=== PATIENT | female | born 1945 | race Caucasian/White ===

== ENCOUNTER 2024-07-04 00:50 | Emergency (ER) | payer MEDICARE, SELFPAY ==
--- NOTE | ~2024-07-04 | XR_ITS ---
XR hip LT 2V w AP pelvis DATE: 07/04/2024 01:41 INDICATION: Fall. Left hip pain, bruising, swelling. TECHNIQUE: AP pelvis. AP and lateral views of the left hip. COMPARISON: None FINDINGS: There is a linear lucency at the lateral aspect of the left femoral greater trochanter; an acute linear nondisplaced fracture of the left greater trochanter and possible occult intertrochanter ic fracture is not excluded. Consider CT left hip for further evaluation. An antegrade nail and compression screw screw extending into the femoral head are noted on the right for fixation of an old intertrochanteric hip fracture. Normal alignment at the pubic symphysis and sacroiliac joints. No pelvic fracture or bone destruction is evident. Degenerative disc disease is noted particularly at L5-S1. There is severe right and mild left hip osteoarthritis. Osteopenia. IMPRESSION: Cannot exclude linear nondisplaced left greater trochanteric (or possible associated occu lt intertrochanteric) fracture; CT left hip examination is recommended (Dr. Quinones telephoned this rec ommendation on 07/04/2024 at [address] ER physician Dr. Mitchell.) Status post ORIF right intertrochanteric hip fracture Bilateral hip osteoarthritis, particularly severe on the right Reviewed, dictated and finalized at location [facility] [employer] IMPRESSION: Cannot exclude linear nondisplaced left greater trochanteric (or po ssible associated occult intertrochanteric) fracture; CT left hip examination i s recommended (Dr. Quinones telephoned this recommendation on 07/04/2024 at 0726 h ours to ER physician Dr. Mitchell.) Status post ORIF right intertrochanteric hip fracture Bilateral hip osteoarthritis, particularly severe on the right
[2024-07-04 00:52] VITALS: BP 120/74; PULSE 92; RESP 15; TEMP 36.6; O2SAT 97
--- NOTE | 2024-07-04 01:21 | ED.FALL ---
HPI - Fall General Chief Complaint: Fall Stated Complaint: HIP PAIN & HEMATOMA S/P FALL Time Seen by Provider: 07/04/24 01:14 Source: patient Mode of arrival: EMS Limitations: no limitations History of Present Illness HPI Narrative: This is a 78-year-old female who presents to the ED via EMS for chief complaint of ground level fall that occurred around 6:00 p.m. tonmariely. Patient reports that she lost her footing/missteped and landed onto her left side. Reports pain to the left posterior hip/buttock. Reports an area of bruising that has grown and family was concerned because she is on a blood thinner. States that she was able to walk with her walker but with pain. Denies numbness, weakness, he further site of injury. Related Data Allergies Allergy/AdvReac Type Severity Reaction Status Date / Time No Known Allergies Allergy Mild Verified 07/04/24 00:57 Review of Systems Review of Systems: All systems as dictated in HPI Exam Narrative: GENERAL: Well-appearing, well-nourished, and in no acute distress. HEAD: Normocephalic, atraumatic. EYES: PERRLA and EOMI. ENT: Nares clear, no rhinorrhea or epistaxis. Mucous membranes moist. Oropharynx without tonsillar hypertrophy exudate or other lesions. NECK: Supple. No adenopathy or masses. CHEST: No respiratory distress. Clear to auscultation. No wheezes rales or rhonchi HEART: Regular rate and rhythm. No murmur heard. Normal peripheral pulses. ABDOMEN: Soft, nontender, nondistended, normal active bowel sounds. MSK: Left lateral hip tenderness. No pain in the hip with log roll of the leg. Normal range of motion. Mild ecchymosis to left lateral posterior hip/thigh SKIN: 4-5 cm soft tissue hematoma noted to the left lateral thigh proximal. NEURO: Alert and oriented x4. No focal deficits. PSYCH: Normal mood and affect. Course Vital Signs Vital signs: Vital Signs Temperature 97.8 F 07/04/24 00:52 Pulse Rate 92 07/04/24 00:52 Respiratory Rate 15 07/04/24 00:52 Blood Pressure 120/74 07/04/24 00:52 Pulse Oximetry 97 07/04/24 00:52 Oxygen Delivery Room Air 07/04/24 00:52 Temperature 97.8 F 07/04/24 00:52 Pulse Rate 92 07/04/24 00:52 Respiratory Rate 15 07/04/24 00:52 Blood Pressure 120/74 07/04/24 00:52 Pulse Oximetry 97 07/04/24 00:52 Oxygen Delivery Room Air 07/04/24 00:52 MDM - Fall MDM Narrative Medical decision making narrative: This is a 78-year-old female who presents to the ED for chief complaint of left hip pain and bruising after a fall 6 hours prior to arrival. Vitals are normal. Exam shows small soft tissue hematoma on the left posterolateral thigh. Left hip x-rays: No acute osseous abnormality seen. Low suspicion for a significant bleed based on physical exam today. Area of ecchymosis/hematoma is 4 - 5 cm and has not grown during time in the ED. She is ambulatory with walker. Patient will be discharged in stable condition. Supportive measures discussed and return precautions given. Patient is understanding and agreeable with plan for discharge with PCP follow-up. Discharge Plan Discharge Clinical Impression: Hematoma of left thigh Patient Disposition: Home, Self-Care Condition: Stable Instructions: Antibiotic Form, Hematoma (ED) Additional Instructions: Exam and imaging today are reassuring. No fractures. There is a soft tissue hematoma which will resorb over time. If you have any new or worsening symptoms please return to the ER for further evaluation. Follow-up/Referrals: Yefri,Rios Garsia MD [Primary Care Provider] - Time of Disposition: 02:27
[2024-07-04 03:41] VITALS: BP 128/74; PULSE 81; RESP 15; O2SAT 98
== END 2024-07-04 03:42 | disposition home or self-care (01) ==
PROVIDERS: Emergency Provider Physician Assistant; PCP Internal Medicine
DX: S70.12XA Contusion of left thigh, initial encounter (principal); W01.0XXA Fall on same level from slipping, tripping and stumbling without subsequent striking against object, initial encounter
CPT/HCPCS: 73502; 99283

== ENCOUNTER 2024-07-04 09:53 | Observation (INO) | payer MEDICARE, SELFPAY ==
--- NOTE | ~2024-07-04 | CT_ITS ---
EXAMINATION: CT pelvis wo con DATE: 07/04/2024 10:10 INDICATION: Left hip pain and hematoma post fall TECHNIQUE: High resolution computed tomography (CT) of the pelvis was performed without intravenous c ontrast. Additional sagittal and coronal reconstructions were performed. Automated exposure control a nd iterative reconstruction technique were employed. The dose-length product was 186.66 mGy-cm. COMPARISON: Radiographs dated 07/04/2024 FINDINGS: Nondisplaced mildly comminuted fracture extending across the greater trochanter of the proximal left femur with no evident extension across the weightbearing axis of the left femur. There is an overlyin g small contusion in the subcutaneous fat posterior lateral to the left greater trochanter. [place] intertrochanteric fracture the proximal right femur with partially visualized antegrade intramedull edmundo johanna and femoral neck dynamic compression screw fixation. There is mild osteoarthritis at the left hip and moderate to severe likely secondary osteoarthritis at the right hip. There is ankylosis acro ss the bilateral sacroiliac joints. Severe lower lumbar spondylosis. 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 The uterus is not identified and h as likely been surgically resected. Bladder and visualized portion of the bowels are unremarkable. No free fluid in the pelvis. No pathologically enlarged pelvic or inguinal lymphadenopathy. IMPRESSION: 1. Nondisplaced mildly comminuted fracture of the left greater trochanter which does not compromise t he weightbearing axis of the femur. 2. Moderate to severe likely secondary osteoarthritis at the right hip with internal fixation of an o ld healed right intertrochanteric fracture which is healed in near-anatomic alignment. Reviewed, dictated and finalized at location A. SHEET MAKER IMPRESSION: 1. Nondisplaced mildly comminuted fracture of the left greater trochanter which does not compromise the weightbearing axis of the femur. 2. Moderate to severe likely secondary osteoarthritis at the right hip with int ernal fixation of an old healed right intertrochanteric fracture which is heale d in near-anatomic alignment.
--- NOTE | ~2024-07-04 | CT_ITS ---
EXAMINATION: CT cervical spine wo con DATE: 07/04/2024 10:51 INDICATION: Fall. Head injury. TECHNIQUE: Computed tomography (CT) of the cervical spine was performed without intravenous contrast. Automated exposure control and iterative reconstruction technique were employed. Exam dose: 176.82 mGy-cm total exam DLP. COMPARISON: None FINDINGS: There is reversal of cervical curvature which may be due to muscle spasm. There is normal alignment at the atlantoaxial joints. There there is severe degenerative change at the articulation of the anterior arch of C1 and odontoid process of C2. C1 and C2 are normally aligned and the odontoid process is intact. There is mild anterolisthesis at C2-3 and C3-4. There is multilevel degenerative disc disease of the cervical spine, mild at C2-3 and C3-4, moderate at C4-5, severe at C5-6 with associated mild retrolisthesis, moderately severe at C6-7. There is severe degenerative change of the facet joints throughout the cervical spine. There is degenerative change at the uncovertebral joints, particularly prominent at C4-5 and C5-6. No fracture or dislocation or locked facet or prevertebral soft tissue swelling. Incidentally noted are prominent emphysematous changes of the lungs in addition to bilateral apical s carring. Approximately 11.8 x 13.5 mm nodule of the right lobe of the thyroid gland. Approximately 8 x 12 mm soft tissue density at the superolateral aspect of the left lobe of the thyro id gland. No cervical mass lesion or lymphadenopathy is noted otherwise.. IMPRESSION: Reversal of cervical curvature which may be due to muscle spasm Severe cervical spondylosis No fracture or dislocation or locked facet Emphysema Bilateral apical pulmonary scarring 8 x 12 mm soft tissue density at the superolateral aspect of the left thyroid lobe 11.8 x 13.5 mm right thyroid nodule Reviewed, dictated and finalized at [facility]. Reviewed, dictated and finalized at location A. CIATE STORE MANAGER IMPRESSION: Reversal of cervical curvature which may be due to muscle spasm Severe cervical spondylosis No fracture or dislocation or locked facet Emphysema Bilateral apical pulmonary scarring 8 x 12 mm soft tissue density at the superolateral aspect of the left thyroid l obe 11.8 x 13.5 mm right thyroid nodule
--- NOTE | ~2024-07-04 | CT_ITS ---
EXAMINATION: CT brain wo con DATE: 07/04/2024 10:51 INDICATION: Fall. Head injury. TECHNIQUE: Computed tomography (CT) of the head was performed without intravenous contrast. The mA wa s adjusted according to patient size. Iterative reconstruction technique was employed. Exam dose: 52 9.67 mGy-cm total exam DLP. COMPARISON: None FINDINGS: Dominant left vertebral artery with prominent arterial calcification. Prominent bilateral carotid siphon internal carotid artery calcification. There is patchy bilateral diminished attenuation of the cerebral white matter, likely due to chronic small vessel ischemic changes. There is moderately prominent central and cortical cerebral and cerebellar volume loss. No intracranial mass lesion or hemorrhage, midline shift or mass effect is detected. No subdural or epidural hematoma is detected. No orbital mass lesion. The included mastoid air cells and paranasal sinuses are normally developed and aerated. No fracture or bone destruction of the cranial vault. IMPRESSION: Cerebral atherosclerosis and chronic small vessel ischemic changes of the cerebral white matter Moderately prominent cerebral and cerebellar atrophy No skull fracture or acute intracranial finding Reviewed, dictated and finalized at [facility]. Reviewed, dictated and finalized at location A. CE MACHINERY OR EQUIPMENT INSTALLER
--- NOTE | 2024-07-04 10:38 | ED_ITS ---
HPI - Extremity Injury (Lower) General Chief Complaint: Extremity Injury, Lower Stated Complaint: was told to come to ED for more Xrays on L hip Time Seen by Provider: 07/04/24 10:18 Source: patient Mode of arrival: wheelchair Limitations: no limitations History of Present Illness HPI Narrative: This is an 78-year-old female that presents to the emergency department after a fall last night with left hip injury. She was seen in the ER. Had x-rays which were negative. Over-read by radiologist showing a possible fracture. She is back for further imaging of her hip. She does also report she hit her head when she fell. She did not lose consciousness. She takes clopidogrel. Denies focal numbness or weakness. Related Data Allergies Allergy/AdvReac Type Severity Reaction Status Date / Time No Known Allergies Allergy Mild Verified 07/04/24 09:54 Review of Systems Review of Systems: CONSTITUTIONAL: Denies fever EYES: Denies visual changes GASTROINTESTINAL: Denies vomiting MUSCULOSKELETAL: Reports joint pain and myalgias. Denies back pain NEUROLOGIC: Denies numbness, or weakness. All systems reviewed & are unremarkable except as noted in HPI and below PMFSH Past Medical History Medical History (Updated 07/04/24 @ 13:40 by Elham Gill PA-C) History of CAD (coronary artery disease) Social History Social History (Updated 07/04/24 @ 10:43 by Elham Gill PA-C) Smoking status: Never smoker Exam Narrative: GENERAL: Elderly, well-nourished, and in no acute distress. HEAD: Normocephalic, atraumatic. EYES: PERRLA and EOMI. ENT: Nares clear, no rhinorrhea or epistaxis. Mucous membranes moist. Oropharynx without tonsillar hypertrophy exudate or other lesions. Bilateral TMs pearly saucedo non-bulging NECK: Supple. No adenopathy or masses. CHEST: Clear to auscultation. No respiratory distress. No wheezes rales or rhonchi HEART: Regular rate and rhythm. No murmur heard. Normal peripheral pulses. EXTREMITIES: Normal range of motion. Hematoma to the left lateral thigh. Normal DP pulses SKIN: Warm, dry, no rash. NEURO: No focal deficits. Alert and oriented x3. PSYCH: Normal mood and affect Course Course Emergency Course: Patient and family were updated on her workup. She does live home alone, uncomfortable with her going home. Consultations Consultation #1: Spoke with care coordination. Due to patient's insurance we will not be able to place her from the ER. Will need to be admitted Date: 07/04/24 Consultation #2: Spoke with Orthopedics about patient and workup. She may be weight-bearing as tolerated. No acute surgical intervention needed at this time Date: 07/04/24 Consultation #3: spoke with hospitalist about patient and workup who accepts admission Date: 07/04/24 Vital Signs Vital signs: Vital Signs Temperature 97 F L 07/04/24 10:57 Pulse Rate 75 07/04/24 10:57 Respiratory Rate 16 07/04/24 10:57 Blood Pressure 146/70 H 07/04/24 10:57 Pulse Oximetry 97 07/04/24 10:57 Temperature 97 F L 07/04/24 10:57 Pulse Rate 78 07/04/24 12:21 Respiratory Rate 16 07/04/24 12:21 Blood Pressure 120/81 07/04/24 12:21 Pulse Oximetry 99 07/04/24 12:21 MDM - Extremity Injury (Lower) MDM Narrative Medical decision making narrative: Patient presents to the emergency department after a fall last night with left hip pain. Patient had an over-read by Radiology which showed a possible fracture. Presents for further evaluation. CT of the pelvis obtained today Which does show a nondisplaced mildly comminuted fracture of the left greater trochanter. This does not compromise the weight-bearing axis of the femur. Moderate to severe right hip osteoarthritis. Patient did endorse hitting her head last night. CT brain without acute findings. CT cervical spine without acute osseous abnormalities. Does show thyroid nodules. Spoke with Orthopedics about patient and workup. She may be weight-bearing as tolerated. No acute surgical intervention needed at this time. Patient and family were updated on her workup. She does live home alone, uncomfortable with her going home. Spoke with care coordination. Due to patient's insurance we will not be able to place her from the ER. Will need to be admitted. Spoke with hospitalist about patient and workup who accepts admission Differential Diagnosis Differential diagnosis: Likely other ( hip fracture, hip sprain, subdural hematoma, concussion) Lab Data Attestation: I reviewed the patient's lab results. 07/04/24 12:00 07/04/24 12:00 Labs: Lab Results 07/04/24 Range/Units 12:00 WBC 5.4 (4.5-10.0) K/mm3 RBC 4.41 (4.2-5.4) M/mm3 Hgb 11.8 L (12.0-15.0) g/dL Hct 36.1 L (37.0-47.0) % MCV 81.9 (80-100) fl MCH 26.8 (26-34) pg MCHC 32.7 (32-36) g/dl RDW 16.2 H (11.5-14.5) % Plt Count 137 L (150-375) k/mm3 MPV 9.7 (7.4-10.4) fl Immature Gran % (Auto) 0.4 (0-0.5) % Neut % (Auto) 74.6 H (45.5-73.1) % Lymph % (Auto) 13.6 L (18.3-44.2) % [place] % (Auto) 8.8 H (2.6-8.5) % Eos % (Auto) 2.2 (0-4.4) % Baso % (Auto) 0.4 (0.2-1.2) % Lymph # (Auto) 0.73 L (0.9-3.2) K/mm3 [place] # (Auto) 0.5 (0.1-0.6) K/mm3 Eos # (Auto) 0.1 (0-0.3) K/mm3 Baso # (Auto) 0.0 (0.0-0.1) K/mm3 Abs Immat Gran (auto) 0.02 (0.00-0.031) K/mm3 Absolute Neuts (auto) 4.0 (1.3-6.7) K/mm3 Absolute Nucleated RBC 0.000 (0.0-0.012) K/mm3 Nucleated RBC % 0.0 (0.0-0.2) % Sodium 133 L (137-145) mmol/L Potassium 3.8 (3.4-5.0) mmol/L Chloride 102 (98-107) mmol/L Carbon Dioxide 23 (22-30) mmol/L Anion Gap 8 (4-12) mmol/L BUN 24 H (7-17) mg/dL Creatinine 0.80 (0.7-1.0) mg/dL Estim Creat Clear Calc 47 ml/min Estimated GFR > 60 (59 - ) Glucose 97 (65-110) mg/dL Calcium 9.1 (8.4-10.2) mg/dL Imaging Data Radiologist's impression: ITS Impressions Pelvis CT 07/04/24 10:13 IMPRESSION: 1. Nondisplaced mildly comminuted fracture of the left greater trochanter which does not compromise the weightbearing axis of the femur. 2. Moderate to severe likely secondary osteoarthritis at the right hip with internal fixation of an old healed right intertrochanteric fracture which is healed in near-anatomic alignment. Head CT 07/04/24 10:52 IMPRESSION: Cerebral atherosclerosis and chronic small vessel ischemic changes of the cerebral white matter Moderately prominent cerebral and cerebellar atrophy No skull fracture or acute intracranial finding Cervical Spine CT 07/04/24 10:58 IMPRESSION: Reversal of cervical curvature which may be due to muscle spasm Severe cervical spondylosis No fracture or dislocation or locked facet Emphysema Bilateral apical pulmonary scarring 8 x 12 mm soft tissue density at the superolateral aspect of the left thyroid lobe 11.8 x 13.5 mm right thyroid nodule Critical Care Time Critical Care Time Critical Care Time: No Discharge Plan Discharge Clinical Impression: Closed fracture of greater trochanter of left femur, Thyroid nodule Patient Disposition: Still a Patient Condition: Stable
[2024-07-04 10:57] VITALS: BP 146/70; PULSE 75; RESP 16; TEMP 36.1; O2SAT 97
[2024-07-04 12:11] LABS: Basophils Percent Auto 0.4 % (0.2-1.2); Eosinophils Absolute Auto 0.1 K/mm3 (0-0.3); Eosinophils Percent Auto 2.2 % (0-4.4); Hematocrit 36.1 % (37.0-47.0); Hemoglobin 11.8 g/dL (12.0-15.0); Immature Granulocyte Absolute 0.02 K/mm3 (0.00-0.031); Immature Granulocyte Percent A 0.4 % (0-0.5); Lymphocytes Absolute Auto 0.73 K/mm3 (0.9-3.2); Lymphocytes Percent Auto 13.6 % (18.3-44.2); Mean Corpuscular HGB Conc 32.7 g/dl (32-36); Mean Corpuscular Hemoglobin 26.8 pg (26-34); Mean Corpuscular Volume 81.9 fl (80-100); Mean Platelet Volume 9.7 fl (7.4-10.4); Monocytes Absolute Auto 0.5 K/mm3 (0.1-0.6); Monocytes Percent Auto 8.8 % (2.6-8.5); Neutrophils Percent Auto 74.6 % (45.5-73.1); Platelet Count Result 137 k/mm3 (150-375); Red Blood Count 4.41 M/mm3 (4.2-5.4); Red Cell Distribution Width 16.2 % (11.5-14.5); White Blood Count 5.4 K/mm3 (4.5-10.0)
[2024-07-04 12:21] VITALS: BP 120/81; PULSE 78; RESP 16; O2SAT 99
[2024-07-04 12:21] LABS: Anion Gap 8 mmol/L (4-12); Blood Urea Nitrogen 24 mg/dL (7-17); Calcium 9.1 mg/dL (8.4-10.2); Carbon Dioxide 23 mmol/L (22-30); Chloride 102 mmol/L (98-107); Estimated CRCL calculation 47 ml/min; Estimated Glomerular Filt Rate > 60; Glucose 97 mg/dL (65-110); Potassium 3.8 mmol/L (3.4-5.0); Sodium 133 mmol/L (137-145)
--- NOTE | 2024-07-04 13:00 | PC.NURSE ---
Report called to FERNANDO Heard. All questions answered at this time.
--- NOTE | 2024-07-04 13:15 | P.HP_ITS ---
H&P: HPI History of Present Illness Date/Time: 07/04/24 13:15 Chief Complaint: Fall and left hip pain Narrative: This is an 78-year-old female that presents to the emergency department after a fall last night with left hip injury her she lost her footing and landed on her left side. She reported an area of bruising in the area. Family was concerned because she was on a blood thinner and hence was brought to the ED for evaluation. She had x-ray done which is reported to be negative. Over-read by radiologist showing a possible fracture. She was discharged however came back to the ED due to pain. CT of her hip/pelvis showed nondisplaced mildly comminuted fracture of left greater trochanteric which does not compromise the weight-bearing axis of the femur. Severe likely secondary osteoarthritis of the right hip with internal fixation of the old healed right into fracture which is healed in near anatomic alignment. She is admitted in this setting for further treatment. Review of Systems Review of Systems: - CONSTITUTIONAL: Denies weight loss, fe julius and chills. - HEENT: Denies changes in vision and he aring - RESPIRATORY: Denies SOB and cough. - CV: Denies palpitations and CP. - GI: Denies abdominal pain, nausea, vom iting and diarrhea. - : Denies dysuria and urinary frequen cy. - MSK: Denies myalgia and joint pain. R eports left hip pain - SKIN: Denies rash and pruritus. - NEUROLOGICAL: Denies headache and sync ope. - PSYCHIATRIC: Denies recent changes in mood. Denies anxiety and depression. COUNT INCLUDES THE [facility] Past Medical History Medical History (Updated 07/04/24 @ 13:40 by Elham Gill PA-C) History of CAD (coronary artery disease) Family History Family History Sibling Hypertension Bladder cancer Social History Social History (Updated 07/04/24 @ 10:43 by Elham Gill PA-C) Years smoked: 20 Smoking status: Former smoker Tobacco type: cigarettes Second hand tobacco smoke exposure: Yes Smoking end date: 07/04/24 Alcohol intake: former Substance use: former Substance use type: marijuana Last use: 2019 Do You Feel Safe in your Home?: Yes Lack of Transportation: No Lack of Food: Never True Current Housing: I Have Housing Concerned About Future Housing: No Difficulty Paying Gas/Electric Bills: No Difficulty Paying for Meds: No Currently Unemployed: No Education: Decline to Answer Difficulty w/ Childcare or Family Care: No Spiritual care concerns: No Meds Home Medications and Allergies Allergies Allergy/AdvReac Type Severity Reaction Status Date / Time No Known Allergies Allergy Mild Verified 07/04/24 09:54 Vital Signs Vital Signs - 24 hr 07/04/24 10:57 07/04/24 12:21 Temperature 97 F L Pulse Rate 75 78 Respiratory Rate 16 16 Blood Pressure 146/70 H 120/81 Pulse Oximetry 97 99 Exam Narrative: GENERAL: Elderly, well-nourished, and in no acute distress. HEAD: Normocephalic, atraumatic. EYES: PERRLA and EOMI. ENT: Nares clear, no rhinorrhea or epistaxis. Mucous membranes moist. NECK: Supple. No adenopathy or masses. CHEST: Clear to auscultation. No respiratory distress. No wheezes rales or rhonchi HEART: Regular rate and rhythm. No murmur heard. Normal peripheral pulses. EXTREMITIES: Normal range of motion. Hematoma to the left lateral hip. Normal DP pulses SKIN: Warm, dry, no rash. NEURO: No focal deficits. Alert and oriented x3. PSYCH: Normal mood and affect H&P: Results Labs Labs: Short CBC 07/04/24 Range/Units 12:00 WBC 5.4 (4.5-10.0) K/mm3 Hgb 11.8 L (12.0-15.0) g/dL Hct 36.1 L (37.0-47.0) % Plt Count 137 L (150-375) k/mm3 [facility] 07/04/24 12:00 Sodium 133 L Potassium 3.8 Chloride 102 Carbon Dioxide 23 BUN 24 H Creatinine 0.80 Glucose 97 Calcium 9.1 Assessment and Plan Assessment and plan (1) Hematoma of left thigh: Code(s): S70.12XA - Contusion of left thigh, initial encounter Status: Acute (2) Fracture of greater trochanter of femur: Code(s): S72.113A - Displaced fracture of greater trochanter of unspecified femur, initial encounter for closed fracture Status: Acute (3) Fall: Code(s): W19.XXXA - Unspecified fall, initial encounter Status: Acute Plan This is an 78-year-old female that presents to the emergency department after a fall last night with left hip injury her she lost her footing and landed on her left side. She reported an area of bruising in the area. Family was concerned because she was on a blood thinner and hence was brought to the ED for evaluation. She had x-ray done which is reported to be negative. Over-read by radiologist showing a possible fracture. She was discharged however came back to the ED due to pain. CT of her hip/pelvis showed nondisplaced mildly comminuted fracture of left greater trochanteric which does not compromise the weight-bearing axis of the femur. Severe likely secondary osteoarthritis of the right hip with internal fixation of the old healed right into fracture which is healed in near anatomic alignment. She is admitted in this setting for further treatment. Orthopedics has been consulted. Non operative management planned. PT OT evaluation and pain control. Weight-bearing as tolerated Coronary artery disease status post PCI last in June 06, 2024 status post CABG x2 2019 History of autoimmune hepatitis Diverticulosis Hypertension Peripheral arterial disease Status post mitral valve Sjogren syndrome COPD/emphysema Lung nodules Valvular heart disease Obstructive sleep apnea DVT prophylaxis Lovenox Code status full code Hospitalist [facility] [place] Advance Care Plan I have confirmed that the patient's Advanced Care Plan is present, code status is documented, or surrogate decision maker is listed in patient medical record.: Yes Medication Reconciliation I have utilized all available resources to obtain, update and review the patients current medications (includes all prescriptions, OTC, herbals, cannabis, and nutritional supplements).: Yes
[2024-07-04 13:25] VITALS: BMI 21.2
--- NOTE | 2024-07-04 13:25 | PC.NURSE ---
This patient, Zoraida Tobias, was admitted to 3 [facility] Surg Room 321-01. Patient/family oriented to hospital policies and general routines including ID bracelet, bed and alarms, visiting hours, pain management, procedures, bathroom and other care routines, personal items, smoking policy, room service/diet, and visiting hours. Information on how to activate the Rapid Response Team has been discussed. Patient/Family are encouraged to report perceived risks to care and to ask questions if they do not understand what they are told or what they should do.
[2024-07-04 14:00] VITALS: BP 131/77; PULSE 86; RESP 20; TEMP 37; O2SAT 101
[2024-07-04 16:11] LABS: Glucose Point of Care 73 mg/dl (65-105)
[2024-07-04 17:00] LABS: Glucose Point of Care 143 mg/dl (65-105)
[2024-07-04 20:30] VITALS: BP 140/77; PULSE 85; RESP 20; TEMP 36.9; O2SAT 95
[2024-07-04 20:39] LABS: Glucose Point of Care 117 mg/dl (65-105)
[2024-07-04 21:30] VITALS: PULSE 84; O2SAT 96
--- NOTE | 2024-07-04 21:35 | PC.NURSE ---
Per patient, she takes her lorazepam at night. Pharmacy notified. Administration time adjusted.
[2024-07-05] MEDS: LORazepam (*CRX) 0.5 MG TABLET PO ×2 (00:55→21:18)
[2024-07-05 05:28] VITALS: BP 137/71; PULSE 86; RESP 18; TEMP 36.9; O2SAT 96
[2024-07-05 07:38] LABS: Glucose Point of Care 106 mg/dl (65-105)
[2024-07-05] MEDS: CALCIUM/VITAMIN D 500 MG/5 MCG (200 I.U.) TABLET PO (09:12)
[2024-07-05] MEDS: ASPIRIN 81 MG CHEWABLE TABLET PO (09:12)
[2024-07-05] MEDS: PANTOPRAZOLE 40 MG TABLET PO (09:12)
[2024-07-05] MEDS: ROSUVASTATIN 20 MG TABLET PO (09:12)
[2024-07-05] MEDS: CLOPIDOGREL BISULFATE 75 MG TABLET PO (09:12)
--- NOTE | 2024-07-05 11:00 | P.PNIM_ITS ---
Progress Note: A&P Assessment and Plan (1) Hematoma of left thigh: Code(s): S70.12XA - Contusion of left thigh, initial encounter Status: Inactive (2) Fracture of greater trochanter of femur: Code(s): S72.113A - Displaced fracture of greater trochanter of unspecified femur, initial encounter for closed fracture Status: Acute (3) Fall: Code(s): W19.XXXA - Unspecified fall, initial encounter Status: Acute Plan This is an 78-year-old female that presents to the emergency department after a fall last night with left hip injury her she lost her footing and landed on her left side. She reported an area of bruising in the area. Family was concerned because she was on a blood thinner and hence was brought to the ED for evaluation. She had x-ray done which is reported to be negative. Over-read by radiologist showing a possible fracture. She was discharged however came back to the ED due to pain. CT of her hip/pelvis showed nondisplaced mildly comminuted fracture of left greater trochanteric which does not compromise the weight-bearing axis of the femur. Severe likely secondary osteoarthritis of the right hip with internal fixation of the old healed right into fracture which is healed in near anatomic alignment. She is admitted in this setting for further treatment. Orthopedics has been consulted. Non operative management planned. PT OT evaluation and pain control. Weight-bearing as tolerated Coronary artery disease status post PCI last in June 06, 2024 status post CABG x2 2019 History of autoimmune hepatitis Diverticulosis Hypertension Peripheral arterial disease Status post mitral valve Sjogren syndrome COPD/emphysema Lung nodules Valvular heart disease Obstructive sleep apnea DVT prophylaxis Lovenox Code status full code Subjective Date/time seen: 07/05/24 11:00 Interval history: No overnight events. No new complaints. Has not ambulated yet. Has not required any pain medication. Review of Systems Review of Systems: All systems reviewed & are unremarkable except as noted in HPI and below Exam Narrative: GENERAL: Elderly, well-nourished, and in no acute distress. HEAD: Normocephalic, atraumatic. EYES: PERRLA and EOMI. ENT: Nares clear, no rhinorrhea or epistaxis. Mucous membranes moist. NECK: Supple. No adenopathy or masses. CHEST: Clear to auscultation. No respiratory distress. No wheezes rales or rhonchi HEART: Regular rate and rhythm. No murmur heard. Normal peripheral pulses. EXTREMITIES: Normal range of motion. Hematoma to the left lateral hip. Normal DP pulses SKIN: Warm, dry, no rash. NEURO: No focal deficits. Alert and oriented x3. PSYCH: Normal mood and affect Objective Data Vital Signs Vital Signs: Vital Signs - 24 hr 07/04/24 12:21 07/04/24 14:00 07/04/24 14:00 Temperature 98.6 F Pulse Rate 78 86 Respiratory Rate 16 20 Blood Pressure 120/81 131/77 Pulse Oximetry 99 101 H Oxygen Delivery Room Air 07/04/24 20:00 07/04/24 20:30 07/04/24 21:30 Temperature 98.4 F Pulse Rate 85 84 Respiratory Rate 20 Blood Pressure 140/77 Pulse Oximetry 95 96 Oxygen Delivery Room Air Autopap 07/05/24 01:58 07/05/24 05:28 Temperature 98.4 F Pulse Rate 86 Respiratory Rate 18 Blood Pressure 137/71 Pulse Oximetry 96 Oxygen Delivery Autopap Intake/Output Intake/Output: Intake & Output 07/02/24 07/03/24 07/04/24 07/05/24 23:59 23:59 23:59 23:59 Intake Total 740 598 Output Total 1250 Balance -510 598 Meds/Results Medications: Active Medications Generic Name Dose Route Start Last Admin Trade Name Freq PRN Reason Stop Dose Admin Acetaminophen 650 mg 07/04/24 17:10 Acetaminophen 325 Mg Tablet PO Q8H PRN MILD PAIN/FEVER Hydrocodone Bitart/Acetaminophen 1 tab 07/04/24 12:06 Hydrocodone/Acetaminophen (*Crx) 5-325 Mg Tablet PO Q4H PRN Pain Rated 4-6 Albuterol 2 puff 07/04/24 17:06 Albuterol Sulfate (*Sp) Aerosol 1 Puff INHALATION Q6HRT PRN Shortness Of Breath Aspirin 81 mg 07/05/24 09:00 07/05/24 09:12 Aspirin 81 Mg Chewable Tablet PO 81 mg DAILY BRETT Administration Calcium Carbonate 500 mg 07/05/24 09:00 07/05/24 09:12 Calcium/Vitamin D 500 Mg/5 Mcg (200 I.U.) Tablet PO 500 mg DAILY BRETT Administration Clopidogrel Bisulfate 75 mg 07/05/24 09:00 07/05/24 09:12 Clopidogrel Bisulfate 75 Mg Tablet PO 75 mg QAM BRETT Administration Lorazepam 0.5 mg 07/04/24 22:00 07/05/24 00:55 Lorazepam (*Crx) 0.5 Mg Tablet PO 0.5 mg HS BRETT Administration Pantoprazole Sodium 40 mg 07/05/24 09:00 07/05/24 09:12 Pantoprazole 40 Mg Tablet PO 40 mg QAM BRETT Administration Rosuvastatin Calcium 20 mg 07/05/24 09:00 07/05/24 09:12 Rosuvastatin 20 Mg Tablet PO 20 mg QAM BRETT Administration Radiology Results: ITS Impressions Pelvis CT 07/04/24 10:13 IMPRESSION: 1. Nondisplaced mildly comminuted fracture of the left greater trochanter which does not compromise the weightbearing axis of the femur. 2. Moderate to severe likely secondary osteoarthritis at the right hip with internal fixation of an old healed right intertrochanteric fracture which is healed in near-anatomic alignment. Head CT 07/04/24 10:52 IMPRESSION: Cerebral atherosclerosis and chronic small vessel ischemic changes of the cerebral white matter Moderately prominent cerebral and cerebellar atrophy No skull fracture or acute intracranial finding Cervical Spine CT 07/04/24 10:58 IMPRESSION: Reversal of cervical curvature which may be due to muscle spasm Severe cervical spondylosis No fracture or dislocation or locked facet Emphysema Bilateral apical pulmonary scarring 8 x 12 mm soft tissue density at the superolateral aspect of the left thyroid lobe 11.8 x 13.5 mm right thyroid nodule Labs Labs: Laboratory Results - last 24 hr 07/04/24 07/04/24 07/04/24 12:00 16:05 16:57 WBC 5.4 RBC 4.41 Hgb 11.8 L Hct 36.1 L MCV 81.9 MCH 26.8 MCHC 32.7 RDW 16.2 H Plt Count 137 L MPV 9.7 Immature Gran % (Auto) 0.4 Neut % (Auto) 74.6 H Lymph % (Auto) 13.6 L Bartholomew % (Auto) 8.8 H Eos % (Auto) 2.2 Baso % (Auto) 0.4 Lymph # (Auto) 0.73 L Bartholomew # (Auto) 0.5 Eos # (Auto) 0.1 Baso # (Auto) 0.0 Abs Immat Gran (auto) 0.02 Absolute Neuts (auto) 4.0 Absolute Nucleated RBC 0.000 Nucleated RBC % 0.0 Sodium 133 L Potassium 3.8 Chloride 102 Carbon Dioxide 23 Anion Gap 8 BUN 24 H Creatinine 0.80 Estim Creat Clear Calc 47 Estimated GFR > 60 Glucose 97 POC Capillary Glucose 73 143 H Calcium 9.1 07/04/24 07/05/24 20:34 07:22 WBC RBC Hgb Hct MCV MCH MCHC RDW Plt Count MPV Immature Gran % (Auto) Neut % (Auto) Lymph % (Auto) Bartholomew % (Auto) Eos % (Auto) Baso % (Auto) Lymph # (Auto) Bartholomew # (Auto) Eos # (Auto) Baso # (Auto) Abs Immat Gran (auto) Absolute Neuts (auto) Absolute Nucleated RBC Nucleated RBC % Sodium Potassium Chloride Carbon Dioxide Anion Gap BUN Creatinine Estim Creat Clear Calc Estimated GFR Glucose POC Capillary Glucose 117 H 106 H Calcium
[2024-07-05 11:35] LABS: Glucose Point of Care 108 mg/dl (65-105)
[2024-07-05] MEDS: ACETAMINOPHEN 325 MG TABLET 650 MG PO ×2 (13:49→21:22)
[2024-07-05 14:00] VITALS: BP 121/70; PULSE 82; RESP 18; TEMP 36.4; O2SAT 95
[2024-07-05 16:44] LABS: Glucose Point of Care 80 mg/dl (65-105)
[2024-07-05 22:00] VITALS: BP 134/59; PULSE 75; RESP 16; TEMP 35.9; O2SAT 97
[2024-07-05 22:50] LABS: Glucose Point of Care 86 mg/dl (65-105)
[2024-07-05 23:18] VITALS: PULSE 80; O2SAT 97
[2024-07-06 06:00] VITALS: BP 124/52; PULSE 71; RESP 14; TEMP 36.3; O2SAT 98
[2024-07-06 08:12] LABS: Glucose Point of Care 81 mg/dl (65-105)
[2024-07-06 09:20] VITALS: PULSE 75; RESP 18
[2024-07-06] MEDS: ALBUTEROL SULFATE (*SP) AEROSOL 1 PUFF 2 PUFF INHALATION (09:20)
[2024-07-06] MEDS: CALCIUM/VITAMIN D 500 MG/5 MCG (200 I.U.) TABLET PO (09:21)
[2024-07-06] MEDS: ASPIRIN 81 MG CHEWABLE TABLET PO (09:21)
[2024-07-06] MEDS: ROSUVASTATIN 20 MG TABLET PO (09:22)
[2024-07-06] MEDS: PANTOPRAZOLE 40 MG TABLET PO ×2 (09:22→12:32)
[2024-07-06] MEDS: CLOPIDOGREL BISULFATE 75 MG TABLET PO (09:22)
[2024-07-06] MEDS: ACETAMINOPHEN 325 MG TABLET 650 MG PO (09:22)
[2024-07-06 11:40] LABS: Glucose Point of Care 96 mg/dl (65-105)
--- NOTE | 2024-07-06 12:08 | PM.IMPN ---
Progress Note: A&P Assessment and Plan (1) Hematoma of left thigh: Code(s): S70.12XA - Contusion of left thigh, initial encounter Status: Inactive (2) Fracture of greater trochanter of femur: Code(s): S72.113A - Displaced fracture of greater trochanter of unspecified femur, initial encounter for closed fracture Status: Acute (3) Fall: Code(s): W19.XXXA - Unspecified fall, initial encounter Status: Acute Plan This is an 78-year-old female that presents to the emergency department after a fall last night with left hip injury her she lost her footing and landed on her left side. She reported an area of bruising in the area. Family was concerned because she was on a blood thinner and hence was brought to the ED for evaluation. She had x-ray done which is reported to be negative. Over-read by radiologist showing a possible fracture. She was discharged however came back to the ED due to pain. CT of her hip/pelvis showed nondisplaced mildly comminuted fracture of left greater trochanteric which does not compromise the weight-bearing axis of the femur. Severe likely secondary osteoarthritis of the right hip with internal fixation of the old healed right into fracture which is healed in near anatomic alignment. She is admitted in this setting for further treatment. Orthopedics has been consulted. Non operative management planned. PT OT evaluation and pain control. Weight-bearing as tolerated plan for rehab placement Coronary artery disease status post PCI last in June 06, 2024 status post CABG x2 2020 History of autoimmune hepatitis Diverticulosis Hypertension Peripheral arterial disease Status post mitral valve Sjogren syndrome COPD/emphysema Lung nodules Valvular heart disease Obstructive sleep apnea DVT prophylaxis Lovenox Code status full code Subjective Date/time seen: 07/06/24 12:08 Interval history: No overnight events. Worked with therapy. Plan for rehabilitation. Review of Systems Review of Systems: All systems reviewed & are unremarkable except as noted in HPI and below Exam Narrative: GENERAL: Elderly, well-nourished, and in no acute distress. HEAD: Normocephalic, atraumatic. EYES: PERRLA and EOMI. ENT: Nares clear, no rhinorrhea or epistaxis. Mucous membranes moist. NECK: Supple. No adenopathy or masses. CHEST: Clear to auscultation. No respiratory distress. No wheezes rales or rhonchi HEART: Regular rate and rhythm. No murmur heard. Normal peripheral pulses. EXTREMITIES: Normal range of motion. Hematoma to the left lateral hip. Normal DP pulses SKIN: Warm, dry, no rash. NEURO: No focal deficits. Alert and oriented x3. PSYCH: Normal mood and affect Objective Data Vital Signs Vital Signs: Vital Signs - 24 hr 07/05/24 14:00 07/05/24 13:18 07/05/24 22:00 Temperature 97.5 F L 96.7 F L Pulse Rate 82 75 Respiratory Rate 18 16 Blood Pressure 121/70 134/59 L Pulse Oximetry 95 97 Oxygen Delivery Room Air 07/05/24 21:18 07/05/24 23:18 07/06/24 06:00 Temperature 97.4 F L Pulse Rate 80 71 Respiratory Rate 14 Blood Pressure 124/52 L Pulse Oximetry 97 98 Oxygen Delivery Room Air Autopap 07/06/24 08:23 07/06/24 09:20 Temperature Pulse Rate 75 Respiratory Rate 18 Blood Pressure Pulse Oximetry Oxygen Delivery Room Air Intake/Output Intake/Output: Intake & Output 07/03/24 07/04/24 07/05/24 07/06/24 23:59 23:59 23:59 23:59 Intake Total 740 2108 120 Output Total 1250 700 400 Balance -510 1408 -280 Meds/Results Medications: Active Medications Generic Name Dose Route Start Last Admin Trade Name Freq PRN Reason Stop Dose Admin Acetaminophen 650 mg 07/04/24 17:10 07/06/24 09:22 Acetaminophen 325 Mg Tablet PO 650 mg Q8H PRN Administration MILD PAIN/FEVER Hydrocodone Bitart/Acetaminophen 1 tab 07/04/24 12:06 Hydrocodone/Acetaminophen (*Crx) 5-325 Mg Tablet PO Q4H PRN Pain Rated 4-6 Albuterol 2 puff 07/04/24 17:06 07/06/24 09:20 Albuterol Sulfate (*Sp) Aerosol 1 Puff INHALATION 2 puff Q6HRT PRN Administration Shortness Of Breath Aspirin 81 mg 07/05/24 09:00 07/06/24 09:21 Aspirin 81 Mg Chewable Tablet PO 81 mg DAILY BRETT Administration Calcium Carbonate 500 mg 07/05/24 09:00 07/06/24 09:21 Calcium/Vitamin D 500 Mg/5 Mcg (200 I.U.) Tablet PO 500 mg DAILY BRETT Administration Clopidogrel Bisulfate 75 mg 07/05/24 09:00 07/06/24 09:22 Clopidogrel Bisulfate 75 Mg Tablet PO 75 mg QAM BRETT Administration Lorazepam 0.5 mg 07/04/24 22:00 07/05/24 21:18 Lorazepam (*Crx) 0.5 Mg Tablet PO 0.5 mg HS BRETT Administration Pantoprazole Sodium 40 mg 07/05/24 09:00 07/06/24 09:22 Pantoprazole 40 Mg Tablet PO 40 mg QAM BRETT Administration Rosuvastatin Calcium 20 mg 07/05/24 09:00 07/06/24 09:22 Rosuvastatin 20 Mg Tablet PO 20 mg QAM BRETT Administration Radiology Results: ITS Impressions Pelvis CT 07/04/24 10:13 IMPRESSION: 1. Nondisplaced mildly comminuted fracture of the left greater trochanter which does not compromise the weightbearing axis of the femur. 2. Moderate to severe likely secondary osteoarthritis at the right hip with internal fixation of an old healed right intertrochanteric fracture which is healed in near-anatomic alignment. Head CT 07/04/24 10:52 IMPRESSION: Cerebral atherosclerosis and chronic small vessel ischemic changes of the cerebral white matter Moderately prominent cerebral and cerebellar atrophy No skull fracture or acute intracranial finding Cervical Spine CT 07/04/24 10:58 IMPRESSION: Reversal of cervical curvature which may be due to muscle spasm Severe cervical spondylosis No fracture or dislocation or locked facet Emphysema Bilateral apical pulmonary scarring 8 x 12 mm soft tissue density at the superolateral aspect of the left thyroid lobe 11.8 x 13.5 mm right thyroid nodule Labs Labs: Laboratory Results - last 24 hr 07/05/24 07/05/24 07/06/24 16:28 21:29 08:06 POC Capillary Glucose 80 86 81 07/06/24 11:34 POC Capillary Glucose 96
[2024-07-06 14:00] VITALS: BP 109/68; PULSE 78; RESP 16; TEMP 36.6; O2SAT 99
[2024-07-06 16:05] LABS: Glucose Point of Care 103 mg/dl (65-105)
[2024-07-06 21:31] LABS: Glucose Point of Care 104 mg/dl (65-105)
[2024-07-06 21:45] VITALS: BP 120/60; PULSE 72; RESP 18; TEMP 36.7; O2SAT 100
[2024-07-06 21:54] VITALS: O2SAT 100
[2024-07-06] MEDS: LORazepam (*CRX) 0.5 MG TABLET PO (21:54)
[2024-07-06] MEDS: CITALOPRAM HYDROBROMIDE 20 MG TABLET PO (21:54)
[2024-07-06] MEDS: WATER FOR IRRIGATION, STERILE 1,000 ML BOTTLE 1000 ML (22:26)
[2024-07-07 05:54] VITALS: BP 129/66; PULSE 70; RESP 16; TEMP 36.4; O2SAT 96
[2024-07-07 07:57] LABS: Glucose Point of Care 85 mg/dl (65-105)
[2024-07-07 08:00] VITALS: O2SAT 96
[2024-07-07] MEDS: EMPAGLIFLOZIN 10 MG TABLET PO (08:32)
[2024-07-07] MEDS: ASPIRIN 81 MG CHEWABLE TABLET PO (08:32)
[2024-07-07] MEDS: CALCIUM/VITAMIN D 500 MG/5 MCG (200 I.U.) TABLET PO (08:32)
[2024-07-07] MEDS: PANTOPRAZOLE 40 MG TABLET PO (08:32)
[2024-07-07] MEDS: CLOPIDOGREL BISULFATE 75 MG TABLET PO (08:32)
[2024-07-07] MEDS: ROSUVASTATIN 20 MG TABLET PO (08:33)
[2024-07-07] MEDS: ACETAMINOPHEN 325 MG TABLET 650 MG PO (08:38)
--- NOTE | 2024-07-07 09:04 | PM.CNOR ---
Assessment and Plan Assessment and plan (1) Closed fracture of greater trochanter of left femur: Qualifiers: Encounter type: subsequent encounter Fracture alignment: nondisplaced Fracture healing: with routine healing Qualified Code(s): S72.115D - Nondisplaced fracture of greater trochanter of left femur, subsequent encounter for closed fracture with routine healing Code(s): S72.112A - Displaced fracture of greater trochanter of left femur, initial encounter for closed fracture Status: Acute Assessment and Plan: History, exam, radiographs and CT scan reviewed with the patient. CT scan of the left hip reveals a nondisplaced mildly comminuted fracture of the left greater trochanter. Patient also has moderate to severe arthritis of the right hip with previous internal fixation of a right IT fracture. On exam, patient has marked ecchymosis on the lateral aspect of the left hip. It is tender to palpation. She is ambulating very well with physical therapy. She is requiring use of a walker. She feels very concerned about the risk of weakness and recurrent falls. The fracture type and injury as well as radiographs discussed with the patient. Operative and nonoperative treatment options reviewed. Patient is indicated non operative treatment. Risk of nonunion, malunion or late displacement discussed. Stiffness, pain and possible dysfunction of the joint discussed. Fracture precautions and activity restrictions reviewed. The patient verbalizes understanding. Pain control. Weightbearing as tolerated. Walker for fall risk. Patient may follow-up in 6 weeks for repeat radiographs in the outpatient orthopedic clinic. Patient may require acute rehab versus retirement at discharge pending ability to mobilize. PT OT on board for evaluation and recommendations. Plan Reviewed history, exam, radiographs and current labs with attending MD and covering surgeon, Dr. Garcia, who agrees with current plan as indicated above. No further recommendations from Dr. Garcia at this time. History of Present Illness HPI Consult date: 07/07/24 Chief complaint: Left Greater Trochanter Fracture Narrative: 78-year-old female presented to the emergency room initially on July 04 with complaints of left lateral-sided hip pain and hematoma after a fall. She was initially discharged after radiographs revealed a possible fracture of the greater trochanter and then she returned to the emergency room with intractable pain. A CT scan of the left hip was obtained upon return which revealed a nondisplaced mildly comminuted fracture of the left greater trochanter which does not compromise the weight-bearing axis of the femur. Patient was admitted for further evaluation, orthopedic consult and possible placement. Review of Systems Review of Systems: All systems reviewed & are unremarkable except as noted in HPI and below PMFSH Past Medical History Medical History History of CAD (coronary artery disease) Family History Family History Sibling Hypertension Bladder cancer Social History Social History Years smoked: 20 Smoking status: Former smoker Tobacco type: cigarettes Second hand tobacco smoke exposure: Yes Smoking end date: 07/04/24 Alcohol intake: former Substance use: former Substance use type: marijuana Last use: 2020 Do You Feel Safe in your Home?: Yes Lack of Transportation: No Lack of Food: Never True Current Housing: I Have Housing Concerned About Future Housing: No Difficulty Paying Gas/Electric Bills: No Difficulty Paying for Meds: No Currently Unemployed: No Education: Decline to Answer Difficulty w/ Childcare or Family Care: No Spiritual care concerns: No Meds Home Medications and Allergies Home Medications Medication Instructions Recorded Confirmed Type Acetaminophen Extra Strength 650 mg PO PRN 07/04/24 07/04/24 History Calcium+D 600 mg PO DAILY 07/04/24 07/04/24 History albuterol 90 mcg/actuation aerosol 90 mcg inhalation PRN PRN Wheezing 07/04/24 07/05/24 History inhaler alendronate 70 mg tablet 70 mg PO WEEKLY 07/04/24 07/05/24 History aspirin 81 mg tablet 81 mg PO DAILY 07/04/24 07/04/24 History citalopram 20 mg tablet 20 mg PO HS 07/04/24 07/05/24 History clopidogrel 75 mg tablet 75 mg PO DAILY 07/04/24 07/05/24 History empagliflozin 10 mg tablet 10 mg PO DAILY 07/04/24 07/05/24 History (Jardiance) lorazepam 0.5 mg tablet 0.5 mg PO DAILY anxiety 07/04/24 07/05/24 History nitroglycerin 0.4 mg sublingual 0.4 mg sublingual Q5M PRN Chest 07/04/24 07/05/24 History tablet Pain omeprazole 20 mg capsule,delayed 20 mg PO DAILY 07/04/24 07/05/24 History release polyvinyl alcohol 1.4 % eye drops 1 drp EACH EYE DAILY PRN Dry Eyes 07/04/24 07/05/24 History rosuvastatin 20 mg tablet 20 mg PO DAILY 07/04/24 07/05/24 History umeclidinium 62.5 mcg-vilanterol 1 inh inhalation DAILY 07/04/24 07/05/24 History 25 mcg/actuation powdr for inhalation (Anoro Ellipta) Allergies Allergy/AdvReac Type Severity Reaction Status Date / Time No Known Allergies Allergy Mild Verified 07/04/24 09:54 Vital Signs Vital Signs - 24 hr 07/06/24 09:20 07/06/24 14:00 07/06/24 21:45 Temperature 36.6 C 36.7 C Pulse Rate 75 78 72 Respiratory Rate 18 16 18 Blood Pressure 109/68 120/60 Pulse Oximetry 99 100 Oxygen Delivery Oxygen Flow Rate 07/06/24 22:29 07/06/24 21:54 07/07/24 05:54 Temperature 36.4 C Pulse Rate 70 Respiratory Rate 16 Blood Pressure 129/66 Pulse Oximetry 100 96 Oxygen Delivery Autopap Autopap Oxygen Flow Rate 21 Exam Const: General: comfortable and no acute distress HENMT: Mouth: Yes moist mucous membranes Eyes: General: appearance normal, both eyes and all related structures Neck: Neck: supple and no JVD Resp: Effort & Inspection: normal respiratory effort Cardio: Rate: regular rate Rhythm: regular rhythm GI: Inspection: non-distended GI Palp: Yes Soft to palpation and No Tenderness to palpation present (GI) Neuro: General: gait normal Cognition (Neuro): normal cognition Speech: normal speech Extrem: Left lower extremity: hip/thigh Details: tenderness Location: of the hip Location: laterally, normal ROM and ecchymosis (lateral hip ); no deformity and no unusual warmth, knee Details: normal to inspection, lower leg Details: normal to inspection, ankle Details: normal to inspection and no edema; no tenderness and no swelling and foot Details: normal capillary refill, toes with normal ROM and vascular exam Details: dorsalis pedis pulse present Psych: Mental Status: mental status grossly normal Affect: normal affect Results Labs 07/04/24 12:00 07/04/24 12:00 Labs: H & H 07/04/24 Range/Units 12:00 Hgb 11.8 L (12.0-15.0) g/dL Hct 36.1 L (37.0-47.0) % All other labs normal. Fracture/Casting/Strapping Pre Procedure Consent was obtained, Procedures/risks were explained, Questions were answered, Correct patient identified and Correct side and site confirmed Episode of Care New episode Location: Left hip Fracture Care Pelvis/hip/femur Pelvis, Hip, Femur: CLOSED TX GREATER TROCHANTERIC W/O MANIPULATION Application Exam of Affected Area: Color: Abnormal (ecchymosis ), Temp: Normal, Pulse: Normal, Blanching: Normal, Capillary Refill: Normal and Sensory Exam: Normal Swelling: Yes and Tenderness: Yes Skin Apperance: Clean and Dry and Intact Post Procedure Patient tolerated the procedure well?: Tolerated procedure well
[2024-07-07] MEDS: UMECLIDINIUM/VILANTEROL 62.5-25 MCG ELLIPTA 1 PUFF INHALATION (09:44)
[2024-07-07 09:47] VITALS: PULSE 81; RESP 20
[2024-07-07 11:32] LABS: Glucose Point of Care 59 mg/dl (65-105)
[2024-07-07 12:24] LABS: Glucose Point of Care 64 mg/dl (65-105)
[2024-07-07 13:54] LABS: Glucose Point of Care 109 mg/dl (65-105)
--- NOTE | 2024-07-07 13:55 | P.PNIM_ITS ---
Progress Note: A&P Assessment and Plan (1) Hematoma of left thigh: Code(s): S70.12XA - Contusion of left thigh, initial encounter Status: Inactive (2) Fracture of greater trochanter of femur: Code(s): S72.113A - Displaced fracture of greater trochanter of unspecified femur, initial encounter for closed fracture Status: Acute (3) Fall: Code(s): W19.XXXA - Unspecified fall, initial encounter Status: Acute Plan This is an 78-year-old female that presents to the emergency department after a fall last night with left hip injury her she lost her footing and landed on her left side. She reported an area of bruising in the area. Family was concerned because she was on a blood thinner and hence was brought to the ED for evaluation. She had x-ray done which is reported to be negative. Over-read by radiologist showing a possible fracture. She was discharged however came back to the ED due to pain. CT of her hip/pelvis showed nondisplaced mildly comminuted fracture of left greater trochanteric which does not compromise the weight-bearing axis of the femur. Severe likely secondary osteoarthritis of the right hip with internal fixation of the old healed right into fracture which is healed in near anatomic alignment. She is admitted in this setting for further treatment. Orthopedics has been consulted. Non operative management planned. PT OT evaluation and pain control. Weight-bearing as tolerated plan for rehab placement Coronary artery disease status post PCI last in June 06, 2024 status post CABG x2 2020 History of autoimmune hepatitis Diverticulosis Hypertension Peripheral arterial disease Status post mitral valve Sjogren syndrome COPD/emphysema Lung nodules Valvular heart disease Obstructive sleep apnea DVT prophylaxis Lovenox Code status full code Subjective Date/time seen: 07/07/24 13:55 Interval history: No overnight events. Awaiting insurance authorization. No new complaints. Review of Systems Review of Systems: All systems reviewed & are unremarkable except as noted in HPI and below Exam Narrative: GENERAL: Elderly, well-nourished, and in no acute distress. HEAD: Normocephalic, atraumatic. EYES: PERRLA and EOMI. ENT: Nares clear, no rhinorrhea or epistaxis. Mucous membranes moist. NECK: Supple. No adenopathy or masses. CHEST: Clear to auscultation. No respiratory distress. No wheezes rales or rhonchi HEART: Regular rate and rhythm. No murmur heard. Normal peripheral pulses. EXTREMITIES: Normal range of motion. Hematoma to the left lateral hip. Normal DP pulses SKIN: Warm, dry, no rash. NEURO: No focal deficits. Alert and oriented x3. PSYCH: Normal mood and affect Objective Data Vital Signs Vital Signs: Vital Signs - 24 hr 07/06/24 14:00 07/06/24 21:45 07/06/24 22:29 Temperature 97.9 F 98.1 F Pulse Rate 78 72 Respiratory Rate 16 18 Blood Pressure 109/68 120/60 Pulse Oximetry 99 100 Oxygen Delivery Autopap Oxygen Flow Rate 07/06/24 21:54 07/07/24 05:54 07/07/24 08:00 Temperature 97.6 F Pulse Rate 70 Respiratory Rate 16 Blood Pressure 129/66 Pulse Oximetry 100 96 96 Oxygen Delivery Autopap Room Air Oxygen Flow Rate 21 07/07/24 09:47 Temperature Pulse Rate 81 Respiratory Rate 20 Blood Pressure Pulse Oximetry Oxygen Delivery Oxygen Flow Rate Intake/Output Intake/Output: Intake & Output 07/04/24 07/05/24 07/06/24 07/07/24 23:59 23:59 23:59 23:59 Intake Total 740 2108 360 730 Output Total 1250 700 400 Balance -510 1408 -40 730 Meds/Results Medications: Active Medications Generic Name Dose Route Start Last Admin Trade Name Freq PRN Reason Stop Dose Admin Acetaminophen 650 mg 07/04/24 17:10 07/07/24 08:38 Acetaminophen 325 Mg Tablet PO 650 mg Q8H PRN Administration MILD PAIN/FEVER Hydrocodone Bitart/Acetaminophen 1 tab 07/04/24 12:06 Hydrocodone/Acetaminophen (*Crx) 5-325 Mg Tablet PO Q4H PRN Pain Rated 4-6 Albuterol 2 puff 07/04/24 17:06 07/06/24 09:20 Albuterol Sulfate (*Sp) Aerosol 1 Puff INHALATION 2 puff Q6HRT PRN Administration Shortness Of Breath Albuterol 90 puff 07/06/24 12:18 Albuterol Sulfate (*Sp) Aerosol 1 Puff INHALATION Q6H PRN Wheezing Artificial Tears 1 drop 07/06/24 12:09 Artificial Tears Ophth Soln 15 Ml Bottle EACH EYE DAILY PRN Dry Eyes Aspirin 81 mg 07/05/24 09:00 07/07/24 08:32 Aspirin 81 Mg Chewable Tablet PO 81 mg DAILY BRETT Administration Calcium Carbonate 500 mg 07/05/24 09:00 07/07/24 08:32 Calcium/Vitamin D 500 Mg/5 Mcg (200 I.U.) Tablet PO 500 mg DAILY BRETT Administration Citalopram Hydrobromide 20 mg 07/06/24 21:00 07/06/24 21:54 Citalopram Hydrobromide 20 Mg Tablet PO 20 mg HS [facility] Administration Clopidogrel Bisulfate 75 mg 07/05/24 09:00 07/07/24 08:32 Clopidogrel Bisulfate 75 Mg Tablet PO 75 mg QAM [facility] Administration Empagliflozin 10 mg 07/07/24 09:00 07/07/24 08:32 Empagliflozin 10 Mg Tablet PO 10 mg DAILY BRETT Administration Lorazepam 0.5 mg 07/04/24 22:00 07/06/24 21:54 Lorazepam (*Crx) 0.5 Mg Tablet PO 0.5 mg HS [facility] Administration Nitroglycerin 0.4 mg 07/06/24 12:09 Nitroglycerin Sl 0.4 Mg Tablet SUBLINGUAL Q5M PRN Chest Pain Pantoprazole Sodium 40 mg 07/05/24 09:00 07/07/24 08:32 Pantoprazole 40 Mg Tablet PO 40 mg QAM [facility] Administration Pantoprazole Sodium 40 mg 07/06/24 13:00 07/07/24 08:32 Pantoprazole 40 Mg Tablet PO Not Given QAM [facility] Rosuvastatin Calcium 20 mg 07/05/24 09:00 07/07/24 08:33 Rosuvastatin 20 Mg Tablet PO 20 mg QAM [facility] Administration Umeclidinium/Vilanterol 1 puff 07/07/24 08:00 07/07/24 09:44 Umeclidinium/Vilanterol 62.5-25 Mcg Ellipta INHALATION 1 puff DAILYRT [facility] Administration Radiology Results: ITS Impressions Pelvis CT 07/04/24 10:13 IMPRESSION: 1. Nondisplaced mildly comminuted fracture of the left greater trochanter which does not compromise the weightbearing axis of the femur. 2. Moderate to severe likely secondary osteoarthritis at the right hip with internal fixation of an old healed right intertrochanteric fracture which is healed in near-anatomic alignment. Head CT 07/04/24 10:52 IMPRESSION: Cerebral atherosclerosis and chronic small vessel ischemic changes of the cerebral white matter Moderately prominent cerebral and cerebellar atrophy No skull fracture or acute intracranial finding Cervical Spine CT 07/04/24 10:58 IMPRESSION: Reversal of cervical curvature which may be due to muscle spasm Severe cervical spondylosis No fracture or dislocation or locked facet Emphysema Bilateral apical pulmonary scarring 8 x 12 mm soft tissue density at the superolateral aspect of the left thyroid lobe 11.8 x 13.5 mm right thyroid nodule Labs Labs: Laboratory Results - last 24 hr 07/06/24 07/06/24 07/07/24 16:02 21:16 07:30 POC Capillary Glucose 103 104 85 07/07/24 07/07/24 07/07/24 11:28 12:14 13:50 POC Capillary Glucose 59 L* 64 L 109 H
[2024-07-07 14:00] VITALS: BP 143/93; PULSE 69; RESP 17; TEMP 36.6; O2SAT 100
--- NOTE | 2024-07-07 14:55 | P.DS_ITS ---
DS: Admitting Diagnosis Discharge Date 07/07/2024 Admitting Diagnosis Fall DS: Discharge Diagnosis Discharge Diagnosis (1) Hematoma of left thigh: Code(s): S70.12XA - Contusion of left thigh, initial encounter Status: Inactive (2) Fracture of greater trochanter of femur: Code(s): S72.113A - Displaced fracture of greater trochanter of unspecified femur, initial encounter for closed fracture Status: Acute (3) Fall: Code(s): W19.XXXA - Unspecified fall, initial encounter Status: Acute DS: Summary Hospital Course Hospital Course: This is an 78-year-old female that presents to the emergency department after a fall last night with left hip injury her she lost her footing and landed on her left side. She reported an area of bruising in the area. Family was concerned because she was on a blood thinner and hence was brought to the ED for evaluation. She had x-ray done which is reported to be negative. Over-read by radiologist showing a possible fracture. She was discharged however came back to the ED due to pain. CT of her hip/pelvis showed nondisplaced mildly comminuted fracture of left greater trochanteric which does not compromise the weight-bearing axis of the femur. Severe likely secondary osteoarthritis of the right hip with internal fixation of the old healed right into fracture which is healed in near anatomic alignment. She is admitted in this setting for further treatment. Orthopedics has been consulted. Non operative management planned. PT OT eval uation and pain control. Weight-bearing as tolerated. Follow-up with Orthopedic as an outpatient basis. Plan for rehab placement and was arranged for transfer to [facility]. Coronary artery disease status post PCI last in June 06, 2024 status post CABG x2 2019 History of autoimmune hepatitis Diverticulosis Hypertension Peripheral arterial disease Status post mitral valve Sjogren syndrome COPD/emphysema Lung nodules Valvular heart disease Obstructive sleep apnea DVT prophylaxis Lovenox Code status full code Time Spent with Patient Time attestation: Total time spent providing and/or coordinating discharge services: 35 minutes Exam Narrative: GENERAL: Elderly, well-nourished, and in no acute distress. HEAD: Normocephalic, atraumatic. EYES: PERRLA and EOMI. ENT: Nares clear, no rhinorrhea or epistaxis. Mucous membranes moist. NECK: Supple. No adenopathy or masses. CHEST: Clear to auscultation. No respiratory distress. No wheezes rales or rhonchi HEART: Regular rate and rhythm. No murmur heard. Normal peripheral pulses. EXTREMITIES: Normal range of motion. Hematoma to the left lateral hip. Normal DP pulses SKIN: Warm, dry, no rash. NEURO: No focal deficits. Alert and oriented x3. PSYCH: Normal mood and affect DS: Data Data Completed and Pending Labs on day of discharge: Labs from last 24 hours 07/07/24 07/07/24 07/07/24 13:50 12:14 11:28 POC Capillary Glucose 109 H 64 L 59 L* 07/07/24 07/06/24 07/06/24 07:30 21:16 16:02 POC Capillary Glucose 85 104 103 Imaging Radiologist's impression: ITS Impressions Pelvis CT 07/04/24 10:13 IMPRESSION: 1. Nondisplaced mildly comminuted fracture of the left greater trochanter which does not compromise the weightbearing axis of the femur. 2. Moderate to severe likely secondary osteoarthritis at the right hip with internal fixation of an old healed right intertrochanteric fracture which is healed in near-anatomic alignment. Head CT 07/04/24 10:52 IMPRESSION: Cerebral atherosclerosis and chronic small vessel ischemic changes of the cerebral white matter Moderately prominent cerebral and cerebellar atrophy No skull fracture or acute intracranial finding Cervical Spine CT 07/04/24 10:58 IMPRESSION: Reversal of cervical curvature which may be due to muscle spasm Severe cervical spondylosis No fracture or dislocation or locked facet Emphysema Bilateral apical pulmonary scarring 8 x 12 mm soft tissue density at the superolateral aspect of the left thyroid lobe 11.8 x 13.5 mm right thyroid nodule Discharge Plan Discharge Attending physician on discharge: Jose Francisco Bhagat Consulting providers: Carlos Garcia Discharging Clinician: Jose Francisco Bhagat Anticipated Discharge Date/Time: 07/07/24 14:56 Patient Disposition: SNF Activity: may shower, no driving and follow weight bearing status Diet: as tolerated Wound Care Instructions: follow printed instructions Discharge Instructions: Orthopedic Recommendations Dr. Carlos Garcia [phone] * Weight bearing as tolerated. * Pain control. * Ice. * Follow up in 6 weels. Appt below. Patient Instructions: How to Stop Smoking (DC) Stand Alone Forms: General Discharge Information, Mcfp Discharge Follow-up/Referrals: Carlso Garcia MD [Physician] - 08/21/24 9:15 am Yefri,Rios Garsia MD [Primary Care Provider] - 1 Week Discharge Medications: Continued Acetaminophen Extra Strength 650 mg PO PRN Rx Instructions: prn every 8hrs as needed polyvinyl alcohol [Artificial Tears Plus] 1.4 % Drops 1 drp EACH EYE DAILY PRN (Reason: Dry Eyes) clopidogrel 75 mg tablet 75 mg PO DAILY citalopram 20 mg tablet 20 mg PO HS lorazepam 0.5 mg Tablet 0.5 mg PO DAILY nitroglycerin 0.4 mg tablet, sublingual 0.4 mg sublingual Q5M PRN (Reason: Chest Pain) omeprazole 20 mg capsule,delayed release(DR/EC) 20 mg PO DAILY Adult Low Dose Aspirin 81 mg Tablet 81 mg PO DAILY albuterol 90 mcg/actuation Aerosol 90 mcg INHALATION PRN PRN (Reason: Wheezing) rosuvastatin 20 mg tablet 20 mg PO DAILY Anoro Ellipta 62.5-25 mcg/actuation blister with device 1 inh INHALATION DAILY Jardiance 10 mg tablet 10 mg PO DAILY Calcium+D 600 mg PO DAILY Discontinued alendronate 70 mg tablet 70 mg PO WEEKLY Date of admission: 07/04/24 12:06 Primary Care Provider: Yefri,Rios Garsia Admitting Provider: Jose Francisco Bhagat Attending physician on admission: Jose Francisco Bhagat Condition: Stable
== END 2024-07-07 17:27 ==
LOC: ANHED 12:30 → ANH3MEDSUR 12:39
PROVIDERS: Admitting Provider Internal Medicine; Emergency Provider Physician Assistant; PCP Internal Medicine; Visit Provider Internal Medicine
DX: S72.112A Displaced fracture of greater trochanter of left femur, initial encounter for closed fracture (principal); S70.12XA Contusion of left thigh, initial encounter; I25.10 Atherosclerotic heart disease of native coronary artery without angina pectoris; E04.1 Nontoxic single thyroid nodule; W01.0XXA Fall on same level from slipping, tripping and stumbling without subsequent striking against object, initial encounter; I10 Essential (primary) hypertension; I73.9 Peripheral vascular disease, unspecified; M35.00 Sjogren syndrome, unspecified; J43.9 Emphysema, unspecified; G47.33 Obstructive sleep apnea (adult) (pediatric); Z95.1 Presence of aortocoronary bypass graft; Z79.82 Long term (current) use of aspirin; Z79.51 Long term (current) use of inhaled steroids
CPT/HCPCS: 36415; 70450; 72125; 72192; 80048; 82948; 85025; 94640; 97110; 97116; 97161; 97165; 97530; 97535; 99285; A9270; G0378

== ENCOUNTER 2024-12-15 23:56 | Inpatient (IN) | payer MEDICARE, MEDICAID, SELFPAY ==
--- NOTE | ~2024-12-15 | CT_ITS ---
Clinical Indication: Dyspnea CT Scan of the Chest with Contrast: Technique: Contiguous sections were acquired throughout the chest after intravenous administration of 100 cc of Omnipaque 350. Dose reduction technique was used on this scan by utilizing automated expos ure control and iterative reconstruction technique. The dose-length product (DLP) was 201.72 mGy-cm. Findings: There are multiple enlarged mediastinal lymph nodes, especially at the AP window region and anterior mediastinum, as well as in the right hilum, precarinal region, and subcarinal region. Subcarinal pritesh opathy measures up to approximately 3.0 x 2.0 cm in size. There is no filling defect in the pulmonary arterial tree to suggest pulmonary embolus. There is no evidence of aortic dissection or aneurysm. N o pericardial effusion. Minimal bilateral pleural effusions are present. There is advanced emphysema. Probable right apical scarring present associated with 10 mm nodule (axi al image 36).. Images through the upper abdomen reveal no abnormalities. Impression: Mediastinal and right hilar lymphadenopathy, nonspecific. Correlate for infectious/inflammatory nodes versus lymphoma or other metastatic disease. Advanced emphysema. Probable right apical scarring with 10 mm nodule present. Neoplastic nodule not completely excluded. Consider short-term follow-up CT in 3 months to reassess versus PET/CT. Tissue sampling could be cons idered, but may be difficult given the relatively small size of nodule as well as advanced emphysema present. Minimal bilateral pleural effusions. Reviewed, dictated and finalized at [facility]. Impression: Mediastinal and right hilar lymphadenopathy, nonspecific. Correlate for infecti ous/inflammatory nodes versus lymphoma or other metastatic disease. Advanced emphysema. Probable right apical scarring with 10 mm nodule present. Neoplastic nodule not completely excluded. Consider short-term follow-up CT in 3 months to reassess versus PET/CT. Tissue sampling could be considered, but may be difficult given the relatively small size of nodule as well as advanced emphysema present. Minimal bilateral pleural effusions.
--- NOTE | ~2024-12-15 | XR_ITS ---
Portable chest x-ray Comparison: None Clinical History: Shortness of breath Findings: There is interstitial disease and/or COPD change. No definite acute pulmonary abnormality. Cardiomediastinal silhouette is minimally prominent, status post valve replacement. Bones and soft tissues are unremarkable. Impression: No definite acute pulmonary abnormality. COPD and/or chronic interstitial disease. Reviewed, dictated and finalized at [facility]. Impression: No definite acute pulmonary abnormality. COPD and/or chronic interstitial disea se.
--- OUTSIDE RECORDS SUMMARY | 2024-12-15 23:59 | XMS_ITS | Clinical Summary ---
Author Organization [facility] Address [address] [place] [address] Care Team Providers Care [employer] Pin [employer] Operator Name Role Phone Rios Asif MD Primary Care Provider + [phone] Source Comments [facility],non-owned Affiliates and Associated Physician Practices is amultiple site organization consisting of ambulatory clinics and hospital sitesin [place], [place], [place]. This disclosure is being madepursuant to the Care Everywhere program and may not contain all information available regarding this patient. Last updated 18.[facility] Allergies No known active allergies Medications * Be aware that medications may not be up to date on this document. Alwaysverify current medications with the patient. omeprazole (PRILOSEC) 20 MG capsule Take 20 mg by mouth once daily 0 02/12/2018 Active Multiple Vitamins-Minera ls (OCUTABS-LUTEIN ) TABS Take 1 tablet by mouth once daily Active acetaminophen CR (TYLENOL ARTHRITIS PAIN) 650 MG tablet Take 650 mg by mouth every 8 hours as needed Active loperamide (IMODIUM) 2 MG capsule daily PRN Active simvastatin (ZOCOR) 20 MG tablet Take 20 mg by mouth once daily 2 03/16/2018 Active Calcium-Magnesi um-Vitamin D (CALCIUM 1200+D3) 600-40-500 MG-MG-UNIT TB24 Take 2 tablets by mouth once daily Active umeclidinium-vi lanterol (ANORO ELLIPTA) 62.5-25 MCG/INH inhaler Inhale 1 puff by mouth once daily Active albuterol HFA (PROVENTIL;VENT VILLA;PROAIR) 108 (90 Base) MCG/ACT inhaler Inhale 2 puffs by mouth every 6 hours as needed Active citalopram (CELEXA) 20 MG tablet Take 20 mg by mouth once daily Active mesalamine SR 24hr (APRISO) 0.375 GM capsule every 24 hours Active Active Problems Problem Noted Date Diagnosed Date CAD (coronary artery disease) 04/19/2020 Overview (06/09/2024): 04/07/20 cath: severe CAD 06/06/24 cath: DENISE placed Mitral regurgitation 04/19/2020 Overview (04/19/2020): 04/07/20 cath: Severe MR--> replacement planned Anxiety 03/17/2018 Arthritis 03/17/2018 Overview (03/17/2018): Overview: Hand pain improved with azathioprine for her autoimmune hepatitis. COPD (chronic obstructive pulmonary disease) 07/2018 GERD (gastroesophageal reflux disease) 8 Osteoarthritis 03/19/2017 Overview (11/05/2017): Hand pain improved with azathioprine for her autoimmune hepatitis. Autoimmune hepatitis 06/10/2015 Overview (03/22/2020): Overview: 11/18/13 liver biopsy: mild chronic hepatitis compatible with treated AIH, stage 2 fibrosis 12/16/13: ALT 27, AST 33 on prednisone 10/d. Plan: start azathioprine 100 mg/d, drop pred to 5 mg/d 01/15/14: ALT 34, AST 48 on azathioprine 100/d, she had stopped prednisone December 21 per phone call 01/28/14 04/20/14: ALT 19, AST 35, alk phos 101, WBC 3.3, Hgb 14.2, plts 220 on azathioprine 100 mg/d 05/19/14: ALT 26, AST 34 on azathioprine 100 mg/d 12/07/14: ALT 18, AST 37, AP 95, t bili 0.5, alb 4.4 on azathioprine 100 mg/d, dose dropped to 50 mg/d. 02/25/19: ALT 11, AST 18 03/10/19 Stopped azathioprine, LFTs monthly 04/02/19 ALT 18, AST 30 05/28/19 ALT 16, AST 25 08/08/19 ALT 13, AST 21 03/22/20 Fibroscan CAP 231, LSM 4.3 kPa Lesion of lung 11/18/2014 Overview (05/27/2018): Overview: Pt called 11/18/14 to tell us that she probably has lung cancer. Subsequent evaluation with LN bx negative and lesion too small to be biopsied. 05/07/18 PET-CT ([place]): 15 mm RUL nodule without increased activity, likely benign SAMIR (obstructive sleep apnea) 06/22/2014 Overview (03/17/2018): Overview: On CPAP since May 2014 Sjogren's syndrome 01/20/2014 Overview (03/17/2018): Overview: Possible dx. Decreased tears and saliva with rheumatological symptoms. Symptoms respond to prednisone. 12/16/13: Holding off on plaquenil to see how she does on azathioprine in terms of symptom control. Colitis 09/29/2013 Overview (03/17/2018): Overview: Microscopic colitis, followed by Dr. Duenas Family History Medical History Relation Name Comments CAD (Coronary Artery Disease) Brother 1 Status: Heart Disease Brother 2 None Known Brother 3 Status: Alive None Known Father Status: d Cancer Mother Status: d Heart Disease Sister 1 Status: Alive None Known Sister 2 Status: d None Known Sister 3 Status: Alive Relation Name Status Comments Brother 1 Brother 2 Brother 3 Father Mother Sister 1 Sister 2 Sister 3 Social History Tobacco Use Types Packs/Day Years Used Date Smoking Tobacco: Former Cigarettes Q uit: 09/29/1993 Smokeless Tobacco: Never Alcohol Use Standard Drinks/Week Comments Yes 2 (1 standard drink = 0.6 oz pur e alcohol) PER MONTH Comments Unknown Sex and Gender Information Value Date Recorded Sex Assigned at Not on file Legal Sex Female 5:31 PM [employer]ELTY [employer] Gender Identity Not on file Sexual Orientation Not on file Last Filed Vital Signs Vital Sign Reading Time Taken Comments Blood Pressure 134/81 03/22/2020 10:01 AM CDT Pulse 91 03/22/2020 10:01 AM CDT Temperature 36.5 C (97.7 F) 03/22/2020 10:01 AM CDT Respiratory Rate 18 03/22/2020 10:01 AM CDT Oxygen Saturation 99% 03/22/2020 10:01 AM CDT Inhaled Oxygen Concentration - - Weight 71.8 kg (158 lb 3.2 oz) 03/22/2020 10:01 AM CDT Height 170.2 cm (5' 7) 09/08/2019 11:05 AM NOVELTY MAKER Body Mass Index 24.78 09/08/2019 11:05 AM NOVELTY MAKER Plan of Treatment Health Maintenance Due Date Last Done Comments BONE DENSITY TESTING 1945 DTAP/TDAP/TD VACCINES (1 - Tdap) 12/01/1962 PNEUMOCOCCAL VACCINE 50+ (1 of 2 - PCV) 12/01/1962 ZOSTER VACCINE (1 of 2) 12/01/1993 Respiratory Syncytial Virus (RSV) Vaccine Pt: or over 60 yrs (1 - 1-dose 75+ series) 12/01/2018 COVID-19 VACCINE ( season) 2024 11/11/2021, 05/31/2021 DEPRESSION SCREENING 08/06/2024 MEDICARE AWV CALENDAR YEAR 2024 INFLUENZA VACCINE (Season Ended) 2025 04/21/2020, 05/22/2019, 05/09/2018, Additional history exists HEPATITIS B VACCINE Aged Out No longe r eligible based on patient's age to complete this topic HIB VACCINE Aged Out No longer eligi ble based on patient's age to complete this topic HPV VACCINE Aged Out No longer eligi ble based on patient's age to complete this topic MENINGOCOCCAL (Group B) VACCINE SHARED DECISION-MAKING Aged Out No longer eligible based on patient's age to complete this topic MENINGOCOCCAL GROUPS A/C/Y/W VACCINE Aged Out No longer eligible based on patient's age to complete this topic Goals Goal Patient Goal Type Associated Problems Recent Progress Patient-Stated? Author Medication Management General On track( 020 10:44 AM CDT) Braulio Villanueva, RN Note: Expected end date: Interventions: Take all medications as prescribed Let your doctor know right away about any changes in your medications Make sure to request a refill of your medication at least one week prior to your last dose Insurance Care Teams [employer] Operator Relationship Specialty Start Date End Date Rios Asif MD [address] [place] [address] [address] [place] [address] PCP - General 06/04/13
--- OUTSIDE RECORDS SUMMARY | 2024-12-15 23:59 | XMS_ITS | CONTINUITY OF CARE DOCUMENT ---
Author Name lisa gonzalez Address Unknown Organization [facility] Address [address] [place] [address] Phone [phone] Care Team Providers Care Pile Driving Technician Name Role Phone Pauline TURCIOS, Jack Gallagher Unavailable [phone] Rios Asif MD Unavailable Rios Asif MD Unavailable PROBLEMS Condition Status Date Provider Notes Hypercholesterolemia active Edwin Jones RN EMPHYSEMA active Armani Oden ANXIETY DISORDER active Jack Carpenter MD Chest pain completed - Armani Oden 01/16 NUC FIX DEF INF WALL EF 75 Family History of Hypertension: completed - Jack Carpenter MD Shortness of breath active Jack Carpenter MD Pulmonary nodules active Jack Carpenter MD Sleep apnea, obstructive - o n CPAP active Jack Carpenter MD Severe MR S/P repair 05/2020 active Tricia Oden Arm pain, left completed - Armani Oden Autoimmune hepatitis active Armani Hung erg HTN essential active Aarti Carlin Screening - negative COVID-1 9 swab 03/2020 active Armani Oden Leg pain - nml DEEPIKA's 04/2020 active Tricia Oden CAD S/P CABG x2 (CAMPUZANO-LAD, T-graft radial-PDA) 05/2020 active Armani Oden R subclavian artery stenosis - 80% angio 04/2020 active Armani Oden Carotid artery stenosis, <50 % ICA b/l active Armani Oden 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 Armani Oden Left renal artery stenosis - 50% angio 04/2020 active Armani Oden Tricuspid regurgitation, moderate active Jack Carpenter MD Elevated blood glucose active Jack Reyna Aortic stenosis, mild active Jack Carpenter MD Mitral stenosis, mild active Jack Carpenter MD CHF active Aarti Carlin ENCOUNTERS Date Type Provider Location Encounter Diag nosis - In-person encounter Office Visit Jack Carpenter MD [facility] - In-person encounter Office Visit Jack Carpenter MD [facility] - In-[facility] encounter Office Visit Jack Carpenter [facility] - In-person encounter Office Visit Jack [facility] - In-person encounter Office Visit Jack Carpenter [facility] - In-person encounter Office Visit Jack Carpenter MD [facility] - In-person encounter Office Visit Jack Carpenter MD [facility] - In-person encounter Office Visit Jack Carpenter MD [facility] - In-person encounter Office Visit Jack Carpenter MD [facility] HTN essentialTricuspid regurgitation, moderateAortic stenosis, mildMitral stenosis, mildCHF - In-person encounter Office Visit Jack Carpenter MD [facility] Shortness of breathElevated blood glucose - In-person encounter Office Visit Jack Carpenter MD [facility] - In-person encounter Office Visit Jack Carpenter MD [facility] Tricuspid regurgitation, moderate - In-person encounter Office Visit Jack Carpenter MD [facility] Shortness of breathArm pain, leftScreening - negative COVID-19 swab 03/2020 - In-person encounter Office Visit Jack Carpenter MD [facility] EMPHYSEMASevere MR S/P repair 05/2020Leg pain - nml DEEPIKA's 04/2020CAD S/P CABG x2 (CAMPUZANO-LAD, T-graft radial-PDA) 05/2020R subclavian artery stenosis - 80% angio 04/2020Carotid artery stenosis, <50% ICA b/lChronic venous HTN w/BLE inflammation and GSV insufficiencyLeft renal artery stenosis - 50% angio 04/2020 - In-person encounter Office Visit Jack Carpenter MD [facility] Autoimmune hepatitis HTN essential - In-person encounter Office Visit Jack Carpenter MD [facility] Chest pain - In-person encounter Office Visit Jack Carpenter MD [facility] - In-person encounter Office Visit Jack Carpenter MD [facility] - In-person encounter Office Visit Jack Carpenter MD [facility] Family History of Hypertension:Pulmonary nodulesSleep apnea, obstructive - on CPAPSevere MR S/P repair 05/2020 - In-person encounter Office Visit Jack Carpenter MD [facility] - In-person encounter Office Visit Jack Carpenter MD [facility] - In-person encounter Office Visit Jack Carpenter MD [facility] - In-person encounter Office Visit Jack Carpenter MD [facility] EMPHYSEMAANXIETY DISORDERChest pain VITAL SIGNS Date Observation Value Provider Body Mass Index (Ratio) 21.05 kg/m2 Chay Price blood pressure, diastolic 78 mm[Hg] Jostin huerta Singh blood pressure, systolic 105 mm[Hg] Katia freeman Singh blood pressure, cuff size regular oJstin deanna Singh oxygen saturation, oximetry 92 % [facility] Singh pulse rate 56 /min [facility] Singh weight E&M 136.4 [lb_av] [facility] height E&M 67.5 [in_i] [facility] Singh Body Mass Index (Ratio) 20.98 kg/m2 Brian Smyth blood pressure, diastolic 74 mm[Hg] Vy mason [facility] blood pressure, systolic 109 mm[Hg] [facility] in [facility] oxygen saturation, oximetry 94 % [facility] respiratory rate E&M 20 /min [facility] Elliott [facility] pulse rate 84 /min [facility] weight E&M 136 [lb_av] [facility] blood pressure, cuff size regular Vy mason [facility] height E&M 67.5 [in_i] [facility] Body Mass Index (Ratio) 21.91 kg/m2 Jack Carpenter MD blood pressure, diastolic 68 mm[Hg] Finesse rret blood pressure, systolic 99 mm[Hg] Jar ret pulse rate 80 /min Edgar y oxygen saturation, oximetry 96 % Edgar blood pressure, cuff size regular Finesse rret respiratory rate E&M 16 /min Edgar weight E&M 142 [lb_av] Edgar erda y height E&M 67.5 [in_i] Edgar er y Body Mass Index (Ratio) 21.91 kg/m2 Khalif vazquez Marcio blood pressure, diastolic 89 mm[Hg] Li nkLogic blood pressure, systolic 107 mm[Hg] Flower kLogic blood pressure, cuff size regular Fa william Hill blood pressure, diastolic 89 mm[Hg] Fa william Hill blood pressure, systolic 107 mm[Hg] Chirag [facility] respiratory rate E&M 14 /min Radha Gallagher iller pulse rate 70 /min Radha Lagrange weight E&M 142 [lb_av] Radha Lagrange height E&M 67.5 [in_i] [facility] Body Mass Index (Ratio) 22.68 kg/m2 Jack Carpenter MD blood pressure, cuff size regular Finesse rret blood pressure, diastolic 81 mm[Hg] Finesse rret blood pressure, systolic 127 mm[Hg] Vivek ret pulse rate 81 /min Edgar y respiratory rate E&M 12 /min Edgar weight E&M 147 [lb_av] Edgar y height E&M 67.5 [in_i] Edgar eric y Body Mass Index (Ratio) 22.53 kg/m2 Pepe Winter blood pressure, diastolic 67 mm[Hg] An amaris Tobias blood pressure, systolic 86 mm[Hg] Any a Jatinder pulse rate 98 /min Marcy Tobias weight E&M 146 [lb_av] Marcyray Tobias blood pressure, cuff size large An amaris Tobias height E&M 67.5 [in_i] Marcy Tobias Body Mass Index (Ratio) 23.45 kg/m2 Cesar Hutton blood pressure, diastolic -1 mm[Hg] Franchesca nkLogray blood pressure, systolic 100 mm[Hg] Flower Merrittogray pulse rate 74 /min Ml Mitchell blood pressure, diastolic 70 mm[Hg] Tremaine Mitchell blood pressure, systolic 100 mm[Hg] Tamra Mitchell blood pressure, cuff size regular Tremaine Mitchell respiratory rate E&M 18 /min Ml Mitchell weight E&M 152 [lb_av] Ml Mitchell height E&M 67.5 [in_i] Ml Mitchell Body Mass Index (Ratio) 23.30 kg/m2 Jack Carpenter MD blood pressure, diastolic 72 mm[Hg] St leo Murphy blood pressure, systolic 132 mm[Hg] Tom Murphy pulse rate 79 /min Ammy Murphy respiratory rate E&M 16 /min Ammy leonard weight E&M 151 [lb_av] Ammy Murphy height E&M 67.5 [in_i] Ammyjorge Murphy Body Mass Index (Ratio) 24.16 kg/m2 Le Carlin blood pressure, diastolic 96 mm[Hg] St leo Murphy blood pressure, systolic 161 mm[Hg] Sta jorge Murphy oxygen saturation, oximetry 97 % Ammy Jeffrey pulse rate 71 /min Ammy Jeffrey respiratory rate E&M 16 /min Ammy D aisha weight E&M 156.6 [lb_av] Ammy Jeffrey height E&M 67.5 [in_i] Ammy Jeffrey Body Mass Index (Ratio) 24.16 kg/m2 Le Carlin blood pressure, diastolic 79 mm[Hg] St acconnor Murphy blood pressure, systolic 146 mm[Hg] Sta cy Jeffrey oxygen saturation, oximetry 97 % Ammy Murphy pulse rate 87 /min Ammy Jeffrey weight E&M 156.6 [lb_av] Ammy Jeffrey respiratory rate E&M 16 /min Ammy Reyna aisha height E&M 67.5 [in_i] Ammy Jeffrey Body Mass Index (Ratio) 21.60 kg/m2 Le tian Tesfaye pulse rate 92 /min Maríamt reyna oxygen saturation, oximetry 98 % María Cazares respiratory rate E&M 16 /min Michelle lucretia Cazares blood pressure, cuff size large Ia kan [place] blood pressure, diastolic 80 mm[Hg] Isabella omer [place] blood pressure, systolic 132 mm[Hg] [facility] isaac Cazares weight E&M 140 [lb_av] María reyna height E&M 67.5 [in_i] María reyna Body Mass Index (Ratio) 21.29 kg/m2 Le tian Tesfaye blood pressure, diastolic 60 mm[Hg] Ma rsha O'Harris blood pressure, systolic 120 mm[Hg] Mar [facility] O'Harris oxygen saturation, oximetry 98 % Luly O'Harris respiratory rate E&M 16 /min Luly O'Harris pulse rate 72 /min Luly O'Harris blood pressure, resting Yes Stigler vanessa O'Harris weight E&M 138 [lb_av] Luly O'Harris height E&M 67.5 [in_i] Luly O'Harris Body Mass Index (Ratio) 21.91 kg/m2 Ezio Oden pulse rate 74 /min Kaylie pardo oxygen saturation, oximetry 99 % Kaylie Segura respiratory rate E&M 16 /min Kaylie Segura blood pressure, cuff size regular Jamar Limonberg blood pressure, diastolic 80 mm[Hg] Jorge Segura blood pressure, systolic 130 mm[Hg] Lena Segura weight E&M 142 [lb_av] Kaylie pardo height E&M 67.5 [in_i] Kaylie pardo Body Mass Index (Ratio) 23.14 kg/m2 Ezio [facility] blood pressure, diastolic 78 mm[Hg] Jorge galan Segura blood pressure, systolic 115 mm[Hg] Lena Segura pulse rate 82 /min Kaylie pardo oxygen saturation, oximetry 99 % Kaylie Segura blood pressure, cuff size regular Cy adama Segura respiratory rate E&M 16 /min Kaylie Segura weight E&M 150 [lb_av] Kaylie pardo height E&M 67.5 [in_i] Kaylie pardo Body Mass Index (Ratio) 27.46 kg/m2 Ezio [facility] pulse rate 71 /min Armani FrankfordClickable blood pressure, diastolic 88 mm[Hg] Jamar prak [facility] blood pressure, systolic 154 mm[Hg] [facility] weight E&M 178 [lb_av] Armani FrankfordClickable height E&M 67.5 [in_i] Armani FrankfordClickable Body Mass Index (Ratio) 25.30 kg/m2 Ezio [facility] pulse rate 72 /min [facility] respiratory rate E&M 16 /min [facility] Teague oxygen saturation, oximetry 96 % [facility] blood pressure, diastolic, left arm 84 mm [Hg] Tonsha Teague blood pressure, systolic, left arm 135 mm [Hg] [facility] blood pressure, diastolic, right arm 90 m m[Hg] [facility] blood pressure, systolic, right arm 120 m m[Hg] [facility] blood pressure, diastolic 84 mm[Hg] To [facility] blood pressure, systolic 135 mm[Hg] [facility] weight E&M 164 [lb_av] [facility] height E&M 67.5 [in_i] [facility] Body Mass Index (Ratio) 28.39 kg/m2 Ezio Oden blood pressure, diastolic 64 mm[Hg] Costa figueredo Lmeuel blood pressure, systolic 118 mm[Hg] Carmen hedrick Lemuel oxygen saturation, oximetry 98 % Alpa Lemuel pulse rate 83 /min Alpa Natalie Triplett weight E&M 184 [lb_av] Alpa Natalie Triplett height E&M 67.5 [in_i] Alpa Mendoza- Uziel Body Mass Index (Ratio) 27.46 kg/m2 Ezio Oden blood pressure, cuff size regular Ke rri Latasha blood pressure, diastolic 89 mm[Hg] Ke rri Latasha blood pressure, systolic 135 mm[Hg] Kareem ri Latasha oxygen saturation, oximetry 98 % Nancy Pagan respiratory rate E&M 20 /min Nancy G ester pulse rate 84 /min Nancy Kimberly [facility] weight E&M 178 [lb_av] Nancy Kimberly [facility] height E&M 67.5 [in_i] Nancy Harris [facility] Body Mass Index (Ratio) 28.48 kg/m2 Ezio Oden blood pressure, resting No Jack Carpenter MD blood pressure, diastolic 86 mm[Hg] Krishna Akhtar blood pressure, systolic 125 mm[Hg] Radha Akhtar oxygen saturation, oximetry 95 % Nicole Akhtar respiratory rate E&M 18 /min Shashi Akhtar pulse rate 105 /min Nicole le weight E&M 184.6 [lb_av] Nicole black height E&M 67.5 [in_i] Nicole le blood pressure, diastolic 74 mm[Hg] Krishna Akhtar blood pressure, systolic 129 mm[Hg] Radha Akhtar pulse rate 108 /min Nicole le oxygen saturation, oximetry 97 % Nicole Akhtar respiratory rate E&M 20 /min Shashi Akhtar Body Mass Index (Ratio) 27.28 kg/m2 Becca Akhtar weight E&M 176.8 [lb_av] Nicole black Body Mass Index (Ratio) 25.30 kg/m2 Anea oskar [facility] blood pressure, diastolic, left arm 74 mm [Hg] Aneatris [facility] blood pressure, systolic, left arm 106 mm [Hg] Aneatris [facility] blood pressure, diastolic, right arm 77 m m[Hg] Aneatris Brown blood pressure, systolic, right arm 121 m m[Hg] Aneatris Brown blood pressure, diastolic 77 mm[Hg] An eatris [facility] blood pressure, systolic 121 mm[Hg] Ane atris [facility] pulse rate 90 /min Aneatris Brown oxygen saturation, oximetry 98 % Aneatris Brown respiratory rate E&M 17 /min Karlieatri s [facility] weight E&M 164 [lb_av] Aneatris Brown blood pressure, diastolic, left arm 72 mm [Hg] Edwin Jones FERNANDO blood pressure, systolic, left arm 108 mm [Hg] Edwin Jones FERNANDO blood pressure, diastolic, right arm 65 m m[Hg] Edwin Jones RN blood pressure, systolic, right arm 101 m m[Hg] Edwin Jones FERNANDO blood pressure, diastolic 72 mm[Hg] Finesse donnie Jones FERNANDO blood pressure, systolic 108 mm[Hg] Edwin Jones pulse rate 72 /min Edwin Jones oxygen saturation, oximetry 94 % Edwin Jones respiratory rate E&M 16 /min Edwin mcguire FERNANDO Body Mass Index (Ratio) 24.47 kg/m2 Edwin Jones weight E&M 158 [lb_av] Edwin Jones blood pressure, diastolic, standing 60 mm [Hg] Edwin Jones blood pressure, systolic, standing 82 mm[ Hg] Edwin Jones blood pressure, diastolic, sitting 64 mm[ Hg] [facility], systolic, sitting 90 mm[H g] Edwin Jones blood pressure, dixon tolic, supine, left arm 74 mm[Hg] [facility] blood pressure, syst olic, supine, left arm 128 mm[Hg] Edwin Jones blood pressure, diastolic, left arm 70 mm [Hg] Shikha Stueber blood pressure, systolic, left arm 112 mm [Hg] Shikha Stueber blood pressure, diastolic, right arm 70 m m[Hg] Shikha Stueber blood pressure, systolic, right arm 110 m m[Hg] Shikha Stueber Body Mass Index (Ratio) 24.19 kg/m2 Milagros a Stueber blood pressure, diastolic 70 mm[Hg] Ta tammie Stueber blood pressure, systolic 110 mm[Hg] Bowles ya Stueber pulse rate 82 /min Shikha Salazar oxygen saturation, oximetry 98 % Shikha Salazar respiratory rate E&M 18 /min Shikha donato weight E&M 156.2 [lb_av] Shikha Salazar height E&M 67.5 [in_i] Shikha Salazar ALLERGIES No Known Drug Allergies RESULTS Date Observation Value Provider Reference Range Interpretation Location LDL cholesterol, serum 91 mg/dL Armani Limonberg prothrombin time (patient) 10.9 s [facility] 9.1-12.0 international normalized ratio (INR) 1.1 [facility] 0.8-1.2 lipoprotein, beta, serum, point, quantitative, calculated 91 mg/dL [facility] 0-99 very low density lipoproteins 15 mg/dL [facility] 5-40 HDL cholesterol, serum 60 mg/dL [facility] >39 triglyceride, serum, random 75 mg/dL [facility] 0-149 cholesterol, serum 166 mg/dL [facility] [phone]/08/ 29 calcium, serum 9.6 mg/dL [facility] 8.7-10.3 carbon dioxide, venous blood 22 mmol/L [facility] 20-29 chloride, serum 101 mmol/L [facility] 96-106 potassium, serum 4.2 mmol/L [facility] 3.5-5.2 sodium, serum 137 mmol/L [facility] [phone]/08/ 29 urea nitrogen/creatinine ratio, serum 17 [facility] 12-28 eGFR if 60 mL/min/{1 .73_m2} [facility] >59 eGFR if not 52 mL/min/{1 .73_m2} [facility] >59 Low creatinine, serum 1.05 mg/dL [facility] 0.57-1.00 High urea nitrogen, blood 18 mg/dL [facility] 8-27 blood glucose, random 93 mg/dL [facility] 65-99 basophil count, absolute 0.0 x10E3/uL [facility] 0.0-0.2 Eosinophil Absolute Count 0.1 X10E3/UL [facility] 0.0-0.4 monocyte count, blood, automated 0.4 X10E3/UL [facility] 0.1-0.9 lymphocyte count, blood, automated 1.2 X10E3/UL [facility] 0.7-3.1 Absolute Neutrophils 2.1 X10E3/UL [facility] 1.4-7.0 basophils as percent of blood leukocytes 1 % [facility] Not Estab. eosinophils as percent of blood leukocytes 2 % [facility] Not Estab. monocytes as percent of blood leukocytes 10 % [facility] Not Estab. lymphocytes as percent of blood leukocytes 32 % [facility] Not Estab. neutrophils as percent of blood leukocytes 55 % [facility] Not Estab. platelet count 160 X10E3/UL [facility] [phone]/08/ 29 red blood cell distribution width 14.4 % [facility] 11.7-15.4 mean corpuscular hemoglobin concentration, RBC 34.0 G/DL [facility] 31.5-35.7 mean corpuscular hemoglobin, RBC 28.6 pg [facility] 26.6-33.0 mean corpuscular volume, RBC 84 fL [facility] 79-97 hematocrit, blood 35.6 % [facility] 34.0-46.6 hemoglobin, blood 12.1 g/dL [facility] 11.1-15.9 erythrocyte (RBC) count 4.23 X10E6/UL [facility] 3.77-5.28 leukocyte count, blood 3.9 X10E3/UL [facility] 3.4-10.8 hemoglobin A1C, blood, as % of total hemoglobin 5.3 % OF TOTAL HGB [facility] <5.7 Normal cholesterol, non-HDL, total 103 MG/DL (CALC) [facility] <130 Normal cholesterol/HDL ratio, serum, percent 2.7 (calc) [facility] <5.0 Normal LDL cholesterol, serum 84 MG/DL (CALC) [facility] Normal triglyceride, serum, fasting 98 mg/dL [facility] <150 Normal HDL cholesterol, serum 62 mg/dL [facility] > OR = 50 Normal cholesterol, serum 165 mg/dL [facility] <200 Normal LDL cholesterol, serum 128 mg/dL Armani [facility] B-type natriuretic peptide 26.8 pg/mL [facility] alanine aminotransferase (SGPT), serum 47 1/L [facility] aspartate aminotransferase (SGOT), serum 79 1/L [facility] creatinine, serum 0.84 mg/dL [facility] potassium, serum 3.7 mmol/L [facility] sodium, serum 137 mmol/L [facility] platelet count 241 10*3/uL [facility] hematocrit, blood 39.6 % [facility] HISTORY OF MEDICATION USE Medication Status Instructions Dates Provider Indications Com ments clopidogrel 75 mg tablet active TAKE 1 TABLET BY MOUTH EVERY DAY Nancy Pagan furosemide 40 mg tablet active Take 1 tablet by mouth once a day dose increased per 05/14 blood work Nancy Pagan Nitrostat 0.4 mg tablet, sublingual active DISSOLVE 1 TABLET UNDER THE TOUNGUE NEEDED FOR CHEST PAIN; MAY REPEAT EVERY 5 MINUTES IF STILL HAVING CHEST PAIN; MAX 3 TABS PER EPISODE, Jack Carpenter MD clopidogrel 75 mg tablet completed - Nancy Pagan Jardiance 10 mg tablet active TAKE 1 TABLET BY MOUTH EVERY DAY Jack Carpenter MD furosemide 20 mg tablet completed TAKE 1 TABLET BY MOUTH EVERY DAY - Nancy Pagan carvedilol 6.25 mg tablet completed TAKE 1 TABLET BY MOUTH TWICE A DAY - Pinky Dowell [employer] carvedilol 6.25 mg tablet completed TAKE 1 TABLET BY MOUTH TWICE A DAY - Jack Carpenter MD Lasix 20 mg tablet completed Take 1 tablet by mouth once a day - Edgar Hayesjuarez Jardiance 10 mg tablet completed Take 1 tablet by mouth once a day - Rosemarie Rushi rosuvastatin 20 mg tablet active TAKE 1 TABLET BY MOUTH EVERY DAY Rosemarie [facility] alendronate 70 mg tablet active Take 1 tablet by mouth once a week Ammy Murphy IMODIUM A-D CAPSULE active Take 1 tablet once a day Kaylie Segura METOPROLOL TARTRATE 25 MG ORAL TABLET completed 1/4 tab daily twice a day - Armani Oden simvastatin 20 mg tablet completed Take 1 tablet by mouth once a day - Jack Carpenter MD furosemide 40 mg tablet completed Take 1 tablet by mouth once a day as needed - Luly Hassan CLOPIDOGREL BISULFATE 75 MG ORAL TABLET completed take 1 tab daily - Armani Oden aspirin 81 mg tablet,delayed release (DR/EC) active Take 1 tablet by mouth once a day Luly Hassan albuterol sulfate 90 mcg/actuation HFA aerosol inhaler active Inhale 2 puff as needed Kaylie Segura citalopram 20 mg tablet active Take 1 tablet by mouth every night Luly Hassan #90, 90 days supply, Prescribed by RIOS ASIF, Filled 08/08/2019 LIPITOR 20 MG ORAL TABLET completed take one daily - Armani Oden TYLENOL ARTHRITIS PAIN TABLET EXTENDED RELEASE active as needed Nancy Eriner CALCIUM 500/D TABLET active once a day Nancy Eriner Ocuvite Eye Plus Multi 200-15-150 mcg tablet active once a day Nancy Pagan AMBIEN 5 MG ORAL TABLET completed ONE TAB. AT BEDTIME - Nancy Pagan TRAMADOL HCL TABLET completed 50 mg 1 tab every 6 hours as needed for pain - Nicole Akhtar Delzicol 400 mg capsule (with del rel tablets) completed 2 capsule twice a day - Nicole Akhtar ZYRTEC ALLERGY 10 MG ORAL TABLET completed ONE TAB. DAILY - Nicole Akhtar IMURAN 50 MG ORAL TABLET completed 1 tab twice daily - Armani Oden Anoro Ellipta 62.5-25 mcg/actuation blister with device active as directed Jack Carpenter MD ASPIR-81 81 MG ORAL TABLET DELAYED RELEASE completed one tab daily - Nicole Akhtar CALCIUM-D TABLET completed 1200 mg plus Vitamin D3 1000 IU - Nicole Akhtar ICAPS LUTEIN & ZEAXANTHIN ORAL TABLET DELAYED RELEASE completed twice daily - Nicole Akhtar ASACOL 400 MG TBEC completed 3 tablets twice daily - Nicole Akhtar PRILOSEC 20 MG ORAL CAPSULE DELAYED RELEASE active Take 1 capsule by mouth once a day Luly Adamson'Harris VAGIFEM 10 MCG VAGINAL TABLET completed use 2 weekly as directed - Nancy Pagan ATIVAN 0.5 MG ORAL TABLET completed 1 tab every 12 hours as needed - Nicole Akhtar COMBIVENT 18-103 MCG/ACT INHALATION AEROSOL completed 2 puffs 4 times daily as needed - Nicole Akhtar SOCIAL HISTORY Date Observation Value Provider personal history of marijuana use no Jack Carpenter MD drug use no Jack Carpenter MD alcohol use no Jack Carpenter MD smoking, year quit 1998 Jack desai MD smoking, date started 1964 Jack Carpenter MD smoking history, tot al pack/year 34 Jack Carpenter MD smoking history, tot al pack/day 2-3 Jack Carpenter MD cigarette use yes Jack Carpenter MD smoking status Former smoker Jack Carpenter MD personal history of marijuana use no Anderson Smyth drug use no [facility] Anderson Liang smoking, year quit 1998 Anderson valadez smoking, date started 1965 Anderson Smyth smoking history, tot al pack/year 34 Anderson Smyth smoking history, tot al pack/day 2-3 Anderson Smyth cigarette use yes Anderson Domínguez smoking status Former smoker Anderson gonzales personal history of marijuana use no Pinky Ventimiglia [facility] drug use no Pinky Ventimig hayder [facility] alcohol use no Pinky Ventimig hayder [facility] smoking, year quit 1998 Pinky Ve ntimiglia [facility] smoking, date started 1965 Pinky Ventimiglia [facility] smoking history, tot al pack/year 34 Pinky Ventimiglia [facility] smoking history, tot al pack/day 2-3 Pinky Ventimiglia [facility] cigarette use yes Pinky Ventimi glia [facility] smoking status Former smoker Pinky Venti miglia [employer] alcohol use yes Radha Hill smoking, year quit 1998 Radha feliciano smoking, date started 1965 Radha Hill smoking history, tot al pack/year 34 Radha Hill smoking history, tot al pack/day 2-3 Radha Hill cigarette use yes Radha Hill smoking status Former smoker Radha Hill smoking, year quit 1998 Jack desai MD smoking, date started 1965 Jack Carpenter MD smoking history, tot al pack/year 34 Jack Carpenter MD smoking history, tot al pack/day 2-3 Jack Carpenter MD cigarette use yes Jack Carpenter MD smoking status Former smoker Jack Carpenter MD social history reviewed E&M revi ewed - no changes required Jack Carpenter MD social history E&M Marital Statu s: E thnicity: Smoking History: P atient is a former smoker. Jack Carpenter MD social history reviewed E&M revi ewed - no changes required Jack Carpenter MD smoking, year quit 1998 Marcy Eran ia smoking, date started 1964 Marcyray swainia smoking history, tot al pack/year 34 Marcy Tobias smoking history, tot al pack/day 2-3 Marcy Tobias cigarette use yes Marcyray Tobias smoking status Former smoker Marcy rodriguez social history E&M Marital Statu s: E thnicity: Smoking History: P atient is a former smoker. Cesar Hutton social history reviewed E&M revi ewed - no changes required Cesar Hutton cigarette use yes Ml Mitchell smoking status Former smoker Ml Jaquan burris social history E&M Marital Statu s: E thnicity: Smoking History: P atient is a former smoker. Jack Carpenter MD social history reviewed E&M revi ewed - no changes required Jack Carpenter MD smoking, year quit 1998 Ammy mancini smoking, date started 1965 Ammy Murphy smoking history, tot al pack/year 34 Ammy Murphy smoking history, tot al pack/day 2-3 Ammy Murphy cigarette use yes Ammy Jeffrey smoking status Former smoker Ammy Jeffrey social history E&M Marital Statu s: E thnicity: Smoking History: P atient is a former smoker. Aarti Carlin social history reviewed E&M revi ewed - no changes required Aarti Carlin smoking, year quit 1998 Ammyjorge Hein is smoking, date started 1967 Ammy Jeffery smoking history, tot al pack/year 34 Ammy Jeffrey smoking history, tot al pack/day 2-3 Ammy Jeffrey cigarette use yes Ammy Jeffrey smoking status Former smoker Ammy Jeffrey social history E&M Marital Statu s: E thnicity: Smoking History: P atlisette is a former smoker. Jack Carpenter MD social history reviewed E&M revi ewed - no changes required Jack Carpenter MD smoking, year quit 1998 Ammy Hein is smoking, date started 1967 Ammy Jeffrey smoking history, tot al pack/year 34 Ammy Jeffrey smoking history, tot al pack/day 2-3 Ammy Jeffrey cigarette use yes Ammy Jeffrey smoking status Former smoker Ammy Jeffrey smoking history, tot al pack/year 34 Kristopher Amaral RN social history E&M Marital Statu s: E thnicity: Smoking History: P cony is a former smoker. Jack Carpenter MD social history reviewed E&M revi ewed - no changes required Jack Carpenter MD smoking, year quit 1998 María Cazares smoking, date started 1967 Seb Benitez smoking history, tot al pack/year 34 María Cazares smoking history, tot al pack/day 2-3 María Cazares cigarette use yes María Walden nd smoking status Former smoker María bay social history E&M Marital Statu s: E thnicity: Smoking History: Henry donnelly is a former smoker. Jack Carpenter MD social history reviewed E&M revi ewed - no changes required Jack Carpenter MD smoking, year quit 1998 Luly O' Harris smoking, date started 1967 Luly O'Harris smoking history, tot al pack/year 34 Luly O'Harris smoking history, tot al pack/day 2-3 Luly O'Harris cigarette use yes Luly O'Harris smoking status Former smoker Luly O'Altagracia l smoking history, tot al pack/year 34 Luly O'Harris social history reviewed E&M revi ewed - no changes required Armani Oden smoking, year quit 1998 Kaylie monzon smoking, date started 1967 Sonam Segura smoking history, tot al pack/year 55 Kaylie Segura smoking history, tot al pack/day 2-3 Kaylie Segura cigarette use yes Kaylie larios smoking status Former smoker Kaylie mcelroy social history reviewed E&M revi ewed - no changes required Armani Oden smoking, year quit 1998 Kaylie monzon smoking, date started 1967 Sonam Segura smoking history, tot al pack/year 55 Kaylie Segura smoking history, tot al pack/day 2-3 Kaylie Segura cigarette use yes Kaylie Calzada ll smoking status Former smoker Kaylie mcelroy smoking history, tot al pack/year 55 Edwin Jones RN social history reviewed E&M revi ewed - no changes required Armani Oden smoking, year quit 1998 Armani [facility] smoking, date started 1967 Anuj celia [facility] smoking history, tot al pack/year 60+ Armani [facility] smoking history, tot al pack/day 2-3 Armani [facility] cigarette use yes Armani yi smoking status Former smoker Armani [facility] social history reviewed E&M revi ewed - no changes required Jack Carpenter MD smoking, year quit 1998 Tonsha Mo ss smoking, date started 1965 Tonsha Teague smoking history, tot al pack/year 60+ Tonsha Teague smoking history, tot al pack/day 2-3 Tonsha Teague cigarette use yes Tonsha Teague smoking status Former smoker Tonsha Teague alcohol use yes Alpa Mendoza- Uziel smoking, year quit 1998 Alpa cruzon-Uziel smoking, date started 1965 Alpa Mendoza-Uziel smoking history, tot al pack/year 60+ Armani [facility] smoking history, tot al pack/day 2-3 Alpa Mendoza-Uziel cigarette use yes Alpa Mendoza -Uziel smoking status Former smoker Alpa Mcmillanins on-Uziel social history reviewed E&M revi ewed - no changes required Alpa Mendoza-Uziel social history reviewed E&M revi ewed - no changes required Armani Akshat alcohol use yes Nancy gutierrez smoking, year quit 1998 Nancy dobbs smoking, date started 1966 Nancy Pagan smoking history, tot al pack/day 2-3 Nancy Pagan cigarette use yes Nancy calvert smoking status Former smoker Nacny moise social history reviewed E&M revi ewed - no changes required Jack Carpenter MD social history E&M Marital Statu s: E thnicity: Smoking History: Henry donnelly is a former smoker. Jack Carpenter MD alcohol use yes Nicole le smoking, year quit 1998 Nicole Akhtar smoking, date started 1967 Bharat Akhtar smoking history, tot al pack/year 2 Nicole Akhtar smoking history, tot al pack/day 2-3 Nicole Akhtar cigarette use yes Nicole black smoking status Former smoker Nicole Ramsay social history E&M Marital Statu s: E thnicity: Smoking History: Henry donnelly is a former smoker. Jack Carpenter MD social history reviewed E&M revi ewed - no changes required Jack Carpenter MD alcohol use yes Nicole le smoking, year quit 1998 Nicole Akhtar smoking, date started 1967 Bharat Akhtar smoking history, tot al pack/year 2 Nicole Akhtar smoking history, tot al pack/day 2-3 Nicole Akhtar cigarette use yes Nicole black smoking status Former smoker Nicole Ramsay social history reviewed E&M revi ewed - no changes required Jack Carpenter MD smoking, year quit 1998 Arnellive Sudeep smoking, date started 1967 Arnel mancini Sudeep smoking history, tot al pack/day 2-3 Jhony Sheets cigarette use yes Jhony Sheets smoking status Former smoker Karlieac Harshad lopez social history reviewed E&M reviewed Edwin Jones RN social history reviewed E&M reviewed Jack Carpenter MD smoking history, tot al pack/year 2 Shikha Salazar smoking, year quit 1987 Shikha genao smoking status former smoker Shikha Yang [place] social history E&M Marital Statu s: E thnicity: Shikha Salazar FUNCTIONAL STATUS Date Observation Value Provider HRA, CV Assess/Plan, Angina (inactive) Management Plan continue current therapy Jack Carpenter MD HRA, CV Assess/Plan, Angina (inactive) Management Plan continue current therapy Anderson Smyth HRA, CV Assess/Plan, Angina (inactive) Management Plan continue current therapy Pinky Magalys KNAPP HRA, CV Assess/Plan, Angina (inactive) Management Plan continue current therapy Abdifatah Buckley HRA, CV Assess/Plan, Angina (inactive) Management Plan continue current therapy Jack Carpenter MD HRA, CV Assess/Plan, Angina (inactive) Management Plan continue current therapy Jack Carpenter MD HRA, CV Assess/Plan, Angina (inactive) Management Plan continue current therapy Cesar Hutton HRA, CV Assess/Plan, Angina (inactive) Management Plan continue current therapy Jack Carpenter MD HRA, CV Assess/Plan, Angina (inactive) Management Plan continue current therapy Aarti Carlin HRA, CV Assess/Plan, Angina (inactive) Management Plan continue current therapy Jack Carpenter MD HRA, CV Assess/Plan, Angina (inactive) Management Plan continue current therapy Jack Carpenter MD HRA, CV Assess/Plan, Angina (inactive) Management Plan antianginal therapy Jack Carpenter MD HRA, CV Assess/Plan, Angina (inactive) Management Plan continue current therapy Armani Oden HRA, CV Assess/Plan, Angina (inactive) Management Plan continue current therapy Armani Oden MENTAL STATUS Date Observation Value Provider assessment of judgme nt and insight E&M Alert and oriented to time, place and person. Mood and affect are normal. Edwin Jones RN assessment of judgme nt and insight E&M Alert and oriented to time, place and person. Mood and affect are normal. Jack Carpenter MD FAMILY HISTORY Family Member Condition Father Family History of Hy pertension: INSURANCE PROVIDERS Payer name Policy type / Coverage type [place] red democrat ID [facility] Other [facility] Other [employer] MEDICARE ADVANTAGE WALKIEL (PPO) Medicare [id number] ADVANCE DIRECTIVES Name Date DISCUSSED - NO DECISION MADE TREATMENT PLAN Date Name Performer [id number],S,obtain f/u ec ho Jack Carpenter MD [id number],S, P er pulmonary. Jack Carpenter MD [id number],S,T he patient is using CPAP on a regular basis. The patient has been benefiting from therapy and should continue use. Jack Carpenter MD [id number],S, H er updated medication list for this problem includes: Rosuvastatin 20 Mg Tablet (Rosuvastatin) ..... Take 1 tablet by mouth every day Jack Carpenter MD [id number],S,n o angina. could not tolerate carvedilol due to low BP. T he following medications were removed from the medication list: Carvedilol 6.25 Mg Tablet (Carvedilol) ..... Take 1 tablet by mouth twice a day Her updated medication list for this problem includes: Aspirin 81 Mg Tablet,delayed Release (dr/ec) (Aspirin) ..... Take 1 tablet by mouth once a day Jack Carpenter MD [id number],S, Jack Carpenter MD [id number],S,c hf class II o btain f/u echo T he following medications were removed from the medication list: Carvedilol 6.25 Mg Tablet (Carvedilol) ..... Take 1 tablet by mouth twice a day Her updated medication list for this problem includes: Lasix 20 Mg Tablet (Furosemide) ..... Take 1 tablet by mouth once a day Aspirin 81 Mg Tablet,delayed Release (dr/ec) (Aspirin) ..... Take 1 tablet by mouth once a day Jack Carpenter MD [id number],S,S he has 80% stenosis of right subclavian artery but she does not want procedure at this time. Jack Carpenter MD [id number],S,P t has chronic dyspnea. CHF class II, will obtain f/u echo. Continue jardiance and Lasix, could not tolerate carvedilol due to low BP. T he following medications were removed from the medication list: Carvedilol 6.25 Mg Tablet (Carvedilol) ..... Take 1 tablet by mouth twice a day Her updated medication list for this problem includes: Lasix 20 Mg Tablet (Furosemide) ..... Take 1 tablet by mouth once a day Aspirin 81 Mg Tablet,delayed Release (dr/ec) (Aspirin) ..... Take 1 tablet by mouth once a day Jack Carpenter MD [id number],C,H er BP was retaken on right side and found to be in the 140s. She has a blockage on left side found on angiogram in 2021. Should only take BP on right side H er updated medication list for this problem includes: Carvedilol 6.25 Mg Tablet (Carvedilol) ..... Take 1 tablet by mouth twice a day Lasix 20 Mg Tablet (Furosemide) ..... Take 1 tablet by mouth once a day Aspirin 81 Mg Tablet,delayed Release (dr/ec) (Aspirin) ..... Take 1 tablet by mouth once a day BP today: 86/67 P rior BP: 100/-1 (11/20/2022) Labs Reviewed: C reat: 1.05 (04/03/2020) C hol: 166 (04/03/2020) HDL: 60 (04/03/2020) Jack Carpenter MD [id number],SCesar i [id number],S, Cesar Chew i [id number],S, Cesar Chew i [id number],S, Cesar Chew i [id number],Cesar Rodriguez i [id number],C, B P today: 132/72 P rior BP: 161/96 (06/12/2022) Labs Reviewed: C reat: 1.05 (04/03/2020) C hol: 166 (04/03/2020) HDL: 60 (04/03/2020) Her updated medication list for this problem includes: Carvedilol 6.25 Mg Tablet (Carvedilol) ..... Take 1 tablet by mouth twice a day Lasix 20 Mg Tablet (Furosemide) ..... Take 1 tablet by mouth once a day Aspirin 81 Mg Tablet,delayed Release (dr/ec) (Aspirin) ..... Take 1 tablet by mouth once a day Aarti Tesfaye [id number],C,P t reports improvement with Jardiance. However not complete resolution of SOB. Will screen her for [place] trial. H er updated medication list for this problem includes: Carvedilol 6.25 Mg Tablet (Carvedilol) ..... Take 1 tablet by mouth twice a day Lasix 20 Mg Tablet (Furosemide) ..... Take 1 tablet by mouth once a day Aspirin 81 Mg Tablet,delayed Release (dr/ec) (Aspirin) ..... Take 1 tablet by mouth once a day Aarti Carlin [id number],C,P t reports improvement with Jardiance. However not complete resolution of SOB. Will screen her for [place] trial. H er updated medication list for this problem includes: Carvedilol 6.25 Mg Tablet (Carvedilol) ..... Take 1 tablet by mouth twice a day Lasix 20 Mg Tablet (Furosemide) ..... Take 1 tablet by mouth once a day Aspirin 81 Mg Tablet,delayed Release (dr/ec) (Aspirin) ..... Take 1 tablet by mouth once a day Aarti Carlin [id number],C,P t reports improvement with Jardiance. However not complete resolution of SOB. Will screen her for [place] trial. Aarti Carlin [id number],C, T he following medications were removed from the medication list: Simvastatin 20 Mg Tablet (Simvastatin) ..... Take 1 tablet by mouth once a day Her updated medication list for this problem includes: Rosuvastatin 20 Mg Tablet (Rosuvastatin) ..... Take 1 tablet by mouth every day Aarti Carlin [id number],C, B P today: 161/96 P rior BP: 146/79 (05/17/2022) Labs Reviewed: C reat: 1.05 (04/03/2020) C hol: 166 (04/03/2020) HDL: 60 (04/03/2020) Her updated medication list for this problem includes: Carvedilol 6.25 Mg Tablet (Carvedilol) ..... Take 1 tablet by mouth twice a day Lasix 20 Mg Tablet (Furosemide) ..... Take 1 tablet by mouth once a day Aspirin 81 Mg Tablet,delayed Release (dr/ec) (Aspirin) ..... Take 1 tablet by mouth once a day [facility] [id number],C, H er updated medication list for this problem includes: Carvedilol 6.25 Mg Tablet (Carvedilol) ..... Take 1 tablet by mouth twice a day Aspirin 81 Mg Tablet,delayed Release (dr/ec) (Aspirin) ..... Take 1 tablet by mouth once a day Aarti Carlin [id number],C,C lincally she is CHF class III. ProBNP is 1000, LDL 79, Echo showed normal EF, diastolic dysfunction, mild aortic stenosis, mild mitral stenosis post repair, and moderate tricuspid regurgitation. Will start Jardiance 10 mg daily, Lasix 20 mg daily, Carvedilol 6.25 mg BID, and change from simvastatin to rosuvastatin 20 mg daily. Her updated medication list for this problem includes: Carvedilol 6.25 Mg Tablet (Carvedilol) ..... Take 1 tablet by mouth twice a day Lasix 20 Mg Tablet (Furosemide) ..... Take 1 tablet by mouth once a day Aspirin 81 Mg Tablet,delayed Release (dr/ec) (Aspirin) ..... Take 1 tablet by mouth once a day Aarti Carlin [id number],C, H er updated medication list for this problem includes: Simvastatin 20 Mg Tablet (Simvastatin) ..... Take 1 tablet by mouth once a day Aarti Carlin [id number],C,P t complains of SOB with minimal exertion, started about 2 months ago when she stopped exercising. She is s/p CABG and mitral valve repair. Will obtain echo to check the valve. Check proBNP and BMP. Based on the results, we will consider cardiac cath. Aarti Carlin [id number],C,P t complains of SOB with minimal exertion, started about 2 months ago when she stopped exercising. She is s/p CABG and mitral valve repair. Will obtain echo to check the valve. Check proBNP and BMP. Based on the results, we will consider cardiac cath. H er updated medication list for this problem includes: Aspirin 81 Mg Tablet,delayed Release (dr/ec) (Aspirin) ..... Take 1 tablet by mouth once a day Aarti Carlin [id number],C,P t complains of SOB with minimal exertion, started about 2 months ago when she stopped exercising. She is s/p CABG and mitral valve repair. Will obtain echo to check the valve. Check proBNP and BMP. Based on the results, we will consider cardiac cath. H er updated medication list for this problem includes: Aspirin 81 Mg Tablet,delayed Release (dr/ec) (Aspirin) ..... Take 1 tablet by mouth once a day Aarti Carlin [id number],C,E levated today, continues to be normal at home. Jack Carpenter MD [id number],SJack MD [id number],C, H er updated medication list for this problem includes: Simvastatin 20 Mg Tablet (Simvastatin) ..... Take 1 tablet by mouth once a day Jack Carpenter MD [id number],S,O verall feeling well. Pt denies SOB and chest pain. Continue current medications. Jack Carpenter MD [id number],C,O verall feeling well. Pt denies SOB and chest pain. Continue current medications. H er updated medication list for this problem includes: Aspirin 81 Mg Tablet,delayed Release (dr/ec) (Aspirin) ..... Take 1 tablet by mouth once a day Jack Carpenter MD [id number],C,N o complaints of leg pain at this time. Aarti Tomparis [id number],C, H er updated medication list for this problem includes: Simvastatin 20 Mg Tablet (Simvastatin) ..... Take 1 tablet by mouth once a day Aarti Tomparis [id number],C,P t fell and broke her left hip. She has recovered from her surgery. We reminded her to discontinue taking Metoprolol. She denies dizziness, chest pain, and SOB. Echo showed good repair of the mitral valve. Normal EF and severe tricuspid regurgitation. H er updated medication list for this problem includes: Aspirin 81 Mg Tablet,delayed Release (dr/ec) (Aspirin) ..... Take 1 tablet by mouth once a day Aarti Tomparis [id number],C,E cho showed good repair of the mitral valve. She denies dizziness, chest pain, and SOB. Aarti Carlin [id number],C,W e reminded her to discontinue taking Metoprolol. She denies dizziness, chest pain, and SOB. Echo showed good repair of the mitral valve. Normal EF and severe tricuspid regurgitation. Aarti Tesfaye Cardiology: H er updated medication list for this problem includes: Furosemide 40 Mg Tablet (Furosemide) ..... Take 1 tablet by mouth once a day dose increased per 05/14 blood work Aspirin 81 Mg Tablet,delayed Release (dr/ec) (Aspirin) ..... Take 1 tablet by mouth once a day Jack Carpenter MD Cardiology: H er updated medication list for this problem includes: Rosuvastatin 20 Mg Tablet (Rosuvastatin) ..... Take 1 tablet by mouth every day Jack Carpenter MD Cardiology: B P today: 105/78 P rior BP: 109/74 (05/14/2024) Labs Reviewed: C reat: 1.05 (04/03/2020) C hol: 166 (04/03/2020) HDL: 60 (04/03/2020) LDL: 91 (04/03/2020) T (04/03/2020) Her updated medication list for this problem includes: Furosemide 40 Mg Tablet (Furosemide) ..... Take 1 tablet by mouth once a day dose increased per 05/14 blood work Aspirin 81 Mg Tablet,delayed Release (dr/ec) (Aspirin) ..... Take 1 tablet by mouth once a day Jack Carpenter MD Cardiology:Will star t her on Jardiance 10mg for her HFpEF Her updated medication list for this problem includes: Furosemide 40 Mg Tablet (Furosemide) ..... Take 1 tablet by mouth once a day dose increased per 05/14 blood work Nitrostat 0.4 Mg Tablet, Sublingual (Nitroglycerin) ..... Dissolve 1 tablet under the toungue as needed for chest pain; may repeat every 5 minutes if still having chest pain; max 3 tabs per episode, Clopidogrel 75 Mg Tablet (Clopidogrel) Aspirin 81 Mg Tablet,delayed Release (dr/ec) (Aspirin) ..... Take 1 tablet by mouth once a day Jack Carpenter MD Cardiology:Recently underwent successful cardiac cath on June 06, LAD was stented N o CP Her updated medication list for this problem includes: Nitrostat 0.4 Mg Tablet, Sublingual (Nitroglycerin) ..... Dissolve 1 tablet under the toungue as needed for chest pain; may repeat every 5 minutes if still having chest pain; max 3 tabs per episode, Clopidogrel 75 Mg Tablet (Clopidogrel) Aspirin 81 Mg Tablet,delayed Release (dr/ec) (Aspirin) ..... Take 1 tablet by mouth once a day Jack Carpenter MD Cardiology: N o complaints of leg pain at this time. Anderson Smyth Cardiology: H er updated medication list for this problem includes: Rosuvastatin 20 Mg Tablet (Rosuvastatin) ..... Take 1 tablet by mouth every day This visit has been a part of the consistent, comprehensive, and ongoing management of the chronic medical condition(s) listed above for the patient. Anderson Stokesderekjanet Cardiology:Pt c/o si gnificant SOB for the past month with minimal exerttion. No CP. She believes SOB may be due to allergies, did improve significantly after stent in PD in January, concerned it may represent ischemia. Will try nitro as needed. Will schedule chest xray to rule and pulmonary connection and NTProBNP to rule out CHF. This visit has been a part of the consistent, comprehensive, and ongoing management of the chronic medical condition(s) listed above for the patient. Anderson Stokesderekjanet Cardiology:Pt c/o si gnificant SOB for the past month with minimal exerttion. No CP. She believes SOB may be due to allergies, did improve significantly after stent in PD in January, concerned it may represent ischemia. Will try nitro as needed. Will schedule chest xray to rule and pulmonary connection and NTProBNP to rule out CHF. This visit has been a part of the consistent, comprehensive, and ongoing management of the chronic medical condition(s) listed above for the patient. Anderson Stokesjosefa Cardiology:Pt has st opped taking carvedilol as BP ran too low. B P today: 109/74 P rior BP: 99/68 (02/13/2024) Her updated medication list for this problem includes: Furosemide 20 Mg Tablet (Furosemide) ..... Take 1 tablet by mouth every day Aspirin 81 Mg Tablet,delayed Release (dr/ec) (Aspirin) ..... Take 1 tablet by mouth once a day This visit has been a part of the consistent, comprehensive, and ongoing management of the chronic medical condition(s) listed above for the patient. Anderson Libra Cardiology: T he patient is using CPAP on a regular basis. The patient has been benefiting from therapy and should continue use. Anderson Smyth Cardiology:with cont inued edema and bilateral varicosities H ave encouraged compression Jack Carpenter MD Cardiology:The patie nt is using CPAP on a regular basis. The patient has been benefiting from therapy and should continue use. [facility] Cardiology:BP well c ontrolled home RPM average 113/63. S he is now off her BB T he following medications were removed from the medication list: Carvedilol 6.25 Mg Tablet (Carvedilol) ..... Take 1 tablet by mouth twice a day Her updated medication list for this problem includes: Furosemide 20 Mg Tablet (Furosemide) ..... Take 1 tablet by mouth every day Aspirin 81 Mg Tablet,delayed Release (dr/ec) (Aspirin) ..... Take 1 tablet by mouth once a day [facility] Cardiology:LDL 51 r emains on statin therapy H er updated medication list for this problem includes: Rosuvastatin 20 Mg Tablet (Rosuvastatin) ..... Take 1 tablet by mouth every day [facility] Cardiology:She had L 01/03/24 that showed 60-70% stenosis mLAD and 90% distal LAD present since 2019, 50% diagonal brach, 90% PDA and posterior lateral branch. CAMPUZANO to diagonal is patent and T graft to PDA occluded s tent to the posterior lateral branch r emains on asa, plavix an statin T he following medications were removed from the medication list: Carvedilol 6.25 Mg Tablet (Carvedilol) ..... Take 1 tablet by mouth twice a day Her updated medication list for this problem includes: Clopidogrel 75 Mg Tablet (Clopidogrel) Aspirin 81 Mg Tablet,delayed Release (dr/ec) (Aspirin) ..... Take 1 tablet by mouth once a day [facility] Cardiology:mild per recent LH C [facility] Cardiology: B P today: 107/89 P rior BP: 127/81 (05/21/2023) Labs Reviewed: C reat: 1.05 (04/03/2020) C hol: 166 (04/03/2020) HDL: 60 (04/03/2020) LDL: 91 (04/03/2020) T (04/03/2020) Her updated medication list for this problem includes: Furosemide 20 Mg Tablet (Furosemide) ..... Take 1 tablet by mouth every day Carvedilol 6.25 Mg Tablet (Carvedilol) ..... Take 1 tablet by mouth twice a day Aspirin 81 Mg Tablet,delayed Release (dr/ec) (Aspirin) ..... Take 1 tablet by mouth once a day Abdifatah Buckley Cardiology: H er updated medication list for this problem includes: Rosuvastatin 20 Mg Tablet (Rosuvastatin) ..... Take 1 tablet by mouth every day Abdifatah Buckley Cardiology: Her updated medication list for this problem includes: Carvedilol 6.25 Mg Tablet (Carvedilol) ..... Take 1 tablet by mouth twice a day Aspirin 81 Mg Tablet,delayed Release (dr/ec) (Aspirin) ..... Take 1 tablet by mouth once a day Abdifatah Buckley Cardiology: S he has 80% stenosis of right subclavian artery but she does not want procedure at this time. Abdifatah Marcio Cardiology:Pt compla ined of SOB with minimal exertion. Echo showed worsening of aortic stenosis with calculated valve area .93cm. The repaired mitral valve appears to funciton appropriately. EF 55%. will obtain right and left heart cath and to assess for CHF Abdifatah Vargasinari Cardiology:Pt compla ined of SOB with minimal exertion. Echo showed worsening of aortic stenosis with calculated valve area .93cm. The repaired mitral valve appears to funciton appropriately. EF 55%. will obtain right and left heart cath and to assess for CHF Abdifatah Buckley Cardiology:obtain f/u echo Jack Carpenter MD Cardiology: P er pulmonary. Jack Carpenter MD Cardiology:The patie nt is using CPAP on a regular basis. The patient has been benefiting from therapy and should continue use. Jack Carpenter MD Cardiology: H er updated medication list for this problem includes: Rosuvastatin 20 Mg Tablet (Rosuvastatin) ..... Take 1 tablet by mouth every day Jack Carpenter MD Cardiology:no angina . could not tolerate carvedilol due to low BP. T he following medications were removed from the medication list: Carvedilol 6.25 Mg Tablet (Carvedilol) ..... Take 1 tablet by mouth twice a day Her updated medication list for this problem includes: Aspirin 81 Mg Tablet,delayed Release (dr/ec) (Aspirin) ..... Take 1 tablet by mouth once a day Jack Carpenter MD Cardiology Jack Carpenter MD Cardiology:chf class II o btain f/u echo T he following medications were removed from the medication list: Carvedilol 6.25 Mg Tablet (Carvedilol) ..... Take 1 tablet by mouth twice a day H er updated medication list for this problem includes: Lasix 20 Mg Tablet (Furosemide) ..... Take 1 tablet by mouth once a day Aspirin 81 Mg Tablet,delayed Release (dr/ec) (Aspirin) ..... Take 1 tablet by mouth once a day Jack Carpenter MD Cardiology:She has 8 0% stenosis of right subclavian artery but she does not want procedure at this time. Jack Carpenter MD Cardiology:Pt has ch ronic dyspnea. CHF class II, will obtain f/u echo. Continue jardiance and Lasix, could not tolerate carvedilol due to low BP. T he following medications were removed from the medication list: Carvedilol 6.25 Mg Tablet (Carvedilol) ..... Take 1 tablet by mouth twice a day Her updated medication list for this problem includes: Lasix 20 Mg Tablet (Furosemide) ..... Take 1 tablet by mouth once a day Aspirin 81 Mg Tablet,delayed Release (dr/ec) (Aspirin) ..... Take 1 tablet by mouth once a day Jack Carpenter MD Cardiology:Her BP wa s retaken on right side and found to be in the 140s. She has a blockage on left side found on angiogram in 2021. Should only take BP on right side H er updated medication list for this problem includes: Carvedilol 6.25 Mg Tablet (Carvedilol) ..... Take 1 tablet by mouth twice a day Lasix 20 Mg Tablet (Furosemide) ..... Take 1 tablet by mouth once a day Aspirin 81 Mg Tablet,delayed Release (dr/ec) (Aspirin) ..... Take 1 tablet by mouth once a day BP today: 86/67 P rior BP: 100/-1 (11/20/2022) Labs Reviewed: C reat: 1.05 (04/03/2020) C hol: 166 (04/03/2020) HDL: 60 (04/03/2020) Jack Carpenter MD Cardiology Cesar Ahmedzai Cardiology Cesar Ahmedzai Cardiology Cesar Ahmedzai Cardiology Cesar Ahmedzai Cardiology Cesar medzai Cardiology: B P today: 132/72 P rior BP: 161/96 (06/12/2022) Labs Reviewed: C reat: 1.05 (04/03/2020) C hol: 166 (04/03/2020) HDL: 60 (04/03/2020) Her updated medication list for this problem includes: Carvedilol 6.25 Mg Tablet (Carvedilol) ..... Take 1 tablet by mouth twice a day Lasix 20 Mg Tablet (Furosemide) ..... Take 1 tablet by mouth once a day Aspirin 81 Mg Tablet,delayed Release (dr/ec) (Aspirin) ..... Take 1 tablet by mouth once a day Aarti Carlin Cardiology:Pt report s improvement with Jardiance. However not complete resolution of SOB. Will screen her for [place] trial. H er updated medication list for this problem includes: Carvedilol 6.25 Mg Tablet (Carvedilol) ..... Take 1 tablet by mouth twice a day Lasix 20 Mg Tablet (Furosemide) ..... Take 1 tablet by mouth once a day Aspirin 81 Mg Tablet,delayed Release (dr/ec) (Aspirin) ..... Take 1 tablet by mouth once a day Aarti Carlin Cardiology:Pt report s improvement with Jardiance. However not complete resolution of SOB. Will screen her for [place] trial. H er updated medication list for this problem includes: Carvedilol 6.25 Mg Tablet (Carvedilol) ..... Take 1 tablet by mouth twice a day Lasix 20 Mg Tablet (Furosemide) ..... Take 1 tablet by mouth once a day Aspirin 81 Mg Tablet,delayed Release (dr/ec) (Aspirin) ..... Take 1 tablet by mouth once a day Aarti Carlin Cardiology:Pt report s improvement with Jardiance. However not complete resolution of SOB. Will screen her for [place] trial. Aarti Carlin Cardiology: T he following medications were removed from the medication list: Simvastatin 20 Mg Tablet (Simvastatin) ..... Take 1 tablet by mouth once a day Her updated medication list for this problem includes: Rosuvastatin 20 Mg Tablet (Rosuvastatin) ..... Take 1 tablet by mouth every day Aarti Carlin Cardiology: B P today: 161/96 P rior BP: 146/79 (05/17/2022) Labs Reviewed: C reat: 1.05 (04/03/2020) C hol: 166 (04/03/2020) HDL: 60 (04/03/2020) Her updated medication list for this problem includes: Carvedilol 6.25 Mg Tablet (Carvedilol) ..... Take 1 tablet by mouth twice a day Lasix 20 Mg Tablet (Furosemide) ..... Take 1 tablet by mouth once a day Aspirin 81 Mg Tablet,delayed Release (dr/ec) (Aspirin) ..... Take 1 tablet by mouth once a day Aarti Carlin Cardiology: H er updated medication list for this problem includes: Carvedilol 6.25 Mg Tablet (Carvedilol) ..... Take 1 tablet by mouth twice a day Aspirin 81 Mg Tablet,delayed Release (dr/ec) (Aspirin) ..... Take 1 tablet by mouth once a day Aarti Carlin Cardiology:Clincally she is CHF class III. ProBNP is 1000, LDL 79, Echo showed normal EF, diastolic dysfunction, mild aortic stenosis, mild mitral stenosis post repair, and moderate tricuspid regurgitation. Will start Jardiance 10 mg daily, Lasix 20 mg daily, Carvedilol 6.25 mg BID, and change from simvastatin to rosuvastatin 20 mg daily. Her updated medication list for this problem includes: Carvedilol 6.25 Mg Tablet (Carvedilol) ..... Take 1 tablet by mouth twice a day Lasix 20 Mg Tablet (Furosemide) ..... Take 1 tablet by mouth once a day Aspirin 81 Mg Tablet,delayed Release (dr/ec) (Aspirin) ..... Take 1 tablet by mouth once a day Aartimilagros Tomparis Cardiology: H er updated medication list for this problem includes: Simvastatin 20 Mg Tablet (Simvastatin) ..... Take 1 tablet by mouth once a day Aarti Tesfaye Cardiology:Pt compla ins of SOB with minimal exertion, started about 2 months ago when she stopped exercising. She is s/p CABG and mitral valve repair. Will obtain echo to check the valve. Check proBNP and BMP. Based on the results, we will consider cardiac cath. Aarti Tesfaye Cardiology:Pt compla ins of SOB with minimal exertion, started about 2 months ago when she stopped exercising. She is s/p CABG and mitral valve repair. Will obtain echo to check the valve. Check proBNP and BMP. Based on the results, we will consider cardiac cath. H er updated medication list for this problem includes: Aspirin 81 Mg Tablet,delayed Release (dr/ec) (Aspirin) ..... Take 1 tablet by mouth once a day Aarti Carlin Cardiology:Pt compla ins of SOB with minimal exertion, started about 2 months ago when she stopped exercising. She is s/p CABG and mitral valve repair. Will obtain echo to check the valve. Check proBNP and BMP. Based on the results, we will consider cardiac cath. H er updated medication list for this problem includes: Aspirin 81 Mg Tablet,delayed Release (dr/ec) (Aspirin) ..... Take 1 tablet by mouth once a day Aarti Carlin Cardiology:Elevated today, continues to be normal at home. Jack Carpenter MD Cardiology Jack Carpenter MD Cardiology: H er updated medication list for this problem includes: Simvastatin 20 Mg Tablet (Simvastatin) ..... Take 1 tablet by mouth once a day Jack Carpenter MD Cardiology:Overall f eeling well. Pt denies SOB and chest pain. Continue current medications. Jack Carpenter MD Cardiology:Overall f eeling well. Pt denies SOB and chest pain. Continue current medications. H er updated medication list for this problem includes: Aspirin 81 Mg Tablet,delayed Release (dr/ec) (Aspirin) ..... Take 1 tablet by mouth once a day Jack Carpenter MD Cardiology:No complaints of leg pain at this time. Aarti Carlin Cardiology: H er updated medication list for this problem includes: Simvastatin 20 Mg Tablet (Simvastatin) ..... Take 1 tablet by mouth once a day Aarti Carlin Cardiology:Pt fell a nd broke her left hip. She has recovered from her surgery. We reminded her to discontinue taking Metoprolol. She denies dizziness, chest pain, and SOB. Echo showed good repair of the mitral valve. Normal EF and severe tricuspid regurgitation. H er updated medication list for this problem includes: Aspirin 81 Mg Tablet,delayed Release (dr/ec) (Aspirin) ..... Take 1 tablet by mouth once a day Aarti Carlin Cardiology:Echo show ed good repair of the mitral valve. She denies dizziness, chest pain, and SOB. Aarti Carlin Cardiology:We remind ed her to discontinue taking Metoprolol. She denies dizziness, chest pain, and SOB. Echo showed good repair of the mitral valve. Normal EF and severe tricuspid regurgitation. Aarti Carlin Cardiology follow up :Her updated medication list for this problem includes: Simvastatin 20 Mg Oral Tablet (Simvastatin) ..... Take 1 tab daily [facility]ani Oden Cardiology follow up :Orders: C omplete Echo (CPT-67937) [facility] O[facility] Cardiology follow up :Doing well in rehab. No chest pain or SOB. She will continue on ASA. Will obtain a f/u echo. The following medications were removed from the medication list: Metoprolol Tartrate 25 Mg Oral Tablet (Metoprolol tartrate) ..... 1/4 tab daily twice a day Clopidogrel Bisulfate 75 Mg Oral Tablet (Clopidogrel bisulfate) ..... Take 1 tab daily Her updated medication list for this problem includes: Aspirin 81 Mg Oral Tablet Delayed Release (Aspirin) ..... Take 1 tab daily [facility] Cardiology follow up :Leg swelling is stable and she is not interested in Venaseal. [facility] hospital follow up [facility] hospital follow up :Her updated medication list for this problem includes: Simvastatin 20 Mg Oral Tablet (Simvastatin) ..... Take 1 tab daily [facility] follow up :Angiography revealed stenosis of the R subclavian artery but the L subclavian artery was normal. [facility] follow up :She has significant leg swelling and venous duplex in April showed significant insufficiency of the GSV bilaterally. We will discuss Venaseal if she remains symptomatic with leg swelling in the spring. [facility] follow up :Angiography revealed 50% stenosis of the LRA. [facility] follow up :Angiography revealed 80% stenosis of the R subclavian artery. [facility] follow up :CT coronary calcium score was markedly elevated and cardiac cath showed severe MR and severe two-vessel CAD with significant stenosis of the LAD, first diagonal and PDA. She underwent CABG x2 (CAMPUZANO-diagonal, T-graft radial-PDA) and MV repair by Dr. Prajapati in May. She has recovered well. No chest pain and reports SOB only with excessive exertion. Her updated medication list for this problem includes: Metoprolol Tartrate 25 Mg Oral Tablet (Metoprolol tartrate) ..... 1/4 tab daily twice a day Clopidogrel Bisulfate 75 Mg Oral Tablet (Clopidogrel bisulfate) ..... Take 1 tab daily Aspirin 81 Mg Oral Tablet Delayed Release (Aspirin) ..... Take 1 tab daily [facility] follow up :Echo in February showed severe MR. Cardiac cath showed severe MR. REED confirmed severe MR with an eccentric jet with mild prolapse of the anterior leaflet. Agitated saline study was negative. She underwent CABG x2 (CAMPUZANO-diagonal, T-graft radial-PDA) and MV repair by Dr. Prajapati in May. She has recovered well. No chest pain and reports SOB only with excessive exertion. [facility]:Per pulmonary. [facility] TeleHealth:Today BP was elevated but usually it is normal. She will check again and call if it is elevated. [facility] TeleHealth:Myoview scan was norm al. [facility] TeleHealth:The patie nt denies CP or SOB. She is active. Myoview scan was normal. Echo showed severe MR with normal EF and normal LV and LA dimensions. Will repeat echo in March 2020. [facility] Card[facility]:Orders: C omplete Echo (CPT-[id number]) [facility] Cardiology:Pt compla ins of pain in the L upper arm. There is some tenderness. Pain is not exertional however she is concerned it may be cardiac pain. Will do stress myoview and echo. [facility] Cardiology:Per pulmonary. [facility] Cardiology:Orders: C omplete Echo (CPT-[id number]) [facility] Follow up:Denies ches t pain. [facility] Follow up :The patient is using CPAP on a regular basis. The patient has been benefiting from therapy and should continue use. [facility] Follow up:Per pulmona ry. [facility] Follow up:Per pulmona ry. [facility] Follow up :No change in symptoms. EKG is normal. She continues to follow with pulmonary. [facility] Cardiology:Orders: C omplete Echo (CPT-[id number]) Jack Carpenter MD Cardiology:On CPAP. Jack Carpenter MD Cardiology:No chest pain. Jack Carpenter MD Cardiology:Followed by Dr. Arndt . Jack Carpenter MD Cardiology:Unchanged. Followed josephine Arndt. Jack Carpenter MD Cardiology [facility]ani Dill [facility] Cardiology:She was s een in the hospital for chest pain. A cardiac workup including myoview scan and echo was normal Armani Oden Date Name PROTHROMBIN TIME WIT H INR LIPID PANEL CBC (INCLUDES DIFF/P LT) BASIC METABOLIC PANE L W/EGFR X-Ray, Chest 2 View PROBNP, N TERMINAL Microalb/Creatinine Urine, Random CRP, high sensitivit y PROBNP, N TERMINAL PROTHROMBIN TIME WIT H INR LIPID PANEL CBC (INCLUDES DIFF/P LT) BASIC METABOLIC PANE L W/EGFR HEMOGLOBIN A1c Complete Echo Complete Echo RPM (remote patient monitoring) CBC (INCLUDES DIFF/P LT) HEMOGLOBIN A1c LIPID PANEL BASIC METABOLIC PANE L W/EGFR PROBNP, N TERMINAL Complete Echo Complete Echo Arterial Duplex Bi-L ower EX Arterial Duplex Bi-L ower EX Venous Doppler Bilat eral LE Arterial Duplex LUE Carotid Duplex Bilat eral [facility] - [facility] COVID19 nasal swab ( LC) PROTHROMBIN TIME WIT H INR LIPID PANEL CBC (INCLUDES DIFF/P LT) BASIC METABOLIC PANE L W/EGFR COVID19 nasal swab ( LC) HEMOGLOBIN A1c LIPID PANEL CT, Coronary Calcium Score Complete Echo Complete Echo Stress Exercise Card iolite Complete Echo Complete Echo Complete Echo MAGNESIUM B TYPE NATRIURETIC P EPTIDE (BNP) Cardiopulmonary Stre ss Test STR - Nuclear Complete Echo HISTORY OF PROCEDURES Procedure Date Procedure Name Provider Procedure Notes S tatus Complex e/m visit add on Jack Carpenter MD completed Complex e/m visit add on Jack Carpenter MD completed EKG Jack Carpenter MD completed EKG Jack Carpenter MD completed CT- Coronary CA score Jack Carpenter MD completed Cardiolite, 2 units Jack Carpenter MD c ompleted SPECT Images Jack Carpenter MD complete d Stress EKG Jack Carpenter MD completed EKG Jack Carpenter MD completed EKG Jack Carpenter MD completed EKG Jack Carpenter MD completed SNOMED-CT: 284507321 [id number] Current Medications Documented Jack Carpenter MD completed EKG Jack Carpenter MD completed SNOMED-CT: 149906329 [id number] Current Medications Documented Jack Carpenter MD completed SNOMED-CT: [id number] Smoking Cessation Counseling Jcak Carpenter MD completed SNOMED-CT: 71015389 Physical Exam, Performed: Pulse Exam of Foot Jack Carpenter MD completed EKG Jack Carpenter MD completed SNOMED-CT: [id number] [id number] Current Medications Documented Jack Carpenter MD completed
--- OUTSIDE RECORDS SUMMARY | 2024-12-15 23:59 | XMS_ITS | Clinical Summary ---
Author Organization [facility] Physician Of [facility] [address] [place] [id number] Care Team Providers Care Pipe Fitter Gas Pipe Name Role Phone Rios Asif MD Primary Care Provider Jefry Prajapati MD Unavailable [phone] Jack Carpenter MD Unavailable Allergies No known active allergies Medications citalopram (CeleXA) 20 mg tablet Take 1 tablet (20 mg total) by mouth nightly Active umeclidinium-vi lanteroL (ANORO ELLIPTA) 62.5-25 mcg/actuation blister with device Inhale 1 puff daily Active omeprazole (PriLOSEC) 20 mg capsule Take 1 capsule (20 mg total) by mouth daily Active albuterol HFA (PROVENTIL HFA,VENTOLIN HFA,PROAIR HFA) 90 mcg/actuation inhaler Inhale 2 puffs every 4 (four) hours as needed for wheezing Active simvastatin (ZOCOR) 20 mg tablet Take 1 tablet (20 mg total) by mouth daily Active calcium carbonate/vitam in D3 (CALCIUM+D ORAL) Take 1 tablet by mouth daily Active acetaminophen ER (TYLENOL) 650 mg 8 hr tablet Take 1 tablet (650 mg total) by mouth every 8 (eight) hours as needed Active vit C/E/zinc ox/justice/lut/ki x (ICAPS AREDS2 ORAL) Take 1 tablet by mouth daily Active aspirin 81 mg enteric coated tablet Take 1 tablet (81 mg total) by mouth daily Active lanolin/mineral oil/petrolatum (ARTIFICIAL TEARS OPHT) Administer 1 drop into affected eye(s) as needed Active LORazepam (ATIVAN) 0.5 mg tabletIndicatio ns:anxiety Take 1 tablet (0.5 mg total) by mouth 2 (two) times a day as needed for anxiety rx# [id number] Active empagliflozin (JARDIANCE) 10 mg tablet Take 1 tablet (10 mg total) by mouth daily Active clopidogreL (PLAVIX) 75 mg tablet Take 1 tablet (75 mg total) by mouth daily 90 tablet 2 4 Active alendronate (FOSAMAX) 70 mg tablet Take 1 tablet (70 mg total) by mouth every 7 days Q Sat. Active nitroglycerin (NITROSTAT) 0.[address] 1 tablet (0.4 mg total) under the tongue every 5 (five) minutes as needed 4 Active Active Problems Problem Noted Date Diagnosed Date CAD S/P percutaneous coronary angioplasty 2023 SOB (shortness of breath) 05/20/2024 CAD (coronary artery disease) 01/10/2024 Coronary artery disease invo lving iroquois heart without angina pectoris 05/04/2020 Overview (05/04/2020): Added automatically from request for surgery [id number] Mitral valve insufficiency 05/04/2020 Overview (05/04/2020): Added automatically from request for surgery [id number] Surgical History Surgery Date Site/Laterality Comments CATARACT EXTRACTION, BILATERAL RETINA SURGERY Bilateral TUBAL LIGATION TONSILLECTOMY Medical History Medical History Date Comments Sleep apnea Coronary artery disease Mitral valve disorder Hyperlipidemia CHF (congestive heart failure) (HCC) 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 COPD (chronic obstructive pulmonary disease) (HC C) GERD (gastroesophageal reflux disease) Irritable bowel syndrome Cirrhosis of liver (HCC) Hepatitis, autoimmune (HCC) remigio román Depression Anxiety Arthritis Retinal tear of right eye Fracture, humerus closed Lung disease SOB (shortness of breath) Family History Medical History Relation Name Comments Heart disease Father Cancer Mother Relation Name Status Comments Father Mother Social History Tobacco Use Types Packs/Day Years Used Date Smoking Tobacco: Former Cigarettes Q uit: 05/19/2005 Smokeless Tobacco: Never Tobacco Cessation:Counseling Given: Not Answered AUDIT-C Answer Date Recorded Q1: How often do you have a drink containing alc ohol? Monthly or less 06/06/2024 Q2: How many drinks containi ng alcohol do you have on a typical day when you are drinking? 1 or 2 06/06/2024 Q3: How often do you have si x or more drinks on one occasion? Never 06/06/2024 Personal Safety Answer Date Recorded Have you ever been in or are you currently in a harmful physical or emotional relationship or is someone making you feel afraid or unsafe? 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 Gender Identity Not on file Sexual Orientation Not on file Obstetrics History Last Filed Vital Signs Vital Sign Reading Time Taken Comments Blood Pressure 110/72 06/07/2024 8:24 AM CDT Pulse 75 06/07/2024 8:00 AM CDT Temperature 36.4 C (97.6 F) 06/07/2024 8:24 AM CDT Respiratory Rate 18 06/07/2024 8:24 AM CDT Oxygen Saturation 93% 06/07/2024 8:24 AM CDT Inhaled Oxygen Concentration - - Weight 59.3 kg (130 lb 12.8 oz) 06/07/2024 6:55 AM CDT Height 170.2 cm (5' 7) 06/06/2024 1:27 PM CDT Body Mass Index 20.49 06/06/2024 1:27 PM CDT Plan of Treatment Health Maintenance Due Date Last Done Comments Depression Screening 1945 Zoster Vaccine (1 of 2) 12/01/1993 Well Visit 65+ 12/01/2008 Osteoporosis Screening-Bone Density Scan 04/11/2024 04/11/2022, 03/31/2022 Influenza Vaccine (Season Ended) 2025 04/21/2020, 05/22/2019, 05/09/2018, Additional history exists Fall Risk Assessment 06/07/2025 06/07/2024 DTaP/Tdap/Td Vaccine (3 - Tdap) 12/22/2027 8, 11/04/2008 Hepatitis B Screening Completed 07/20/2014 , 01/15/2014, 12/16/2013 Pneumococcal vaccine 65+ Completed 09/11/2017, 03/2009 Medical Devices Implanted Type Area Hardware Manager Device Identifier Shelf Expiration Date Model / Serial / Lot [employer] [id number] Iker s Physio Ii 28mm Wilson Sew Mitral Ring - [id number] - [id number] Implanted:Qty: 1 on 05/21/2020 by Jefry Prajapati MD at [facility] N/A: Heart [employer] 04/18/2025 [id number] / [id number] / Description:Mitral ring Medtronic Card Vas Surgery 2.00 X 15mm Ezequiel Rooks Rx Coronary Stent [id number] - [id number] Implanted:Qty: 1 on [facility]10/[facility] 09/21/2026 [id number] / / [id number] [employer] Angio-Seal Vip 6fr Closere Device [id number] - [id number] Implanted:Qty: 1 on 01/10/2024 by Jack Carpenter MD at [facility] [id number] / / Medtronic Card Vasc Surgery 3.0 X 15mm Trafford Rooks Rx Coronary Stent [id number] - [id number] Implanted:Qty: 1 on 06/06/2024 [facility] Vasc Surgery 03/28/2027 [id number] / / [id number] [employer] Angio-Seal Vip 6fr Closere Device [id number] - [id number] Implanted:Qty: 1 on 06/06/2024 by Jack Carpenter MD at [facility] Medical Trell [id number] / / Insurance [facility] MEDICARE ADVANTAGE [facility] DUAL COMPLETE OOS [id number] [place] [facility] DUAL COMPLETE OOS [id number] [place] [facility] MEDICARE ADVANTAGE Advance Directives For more information, please contact: [phone] * Full Code (Latest Code Status on File) Date Activated Date Inactivated Comments 06/06/2024 10:48 AM 06/07/2024 3:39 PM * Full Code Date Activated Date Inactivated Comments 01/10/2024 1:52 PM 01/11/2024 5:34 PM * Full Code Date Activated Date Inactivated Comments 05/21/2020 4:36 PM 06/07/2020 10:49 PM Care Teams Pipe Fitter Gas Pipe Relationship Specialty Start Date End Date Rios Asif MD PCP - General Internal Medicine 04/15/20 Jefry Prajapati MD Surgeon Cardiothoracic Surgery 06/07/20 Jack Carpenter MD Consulting Physician Cardiovascular Disease 06/07/20
--- OUTSIDE RECORDS SUMMARY | 2024-12-15 23:59 | XMS_ITS | Data Portability ---
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 Plan of Treatment Reminders Order Date Submit Date Provider Last Modified By Organization Details Last Modified Time Details Appointments Establish ed Patient 2024 01:30P M Yecenia Han MD Not available Not available Not available Any 15 2024 09:45A M Gabo Asif MD Not available Not available Not available Lab CMP, serum or plasma 2024 025 [facility], [address], [place], [address], 12/05/2024 13:53:07 CBC w/ auto diff 2023 024 [facility], [address], [place], [address], 09/10/2024 10:09:25 vitamin D, 25-hydrox y, total, serum 2023 024 [facility], [address], [place], [address], 09/10/2024 10:09:25 lipid panel, serum 2023 024 [facility], [address], [place], [address], 09/10/2024 10:09:25 CMP, serum or plasma 2023 024 [facility], [address], [place], [address], 09/10/2024 10:09:25 Referral None recorded. Procedures None recorded. Surgeries None recorded. Imaging bone density - Please call patient to schedule. [address] [facility], [address], [place], [address], 11/25/2024 12:21:50 MAMMO, screening , digital, bilateral [address] ([facility] [employer] [facility]), [address] [place], [address], 05/08/2024 17:20:18 Medication Orders clopidogr el 75 mg tablet 2024 025 [facility]/Pharmacy #[id number], [id number], [place], [address], 11/20/2024 10:38:55 tramadol 50 mg tablet 2023 024 [email or web address] [facility]/Pharmacy #[id number], [address], [place], [address], 11/20/2024 10:11:44 Patient TargetsNo targets recorded. Patient Instructions Encounter Date Encounter Id Patient Instructions Last Modified By Organization Details Last Modified Time 03/27/2024 [id number] [email or web address] Not available 03/27/2024 09:56:35 07/23/2024 [id number] dementia rating scale-2* [email or web address] Not available 07/23/2024 14:50:11 depression screening* Not available 07/23/2024 17:15:56 alcohol misuse* Not available 07/23/2024 17:15:56 Timed Up and Go test (TUG)* Not available 07/23/2024 17:15:56 multi-dimensiona l health assessment questionnaire* Not available 07/23/2024 17:15:56 Personalized Health Plan and Screening Recommendations Advance Directives - Do you have one? Yes Advance Directives - Do we have your advance directive on file in your health record? No, please bring in a copy at your earliest convenience Primary Prevention/Interven tion (prevents or decreases the chance of common diseases from occurring) Smoking Risk: Non Smoker Alcohol Misuse Screening: Negative Weight: Appropriate Physical activity: Need more exercise/physical activity decrease sitting time to no more than 5hr/day Nutrition: Good Average Fall Risk (screened today): Low Intermediate Refer to attached handout Preventing Falls: After your Visit Recommend regular use of cane or walker Vaccines Pneumococcal: Ordered Recommended today Recommended today, but you have declined No further needed Influenza: Chronic Disease Risks Stroke: Low Risk Intermediate Risk I have no recommendations Act niya diagnosis, Continue current treatment plan Heart Attack: Low risk Intermediate Risk I have no recommendations Act niya diagnosis, Continue current treatment plan Clogging of the Arteries: Low risk Intermediate Risk I have no recommendations Act niya diagnosis, Continue current treatment plan Diabetes: Low Risk I have no recommendations Secondary Prevention/Interven tion (detects treatable diseases before they may cause symptoms, disability, or ) Breast Cancer Screening with mammogram: No screening necessary Cervical/Uterine/Ov kimmie Cancer Screening: No screening necessary Osteoporosis Screening: Date Screening Last Performed: 04/2022 Colon Cancer Screening: No screening necessary Date Screening Last Performed: 04/2021 Eye Disease Screening: Ordered Recommended today Dementia Risk: Low I have no recommendations Depression Screening: Negative [email or web address] Not available 07/23/2024 12:58:36 11/20/2024 [id number] Not available 11/20/2024 10:37:47 12/04/2024 [id number] Increase fluids and electrolyte drinks. Continue on BRAT diet. Use otc Immodium as discussed if needed. Call office on Sunday to let us know update, will call with lab results. Not available 12/04/2024 11:34:32 Reason for Referral None Reported. Results Created Date Observation Date Name Description Value Unit Range Abnormal Flag Note LastModifiedBy Organization Detail LastModifiedTime 06/06/20 24 06/06/2024 cardi ac monit or No observ ation record ed. Not Available 2023 09:59:31 09/12/1909/12/2024 DEXA, axial skele ton [facility] [address], [place] [address] [phone] Ryan t Name: ZORAIDA LEAL MS Access ion #: [id number] Sex: F : 1945 1 Locati on: RAD Attend ing Physic ronan: DEVON ASIF ER Orderi ng Physic ronan: DEVON ASIF ER Exam Date: 09/12/19 10:41 AM Exam Name: XR DEXA-H IPS PELVIS SPINE Admitt ing Diagno sis(es ): RADIOL OGY REPORT - FINAL EXAM: XR DEXA-H IPS PELVIS SPINE HISTOR Y: asympt omatic menopa usal state 78-yea r-old female with osteop orosis screen ing. COMPAR DELFIN: DEXA scan dated 2021. TECHNI QUE: Dual energy x-ray of absorp tion examin ation of the left hip and lumbar spine was perfor med in AP projec tion. FINDIN GS: Lumbar Spine (L1-L4 ): The mean bone minera l densit y is 1.176 g/cm2 hydrox yapati te, correl ating with a T-scor e of -0.2. BMD of the lumbar spine is increa sed 11.7% since the prior study. Left hip: The total bone minera l densit y is 0.835 g/cm2 calciu m Page 1 of 2 [facility] Ryan t Name: ZORAIDA LEAL MS Access ion #: [id number] Sex: F : 1945 1 Exam Date: 09/12/19 10:41 AM Exam Name: XR DEXA-H IPS PELVIS SPINE Admitt ing Diagno sis(es ): hydrox yapati te, correl ating with a T-scor e of -1.4. BMD of the left hip is increa sed 20.3% since the prior study. Risk of major osteop orotic fractu re 22.9%; risk of hip fractu re 7.3%. IMPRES MCKINLEY: 1. The patien t's lumbar spine T-scor e is consis tent with normal bone minera l densit y overal l. It should be noted that the BMD at L4 is consis tent with osteop enia. 2. The patien t's bilate ral hip T-scor e is consis tent with osteop enia. Accord ing to the World Health Organi zation , T-scor e values greate r than -1.0 are normal , values betwee n -1.0 and -2.5 are catego rized as osteop enia, T-scor e of -2.5 or more are catego rized as osteop orosis . Create d and electr onical ly signed by: Anderson boykin MD Signed Date: 09/12/19 12:07 PM (CT) Dictat ed by: Anderson boykin MD (CT) (CT) Page 2 of 2 [email or web address] [facility] (Imaging) [address] [place], [address], 09/17/2024 14:51:49 Result Notes None recorded. Problems Name Problem SNOMED Code Status Onset Date Resolution Date Notes Provider Name and Address Organization Details Recorded Time Chronic obstructiv e pulmonary disease 76618884 Active 2017 Not Available [facility] 3 16:15:19 Herpes labialis 9026356 Active Not Available [facility] 3 16:15:19 Mammograph y abnormal 877801582 Active Not Available [facility] 3 16:15:19 Gastroesop hageal reflux disease 865562195 Active Not Available [facility] 3 16:15:19 Screening mammograph y Completed 202103/30/2022 Not Available [facility] 3 01:05:08 Gastroesop hageal reflux disease without esophagiti s 803507264 Active 2021 Not Available [facility] 3 16:15:19 Long-term drug therapy Completed 202103/30/2022 Not Available [facility] 3 01:05:09 Pain in right lower limb 045072757 Completed Not Available [facility] 3 01:05:09 Chest pain 60990019 Completed Not Available [facility] 3 01:05:09 Diverticul itis 325202737 Active 2017 Not Available [facility] 3 16:15:19 Osteopenia 986651365 Active 2017 Not Available [facility] 3 16:15:19 Vitamin D deficiency 51488679 Active 2022 Not Available [facility] 3 16:15:19 Osteoarthr itis 559096275 Active 2022 Not Available [facility] 3 16:15:19 Autoimmune hepatitis 474389419 Active 2017 Not Available [facility] 3 16:15:19 Solitary nodule of lung 748196148 Active 2021 Not Available [facility] 3 16:15:19 History of polyp of colon 626974923 Active Not Available [facility] 3 16:15:19 Acute urinary tract infection 648996816 Completed FERNANDA [place], [place] - [facility] Cátedras Libres [facility] 3 12:56:23 Multiple nodules of lung 994129958 Completed 201701/06/2021 Not Available [facility] 3 01:05:10 Herpes zoster 8262050 Active Not Available [facility] 3 16:15:19 Anxiety 61936167 Active Not Available [facility] 3 16:15:19 Mitral valve regurgitat ion 08494024 Completed Not Available [facility] 3 01:05:11 Coronary arterioscl erosis 63977250 Active 2019 Not Available [facility] 3 16:15:19 Upper respirator y infection 56657378 Completed Not Available [facility] 3 01:05:11 Hyperlipid emia 84979281 Active Not Available [facility] 3 16:15:19 Diarrhea 01985974 Completed Not Available [facility] 3 01:05:11 Osteoporos is 09980805 Active 2021 Not Available [facility] 3 16:15:19 Sleep apnea 52546452 Completed 201701/06/2021 Not Available [facility] 3 01:05:12 Stress 71922099 Active Not Available [facility] 3 16:15:19 Postmenopa usal state 88251576 Completed 202103/30/2022 Not Available [facility] 3 01:05:12 Obstructiv e sleep apnea syndrome 83434962 Active 2017 Not Available [facility] 3 16:15:20 Hyperglyce esequiel 79563874 Active 2022 Not Available [facility] 3 16:15:20 Sj gren's syndrome 76209171 Active 2017 Not Available [facility] 3 16:15:20 Pulmonary emphysema 33879505 Completed Not Available [facility] 3 01:05:13 Mild chronic obstructiv e pulmonary disease 520318041 Active 2022 Not Available [facility] 3 16:15:19 Acute urinary tract infection 702712832 Active 2022 Pascale Rollins LPN null, [employer] [facility] Contractually [facility] 3 12:56:23 Aortic valve stenosis 91613112 Active 2023 Gabo Asif MD [address], [address], [place], [address] , [employer] [facility] 4 10:09:19 Low blood pressure 33657050 Active 2023 Gabo Asif MD [address], [address], [place], [address] , [employer] [facility] 4 10:10:05 Wound of skin 102681001 Active 2023 Gabo Asif MD [address], [address], [place], [address] , [employer] [facility] [employer] 4 12:11:06 Carotid artery stenosis 53545740 Active 2024 Gabo Asif MD [address], [facility] [address], [place], [address] , [facility] [employer] [facility] [employer] [facility] 5 10:37:19 Acute diarrhea 638695731 Active 2024 RA Guerrero-C [address], [facility] [address], [place], [address] , [facility] [employer] [facility] [employer] 5 11:11:55 Hypokalemi a 05327043 Active 2024 RA Guerrero-C [address], [facility] [address], [place], [address] , [employer] [facility] 5 15:45:16 Notes:Medical History: Anxie ty/Depression Sjogren's syndrome Ige 2 IU/mL Eosinophils 120/uL Postnasal drip Herpes labialis Herpes zoster Moderate OSAHS, AHI = 29, 03/24/14, on autoCPAP c/o [employer] Hypertension Hyperlipidemia CAD EF 65% Elevated BNP Severe TR with PASP 41 mmHg Mild AR Alpha-1 antitrypsin PiMM 256 mg% Mild COPD RUL scar CRUZ Autoimmune hepatitis Diverticulosis/Diverticulitis Osteopenia Right hip osteoarthritis Procedure History: Colonoscopy with polypectomy 2018 MV repair for MR 2020 2 vessel CABG 2019 Coronary artery stent placement 2023 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 Procedures Surgical History Date Name Laterality Status Provider Name and Address Organization Details Recorded Time 11/21/19 25 Medicare Wellness CPT Code, subsequent completed JR Yuen ID [employer] [facility] 11/20/2024 10:06:39 07/23/20 24 Medicare Wellness CPT Code, subsequent completed Brit Gregg RN [facility] [employer] [facility] 07/23/2024 11:40:15 04/13/20 23 Medicare Wellness CPT Code, subsequent completed Maggi Molina RN [facility] [employer] [facility] 04/13/2023 11:21:23 03/23/20 23 Date of Last Mammogram completed Maggi Molina RN [facility] 04/13/2023 11:45:20 04/11/20 22 Most Recent Bone Density completed Maggi Molina RN [facility] [employer] [facility] 04/13/2023 11:45:37 04/25/20 21 Date of Last Colonoscopy completed Not Available [facility] 10/04/2022 00:52:45 08/06/19 21 Hip surgery completed Rosa Cardona MA [facility] 01/25/2023 15:14:42 05/21/20 20 open heart surgery completed Not Available [facility] 10/04/2022 00:52:48 colonoscopy completed Not Available [facility] 10/04/2022 00:52:48 Tonsillectomy completed Not Available [facility] 10/04/2022 00:52:48 Imaging Results Imaging Date Name Status LastModified by Organiz ation Details LastModified Time 06/06/2024 ekg monitor tech [facility] Information not available 06/09/2024 09:59:31 09/12/2024 DEXA, axial skeleton completed [email or web address] [facility] (Imaging) [address] [place], [address], 09/17/2024 14:51:49 Procedure Notes None recorded. Medical Equipment None Reported. Allergies No known drug allergies Medications Name Sig Start Date Stop Date Status Note LastModified by Organization Details LastModified Time furosemid e 40 mg tablet TAKE 1 TABLET BY MOUTH EVERY DAY 11/20 completed Not Available Not Available Not Available carvedilo l 6.25 mg tablet TAKE 1 TABLET BY MOUTH TWICE A DAY 07/23 completed Not Available Not Available Not Available prednison e 10 mg tablet active Not Available Not Available Not Available doxycycli ne hyclate 100 mg capsule Take 1 capsule twice a day by oral route for 7 days. active Not Available Not Available No t Available azithromy stephani 250 mg tablet TAKE 2 TABLETS (500 MG) BY ORAL ROUTE ONCE DAILY FOR 1 DAY THEN 1 TABLET (250 MG) BY ORAL ROUTE ONCE DAILY FOR 4 DAYS 03/23 completed Not Available Not Available Not Available amiodaron e 200 mg tablet 10/11 completed Not Available Not Available Not Available valacyclo vir 1 gram tablet Take 1 tablet every 8 hours by oral route for 7 days. active Not Available Not Available No t Available alendrona te 70 mg tablet TAKE 1 TABLET BY MOUTH ONE TIME PER WEEK active Not Available Not Available No t Available clonazepa m 0.5 mg tablet Take 1 tablet twice a day by oral route as needed. 09/11 completed Not Available Not Available Not Available prednison e 5 mg tablet active Not Available Not Available Not Available azathiopr ine 50 mg tablet TAKE 1 TABLET BY MOUTH EVERY DAY 05/26 completed Not Available Not Available Not Available acetamino phen 300 mg-codein e 30 mg tablet 12/05 completed Not Available Not Available Not Available clopidogr el 75 mg tablet TAKE 1 TABLET BY MOUTH EVERY DAY active Not Available Not Available No t Available acyclovir 400 mg tablet Take 1 tablet every 8 hours by oral route. active Not Available Not Available No t Available aspirin 81 mg tablet,de layed release Take 1 tablet every day by oral route. 2020 active Not Available Not Available Not Avai lable tramadol 50 mg tablet Take 1/2 to 1 TABLET EVERY 6 HOURS by oral route as needed for pain ok to take with tylenol 11/20 completed Not Available Not Available Not Available triamcino lone acetonide 0.1 % topical cream APPLY THIN COAT TO AFFECTED AREA TWICE A DAY active Not Available Not Available No t Available spironola ctone 25 mg tablet 10/11 completed Not Available Not Available Not Available citalopra m 20 mg tablet TAKE 1 TABLET BY MOUTH EVERYDAY AT BEDTIME active Not Available Not Available No t Available prednisol one acetate 1 % eye drops,sandee pension 12/05 completed Not Available Not Available Not Available lorazepam 0.5 mg tablet TAKE 1 TABLET BY MOUTH TWICE A DAY NEEDED ONLY active Not Available Not Available No t Available cephalexi n 500 mg capsule TAKE 1 CAPSULE BY MOUTH EVERY 6 HOURS 11/20 completed Not Available Not Available Not Available simvastat in 20 mg tablet TAKE 1 TABLET BY MOUTH EVERY DAY active Not Available Not Available No t Available nitroglyc saskia 0.4 mg sublingua l tablet DISSOLVE 1 TAB UNDER THE TONGUE NEEDED FOR CHEST PAIN-MAY REPEAT EVERY 5 MINS IF NEEDED-M AX 3TABS active Not Available Not Available No t Available balsalazi de 750 mg capsule 03/06 completed Not Available Not Available Not Available omeprazol e 20 mg capsule,d elayed release TAKE 1 CAPSULE BY MOUTH EVERY DAY active Not Available Not Available No t Available aspirin 81 mg chewable tablet Chew 1 tablet every day by oral route. 09/11 completed Not Available Not Available Not Available mupirocin 2 % topical ointment 12/05 completed Not Available Not Available Not Available zolpidem 5 mg tablet 2017 active as needed Not Available Not Available Not Available furosemid e 20 mg tablet TAKE 1 TABLET BY MOUTH EVERY DAY active Not Available Not Available No t Available methylpre dnisolone 4 mg tablets in a dose pack TAKE 1 TABLET BY MOUTH EVERY DAY DIRECTED 11/24 completed Not Available Not Available Not Available albuterol sulfate HFA 90 mcg/actua tion aerosol inhaler INHALE 1 PUFF BY MOUTH EVERY 4 HOURS NEEDED active Not Available Not Available No t Available Cipro 250 mg tablet Take 1 tablet twice a day by oral route for 5 days. active Not Available Not Available No t Available brimonidi ne 0.15 % eye drops 12/05 completed Not Available Not Available Not Available amoxicill in 875 mg-potass ium clavulana te 125 mg tablet TAKE 1 TABLET BY MOUTH TWICE A DAY X7 DAYS 04/13 completed Not Available Not Available Not Available tobramyci n 0.3 %-dexamet hasone 0.1 % eye drops,[facility] 12/05 completed Not Available Not Available Not Available Vigamox 0.5 % eye drops 03/06 completed Not Available Not Available Not Available rosuvasta tin 20 mg tablet TAKE 1 TABLET BY MOUTH EVERY DAY active Not Available Not Available No t Available metoprolo l tartrate 25 mg tablet TAKE 1/4 TABLET BY MOUTH IN THE MORNING 04/19 completed cardiolo gy d/c Not Available Not Available Not Available nitrofura ntoin monohydra te/macroc rystals 100 mg capsule TAKE 1 CAPSULE BY MOUTH EVERY 12 HOURS FOR 5 DAYS 11/21 completed Not Available Not Available Not Available calcium 12/30 completed Not Available Not Available Not Available Imodium A-D 12/10 completed Not Available Not Available Not Available Iron (ferrous sulfate) 04/19 completed Not Available Not Available Not Available peg 3350-elec trolytes 236 gram-22.7 4 gram-6.74 gram-5.86 gram solution 12/10 completed Not Available Not Available Not Available Durezol 0.05 % eye drops 09/11 completed Not Available Not Available Not Available Sharper Focus 12/30 completed Not Available Not Available Not Available mesalamin e ER 0.375 gram capsule,e xtended release 24 hr TAKE 1 CAPSULES BY MOUTH EVERY MORNING 04/05 completed Not Available Not Available Not Available Gavilyte- C 240 gram-22.7 2 gram-6.72 gram-5.84 gram oral solution 03/06 completed Not Available Not Available Not Available Vagifem 10 mcg vaginal tablet INSERT 1 TABLET IN THE VAGINA TWICE WEEKLY 03/06 completed Not Available Not Available Not Available Combivent Respimat 20 mcg-100 mcg/actua tion solution for inhalatio n Inhale 1 puff 4 times a day by inhalati on route. 10/13 completed Not Available Not Available Not Available Ilevro 0.3 % eye drops,sandee pension 09/11 completed Not Available Not Available Not Available Delzicol 400 mg capsule,d elayed release TK 2 CS PO BID active Not Available Not Available No t Available Breo Ellipta 100 mcg-25 mcg/dose powder for inhalatio n INHALE 1 PUFF ONCE A DAY. RINSE MOUTH AFTER EACH USE 01/23 completed Not Available Not Available Not Available Anoro Ellipta 62.5 mcg-25 mcg/actua tion powder for inhalatio n USE 1 INHALATI ON BY MOUTH ONCE DAILY DIRECTED active Not Available Not Available No t Available Jardiance 10 mg tablet TAKE 1 TABLET BY MOUTH EVERY DAY 07/23 completed Not Available Not Available Not Available Spiriva Respimat 2.5 mcg/actua tion solution for inhalatio n Inhale 2 puffs every day by inhalati on route as directed for 30 days. 05/26 completed Not Available Not Available Not Available Incruse Ellipta 62.5 mcg/actua tion powder for inhalatio n Inhale 1 puff every day by inhalati on route as directed for 30 days. 05/26 completed Not Available Not Available Not Available Delzicol 400 mg capsule (DR tablets inside) Take 2 capsules twice a day by oral route. 01/19 completed Not Available Not Available Not Available Fluzone High-Dose (PF) 180 mcg/0.5 mL intramusc ular syringe 10/11 completed Not Available Not Available Not Available Fluzone High-Dose Quad (PF) 240 mcg/0.7 mL IM syringe PHARMACY ADMINIST ERED active Not Available Not Available No t Available Sutab 1.479-0.1 88-0.225 gram tablet DIRECTED for bowel prep for colonosc opy 01/06 completed Not Available Not Available Not Available Vitals Date Recorded Body height Body temperature Heart rate Oxygen saturation Oxygen saturation in Arterial blood by Pulse oximetry Systolic blood pressure Diastolic blood pressure Provider Name and Address Organization Details Last Updated DateTime 4 170.18 cm 97.4 [degF] 70 /min 97 % 97 % 138 mm[Hg] 78 mm[Hg] Cori Willis [facility] [employer] 4 09:58:08 Date Recorded Body weight Body mass index (BMI) Body height Body temperature Heart rate Oxygen saturation Oxygen saturation in Arterial blood by Pulse oximetry Systolic blood pressure Diastolic blood pressure Provider Name and Address Organization Details Last Updated DateTime 4 94240.1 5 g 21.5 kg/m2 170.18 cm 98.1 [degF] 78 /min 95 % 95 % 119 mm[Hg] 78 mm[Hg] Lima burris [facility] [employer] [facility] 4 11:33:12 Date Recorded Pain severity - 0-10 verbal numeric rating [Score] - Reported Provider Name and Address Organization Details Last Updated DateTime 07/23/2024 0 Brit Gregg RN [facility] [employer] [facility] 07/23/2024 11:40:53 Date Recorded Body height Body temperature Body mass index (BMI) Body weight Provider Name and Address Organization Details Last Updated DateTime 08/05/2024 170.18 cm 97.2 [degF] 21.1 kg/m2 22379.97 g Lima Quezada [place] - [facility] 08/05/2024 11:59:43 Date Recorded Body height Body mass index (BMI) Body weight Body temperature Heart rate Oxygen saturation Oxygen saturation in Arterial blood by Pulse oximetry Systolic blood pressure Diastolic blood pressure Provider Name and Address Organization Details Last Updated DateTime 170.18 cm 21.6 kg/m2 28140.7 5 g 97.2 [degF] 82 /min 92 % 92 % 122 mm[Hg] 60 mm[Hg] Josefina guerrier Joseph [employer] [facility] [employer] [facility] 10:08:39 Date Recorded Body height Body mass index (BMI) Body weight Body temperature Oxygen saturation Oxygen saturation in Arterial blood by Pulse oximetry Heart rate Systolic blood pressure Diastolic blood pressure Provider Name and Address Organization Details Last Updated DateTime 170.18 cm 21.5 kg/m2 34825.1 5 g 97.7 [degF] 94 % 94 % 74 /min 100 mm[Hg] 62 mm[Hg] Lima burris [employer] [facility] [employer] [facility] 10:52:37 Social History Question Answer Notes LastModified by Organization Details LastModified Time Tobacco Smoking Status Former Smoker quit 1992 Not Available [facility] 10/04/2022 00:52:07 Do You Have An Advance Directive? Yes Asked To Bring Papers For Chart MIGRATION.030 [id number] Information not available 10/04/2022 Are You Blind Or Do You Have Difficulty Seeing? No MIGRATION.030 547914 Information not available 10/04/2022 What Is Your Level Of Caffeine Consumption? Moderate MIGRATION.[id number] Information not available 10/04/2022 How Much Tobacco Do You Chew? None MIGRATION.030 054864 Information not available 10/04/2022 In The 14 Days Before Symptom Onset, Have You Had Close Contact With A Laboratory-confi rmed COVID-19 While That Case Was Ill? No MIGRATION.030 [id number] Information not available 10/04/2022 In The 14 Days Before Symptom Onset, Have You Had Close Contact With A Person Who Is Under Investigation For COVID-19 While That Person Was Ill? No MIGRATION.030 737720 Information not available 10/04/2022 Are You Deaf Or Do You Have Serious Difficulty Hearing? No MIGRATION.0301 [id number] Information not available 10/04/2022 What Type Of Diet Are You Following? REGULAR MIGRATION.0301 143547 Information not available 10/04/2022 Which Illicit Or Recreational Drugs Have You Used? None MIGRATION.0301 566989 Information not available 10/04/2022 What Is The Fluoride Status Of Your Home? Fluoridated MIGRATION.0301 019325 Information not available 10/04/2022 When Did You Quit Smoking? 16+yearssincelastci garette MIGRATION.0301 976284 Information not available 10/04/2022 Are There Any Guns Present In Your Home? No MIGRATION.0301 955291 Information not available 10/04/2022 Where Do You Live? SingleLevelHouse MIGRATION.0301 878986 Information not available 10/04/2022 Presence Of Domestic Violence No [email or web address] Information not available 04/13/2023 Are You Able To Care For Yourself? Yes [email or web address] Information not available 04/13/2023 Are You Blind Or Do Yo Have Difficulty Seeing? No Information not available 04/13/2023 Are You Deaf Or Do You Have Serious Difficulty Hearing? No Information not available 04/13/2023 Live Alone Of With Others? Alone [email or web address] Information not available 04/13/2023 What Was The Date Of Your Most Recent Tobacco Screening? 07/23/2024 [email or web address] Information not available 07/23/2024 What Is Your Current Pack Years? 30ormorepackyears MIGRATION.0301 [id number] Information not available 10/04/2022 Do You Have Any Pets? Yes MIGRATION.0301 864203 Information not available 10/04/2022 What Is Your Relationship Status? MIGRATION.0301 [id number] Information not available 10/04/2022 Do You Use Your Seat Belt Or Car Seat Routinely? Yes MIGRATION.0301 535508 Information not available 10/04/2022 Do You Have Smoke And Carbon Monoxide Detectors In Your Home? Yes MIGRATION.0301 228627 Information not available 10/04/2022 At What Age Did You Start Smoking Tobacco? 18 MIGRATION.0301 760174 Information not available 10/04/2022 How Much Tobacco Do You Smoke? 3+ PPD MIGRATION.0301 479379 Information not available 10/04/2022 Do You Use Sunscreen Routinely? No MIGRATION.0301 030330 Information not available 10/04/2022 How Many Years Have You Smoked Tobacco? 29 MIGRATION.0301 134043 Information not available 10/04/2022 Sex: Female Functional Status Question Answer Note LastModified by [employer] Details LastModified Time What is your level of alcohol consumption? Occasional MIGRATION.758701 1270 Information not available 10/04/2022 Do you or have you ever used smokeless tobacco? Never used smokeless tobacco MIGRATION.006547 7648 Information not available 10/04/2022 Do you have difficulty walking or climbing stairs? No MIGRATION.405816 8226 Information not available 10/04/2022 Do you have transportation difficulties? No MIGRATION.736547 8784 Information not available 10/04/2022 Are you able to walk? YESWOREST MIGRATION.738031 0805 Information not available 10/04/2022 Do you have difficulty doing errands alone? No MIGRATION.243233 3067 Information not available 10/04/2022 Are you able to care for yourself? Yes MIGRATION.251842 5997 Information not available 10/04/2022 What is your occupation? retired MIGRATION.335319 0753 Information not available 10/04/2022 Do you have difficulty dressing or bathing? No MIGRATION.058199 1069 Information not available 10/04/2022 Do you or have you ever used e-cigarettes or vape? Never used electronic cigarettes MIGRATION.341423 3122 Information not available 10/04/2022 What is your exercise level? Occasional MIGRATION.610121 0810 Information not available 10/04/2022 Mental Status Question Answer Note LastModified by Organizat ion Details LastModified Time Do you feel stressed (tense, restless, nervous, or anxious, or unable to sleep at night)? [id number] Information not available 07/23/2024 Do you have difficulty concentrating, remembering or making decisions? No MIGRATION.77441646 26 Information not available 10/04/2022 Family History Relationship Description Onset Age of this Age Resolved Age Notes LastModified by Organization Details LastModified Time Mother Malignant neoplastic disease MIGRATION.514 [id number] Not available 10/04/2022 00:53:01 Mother Family history of malignant neoplasm MIGRATION.852 [id number] Not available 10/04/2022 00:53:01 Brother Heart disease MIGRATION.105 [id number] Not available 10/04/2022 00:53:01 Sister Heart disease MIGRATION.009 [id number] Not available 10/04/2022 00:53:01 Sister Hypertensive disorder MIGRATION.796 [id number] Not available 10/04/2022 00:53:01 Sister Diabetes mellitus MIGRATION.469 [id number] Not available 10/04/2022 00:53:01 Medical History Condition Response ARTHRITIS Y ANXIETY DISORDER Y VASCULAR DISEASE Y GERD/NAUSEA Y HEPATITIS / LIVER DISEASE Y OSTEOPOROSIS Y CORONARY ARTERY DISEASE (CAD) Y HERPES Y COPD Y HIGH CHOLESTEROL / HYPERLIPIDEMIA Y Gynecological History Statement/Question Response Date of Last Pap Date of Last Mammogram 07/02/2018 Date of Last Colonoscopy 04/25/2021 Date of Last Mammogram 03/23/2023 Most Recent Bone Density 04/11/2022 Obstetrics History GPAL:G 0 P 0 0 0 0 Immunizations Vaccine Type Date Status Note Provider Nam e and Address Organization Details Recorded Time Influenza, split virus, trivalent, PF 3 completed Not Available [facility] 02/12/2023 16:15:20 pneumococcal polysaccharide PPV23 9 completed Not Available [facility] 02/12/2023 16:15:20 DTaP 9 completed Not Available [facility] 02/12/2023 16:15:20 Influenza, split virus, trivalent, PF 1 completed Not Available [facility] 02/12/2023 16:15:20 COVID-19, mRNA, LNP-S, PF, 30 mcg/0.3 mL dose 2 completed Not Available [facility] 02/12/2023 16:15:20 COVID-19, mRNA, LNP-S, PF, 30 mcg/0.3 mL dose 1 completed Not Available [facility] 02/12/2023 16:15:20 SARS-COV-2 (COVID-19) vaccine, UNSPECIFIED 1 completed Not Available [facility] 02/12/2023 16:15:20 SARS-COV-2 (COVID-19) vaccine, UNSPECIFIED 1 completed Not Available [facility] 02/12/2023 16:15:20 Influenza, high-dose, trivalent, PF 0 completed Not Available [facility] 02/12/2023 16:15:20 Influenza, split virus, trivalent, PF 0 completed Not Available [facility] 02/12/2023 16:15:20 Influenza, split virus, quadrivalent, preservative 9 completed Not Available [facility] 02/12/2023 16:15:20 Td (adult), 5 Lf tetanus toxoid, preservative free, adsorbed 8 completed Not Available [facility] 02/12/2023 16:15:20 Influenza, high-dose, quadrivalent, PF 1 completed Not Available [facility] 02/12/2023 16:15:20 Influenza, high-dose, trivalent, PF 8 completed Not Available [facility] 02/12/2023 16:15:20 Td (adult), 2 Lf tetanus toxoid, preservative free, adsorbed 8 completed Not Available [facility] 02/12/2023 16:15:20 Pneumococcal conjugate PCV 13 8 completed Not Available [facility] 02/12/2023 16:15:20 Influenza, high-dose, trivalent, PF 7 completed Not Available [facility] 02/12/2023 16:15:20 Influenza, high-dose, trivalent, PF 5 completed Not Available [facility] 02/12/2023 16:15:20 Hep B, adult 4 completed Not Available [facility] 02/12/2023 16:15:20 Hep A, adult 4 completed Not Available [facility] 02/12/2023 16:15:20 Influenza, split virus, trivalent, PF 4 completed Not Available [facility] 02/12/2023 16:15:20 Hep B, adult 4 completed Not Available [facility] 02/12/2023 16:15:20 Hep A, adult 4 completed Not Available [facility] 02/12/2023 16:15:20 Hep B, adult 4 completed Not Available [facility] 02/12/2023 16:15:20 Past Encounters Encounter ID Performer Location Encounter Start Date Encounter Closed Date Diagnosis/Indication Diagnosis SNOMED-CT Code Diagnosis ICD10 Code Diagnosis Note [id number] ELISHA ElyP- [facility] [address] [address] 10/11/2020 00:00:00 10/11/2020 17:06:32 [id number] Gabo Asif MD [facility] Internal Med [address] [address] 12/14/2020 00:00:00 12/14/2020 14:13:31 [id number] _ATHN_MIGR ATION_1 _ATHENA_M IGRATION_ DEFAULT_1 _1 , 12/15/2020 00:00:00 12/15/2020 16:51:14 [id number] Yecenia Han MD [facility] [address] [place] [address] 01/11/2021 00:00:00 01/11/2021 11:31:25 [id number] Phillip So MD S_[facility] [address] [address] 01/12/2021 00:00:00 01/12/2021 15:27:41 [id number] Yecenia Han MD [facility] [address] [address] 01/19/2021 00:00:00 01/19/2021 16:41:35 [id number] Phillip So MD S_[facility] [address] [address] 02/16/2021 00:00:00 02/16/2021 17:28:54 [id number] Gabo Asif MD [facility] Internal Med [address] [address] 04/19/2021 00:00:00 04/19/2021 11:49:55 [id number] Phillip So MD S_[facility] [place] [address] [place] [address] 04/26/2021 00:00:00 04/26/2021 12:39:55 [id number] Phillip So MD [facility] [place] [address] [place] [address] 08/23/2021 00:00:00 08/23/2021 12:25:48 [id number] Gabo Asif MD [facility] [place] [address] [address] 09/16/2021 00:00:00 09/16/2021 11:59:37 [id number] Yecenia Han MD S_G Pulmonolo gy [address] [address] 01/25/2022 00:00:00 01/25/2022 12:32:14 [id number] Gabo Asif MD [facility] [place] [address] [address] 04/05/2022 00:00:00 04/05/2022 16:41:01 [id number] Gabo Asif MD [facility] [place] [address] [address] 08/15/2022 00:00:00 08/15/2022 13:32:43 [id number] Gabo Asif MD [facility] [place] [address] [address] 12/13/2022 10:39:49 12/13/2022 11:15:54 Coronary arteriosclerosis 35265876 I25.10 no symptoms Autoimmune hepatitis 408 656208 K75.4 s/p biopsy seeing hepatologi st, Hyperlipidemia 64605760 E78.5 stable Chronic ob structive pulmonary disease 06816905 J44.9 under control Gastroesop hageal reflux disease 553588749 K21.9 needs meds daily to control symptoms Anxiety 74069015 F41.9 under control with meds 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 Osteopenia 823625629 M85 .80 on calcium w/ vit D, Solitary n odule of lung 063988710 R91.1 CT scan is done periodical ly, s/p bronchosco py s/p biopsy, seeing pulmonolog ist, LDCT nl 09/27 Osteoarthritis 478365323 M19.90 otc Hyperglycemia 06576894 R 73.9 on jardiance, nl A1c Adult heal th examination 792003210 Z00.00 Colonoscop y- 04/2021- in chartMammo gram- 11/2021LDC T- 2DEX A- ne umovax- 01/11/2009 Prevnar 2017FLU- 2COV ID- 09/29/20, 10/27/20 Screening mammography 24 433198 Z12.31 [id number] Yecenia Han MD [facility] Pulmon[facility] [address] [place] [phone] 01/25/2023 14:54:22 01/26/2023 09:58:16 Mild chronic obstructive pulmonary disease 753473665 J44.9 Obstructiv e sleep apnea syndrome 40829120 G47.33 [id number] Gabo Asif MD [facility] Internal Med [address] [facility] 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 895181 K75.4 s/p biopsy seeing hepatologi st, Hyperlipidemia 33359165 E78.5 stable Chronic ob structive pulmonary disease 80646089 J44.9 under control Gastroesop hageal reflux disease 500044522 K21.9 needs meds daily to control symptoms Anxiety 62791224 F41.9 under control with meds Sj gren's syndrome 16371163 M35.00 no more sx Osteopenia 779089475 M85 .80 on calcium w/ vit D, Solitary n odule of lung 090290855 R91.1 CT scan is done periodical ly, s/p bronchosco py s/p biopsy, seeing pulmonolog ist, CT 01/26 Osteoarthritis 233598312 M19.90 ot Hyperglycemia 63102393 R 73.9 on jardiance, nl A1c Adult [facility] examination 416776110 Z00.00 Colonoscop y- 04/2021- in [facility]- 03/2023[facility] T- 09/2021 -CT 01/26DEXA- ne umovax- 01/11/2009 Prevnar OV ID- 09/29/20, 10/27/20 Screening for disorder 482484272 Z13.9 [id number] Gabo Asif MD [facility] [place] [address] [facility] [place] [address] 07/23/2023 09:42:32 07/23/2023 10:30:59 Coronary arteriosclerosis 97947531 I25.10 no symptoms Autoimmune hepatitis 408 169905 K75.4 s/p biopsy seeing hepatologi st, Hyperlipidemia 26627467 E78.5 stable Chronic ob structive pulmonary disease 00916442 J44.9 under control Gastroesop hageal reflux disease 397820051 K21.9 needs meds daily to control symptoms Anxiety 45846836 F41.9 under control with meds Sj gren's syndrome 86604952 M35.00 no more sx Osteopenia 141977646 M85 .80 on calcium w/ vit D, Solitary n odule of lung 094314957 R91.1 CT scan is done periodical ly, s/p bronchosco py s/p biopsy, seeing pulmonolog ist, CT 01/26 Osteoarthritis 462754372 M19.90 ot Adult heal th examination 233761505 Z00.00 Colonoscop y- 04/2021- in [facility]- 03/2023[facility] T- 09/2021 -CT 01/26DEXA- ne umovax- 01/11/2009 Prevnar 2017FLU05/2023- [facility] Long-[facility] therapy 566495636 Z79.001 [id number] Gabo Asif MD [facility] [place] [address] [facility] [place] [address] 11/22/2023 09:47:46 11/22/2023 10:16:49 Coronary arteriosclerosis 54966510 I25.10 no symptoms Autoimmune hepatitis 408 261561 K75.4 lft stable Hyperlipidemia 28124924 E78.5 stable Chronic ob structive pulmonary disease 77718595 J44.9 under control Gastroesop hageal reflux disease 952211802 K21.9 needs meds daily to control symptoms Anxiety 36164102 F41.9 under control with meds Sj gren's syndrome 81229239 M35.00 no more sx Osteopenia 362046107 M85 .80 on calcium w/ vit D, Solitary n odule of lung 622496434 R91.1 being watched Osteoarthritis 521069566 M19.90 [facility] Adult heal th examination 503852475 Z00.00 Colonoscop y- 04/2021- in chartMammo gram- 03/2023LDC T- 09/2021 -CT 01/26DEXA- ne umovax- 01/11/2009 Prevnar 2017FLU- 05/2023- [facility]20[facility] 10[facility] Aortic valve stenosis 60 472403 I35.0 getting card cath History of repair of mitral valve 399458053 Z98.890 no symptoms Low blood pressure 97180 003 I95.9 off carvedilol , no symptoms [id number] Yecenia Han MD S[facility] Pulmonolo gy [place] [address] [facility] [address] [place] [address] 02/06/2024 13:02:37 02/11/2024 08:59:21 Mild chronic obstructive pulmonary disease 241384099 J44.9 Obstructiv e sleep apnea syndrome 40615123 G47.33 [id number] Gabo Asif MD [facility] Internal Med [address] [facility] [place] [address] 03/06/2024 11:12:35 03/06/2024 12:13:16 Wound of skin 014306463 T14.8XXA local care, she is up to date on her tetanus hitesh t ( 2018 ) [id number] Gabo Asif MD [facility] [place] [address] [place] [address] 03/27/2024 09:50:24 03/27/2024 10:27:51 Coronary arteriosclerosis 22524981 I25.10 no symptoms Autoimmune hepatitis 408 641957 K75.4 LFT stable Hyperlipidemia 62056505 E78.5 stable Chronic ob structive pulmonary disease 58887503 J44.9 under control Gastroesop hageal reflux disease 158984534 K21.9 needs meds daily to control symptoms Anxiety 56217859 F41.9 under control with meds Sj gren's syndrome 30104421 M35.00 no more sx Osteopenia 938044470 M85 .80 on calcium w/ vit D, Solitary n odule of lung 591921251 R91.1 being watched Osteoarthritis 835466486 M19.90 otc helps Adult heal th examination 178703396 Z00.00 Colonoscop y- 04/2021- in chartMammo gram- 03/2023- - [facility]- 09/2021 -CT 01/26DEXA- ne umovax- 01/11/2009 Prevnar 2017FLU- 05/2023- [facility]20, 10/27/20[facility] Aortic valve stenosis 60 228096 I35.0 getting card cath History of repair of mitral valve 677734118 Z98.890 no symptoms Screening mammography 24 068638 Z12.31 [id number] Gabo Asif MD S[facility] [place] [address] [place] [address] 07/23/2024 11:10:12 07/23/2024 12:20:17 Coronary arteriosclerosis 00778358 I25.10 no symptoms Autoimmune hepatitis 408 563382 K75.4 LFT stable Hyperlipidemia 83466466 E78.5 stable Chronic ob structive pulmonary disease 88319097 J44.9 under control Gastroesop hageal reflux disease 210645079 K21.9 needs meds daily to control symptoms Anxiety 56121371 F41.9 under control with meds Sj gren's syndrome 88299362 M35.00 no more sx Osteopenia 679678883 M85 .80 on calcium w/ vit D, DEXA DUE Solitary n odule of lung 239889950 R91.1 being watched Osteoarthritis 720216987 M19.90 otc helps Aortic valve stenosis 60 367485 I35.0 seeing cardiology Adult [facility] th examination 789631610 Z00.00 Colonoscop y- 04/2021- in chartMammo gram- 03/2023- - no moreLDCT- 09/2021 -CT 01/26DEXA- 04/2022, orderedPne umovax- 01/11/2009 Prevnar - 2017FLU- 05/2023- [facility]20, 10[facility] History of repair of mitral valve 252469748 Z98.890 no symptoms Screening for disorder 859998509 Z13.9 Long-term drug therapy 761737275 Z79.899 Postmenopausal state 764 82596 Z78.0 [id number] Gabo Asif MD [facility] [place] [address] [facility] [place] [address] 08/05/2024 11:53:14 08/05/2024 12:27:14 Herpes zoster 5081915 B02.9 she is asking how long to wait for shingles shot now that she has an outbreakad vised 6 monthsshe was hesatent to try something more for pain but she was willing to try a few tramadol if it was not too expensives he will f/u as needed [id number] Gabo Asif MD S[facility] [place] [address] [facility] [place] [address] 11/20/2024 10:00:58 11/20/2024 11:51:01 Coronary arteriosclerosis 11472881 I25.10 no symptoms Autoimmune hepatitis 408 484347 K75.4 LFT stable Hyperlipidemia 07756063 E78.5 stable Chronic ob structive pulmonary disease 47190560 J44.9 under control Gastroesop hageal reflux disease 824365147 K21.9 needs meds daily to control symptoms Anxiety 84481252 F41.9 under control with meds Sj gren's syndrome 11977343 M35.00 no more sx Osteopenia 379672208 M85 .80 on calcium w/ vit D, Solitary n odule of lung 816185626 R91.1 being watched Osteoarthritis 139241951 M19.90 otc helps Aortic valve stenosis 60 980836 I35.0 seeing cardiology Adult [facility] th examination 648671494 Z00.00 Colonoscop y- 04/2021- in chartMammo gram- 03/2023- - no moreLDCT- 09/2021 -CT 01/26DEXA- 09/12/2024 Pneumovax- 01/11/2009 Prevnar 2017FLU- 05/2023- [facility]20[facility] 10[facility] History of repair of mitral valve 072700633 Z98.890 no symptoms Long-term drug therapy 087301974 Z79.899 Mild chron ic obstructive pulmonary disease 884685340 J44.9 Carotid ar jackie stenosis 53357741 I65.29 mild [id number] Gabo Asif MD [facility] [address] [place] [address] 12/04/2024 10:44:22 12/04/2024 12:23:38 Acute diarrhea 403196355 R19.7 Health Concerns Section Related Observation LastModified by Organization Detai ls LastModified Time None Recorded Concern Status LastModified by Organization Details LastModified Time None Recorded Advance Directives Directive Y: asked to bring papers for chart Payers Encounter Date Sequence Insurance Name Policy Number Policy Wilson Covered Member ID Wilson Member ID Guarantor Name 03/27/2024 1 [employer] (MEDICARE REPLACEMENT/A DVANTAGE - PPO) [id number] Zoraida Tobias [id number] Zoraida Tobias 07/23/[address] [facility] (MEDICARE REPLACEMENT/A DVANTAGE - PPO) [id number] Zoraida Tobias [id number] Zoraida Tobias 08/05/[address] [facility] (MEDICARE REPLACEMENT/A DVANTAGE - PPO) [id number] Zoraida Tobias [id number] Zoraida Tobias 11/20/[address] [facility] (MEDICARE REPLACEMENT/A DVANTAGE - PPO) [id number] Zoraida Tobias [id number] Zoraida Tobias 12/04/[address] [facility] (MEDICARE REPLACEMENT/A DVANTAGE - PPO) [id number] Zoraida Tobias [id number] Zoraida Tobias Notes Date Note Type Note Provider Name and Address Organization Details Recorded Time 03/27/2024 text/html Doing fine, compliant to medications, no side affects, Aortic stenosis- moderate, echo 11/27CAD- 2 vessel CABG w/MV repair 05/21/2020, s/p stent in 01/27, seeing cardiology dr Carpenter, no symptoms, On jardiance from cardiology, Echo done 11/07/23 COPD- on inhalers, no symptoms, PFT 01/26meds-on ANORO daily and proair prn-- Dr. Carballo/p right retinal detachment, had surgery. seeing ophthalmologyGERD- symptoms under control with meds,Meds- Omeprazole 20 mg qdAnxiety- anxiety symptoms under control with meds, no depression, sleeping fine, SOEM STRESSMeds- citalopram 20 mg @ hs ,Hyperlipidemia- watching diet, on meds,Meds- simvastatin 20 mg qdSleep apnea- on cpap, advised to use dailyRight upper lobe pulm nodule and being watched. s/p bronchoscopy. seeing pulmonary, PET benign ,she had neg breast biopsy 01/18., nl mammogram 03/28Autoimmune hepatitis--She had liver biopsy in the past, on meds, was seeing hepatology., not on Azathioprine, Right hip fx 12/24,Ch diarrhea- was on Mesalamine and imodium, IMPROVED, not on any medsOsteoarthritis - otc Osteoporosis- on Alendronate, dexa 04/27, on caltrate Gabo Asif MD [address] [facility], [facility] [address], [place], [address], [place] [facility] [employer] 03/27/2024 10:26:10 07/23/2024 text/html pt is here today for a 4 month f/u pepe rehab f/u from her fall on 07/03/24. pt fell on left hip wasnt broke, t a hematoma on left thigh. pt is fastng ([facility]) Aortic stenosis- moderate, echo 11/27CAD- 2 vessel CABG w/MV repair 05/21/2020, s/p stent in 01/27 and 06/29, seeing cardiology dr Carpenter, no symptoms, On jardiance from cardiology, Echo done 11/07/23 COPD- on inhalers, no symptoms, PFT 01/26meds-on ANORO daily and proair prn-- Dr. Carballo/p right retinal detachment, had surgery. seeing ophthalmologyGERD- symptoms under control with meds,Meds- Omeprazole 20 mg qdAnxiety- anxiety symptoms under control with meds, no depression, sleeping fine, some stressMeds- citalopram 20 mg @ hs ,Hyperlipidemia- watching diet, on meds, labs dueMeds- simvastatin 20 mg qdSleep apnea- on cpap, advised to use dailyRight upper lobe pulm nodule and being watched. s/p bronchoscopy. seeing pulmonary, PET benign ,she had neg breast biopsy 01/18., nl mammogram 03/28 , NO MOREAutoimmune hepatitis--She had liver biopsy in the past, on meds, was seeing hepatology., not on Azathioprine, Right hip fx 12/24,Ch diarrhea- was on Mesalamine and imodium, IMPROVED, not on any medsOsteoarthritis - otc Osteoporosis- on Alendronate, dexa 04/27, on caltrate, DEXA DUE Gabo Asif MD [address], [place], [address], [employer] 07/23/2024 17:16:12 08/05/2024 text/html pt is here for a rash on her left side of her ribs and back onset 07/31/24. pt thinks may be shingles..pt daughter has been putting calamine lotion on the rash for her. pt has been taking tylenol otc for hip pain she broke hip on thanksgi . (in chart) pt is not fasting ([facility]) Nieves Alcocer NP [address], [place], [address], [employer] 08/05/2024 12:29:28 11/20/2024 text/html Pt is here today for a 4 month follow up.PT IS FASTING ([facility]) Has a knot on her right lower leg, does not remember hitting it on any thing. Has been using a cream on it. It is a little dis colored. No pain unless you press on it. Aortic stenosis- moderate, echo 11/27CAD- 2 vessel CABG w/MV repair 05/21/2020, s/p stent in 01/27 and 06/29, seeing cardiology dr Carpenter, no symptoms, On jardiance from cardiology, COPD- on inhalers, no symptoms, PFT 01/26Meds-on ANORO daily and proair prn-- Dr. Carballo/p right retinal detachment, had surgery. seeing ophthalmologyGERD- symptoms under control with meds,Meds- Omeprazole 20 mg qdAnxiety- anxiety symptoms under control with meds, no depression, sleeping fine,Meds- Citalopram 20 mg @ hs ,Hyperlipidemia- watching diet, on meds, labs 09/30Meds- Rosuvastatin 20 mg qdSleep apnea- on cpap, advised to use dailyRight upper lobe pulm nodule and being watched. s/p bronchoscopy. seeing pulmonary, PET benign ,she had neg breast biopsy 01/18., nl mammogram 03/28 , NO MOREAutoimmune hepatitis--She had liver biopsy in the past, on meds, was seeing hepatology., not on Azathioprine, Right hip fx 12/24,Ch diarrhea- was on Mesalamine and imodium, IMPROVED, not on any medsOsteoarthritis - otc Osteoporosis- on Alendronate, dexa 09/30, on caltrate, Gabo Asif MD [address] [facility], [facility] [address], [place], [address], [place] [facility] [employer] 11/20/2024 10:38:58 12/04/2024 text/html Patient is 79y female who reports diarrhea that started on Sunday the . Patient reports she also received her shingles vaccine that Sunday prior. She reports having a 102 fever morning after vaccine. Patient reports that her diarrhea has improved but still having gas. She denies blood in stool, vomiting, or recent antibiotic use at this time. no longer having diarrhea, more gas than liquid stoolno belly pain no antibiotic's recently Esther Kovacs, RA-C [address] [facility], [facility] [address], [place], [address], [place] - [facility] 12/04/2024 11:35:45 OBGyn Episode No OBEpisode recorded.
--- OUTSIDE RECORDS SUMMARY | 2024-12-15 23:59 | XMS_ITS | Referral Summary ---
Author Organization [facility] [address] [place] [address] Care Team Providers Care Heavy Duty Truck Mechanic Name Role Phone Rios Asif MD Primary Care Provider [phone] Jefry Prajapati MD Unavailable [phone] Jack Carpenter MD Unavailable Allergies No known [...] a day as needed for anxiety rx# 290173 Active empagliflozin (JARDIANCE) 10 mg tablet Take [...] disease) 01/10/2024 Coronary artery disease invo lving [place] heart without angina pectoris 05/04/2020 Overview (05/04/2020): Added automatically from request for surgery [id number] Mitral valve insufficiency 05/04/2020 Overview (05/04/2020): Added automatically from request for surgery [id number] Social History Tobacco Use Types Packs/Day Years [...] on file 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 Gender Identity Not on file Sexual [...] 06/06/2024 1:27 PM CDT Plan of Treatment Not on file Medical Devices Implanted Type Area Certified Driver Examiner Device Identifier Shelf Expiration Date Model / Serial / Lot Jernigan Lifesciences [id number] [facility] Physio Ii 28mm Wilson Sew Mitral Ring - [id number] - [id number] Implanted:Qty: 1 on 05/21/2020 by Jefry Prajapati MD at [facility] N/A: Heart [employer]esciences 04/18/2025 [id number] / [id number] / Description:Mitral ring Medtronic Card Vasc Surgery 2.00 X 15mm [place] Rx Coronary Stent [id number] - [id number] Implanted:Qty: 1 on 01/10/2024 by Jack Carpenter MD at [facility] Medtronic Card Vasc Surgery 09/21/2026 [id number] / / [id number] TereBoox Angio-Seal Vip 6fr Closere Device [id number] - [id number] Implanted:Qty: 1 on 01/10/2024 by Jack Carpenter MD at [facility] [employer] Medical Trell [id number] / / Medtronic Card Vasc Surgery 3.0 X 15mm Ezequiel [place] Rx Coronary Stent [id number] - [id number] Implanted:Qty: 1 on 06/06/2024 by Jack Carpenter MD at [facility] Medtronic Card Vasc Surgery 03/28/2027 [id number] / / [id number] TereBoox Angio-Seal Vip 6fr Closere Device [id number] - [id number] Implanted:Qty: 1 on 06/06/2024 by Jack Carpenter MD at [facility] [employer] [facility] [id number] / / Insurance [place] [facility] MEDIC[facility] ADVANTAGE Advance Directives For more information, please contact: [phone] * Full Code (Latest Code Status on File) Date Activated Date Inactivated Comments 06/06/2024 10:48 AM 06/07/2024 3:39 PM * Full Code Date Activated Date Inactivated Comments 01/10/2024 1:52 PM 01/11/2024 5:34 PM * Full Code Date Activated Date Inactivated Comments 05/21/2020 4:36 PM 06/07/2020 10:49 PM Care Teams Heavy Duty Truck Mechanic Relationship Specialty Start Date End Date Rios Asif MD PCP - General Internal Medicine 04/15/20 Jefry Prajapati MD Surgeon Cardiothoracic Surgery 06/07/20 Jack Carpenter MD Consulting Physician Cardiovascular Disease 06/07/20
[2024-12-16] VITALS (13 sets, daily range): BP systolic 100–148; BP diastolic 53–84; PULSE 77–99; RESP 13–20; TEMP 36.1–36.6; O2SAT 92–99; BMI 21.9
--- NOTE | 2024-12-16 | ECHO_ITS ---
Patient Info Name: Zoraida Tobias Age: 79 years : 1945 Gender: Female Ht: 67 in Wt: 140 lbs BSA: 1.73 m2 HR: 80 bpm BP: 139 / 67 mmHg Heart Rhythm: Sinus Rhythm Technical Quality: Good Exam Date: 12/16/2024 3:07 PM Patient Status: I Admit Date: 12/16/2024 Exam Type: CA echo doppler color flow Study Info Indications R/O CHF - Complete two-dimensional, color flow and Doppler transthoracic echocardiogram is performed. Staff Referring Physician: Jeremy Mitchell Compress Engineer: Angelica Tobias Attending Provider: Isaiah Pappas Summary 1. Left ventricular chamber dimension is normal. 2. Left ventricular systolic function is normal, estimated at 60-65. 3. There is moderately increased left ventricular wall thickness. 4. Right ventricular chamber dimension is moderately enlarged. 5. Right ventricular systolic function is normal. 6. Left atrial chamber dimension is moderately enlarged. 7. Right atrial chamber dimension is moderately enlarged. 8. There is severe aortic valve calcification. 9. There is moderate to severe aortic valve stenosis with a peak velocity of 366 cm/s, mean gradient of 36 mmHg, and aortic valve area of 0.7 cm2. 10. Known history of mitral valve repair. 11. The mitral valve has thickened leaflets. 12. There is mild mitral valve regurgitation. 13. There is moderate tricuspid valve regurgitation. 14. Pulmonary hypertension, estimated pulmonary arterial systolic pressure is 58 mmHg. Left Ventricle Left ventricular chamber dimension is normal. Left ventricular systolic function is normal, estimated at 60-65. There is moderately increased left ventricular wall thickness. The left ventricular diastolic function is indeterminate. Right Ventricle Right ventricular chamber dimension is moderately enlarged. Right ventricular systolic function is normal. Left Atria Left atrial chamber dimension is moderately enlarged. Right Atria Right atrial chamber dimension is moderately enlarged. Atrial Septum Intact interatrial septum visualized by color flow imaging. Aortic Valve The aortic valve is trileaflet. There is moderate to severe aortic valve stenosis with a peak velocity of 366 cm/s, mean gradient of 36 mmHg, and aortic valve area of 0.7 cm2. There is no aortic valve regurgitation. There is severe aortic valve calcification. Pulmonic Valve The pulmonic valve is not well visualized. There is trace pulmonic regurgitation. Mitral Valve Known history of mitral valve repair. The mitral valve has thickened leaflets. There is mild mitral valve regurgitation. Tricuspid Valve There is moderate tricuspid valve regurgitation. Pulmonary hypertension, estimated pulmonary arterial systolic pressure is 58 mmHg. Pericardium/Pleural There is no pericardial effusion. Inferior Vena Cava Dilated inferior vena cava with <50% collapse upon inspiration consistent with elevated right atrial pressure, 15 mmHg. Aorta The aortic root size at the sinus of Valsalva is normal. Left Ventricular Outflow Tract Name Value Normal LVOT 2D LVOT Diameter 1.8 cm LVOT Doppler LVOT Peak Velocity 113 cm/s LVOT Peak Gradient 5 mmHg LVOT Mean Gradient 3 mmHg LVOT VTI 24 cm LVOT VTI/AV VTI Ratio 0.3 LVOT Stroke Volume 61 ml LVOT CO 12.8 l/min LVOT CI 7.4 l/min/m2 Pulmonic Valve Name Value Normal PV Doppler PV Peak Velocity 107 cm/s PV Peak Gradient 5 mmHg Mitral Valve Name Value Normal MV Doppler MV Peak Gradient 19 mmHg MV Mean Gradient 9 mmHg MV Area (Cont Eq VTI) 1.1 cm2 MV Diastolic Function MV E Peak Velocity 185 cm/s MV A Peak Velocity 137 cm/s MV E/A 1.4 MV Decel Time (PW) 203 ms MV Annular TDI MV E/e' (Septal) 37.5 MV E/e' (Lateral) 27.8 MV E/e' (Average) 32.7 Tricuspid Valve Name Value Normal TV Regurgitation Doppler TR Peak Velocity 329 cm/s TR Peak Gradient 43 mmHg Estimated PAP/RSVP RA Pressure 15 mmHg <=5 PA Systolic Pressure 58 mmHg <36 RV Systolic Pressure 58 mmHg <36 TV Annular TDI TV Lateral Cathryn s' Velocity 9.4 cm/s >=9.5 Aorta Name Value Normal Ascending Aorta Ao Root Diameter (MM) 2.7 cm Ao Root Diam Index (MM) 1.6 cm/m2 Aortic Valve Name Value Normal AV Doppler AV Peak Velocity 366 cm/s AV Peak Gradient 54 mmHg AV Mean Gradient 36 mmHg AV VTI 85 cm AV Area (Cont Eq VTI) 0.7 cm2 >=3.0 AV Area (Cont Eq Eric) 0.8 cm2 AV DI (Eric) 0.31 AV Regurgitation 2D LVOT Area 2.6 cm2 Ventricles Name Value Normal LV Dimensions 2D/MM IVS Diastolic Thickness (2D) 1.2 cm 0.6-1.0 LVID Diastole (2D) 3.6 cm 3.8-5.2 LVIW Diastolic Thickness (2D) 1.2 cm 0.6-0.9 LVID Systole (2D) 2.9 cm 2.2-3.5 LVOT Diameter 1.8 cm LV Mass (2D Cubed) 143.72 g 67.00-162.00 LV Mass Index (2D Cubed) 83 g/m2 43-95 Relative Wall Thickness (2D) 0.66 <=0.42 LV Fractional Shortening/Ejection Fraction 2D/MM LV Fractional Shortening (2D) 19 % 27-45 LV EF (2D Teichholz) 41 % LV Diastolic Volume (4C MOD) 77 ml LV EF (4C MOD) 61 % LV Diastolic Volume (2C MOD) 92 ml LV EF (2C MOD) 60 % LV Diastolic Volume (BP MOD) 85 ml 46-106 LV Diastolic Volume Index (BP MOD) 49 ml/m2 29-61 LV Systolic Volume (BP MOD) 33 ml 14-42 LV Systolic Volume Index (BP MOD) 19 ml/m2 8-24 LV EF (BP MOD) 61 % 54-74 LV Diastolic Length (4C) 7.5 cm LV Systolic Length (4C) 6.5 cm LV Stroke Volume (4C MOD) 47 ml Atria Name Value Normal LA Dimensions LA Dimension (MM) 3.8 cm 2.7-3.8 LA Volume (4C A-L) 68 ml LA Volume (BP A-L) 64 ml RA Dimensions RA Systolic Major [place] Length (4C) 5.0 cm 2.2-2.8 RA Area (4C) 19.1 cm2 <=18.0 Report Signatures
--- NOTE | 2024-12-16 00:09 | ECG_ITS ---
Test Date: 2024-12-16 00:18:33 Measurements Intervals [place] Rate: 78 P: 93 UT: 138 QRS: 58 QRSD: 95 T: 61 QT: 458 QTc: 524 Interpretive Statements SINUS RHYTHM WITH OCCASIONAL SUPRAVENTRICULAR PREMATURE COMPLEXES PROLONGED QT INTERVAL NONSPECIFIC T WAVE ABNORMALITY No previous ECG available for comparison Electronically Signed On 12-16-2024 14:57:30 CDT by Kayode Funes M.D.
[2024-12-16 00:35] LABS: Basophils Percent Auto 0.2 % (0.2-1.2); Eosinophils Percent Auto 0.7 % (0-4.4); Hematocrit 30.4 % (37.0-47.0); Hemoglobin 9.5 g/dL (12.0-15.0); Immature Granulocyte Absolute 0.05 K/mm3 (0.00-0.031); Immature Granulocyte Percent A 0.9 % (0-0.5); Lymphocytes Absolute Auto 0.78 K/mm3 (0.9-3.2); Lymphocytes Percent Auto 14.5 % (18.3-44.2); Mean Corpuscular HGB Conc 31.3 g/dl (32-36); Mean Corpuscular Hemoglobin 27.1 pg (26-34); Mean Corpuscular Volume 86.6 fl (80-100); Mean Platelet Volume 9.1 fl (7.4-10.4); Monocytes Absolute Auto 0.5 K/mm3 (0.1-0.6); Monocytes Percent Auto 9.1 % (2.6-8.5); Neutrophils Percent Auto 74.6 % (45.5-73.1); Platelet Count Result 159 k/mm3 (150-375); Red Blood Count 3.51 M/mm3 (4.2-5.4); Red Cell Distribution Width 15.5 % (11.5-14.5); White Blood Count 5.4 K/mm3 (4.5-10.0)
[2024-12-16 00:51] LABS: Alanine Aminotransferase 85 U/L (6-35); Albumin Level 3.3 g/dL (3.5-5.1); Alkaline Phosphatase 217 U/L (38-126); Anion Gap 9 mmol/L (4-12); Aspartate Amino Transferase 113 U/L (14-36); Bilirubin,Total 0.7 mg/dL (0.2-1.3); Blood Urea Nitrogen 16 mg/dL (7-17); Calcium 8.6 mg/dL (8.4-10.2); Carbon Dioxide 22 mmol/L (22-30); Chloride 96 mmol/L (98-107); Estimated CRCL calculation 65 ml/min; Estimated Glomerular Filt Rate > 60; Glucose 113 mg/dL (65-110); Potassium 3.3 mmol/L (3.4-5.0); Sodium 127 mmol/L (137-145)
--- OUTSIDE RECORDS SUMMARY | 2024-12-16 01:20 | XMS_ITS | Referral Summary ---
Author Organization [facility] Phys[facility] [address] [place] [address] Care Team Providers Care Help Desk Manager Name Role Phone Rios Asif MD Primary Care Provider Jefry Prajapati MD Unavailable [phone] Jack Carpenter MD Unavailable Allergies No known [...] a day as needed for anxiety rx# [id number] Active empagliflozin (JARDIANCE) 10 mg tablet Take [...] disease) 01/10/2024 Coronary artery disease invo lving [place] heart without angina pectoris 05/04/2020 Overview (05/04/2020): Added automatically from request for surgery [id number] Mitral valve insufficiency 05/04/2020 Overview (05/04/2020): Added automatically from request for surgery [id number] Social History Tobacco Use Types Packs/Day Years [...] on file 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 Gender Identity Not on file Sexual Orientation [...] on file Medical Devices Implanted Type Area Quality Nurse Device Identifier Shelf Expiration Date Model / Serial / Lot [employer] Lif[employer]iences [id number] [facility] HospitalChucksearcy s Physio Ii 28mm Wilson Sew Mitral Ring - [id number] - [id number] Implanted:Qty: 1 on 05/21/2020 by Jefry Prajapati MD at [facility] N/A: Heart [employer] 04/18/2025 [id number] / [id number] / Description:Mitral ring Medtronic Card Vasc Surgery 2.00 X 15mm [place] Rx Coronary Stent [id number] - [id number] Implanted:Qty: 1 on 01/10/2024 by Jack Carpenter MD at [facility] Medtronic Card Vasc Surgery 09/21/2026 [id number] / / [id number] Ter[employer]ub[employer] Angio-Seal Vip 6fr Closere Device [id number] - [id number] Implanted:Qty: 1 on 01/10/2024 by Jack Carpenter MD at [facility] [employer] Medical Trell [id number] / / Medtronic Card Vasc Surgery 3.0 X 15mm Ezequiel [place] Rx Coronary Stent [id number] - [id number] Implanted:Qty: 1 on 06/06/2024 by Jack Carpenter MD at [facility] Medtronic Card Vasc Surgery 03/28/2027 [id number] / / [id number] TerGrubster Angio-Seal Vip 6fr Closere Device [id number] - [id number] Implanted:Qty: 1 on 06/06/2024 by Jack Carpenter MD at [facility] [employer] [facility] [id number] / / Insurance [facility] MEDIC[facility] Address: [id number] [place] [address] [place] [facility] MEDICARE ADVANTAGE [facility] MEDIC[facility] Address: [facility] [address] [place] [address] Advance Directives For more information, please contact: [phone] * Full Code (Latest Code Status on File) Date Activated Date Inactivated Comments 06/06/2024 10:48 AM 06/07/2024 3:39 PM * Full Code Date Activated Date Inactivated Comments 01/10/2024 1:52 PM 01/11/2024 5:34 PM * Full Code Date Activated Date Inactivated Comments 05/21/2020 4:36 PM 06/07/2020 10:49 PM Care Teams Help Desk Manager Relationship Specialty Start Date End Date Rios Asif MD PCP - General Internal Medicine 04/15/20 Jefry Prajapati MD Surgeon Cardiothoracic Surgery 06/07/20 Jack Carpenter MD Consulting Physician Cardiovascular Disease 06/07/20
--- OUTSIDE RECORDS SUMMARY | 2024-12-16 01:20 | XMS_ITS | Clinical Summary ---
Author Organization [facility] Address [address] [place] [address] Care Team Providers Care Bead Builder Name Role Phone Rios Asif MD Primary Care Provider [phone] Source Comments [facility],non-owned Affiliates and Associated Physician Practices is amultiple site organization consisting of ambulatory clinics and hospital sitesin [place], [place] and [place]. This disclosure is being madepursuant to the Care Everywhere program and may not contain all information available regarding this patient. Last updated 18.[facility] Allergies No known active allergies Medications * [...] too small to be biopsied. 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
--- OUTSIDE RECORDS SUMMARY | 2024-12-16 01:20 | XMS_ITS | Clinical Summary ---
Author Organization [facility] Physician Of [facility] [address] [place] [address] Care Team Providers Care Harvest Contractor Name Role Phone Rios Asif MD Primary Care Provider Jefry Prajapati MD Unavailable [phone] Jack Carpenter MD Unavailable Allergies No known [...] a day as needed for anxiety rx# [id number] Active empagliflozin (JARDIANCE) 10 mg tablet Take [...] disease) 01/10/2024 Coronary artery disease invo lving [place] heart without angina pectoris 05/04/2020 Overview (05/04/2020): Added automatically from request for surgery [id number] Mitral valve insufficiency 05/04/2020 Overview (05/04/2020): Added automatically from request for surgery [id number] Surgical History Surgery Date Site/Laterality Comments CATARACT [...] file 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 Gender Identity Not on file Sexual Orientation [...] 09/11/2017, 03/2009 Medical Devices Implanted Type Area Director Drug Safety Device Identifier Shelf Expiration Date Model / Serial / Lot [employer] [id number] [place] s Physio Ii 28mm Wilson Sew Mitral Ring - [id number] - [id number] Implanted:Qty: 1 on 05/21/2020 by Jefry Prajapati MD at [facility] N/A: Heart [employer] 04/18/2025 [id number] / [id number] / Description:Mitral ring Medtronic Card Vas Surgery 2.00 X 15mm Ezequiel [place] Rx Coronary Stent [id number] - [id number] Implanted:Qty: 1 on 01/10/2024 by [facility] 09/21/2026 [id number] / / [id number] Ter[employer] Medical Trell Angio-Seal Vip 6fr Closere Device [id number] - [id number] Implanted:Qty: 1 on 01/10/2024 by Jack Carpenter MD at [facility] Medical Trell [id number] / / Medtronic Card Vasc Surgery 3.0 X 15mm [place] Rx Coronary Stent [id number] - [id number] Implanted:Qty: 1 on 06/06/2024 by [facility] 03/28/2027 [id number] / / [id number] [employer]umo Medical Trell Angio-Seal Vip 6fr Closere Device [id number] - [id number] Implanted:Qty: 1 on 06/06/2024 by Jack Carpenter MD at [facility] Medical Trell [id number] / / Insurance [facility] MEDICARE ADVANTAGE [facility] DUAL COMPLETE O[place] [id number] [place] [facility] DUAL COMPLETE OOS [id number] [place] [facility] MEDICARE ADVANTAGE Advance Directives For more information, please contact: [phone] * Full Code (Latest Code Status on File) Date Activated Date Inactivated Comments 06/06/2024 10:48 AM 06/07/2024 3:39 PM * Full Code Date Activated Date Inactivated Comments 01/10/2024 1:52 PM 01/11/2024 5:34 PM * Full Code Date Activated Date Inactivated Comments 05/21/2020 4:36 PM 06/07/2020 10:49 PM Care Teams Harvest Contractor Relationship Specialty Start Date End Date Rios Asif MD PCP - General Internal Medicine 04/15/20 Jefry Prajapati MD Surgeon Cardiothoracic Surgery 06/07/20 Jack Carpenter MD Consulting Physician Cardiovascular Disease 06/07/20
--- OUTSIDE RECORDS SUMMARY | 2024-12-16 01:20 | XMS_ITS | CONTINUITY OF CARE DOCUMENT ---
Author Name lisa gonzalez Address Unknown Organization [facility] Address [address] [place] [address] Phone [phone] Care Team Providers Care Silk Spooler Name Role Phone Pauline TURCIOS, Jack Gallagher Unavailable [phone] Rios Asif MD Unavailable Rios Asif MD [...] In-person encounter Office Visit Jack Carpenter MD [facility] - In-person encounter Office Visit Jack Carpenter MD [facility] - In-person encounter Office Visit Jack Carpenter MD [facility] - In-person encounter Office Visit Jack Carpenter MD [facility] - In-person encounter Office Visit Jack Carpenter MD [facility] - In-person encounter Office Visit Jack Carpenter MD [facility] - In-person encounter Office Visit Jack Carpenter MD [facility] - In-person encounter Office Visit Jack Carpenter MD [facility] - In-person encounter Office Visit Jack Carpenter MD [facility] HTN essentialTricuspid regurgitation, moderateAortic stenosis, mildMitral stenosis, mildCHF - In-person encounter Office Visit Jack Carpenter MD [facility] Shortness of breathElevated blood glucose - In-person encounter Office Visit Jack Carpenter MD [facility] - In-person encounter Office Visit Jack Carpenter MD [facility] Tricuspid regurgitation, moderate - In-person encounter Office Visit Jack Carpenter MD [facility] Shortness of breathArm pain, leftScreening - negative COVID-19 swab 03/2020 - In-person encounter Office Visit Jack Carpenter MD [facility] EMPHYSEMASevere MR S/P repair 05/2020Leg pain [...] In-person encounter Office Visit Jack Carpenter MD [facility] Chest pain - In-person encounter Office Visit Jack Carpenter MD [facility] - In-person encounter Office Visit Jack Carpenter MD [facility] - In-person encounter Office Visit Jack Carpenter MD [facility] Family History of Hypertension:Pulmonary nodulesSleep apnea, obstructive - on CPAPSevere MR S/P repair 05/2020 - In-person encounter Office Visit Jack Carpenter MD [facility] - In-person encounter Office Visit Jack Carpenter MD [facility] - In-person encounter Office Visit Jack Carpenter MD [facility] - In-person encounter Office Visit Jack Carpenter MD [facility] EMPHYSEMAANXIETY DISORDERChest pain VITAL SIGNS Date Observation Value Provider Body Mass Index (Ratio) 21.05 kg/m2 Chay Price blood pressure, diastolic 78 mm[Hg] Jostin huerta Singh blood pressure, systolic 105 mm[Hg] Katia freeman Singh blood pressure, cuff size regular Jostin deanna Singh oxygen saturation, oximetry 92 % [facility] pulse rate 56 /min [facility] weight E&M 136.4 [lb_av] [facility] height E&M 67.5 [in_i] [facility] Singh Body Mass Index (Ratio) 20.98 kg/m2 Brian Smyth blood pressure, diastolic 74 mm[Hg] Vy mason [facility] blood pressure, systolic 109 mm[Hg] [facility] oxygen saturation, oximetry 94 % [facility] respiratory rate E&M 20 /min [facility] pulse rate 84 /min [facility] weight E&M 136 [lb_av] [facility] blood pressure, cuff size regular Vy mason [facility] height E&M 67.5 [in_i] [facility] Body Mass Index (Ratio) 21.91 kg/m2 Jack [...] Hill blood pressure, systolic 107 mm[Hg] Chirag [facility] respiratory rate E&M 14 /min Radha Gallagher iller pulse rate 70 /min Radha Smoaks weight E&M 142 [lb_av] Radha Smoaks height E&M 67.5 [in_i] [facility] Body Mass Index (Ratio) 22.68 kg/m2 [...] lucretia Cazares blood pressure, cuff size large Ks kan Nucl[facility] blood pressure, diastolic 80 mm[Hg] Isabella omer [facility] blood pressure, systolic 132 mm[Hg] [facility] isaac Cazares weight E&M 140 [lb_av] María reyna height E&M 67.5 [in_i] María reyna Body Mass Index (Ratio) 21.29 kg/m2 Le tian Tesfaye blood pressure, diastolic 60 mm[Hg] Ma rsha O'Harris blood pressure, systolic 120 mm[Hg] Mar [facility] O'Harris oxygen saturation, oximetry 98 % Luly O'Harris respiratory rate E&M 16 /min Luly O'Harris pulse rate 72 /min Luly O'Harris blood pressure, resting Yes [place] vanessa O'Harris weight E&M 138 [lb_av] Luly [...] Body Mass Index (Ratio) 23.14 kg/m2 [facility] blood pressure, diastolic 78 mm[Hg] Jorge galan Segura blood pressure, systolic 115 mm[Hg] Lena Segura pulse rate 82 /min Kaylie pardo oxygen saturation, oximetry 99 % Kaylie Segura blood pressure, cuff size regular Cy adama Segura respiratory rate E&M 16 /min Kaylie Segura weight E&M 150 [lb_av] Kaylie pardo height E&M 67.5 [in_i] Kaylie pardo Body Mass Index (Ratio) 27.46 kg/m2 [facility] pulse rate 71 /min Armani [facility] blood pressure, diastolic 88 mm[Hg] Jamar park [facility] blood pressure, systolic 154 mm[Hg] [facility] weight E&M 178 [lb_av] Armani [facility] height E&M 67.5 [in_i] Armani [facility] Body Mass Index (Ratio) 25.30 kg/m2 [facility] pulse rate 72 /min [facility] respiratory rate E&M 16 /min [facility] [place] oxygen saturation, oximetry 96 % [facility] blood pressure, diastolic, left arm 84 mm [Hg] Tonsha Teague blood pressure, systolic, left arm 135 mm [Hg] [facility] blood pressure, diastolic, right arm 90 m m[Hg] [facility] blood pressure, systolic, right arm 120 m m[Hg] [facility] blood pressure, diastolic 84 mm[Hg] To [facility] blood pressure, systolic 135 mm[Hg] [facility] weight E&M 164 [lb_av] [facility] height E&M 67.5 [in_i] [facility] Body Mass Index (Ratio) 28.39 kg/m2 Ezio Oden blood pressure, diastolic 64 mm[Hg] Costa figueredo Lemuel blood pressure, systolic 118 mm[Hg] Carmen hedrick [...] ester pulse rate 84 /min Nancy Kimberly [facility] weight E&M 178 [lb_av] Nancy Kimberly [facility] height E&M 67.5 [in_i] Nancy Harris [facility] Body Mass Index (Ratio) 28.48 kg/m2 Ezio [...] Mass Index (Ratio) 25.30 kg/m2 Anea oskar [facility] blood pressure, diastolic, left arm 74 mm [Hg] Aneatris [facility] blood pressure, systolic, left arm 106 mm [Hg] Aneatris [facility] blood pressure, diastolic, right arm 77 m m[Hg] Aneatris Brown blood pressure, systolic, right arm 121 m m[Hg] Aneatris Brown blood pressure, diastolic 77 mm[Hg] An eatris [facility] blood pressure, systolic 121 mm[Hg] Ane atris [facility] pulse rate 90 /min Aneatris Brown oxygen saturation, oximetry 98 % Aneatris Brown respiratory rate E&M 17 /min Karlieatri s [facility] weight E&M 164 [lb_av] Aneatris Brown blood [...] pressure, diastolic, sitting 64 mm[ Hg] [facility], systolic, sitting 90 mm[H g] Edwin Jones blood pressure, dixon tolic, supine, left arm 74 mm[Hg] [facility] blood pressure, syst olic, supine, left arm [...] LinkLogic 0-149 cholesterol, serum 166 mg/dL [employer] 266-221 7077/08/ 29 calcium, serum 9.6 mg/dL [employer] 8.7-10.3 carbon dioxide, venous blood 22 mmol/L [employer] 20-29 chloride, serum 101 mmol/L [employer] 96-106 potassium, serum 4.2 mmol/L [employer] 3.5-5.2 sodium, serum 137 mmol/L [employer] 712-593 9845/08/ 29 urea nitrogen/creatinine ratio, serum 17 [employer]Logic [...] Not Estab. platelet count 160 X10E3/UL [employer] [phone]/08/ 29 red blood cell distribution width 14.4 [...] Normal LDL cholesterol, serum 128 mg/dL Armani [facility] B-type natriuretic peptide 26.8 pg/mL [facility] alanine aminotransferase (SGPT), serum 47 1/L [facility] aspartate aminotransferase (SGOT), serum 79 1/L [facility] creatinine, serum 0.84 mg/dL [facility] potassium, serum 3.7 mmol/L [facility] sodium, serum 137 mmol/L [facility] platelet count 241 10*3/uL [facility] hematocrit, blood 39.6 % [facility] HISTORY OF MEDICATION USE Medication Status Instructions [...] MOUTH TWICE A DAY - Pinky Dowell [employer]IDENTIAL LIFE DIRECTOR carvedilol 6.25 mg tablet completed TAKE 1 TABLET BY MOUTH TWICE A DAY - Jack Carpentre MD Lasix 20 mg tablet completed Take 1 tablet by mouth once a day - Edgar Hayesjuarez Jardiance 10 mg tablet completed Take 1 tablet by mouth once a day - Rosemarie Rushi rosuvastatin 20 mg tablet active TAKE 1 TABLET BY MOUTH EVERY DAY Rosemarie [facility] alendronate 70 mg tablet active Take 1 [...] PAIN TABLET EXTENDED RELEASE active as needed Anncy Eriner CALCIUM 500/D TABLET active once a day Nacny Eriner Ocuvite Eye Plus Multi 200-15-150 mcg [...] Jack Carpenter MD smoking status Former smoker Jakc Carpenter MD personal history of marijuana use no Anderson Smyth drug use no [facility] alcohol use no Anderson Liang smoking, year quit 1998 Anderson valadez smoking, date started 1965 Anderson Smyth smoking history, tot al pack/year 34 Anderson Smyth smoking history, tot al pack/day 2-3 Anderson Smyth cigarette use yes Anderson Domínguez smoking status Former smoker Anderson gonzales personal history of marijuana use no Pinky Ventimiglia [facility] drug use no Pinky Ventimig hayder [facility] alcohol use no Ipnky Ventimig hayder [facility] smoking, year quit 1998 Pinky Ve ntimiglia [facility] smoking, date started 1965 Pinky Ventimiglia [facility] smoking history, tot al pack/year 34 Pinky Ventimiglia [facility] smoking history, tot al pack/day 2-3 Pinky Ventimiglia [facility] cigarette use yes Pinky Ventimi glia [facility] smoking status Former smoker Pinky Venti miglia [employer] DIRECT[employer] alcohol use yes Radha Hill smoking, year quit 1998 Radha feliciano smoking, date started 1965 Rdaha Hill smoking history, tot al pack/year 34 [...] yes Luly O'Harris smoking status Former smoker Luyl O'Altagracia l smoking history, tot al pack/year [...] Armani Oden smoking, year quit 1998 Armani [facility] smoking, date started 1965 Anuj celia [facility] smoking history, tot al pack/year 60+ Armani [facility] smoking history, tot al pack/day 2-3 Armani [facility] cigarette use yes Armani yi smoking status Former smoker Armani Boykin [facility] social history reviewed E&M revi ewed - [...] 1998 Alpa cruzon-Uziel smoking, date started 1965 Alap Mendoza-Uziel smoking history, tot al pack/year 60+ Armani [facility] smoking history, tot al pack/day 2-3 Alpa [...] yes Nancy calvert smoking status Former smoker Nancy moise social history reviewed E&M revi ewed [...] (inactive) Management Plan continue current therapy Aarti Carlni HRA, CV Assess/Plan, Angina (inactive) Management Plan continue current therapy Jack Carpenter MD HRA, CV Assess/Plan, Angina (inactive) Management Plan continue current therapy Jack Carpenter MD HRA, CV Assess/Plan, Angina (inactive) Management Plan antianginal therapy Jack Carepnter MD HRA, CV Assess/Plan, Angina (inactive) Management [...] Payer name Policy type / Coverage type [place] [employer] party ID [facility] Other [facility] Other [employer] MEDICARE ADVANTAGE WALKIEL (PPO) Medicare [id number] ADVANCE DIRECTIVES Name Date DISCUSSED - NO DECISION MADE TREATMENT PLAN Date Name Performer [id number],S,obtain f/u ec ho Jack Carpenter MD [id number],S, P er pulmonary. Jack Carpenter MD [id number],S,T he patient is using CPAP on a regular basis. The patient has been benefiting from therapy and should continue use. Jack Carpenter MD [id number],S, H er updated medication list for this problem includes: Rosuvastatin 20 Mg Tablet (Rosuvastatin) ..... Take 1 tablet by mouth every day Jack Carpenter MD [id number],S,n o angina. could not tolerate carvedilol due to low BP. T he following medications were removed from the medication list: Carvedilol 6.25 Mg Tablet (Carvedilol) ..... Take 1 tablet by mouth twice a day Her updated medication list for this problem includes: Aspirin 81 Mg Tablet,delayed Release (dr/ec) (Aspirin) ..... Take 1 tablet by mouth once a day Jack Carpenter MD [id number],S, Jack Carpenter MD [id number],S,c hf class II o btain f/u echo [...] mouth once a day Jack Carpenter MD [id number],S,S he has 80% stenosis of right subclavian artery but she does not want procedure at this time. Jack Carpenter MD [id number],S,P t has chronic dyspnea. CHF class II, [...] mouth once a day Jack Carpenter MD [id number],C,H er BP was retaken on right side [...] (04/03/2020) HDL: 60 (04/03/2020) Jack Carpenter MD [id number],SCesar i [id number],S, Cesar Chew i [id number],S, Cesar Chew i [id number],S, Cesar Chew i [id number],Cesar Rodriguez i [id number],C, B P today: 132/72 P rior BP: [...] by mouth once a day Aarti Tesfaye [id number],C,P t reports improvement with Jardiance. However not complete resolution of SOB. Will screen her for [place] trial. H er updated medication list for this problem includes: Carvedilol 6.25 Mg Tablet (Carvedilol) ..... Take 1 tablet by mouth twice a day Lasix 20 Mg Tablet (Furosemide) ..... Take 1 tablet by mouth once a day Aspirin 81 Mg Tablet,delayed Release (dr/ec) (Aspirin) ..... Take 1 tablet by mouth once a day Aarti Carlin [id number],C,P t reports improvement with Jardiance. However not complete resolution of SOB. Will screen her for [place] trial. H er updated medication list for this problem includes: Carvedilol 6.25 Mg Tablet (Carvedilol) ..... Take 1 tablet by mouth twice a day Lasix 20 Mg Tablet (Furosemide) ..... Take 1 tablet by mouth once a day Aspirin 81 Mg Tablet,delayed Release (dr/ec) (Aspirin) ..... Take 1 tablet by mouth once a day Aarit Carlin [id number],C,P t reports improvement with Jardiance. However not complete resolution of SOB. Will screen her for [place] trial. Aarti Carlin [id number],C, T he following medications were removed from the medication list: Simvastatin 20 Mg Tablet (Simvastatin) ..... Take 1 tablet by mouth once a day Her updated medication list for this problem includes: Rosuvastatin 20 Mg Tablet (Rosuvastatin) ..... Take 1 tablet by mouth every day Aarti Carlin [id number],C, B P today: 161/96 P rior BP: [...] tablet by mouth once a day [facility] [id number],C, H er updated medication list for this problem includes: Carvedilol 6.25 Mg Tablet (Carvedilol) ..... Take 1 tablet by mouth twice a day Aspirin 81 Mg Tablet,delayed Release (dr/ec) (Aspirin) ..... Take 1 tablet by mouth once a day Aarti Carlin [id number],C,C lincally she is CHF class III. ProBNP [...] by mouth once a day Aarti Carlin [id number],C, H er updated medication list for this problem includes: Simvastatin 20 Mg Tablet (Simvastatin) ..... Take 1 tablet by mouth once a day Aarti Carlin [id number],C,P t complains of SOB with minimal exertion, started about 2 months ago when she stopped exercising. She is s/p CABG and mitral valve repair. Will obtain echo to check the valve. Check proBNP and BMP. Based on the results, we will consider cardiac cath. Aarti Carlin [id number],C,P t complains of SOB with minimal exertion, [...] by mouth once a day Aarti Carlin [id number],C,P t complains of SOB with minimal exertion, [...] by mouth once a day Aarti Carlin [id number],C,E levated today, continues to be normal at home. Jack Carpenter MD [id number],SJack MD [id number],C, H er updated medication list for this problem includes: Simvastatin 20 Mg Tablet (Simvastatin) ..... Take 1 tablet by mouth once a day Jack Carpenter MD [id number],S,O verall feeling well. Pt denies SOB and chest pain. Continue current medications. Jack Carpenter MD [id number],C,O verall feeling well. Pt denies SOB and chest pain. Continue current medications. H er updated medication list for this problem includes: Aspirin 81 Mg Tablet,delayed Release (dr/ec) (Aspirin) ..... Take 1 tablet by mouth once a day Jack Carpenter MD [id number],C,N o complaints of leg pain at this time. Aarti Tomparis [id number],C, H er updated medication list for this problem includes: Simvastatin 20 Mg Tablet (Simvastatin) ..... Take 1 tablet by mouth once a day Aarti Tomparis [id number],C,P t fell and broke her left hip. [...] by mouth once a day Aarti Tomparis [id number],C,E cho showed good repair of the mitral valve. She denies dizziness, chest pain, and SOB. Aarti Carlin [id number],C,W e reminded her to discontinue taking Metoprolol. [...] benefiting from therapy and should continue use. [facility] Cardiology:BP well c ontrolled home [...] 1 tablet by mouth once a day [facility] Cardiology:LDL 51 r emains on statin therapy H er updated medication list for this problem includes: Rosuvastatin 20 Mg Tablet (Rosuvastatin) ..... Take 1 tablet by mouth every day [facility] Cardiology:She had L 01/03/24 that [...] 1 tablet by mouth once a day [facility] Cardiology:mild per recent LH C [facility] Cardiology: B P today: 107/89 [...] resolution of SOB. Will screen her for [place] trial. H er updated medication list for [...] resolution of SOB. Will screen her for [place] trial. H er updated medication list for [...] resolution of SOB. Will screen her for [place] trial. Aarti Carlin Cardiology: T he following [...] Cardiology follow up :Orders: C omplete Echo (CPT-[id number]) Armani Oden Cardiology follow up :Doing well [...] Release (Aspirin) ..... Take 1 tab daily [facility] Cardiology follow up :Leg swelling is stable and she is not interested in Venaseal. [facility] hospital follow up [place] [facility] hospital follow up :Her updated medication list for this problem includes: Simvastatin 20 Mg Oral Tablet (Simvastatin) ..... Take 1 tab daily [facility] follow up :Angiography revealed stenosis of the R subclavian artery but the L subclavian artery was normal. [facility] follow up :She has significant leg swelling and venous duplex in April showed significant insufficiency of the GSV bilaterally. We will discuss Venaseal if she remains symptomatic with leg swelling in the spring. [facility] follow up :Angiography revealed 50% stenosis of the LRA. [facility] follow up :Angiography revealed 80% stenosis of the R subclavian artery. [facility] follow up :CT coronary calcium score was [...] Release (Aspirin) ..... Take 1 tab daily [facility] follow up :Echo in February showed severe MR. Cardiac cath showed severe MR. REED confirmed severe MR with an eccentric jet with mild prolapse of the anterior leaflet. Agitated saline study was negative. She underwent CABG x2 (CAMPUZANO-diagonal, T-graft radial-PDA) and MV repair by Dr. Prajapati in May. She has recovered well. No chest pain and reports SOB only with excessive exertion. [facility]Health:[facility] pulmonary. [facility]:Today BP was elevated but usually it is normal. She will check again and call if it is elevated. [facility] TeleHealth:Myoview scan was norm al. [facility] TeleHealth:The patie nt denies CP or SOB. She is active. Myoview scan was normal. Echo showed severe MR with normal EF and normal LV and LA dimensions. Will repeat echo in March 2020. [facility] Cardiology [facility] Cardiology:Orders: C omplete Echo ([id number]) [facility] Cardiology:Pt compla ins of pain in the L upper arm. There is some tenderness. Pain is not exertional however she is concerned it may be cardiac pain. Will do stress myoview and echo. [facility] Cardiology:Per pulmonary. [facility] Cardiology:Orders: C omplete Echo (CPT-[id number]) [facility] Cardiology [facility] Cardiology Follow up:Denies ches t pain. [facility] Cardiology Follow up :The patient is using CPAP on a regular basis. The patient has been benefiting from therapy and should continue use. [facility] Cardiology Follow up:Per pulmona ry. [facility] Cardiology Follow up:Per pulmona ry. [facility] Cardiology Follow up :No change in symptoms. EKG is normal. She continues to follow with pulmonary. [facility] Cardiology:Orders: C omplete Echo ([id number]) Jack Carpenter MD Cardiology:On CPAP. Jack Carpenter [...] completed EKG Jack Carpenter MD completed SNOMED-CT: 103704685 [id number] Current Medications Documented Jack Carpenter MD completed EKG Jack Carpenter MD completed SNOMED-CT: 786580566 423980 Current Medications Documented Jack Carpenter MD completed SNOMED-CT: [id number] Smoking Cessation Counseling Jack Carpenter MD completed SNOMED-CT: 19476704 Physical Exam, Performed: Pulse Exam of Foot Jack Carpenter MD completed EKG Jack Carpenter MD completed SNOMED-CT: 121098806 739666 Current Medications Documented Jack Carpenter MD completed
[2024-12-16 01:57] LABS: Add Urine Microscopic? YES; Appearance Urine Clear (Clear); Bacteria Urine None Seen /hpf; Bilirubin Urine Negative (Negative); Blood Urine Negative (Negative); Color Urine Yellow (Yellow); Glucose Urine UA Negative (Negative); Ketones Urine Negative (Negative); Leukocyte Esterase Ur 2+ LEU/UL (Negative); Nitrate Urine Negative (Negative); Non Pathogenic Casts 0-2; Protein Urine Negative (Negative); RBC Urine 0-2 /hpf (0-2); Specific Grav Ur 1.005 (1.001-1.035); Squamous Epithelial Cell Urine None Seen /hpf (Few)
[2024-12-16 01:57] LABS: NT Pro B Type Natriuretic Pept 7200 pg/mL (19.9-100)
[2024-12-16 02:01] LABS: Troponin I < 0.012 ng/mL (0.000-0.034)
[2024-12-16] MEDS: FUROSEMIDE INJ 40 MG/4 ML VIAL IV PUSH ×3 (02:17→16:44)
[2024-12-16] MEDS: IPRATROPIUM 0.5 MG/ALBUTEROL SULFATE 2.5 MG AMPUL.NEB 3 ML 6 ML INHALATION (02:18)
[2024-12-16 02:27] LABS: Influenza A QL RT-PCR Negative (Negative); Influenza B QL RT-PCR Negative (Negative); RSV RNA, RT-PCR Negative (Negative); SARS-CoV-2 RNA PCR Negative (Negative)
--- NOTE | 2024-12-16 02:28 | ED.GENADULT ---
HPI - General Adult General Chief complaint: Shortness of Breath/Dyspnea Stated complaint: sob with exertion, diarrhea x 1.5 wks-resolved Time Seen by Provider: 12/16/24 00:17 History of Present Illness HPI narrative: This is an 78 old female history of CHF COPD liver cirrhosis presenting for shortness of breath. She says she had diarrhea over last 2 weeks. The diarrhea has resolved but she has not become dyspneic on exertion shared. She is unable to walk more than 10 steps without becoming severely winded. Patient denies fevers, chills, productive cough, nausea vomiting. She has had some mild intermittent chest pain over the last couple weeks. Chest pain-free at the moment. She denies lower extremity edema. She has been taking her medications as directed. Related Data Home Medications ?Medication ?Instructions ?Recorded ?Confirmed ?Last Taken ?Type Acetaminophen Extra Strength 650 mg PO PRN 07/04/24 08/21/24 07/03/24 History Calcium+D 600 mg PO DAILY 07/04/24 08/21/24 07/03/24 History albuterol 90 mcg/actuation aerosol 90 mcg inhalation PRN PRN Wheezing 07/04/24 08/21/24 Unknown History inhaler aspirin 81 mg tablet 81 mg PO DAILY 07/04/24 08/21/24 07/03/24 History citalopram 20 mg tablet 20 mg PO HS 07/04/24 08/21/24 07/04/24 History clopidogrel 75 mg tablet 75 mg PO DAILY 07/04/24 08/21/24 Unknown History empagliflozin 10 mg tablet 10 mg PO DAILY 07/04/24 08/21/24 Unknown History (Jardiance) nitroglycerin 0.4 mg sublingual 0.4 mg sublingual Q5M PRN Chest 07/04/24 08/21/24 Unknown History tablet Pain omeprazole 20 mg capsule,delayed 20 mg PO DAILY 07/04/24 08/21/24 Unknown History release polyvinyl alcohol 1.4 % eye drops 1 drp EACH EYE DAILY PRN Dry Eyes 07/04/24 08/21/24 Unknown History rosuvastatin 20 mg tablet 20 mg PO DAILY 07/04/24 08/21/24 Unknown History umeclidinium 62.5 mcg-vilanterol 1 inh inhalation DAILY 07/04/24 08/21/24 07/03/24 History 25 mcg/actuation powdr for inhalation (Anoro Ellipta) Allergies Allergy/AdvReac Type Severity Reaction Status Date / Time shingles shot Allergy Unknown Unknown Uncoded 12/15/24 23:58 [facility] Past Medical History Medical History History of CAD (coronary artery disease) Family History Family History Sibling Hypertension Bladder cancer Social History Social History Years smoked: 20 Smoking status: Former smoker Tobacco type: cigarettes Second hand tobacco smoke exposure: Yes Smoking end date: 07/04/24 Alcohol intake: former Substance use: former Substance use type: marijuana Last use: 2019 Do You Feel Safe in your Home?: Yes Lack of Transportation: No Lack of Food: Never True Current Housing: I Have Housing Concerned About Future Housing: No Difficulty Paying Gas/Electric Bills: No Difficulty Paying for Meds: No Currently Unemployed: No Education: Decline to Answer Difficulty w/ Childcare or Family Care: No Spiritual care concerns: No Exam Narrative: APPEARANCE: No apparent distress. Head: atraumatic. EYES: EOMI, NOSE: Atraumatic NECK: Trachea midline RESPIRATORY: No increased rate of breathing, bibasilar crackles CARDIOVASCULAR: RRR, no peripheral edema ABDOMINAL: Non-distended soft nontender MUSCULOSKELETAl: No obvious deformities NEURO: Alert. Moving 4/4 extremities SKIN:: Warm, dry. Normal color PSYCHIATRIC: Normal affect Point of care cardiothoracic echo: showed a plethoric IVC with minimal respiratory variation. Ejection fraction appeared normal. Right side of the heart is dilated. Course Vital Signs Vital signs: Vital Signs Temperature 97.7 F 12/16/24 00:18 Pulse Rate 79 12/16/24 00:18 Respiratory Rate 13 12/16/24 00:18 Blood Pressure 140/84 12/16/24 00:18 Pulse Oximetry 94 12/16/24 00:18 Temperature 97.7 F 12/16/24 00:18 Pulse Rate 86 12/16/24 04:50 Respiratory Rate 20 12/16/24 04:50 Blood Pressure 127/53 L 12/16/24 04:50 Pulse Oximetry 96 12/16/24 04:50 Oxygen Delivery Room Air 05/13/25 02:44 Medical Decision Making [facility] Narrative Medical decision making narrative: -Course: This 79-year-old female multiple medical comorbidities presenting with dyspnea on exertion. Patient desaturates into the mid 80s on ambulation. Point of care cardiothoracic ultrasound showed a with plethoric IVC with minimal respiratory variation and right-sided heart dilation. BNP elevated at 7200. CTA ordered to evaluate for PE. Viral swabs negative. Troponins negative with no ischemic changes on EKG. Stat rad interpretation of CTA: Negative for PE, Right upper lobe pulmonary nodules and prominent subcarinal/medial sentinel lymph nodes which may be neoplastic or inflammatory in nature. Small bilateral pleural effusions, cardiomegaly with asymmetric right heart enlargement. Over-read will occur in the a.m.. Patient given 40 mg of Lasix. She was given a DuoNeb treatment. Potassium was repleted. To be admitted hospital for further management for hypoxic respiratory failure Records have been requested from [facility]. -DDX includes but is not limited to: Congestive heart failure, pulmonary hypertension, PE, COPD exacerbation, pneumonia, viral syndrome Vital Signs Vital Signs: Vital Signs Temperature 97.7 F 12/16/24 00:18 Pulse Rate 79 12/16/24 00:18 Respiratory Rate 13 12/16/24 00:18 Blood Pressure 140/84 12/16/24 00:18 Pulse Oximetry 94 12/16/24 00:18 Temperature 97.7 F 12/16/24 00:18 Pulse Rate 86 12/16/24 04:50 Respiratory Rate 20 12/16/24 04:50 Blood Pressure 127/53 L 12/16/24 04:50 Pulse Oximetry 96 12/16/24 04:50 Oxygen Delivery Room Air 12/16/24 02:44 Lab Data 12/16/24 00:27 12/16/24 00:27 Labs: Lab Results 12/16/24 12/16/24 12/16/24 Range/Units 00:26 00:27 01:13 WBC 5.4 (4.5-10.0) K/mm3 RBC 3.51 L (4.2-5.4) M/mm3 Hgb 9.5 L (12.0-15.0) g/dL Hct 30.4 L (37.0-47.0) % MCV 86.6 (80-100) fl MCH 27.1 (26-34) pg MCHC 31.3 L (32-36) g/dl RDW 15.5 H (11.5-14.5) % Plt Count 159 (150-375) k/mm3 MPV 9.1 (7.4-10.4) fl Immature Gran % (Auto) 0.9 H (0-0.5) % Neut % (Auto) 74.6 H (45.5-73.1) % Lymph % (Auto) 14.5 L (18.3-44.2) % [place] % (Auto) 9.1 H (2.6-8.5) % Eos % (Auto) 0.7 (0-4.4) % Baso % (Auto) 0.2 (0.2-1.2) % Lymph # (Auto) 0.78 L (0.9-3.2) K/mm3 [place] # (Auto) 0.5 (0.1-0.6) K/mm3 Eos # (Auto) 0.0 (0-0.3) K/mm3 Baso # (Auto) 0.0 (0.0-0.1) K/mm3 Abs Immat Gran (auto) 0.05 H (0.00-0.031) K/mm3 Absolute Neuts (auto) 4.0 (1.3-6.7) K/mm3 Absolute Nucleated RBC 0.000 (0.0-0.012) K/mm3 Nucleated RBC % 0.0 (0.0-0.2) % Sodium 127 L (137-145) mmol/L Potassium 3.3 L (3.4-5.0) mmol/L Chloride 96 L (98-107) mmol/L Carbon Dioxide 22 (22-30) mmol/L Anion Gap 9 (4-12) mmol/L BUN 16 (7-17) mg/dL Creatinine 0.56 L (0.7-1.0) mg/dL Estim Creat Clear Calc 65 ml/min Estimated GFR > 60 (59 - ) Glucose 113 H (65-110) mg/dL Calcium 8.6 (8.4-10.2) mg/dL Total Bilirubin 0.7 (0.2-1.3) mg/dL AST 113 H (14-36) U/L ALT 85 H (6-35) U/L Alkaline Phosphatase 217 H (38-126) U/L Troponin I < 0.012 (0.000-0.034) ng/mL NT-Pro-B Natriuret Pep 7200 H (19.9-100) pg/mL Total Protein 6.0 L (6.3-8.2) g/dL Albumin 3.3 L (3.5-5.1) g/dL Urine Color Yellow (Yellow) Urine Appearance Clear (Clear) Urine pH 7.0 (5.0-9.0) Ur Specific [place] 1.005 (1.001-1.035) Urine Protein Negative (Negative) mg/dL Urine Glucose (UA) Negative (Negative) mg/dL Urine Ketones Negative (Negative) mg/dL Ur Blood (Man) Negative (Negative) Urine Nitrate Negative (Negative) Urine Bilirubin Negative (Negative) Urine Urobilinogen 1.0 (<2.0) mg/dL Leukocyte Esterase Rfl 2+ H (Negative) YOUSUF/UL Urine RBC 0-2 (0-2) /hpf Urine WBC 11-20 H (0-3) /hpf Ur Squamous Epith Cells None seen (Few) /hpf Urine Bacteria None seen /hpf Urine Casts 0-2 Influenza A (RT-PCR) (Negative) Influenza B (RT-PCR) (Negative) RSV (RT-PCR) (Negative) SARS-CoV-2 RNA (RT-PCR) (Negative) 12/16/24 12/16/24 Range/Units 01:42 04:20 WBC (4.5-10.0) K/mm3 RBC (4.2-5.4) M/mm3 Hgb (12.0-15.0) g/dL Hct (37.0-47.0) % MCV (80-100) fl MCH (26-34) pg MCHC (32-36) g/dl RDW (11.5-14.5) % Plt Count (150-375) k/mm3 MPV (7.4-10.4) fl Immature Gran % (Auto) (0-0.5) % Neut % (Auto) (45.5-73.1) % Lymph % (Auto) (18.3-44.2) % [place] % (Auto) (2.6-8.5) % Eos % (Auto) (0-4.4) % Baso % (Auto) (0.2-1.2) % Lymph # (Auto) (0.9-3.2) K/mm3 [place] # (Auto) (0.1-0.6) K/mm3 Eos # (Auto) (0-0.3) K/mm3 Baso # (Auto) (0.0-0.1) K/mm3 Abs Immat Gran (auto) (0.00-0.031) K/mm3 Absolute Neuts (auto) (1.3-6.7) K/mm3 Absolute Nucleated RBC (0.0-0.012) K/mm3 Nucleated RBC % (0.0-0.2) % Sodium (137-145) mmol/L Potassium (3.4-5.0) mmol/L Chloride (98-107) mmol/L Carbon Dioxide (22-30) mmol/L Anion Gap (4-12) mmol/L BUN (7-17) mg/dL Creatinine (0.7-1.0) mg/dL Estim Creat Clear Calc ml/min Estimated GFR (59 - ) Glucose (65-110) mg/dL Calcium (8.4-10.2) mg/dL Total Bilirubin (0.2-1.3) mg/dL AST (14-36) U/L ALT (6-35) U/L Alkaline Phosphatase (38-126) U/L Troponin I < 0.012 (0.000-0.034) ng/mL NT-Pro-B Natriuret Pep (19.9-100) pg/mL Total Protein (6.3-8.2) g/dL Albumin (3.5-5.1) g/dL Urine Color (Yellow) Urine Appearance (Clear) Urine pH (5.0-9.0) Ur Specific [place] (1.001-1.035) Urine Protein (Negative) mg/dL Urine Glucose (UA) (Negative) mg/dL Urine Ketones (Negative) mg/dL Ur Blood (Man) (Negative) Urine Nitrate (Negative) Urine Bilirubin (Negative) Urine Urobilinogen (<2.0) mg/dL Leukocyte Esterase Rfl (Negative) YOUSUF/UL Urine RBC (0-2) /hpf Urine WBC (0-3) /hpf Ur Squamous Epith Cells (Few) /hpf Urine Bacteria /hpf Urine Casts Influenza A (RT-PCR) Negative (Negative) Influenza B (RT-PCR) Negative (Negative) RSV (RT-PCR) Negative (Negative) SARS-CoV-2 RNA (RT-PCR) Negative (Negative) Discharge Plan Discharge Clinical Impression: Hypoxic respiratory failure, Thyroid nodule, Cardiomegaly, Elevated brain natriuretic peptide (BNP) level, Pulmonary nodule Patient Disposition: Still a Patient Condition: Stable Patient Language: Spanish Prescriptions: No Action Acetaminophen Extra Strength 650 mg PO PRN Rx Instructions: prn every 8hrs as needed polyvinyl alcohol 1.4 % Drops 1 drp EACH EYE DAILY PRN (Reason: Dry Eyes) clopidogrel 75 mg tablet 75 mg PO DAILY citalopram 20 mg tablet 20 mg PO HS nitroglycerin 0.4 mg tablet, sublingual 0.4 mg sublingual Q5M PRN (Reason: Chest Pain) omeprazole 20 mg capsule,delayed release(DR/EC) 20 mg PO DAILY aspirin 81 mg Tablet 81 mg PO DAILY albuterol 90 mcg/actuation Aerosol 90 mcg INHALATION PRN PRN (Reason: Wheezing) rosuvastatin 20 mg tablet 20 mg PO DAILY Anoro Ellipta 62.5-25 mcg/actuation blister with device 1 inh INHALATION DAILY Jardiance 10 mg tablet 10 mg PO DAILY Calcium+D 600 mg PO DAILY lorazepam 0.5 mg Tablet 0.5 mg PO DAILY Qty: 10 0RF Follow-up/Referrals: Yefri,Rios Garsia MD [Primary Care Provider] -
--- NOTE | 2024-12-16 03:32 | PM.IMHP ---
H&P: HPI History of Present Illness Date/Time: 12/16/24 03:32 Chief Complaint: Shortness of breath Narrative: Patient is an 79-year-old female with a past medical history of CABG 2019, status post stent (unable to remember the year), both performed at [facility], visited ED due to a one-week history of diarrhea, which was resolved, but continues to have shortness of breath. The patient lives by herself and has no oxygen at baseline. The patient is a former smoker who quit 30 years ago and a heavy alcohol drinker. 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 Prolonged QT CTA Chest:Impression: Mediastinal and right hilar lymphadenopathy, nonspecific. Correlate for infectious/inflammatory nodes versus lymphoma or other metastatic disease. Advanced emphysema. Probable right apical scarring with a 10 mm nodule present. Neoplastic nodule not completely excluded. Consider short-term follow-up CT in 3 months to reassess versus PET/CT. Tissue sampling could be considered, but may be difficult given the relatively small size of nodule as well as advanced emphysema present. Minimal bilateral pleural effusions. Patient is admitted in the setting of possible CHF exacerbation/COPD. As mentioned above, the patient has an extensive cardiac history. Will order echocardiogram in the a.m.. Patient reports that lately she has had mild chest pressure, but it was relieved due to nitroglycerin. Troponin and EKG were negative. Patient will be judiciously diuretic and will monitor strict I's and O's?patient's sodium level 127, possibly due to dehydration versus CHF exacerbation. Replenish potassium. Review of Systems Review of Systems: All systems reviewed & are unremarkable except as noted in HPI and below PMFSH Past Medical History Medical History History of CAD (coronary artery disease) Family History Family History Sibling Hypertension Bladder cancer Social History Social History Years smoked: 20 Smoking status: Former smoker Tobacco type: cigarettes Second hand tobacco smoke exposure: Yes Smoking end date: 07/04/24 Alcohol intake: former Substance use: former Substance use type: marijuana Last use: 2020 Do You Feel Safe in your Home?: Yes Lack of Transportation: No Lack of Food: Never True Current Housing: I Have Housing Concerned About Future Housing: No Difficulty Paying Gas/Electric Bills: No Difficulty Paying for Meds: No Currently Unemployed: No Education: Decline to Answer Difficulty w/ Childcare or Family Care: No Spiritual care concerns: No Meds Home Medications and Allergies Home Medications ?Medication ?Instructions ?Recorded ?Confirmed ?Type Acetaminophen Extra Strength 650 mg PO PRN 07/04/24 08/21/24 History Calcium+D 600 mg PO DAILY 07/04/24 08/21/24 History albuterol 90 mcg/actuation aerosol 90 mcg inhalation PRN PRN Wheezing 07/04/24 08/21/24 History inhaler aspirin 81 mg tablet 81 mg PO DAILY 07/04/24 08/21/24 History citalopram 20 mg tablet 20 mg PO HS 07/04/24 08/21/24 History clopidogrel 75 mg tablet 75 mg PO DAILY 07/04/24 08/21/24 History empagliflozin 10 mg tablet 10 mg PO DAILY 07/04/24 08/21/24 History (Jardiance) nitroglycerin 0.4 mg sublingual 0.4 mg sublingual Q5M PRN Chest 07/04/24 08/21/24 History tablet Pain omeprazole 20 mg capsule,delayed 20 mg PO DAILY 07/04/24 08/21/24 History release polyvinyl alcohol 1.4 % eye drops 1 drp EACH EYE DAILY PRN Dry Eyes 07/04/24 08/21/24 History rosuvastatin 20 mg tablet 20 mg PO DAILY 07/04/24 08/21/24 History umeclidinium 62.5 mcg-vilanterol 1 inh inhalation DAILY 07/04/24 08/21/24 History 25 mcg/actuation powdr for inhalation (Anoro Ellipta) lorazepam 0.5 mg tablet 0.5 mg PO DAILY anxiety #10 tabs 07/07/24 08/21/24 Rx Allergies Allergy/AdvReac Type Severity Reaction Status Date / Time shingles shot Allergy Unknown Unknown Uncoded 12/15/24 23:58 Vital Signs Vital Signs - 24 hr 12/16/24 00:18 12/16/24 02:19 12/16/24 02:38 Temperature 97.7 F Pulse Rate 79 85 86 Respiratory Rate 13 20 20 Blood Pressure 140/84 Pulse Oximetry 94 Oxygen Delivery 12/16/24 02:43 12/16/24 02:44 Temperature Pulse Rate 90 Respiratory Rate 16 Blood Pressure 140/78 Pulse Oximetry 99 92 Oxygen Delivery Room Air Exam Narrative: APPEARANCE: No apparent distress. Head: atraumatic. EYES: EOMI, NOSE: Atraumatic NECK: Trachea midline RESPIRATORY: No increased rate of breathing, bibasilar crackles CARDIOVASCULAR: RRR, no peripheral edema ABDOMINAL: Non-distended soft nontender MUSCULOSKELETAl: No obvious deformities NEURO: Alert. Moving 4/4 extremities SKIN:: Warm, dry. Normal color PSYCHIATRIC: Normal affect Point of care cardiothoracic echo: showed a plethoric IVC with minimal respiratory variation. Ejection fraction appeared normal. Right side of the heart is dilated. H&P: Results Labs Labs: Short CBC 12/16/24 Range/Units 00:27 WBC 5.4 (4.5-10.0) K/mm3 Hgb 9.5 L (12.0-15.0) g/dL Hct 30.4 L (37.0-47.0) % Plt Count 159 (150-375) k/mm3 BMP 12/16/24 00:27 Sodium 127 L Potassium 3.3 L Chloride 96 L Carbon Dioxide 22 BUN 16 Creatinine 0.56 L Glucose 113 H Calcium 8.6 Cardiac Enzymes 12/16/24 Range/Units 00:26 Troponin I < 0.012 (0.000-0.034) ng/mL Liver Function 12/16/24 Range/Units 00:27 Total Bilirubin 0.7 (0.2-1.3) mg/dL AST 113 H (14-36) U/L ALT 85 H (6-35) U/L Alkaline Phosphatase 217 H (38-126) U/L Albumin 3.3 L (3.5-5.1) g/dL Urine 12/16/24 Range/Units 01:13 Urine Color Yellow (Yellow) Urine Appearance Clear (Clear) Urine pH 7.0 (5.0-9.0) Ur Specific [place] 1.005 (1.001-1.035) Urine Protein Negative (Negative) mg/dL Urine Glucose (UA) Negative (Negative) mg/dL Assessment and Plan Assessment and plan (1) Anxiety: Code(s): F41.9 - Anxiety disorder, unspecified Status: Acute (2) Cardiomegaly: Code(s): I51.7 - Cardiomegaly Status: Acute (3) Elevated brain natriuretic peptide (BNP) level: Code(s): R79.89 - Other specified abnormal findings of blood chemistry Status: Acute (4) COPD (chronic obstructive pulmonary disease): Code(s): J44.9 - Chronic obstructive pulmonary disease, unspecified Status: Acute (5) Diarrhea: Code(s): R19.7 - Diarrhea, unspecified Status: Acute Plan CHF exacerbation -BNP 7200 -cardiology consulted -IV Lasix 40 mg q.d. -monitor renal function during diuresis -echocardiogram pending -reviewed EKG -reviewed chest CTA; no PE, minimal pleural effusion -Lipid panel, TSH, HbA1c -Optimize Logan inhibitors, beta-blockers, ARNI -Daily weights. -fluid restriction -Strict I&O's -Antiplatelet therapy, statin therapy, loop diuretics as indicated,. -Optimize blood pressure less than 130/80. -Fall risk assessment. Diarrhea No recent antibiotic exposure Currently resolved If necessary test C diff HypoNa Asymptomatic HypoNa TSH pending If necessary Cortisol will be measured Possible due to CHF exacerbation Goal 6-8 meq/l in 24 hr period Pending urine sodium and osmolarity DVT prophylaxis: Lovenox 40 mg subQ GI prophylaxis: Protonix 40 mg IV q.d. Medical reconciliation pending Hospitalist [facility] Advance Care Plan I have confirmed that the patient's Advanced Care Plan is present, code status is documented, or surrogate decision maker is listed in patient medical record.: Yes Medication Reconciliation I have utilized all available resources to obtain, update and review the patients current medications (includes all prescriptions, OTC, herbals, cannabis, and nutritional supplements).: Yes
[2024-12-16 04:50] LABS: Troponin I < 0.012 ng/mL (0.000-0.034)
[2024-12-16] MEDS: POTASSIUM CHLORIDE 20 MEQ ER TABLET 40 MEQ PO (05:27)
[2024-12-16 06:40] LABS: Hemoglobin A1C 5.2 % (<5.7)
[2024-12-16 06:46] LABS: Cholesterol 86 mg/dL (0-200); HDL Direct 41 mg/dL; Triglycerides 67 mg/dL (<150)
[2024-12-16 06:57] LABS: LDL Cholesterol Direct 30 mg/dL
[2024-12-16 07:30] LABS: Sodium Urine Random 90 meq/L
--- NOTE | 2024-12-16 07:58 | ADMGEN ---
This patient, Zoraida Tobias, was admitted to 3 [facility] Surg Room 322-01. Patient/family oriented to hospital policies and general routines including ID bracelet, bed and alarms, visiting hours, pain management, procedures, bathroom and other care routines, personal items, smoking policy, room service/diet, and visiting hours. Information on how to activate the Rapid Response Team has been discussed. Patient/Family are encouraged to report perceived risks to care and to ask questions if they do not understand what they are told or what they should do.
[2024-12-16] MEDS: ENOXAPARIN 40 MG/0.4 ML SYRINGE SUB-Q (09:07)
[2024-12-16] MEDS: PANTOPRAZOLE SODIUM IV 40 MG VIAL IV PUSH (09:07)
--- NOTE | 2024-12-16 09:54 | PM.CNCAR ---
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 Check daily ins and outs, weights Check renal function, electrolytes daily and replace as needed keeping potassium greater than 4 and magnesium greater than 2 Continue aspirin, Plavix, statin History of Present Illness History of Present Illness Consult date/time: 12/16/24 09:54 Reason For Visit: Hypoxic Respiratory Failure Narrative: 79-year-old female with history of CAD with PMH of CABG x2 in 2019, status post stent (unable to remember the year), both performed at [facility], cirrhosis due to chronic alcoholism for which she follows with a emergency operator, presents to the ER with worsening shortness of breath and leg swelling. Patient states that her shortness of breath has been worsening over the past few months. She thinks it is particularly worse after a shingles vaccination she received about 2 months ago. She reports lower extremity swelling which is worsening slowly. She has occasional fevers and had a fever of 102.7? at home 1 time. She has chills. The patient is a former smoker who quit 30 years ago and a heavy alcohol drinker. No chest pain, dizziness, palpitations, lightheadedness, presyncope, syncope. Troponin x3 negative, BNP is elevated to 7200. Cardiology is consulted for further recommendations for acute on chronic heart failure. Workup: Potassium 3.3 Creatinine: 0.5 Hemoglobin: 9.5 Troponin: Negative x3 BNP: 7200 EKG: Sinus rhythm with PACs Chest x-ray: No definite acute pulmonary abnormality. COPD and/or chronic interstitial disease CT chest: Mediastinal and right hilar lymphadenopathy, advanced emphysema, probable right apical scarring with 10 mm nodule present- neoplastic nodule not completely excluded, minimal bilateral pleural effusions Review of Systems Review of Systems: A complete review of systems was performed and pertinent positives are noted in the [facility] Past Medical History Medical History History of CAD (coronary artery disease) Family History Family History Sibling Hypertension Bladder cancer Social History Social History Years smoked: 20 Smoking status: Former smoker Second hand tobacco smoke exposure: Yes Alcohol intake: former Substance use: former Substance use type: marijuana Last use: 2020 Do You Feel Safe in your Home?: Yes Lack of Transportation: No Lack of Food: Never True Current Housing: I Have Housing Concerned About Future Housing: No Difficulty Paying Gas/Electric Bills: No Difficulty Paying for Meds: No Currently Unemployed: No Education: Decline to Answer Difficulty w/ Childcare or Family Care: No Spiritual care concerns: No Meds Home Medications and Allergies Home Medications ?Medication ?Instructions ?Recorded ?Confirmed ?Type Acetaminophen Extra Strength 650 mg PO PRN 07/04/24 12/16/24 History Calcium+D 600 mg PO DAILY 07/04/24 12/16/24 History albuterol 90 mcg/actuation aerosol 90 mcg inhalation PRN PRN Wheezing 07/04/24 12/16/24 History inhaler aspirin 81 mg tablet 81 mg PO DAILY 07/04/24 12/16/24 History citalopram 20 mg tablet 20 mg PO HS 07/04/24 12/16/24 History clopidogrel 75 mg tablet 75 mg PO DAILY 07/04/24 12/16/24 History nitroglycerin 0.4 mg sublingual 0.4 mg sublingual Q5M PRN Chest 07/04/24 12/16/24 History tablet Pain omeprazole 20 mg capsule,delayed 20 mg PO DAILY 07/04/24 12/16/24 History release polyvinyl alcohol 1.4 % eye drops 1 drp EACH EYE DAILY PRN Dry Eyes 07/04/24 12/16/24 History rosuvastatin 20 mg tablet 20 mg PO DAILY 07/04/24 12/16/24 History umeclidinium 62.5 mcg-vilanterol 1 inh inhalation DAILY 07/04/24 12/16/24 History 25 mcg/actuation powdr for inhalation (Anoro Ellipta) lorazepam 0.5 mg tablet 0.5 mg PO DAILY anxiety #10 tabs 12/02/24 05/13/25 Rx alendronate 70 mg tablet 70 mg PO WEEKLY 12/16/24 12/16/24 History furosemide 20 mg tablet 20 mg PO DAILY 12/16/24 12/16/24 History Allergies Allergy/AdvReac Type Severity Reaction Status Date / Time shingles shot Allergy Unknown Unknown Uncoded 12/15/24 23:58 Vital Signs Vital Signs - 24 hr 12/16/24 00:18 12/16/24 02:19 12/16/24 02:38 Temperature 36.5 C Pulse Rate 79 85 86 Respiratory Rate 13 20 20 Blood Pressure 140/84 Pulse Oximetry 94 Oxygen Delivery Oxygen Flow Rate 12/16/24 02:43 12/16/24 02:44 12/16/24 04:50 Temperature Pulse Rate 90 86 Respiratory Rate 16 20 Blood Pressure 140/78 127/53 L Pulse Oximetry 99 92 96 Oxygen Delivery Room Air Oxygen Flow Rate 12/16/24 06:05 12/16/24 07:39 12/16/24 08:00 Temperature 36.1 C L Pulse Rate 77 86 Respiratory Rate 16 18 Blood Pressure 139/67 148/71 H Pulse Oximetry 95 97 94 Oxygen Delivery Nasal Cannula Oxygen Flow Rate 1 Exam Narrative: General: Alert oriented x3, no acute distress Neck: Supple, JVD + Chest: Bilaterally clear to auscultation, no rales or rhonchi Cardiac: S1, S2 +, regular rate, regular rhythm, no murmurs or rubs Extremities: Bilateral lower extremity edema 1+, no skin rash Neurologic: Alert and oriented x3, no focal neurological deficits Results Labs and Meds 12/16/24 00:27 12/16/24 00:27 Lab results: Cardiac Enzymes 12/16/24 12/16/24 12/16/24 Range/Units 00:26 00:27 04:20 AST 113 H (14-36) U/L Troponin I < 0.012 < 0.012 (0.000-0.034) ng/mL Lipids 12/16/24 Range/Units 00:27 Triglycerides 67 (<150) mg/dL Cholesterol 86 (0-200) mg/dL CBC 12/16/24 Range/Units 00:27 WBC 5.4 (4.5-10.0) K/mm3 RBC 3.51 L (4.2-5.4) M/mm3 Hgb 9.5 L (12.0-15.0) g/dL Hct 30.4 L (37.0-47.0) % Plt Count 159 (150-375) k/mm3 Lymph # (Auto) 0.78 L (0.9-3.2) K/mm3 [place] # (Auto) 0.5 (0.1-0.6) K/mm3 Eos # (Auto) 0.0 (0-0.3) K/mm3 Baso # (Auto) 0.0 (0.0-0.1) K/mm3 Comprehensive Metabolic Panel 12/16/24 Range/Units 00:27 Sodium 127 L (137-145) mmol/L Potassium 3.3 L (3.4-5.0) mmol/L Chloride 96 L (98-107) mmol/L Carbon Dioxide 22 (22-30) mmol/L BUN 16 (7-17) mg/dL Creatinine 0.56 L (0.7-1.0) mg/dL Glucose 113 H (65-110) mg/dL Calcium 8.6 (8.4-10.2) mg/dL AST 113 H (14-36) U/L ALT 85 H (6-35) U/L Alkaline Phosphatase 217 H (38-126) U/L Total Protein 6.0 L (6.3-8.2) g/dL Albumin 3.3 L (3.5-5.1) g/dL Intake and Output 12/15/24 12/16/24 12/16/24 23:59 07:59 15:59 Intake Total 240 Balance 240 Intake: Oral 240 Patient Weight 12/16/24 23:59 Weight 63.63 kg
--- NOTE | 2024-12-16 13:13 | PM.IMPN ---
Progress Note: A&P Assessment and Plan (1) Anxiety: Code(s): F41.9 - Anxiety disorder, unspecified Status: Acute (2) Cardiomegaly: Code(s): I51.7 - Cardiomegaly Status: Acute (3) Elevated brain natriuretic peptide (BNP) level: Code(s): R79.89 - Other specified abnormal findings of blood chemistry Status: Acute (4) COPD (chronic obstructive pulmonary disease): Code(s): J44.9 - Chronic obstructive pulmonary disease, unspecified Status: Acute (5) Diarrhea: Code(s): R19.7 - Diarrhea, unspecified Status: Acute Plan CHF exacerbation -BNP 7200, -reviewed chest CTA; no PE, minimal pleural effusion ECHO pending -IV Lasix 40 mg q.d. cardiology following Diarrhea No recent antibiotic exposure resolved HypoNa Na 127 from liver cirrhosis vs CHF TSH 4.2, T4 2.2 continue diuresis and monitor Liver cirrhosis continue above care likely from alcohol use Elevated liver enzymes likely from Liver cirrhosis monitor COPD on room air, not in excerbaiton CAD s/p CABG and stents Continue home meds DVT prophylaxis: Lovenox 40 mg subQ Subjective Date/time seen: 12/16/24 13:13 Interval history: Comfortable at bedside Noted much improvement from admission Review of Systems Review of Systems: All systems reviewed & are unremarkable except as noted in HPI and below Exam Narrative: APPEARANCE: No apparent distress. Head: atraumatic. EYES: EOMI, NOSE: Atraumatic NECK: Trachea midline RESPIRATORY: No increased rate of breathing, bibasilar crackles CARDIOVASCULAR: RRR, no peripheral edema ABDOMINAL: Non-distended soft nontender MUSCULOSKELETAl: No obvious deformities NEURO: Alert. Moving 4/4 extremities SKIN:: Warm, dry. Normal color PSYCHIATRIC: Normal affect Point of care cardiothoracic echo: showed a plethoric IVC with minimal respiratory variation. Ejection fraction appeared normal. Right side of the heart is dilated. Objective Data Vital Signs Vital Signs: Vital Signs - 24 hr 12/16/24 00:18 12/16/24 02:19 12/16/24 02:38 Temperature 97.7 F Pulse Rate 79 85 86 Respiratory Rate 13 20 20 Blood Pressure 140/84 Pulse Oximetry 94 Oxygen Delivery Oxygen Flow Rate 12/16/24 02:43 12/16/24 02:44 12/16/24 04:50 Temperature Pulse Rate 90 86 Respiratory Rate 16 20 Blood Pressure 140/78 127/53 L Pulse Oximetry 99 92 96 Oxygen Delivery Room Air Oxygen Flow Rate 12/16/24 06:05 12/16/24 07:39 12/16/24 08:00 Temperature 96.9 F L Pulse Rate 77 86 Respiratory Rate 16 18 Blood Pressure 139/67 148/71 H Pulse Oximetry 95 97 94 Oxygen Delivery Nasal Cannula Oxygen Flow Rate 1 12/16/24 08:00 Temperature Pulse Rate Respiratory Rate 18 Blood Pressure Pulse Oximetry 94 Oxygen Delivery Nasal Cannula Oxygen Flow Rate 2 Intake/Output Intake/Output: Intake & Output 12/13/24 12/14/24 12/15/24 12/16/24 23:59 23:59 23:59 23:59 Intake Total 240 Output Total 500 Balance -260 Meds/Results Medications: Active Medications Generic Name Dose Route Start Last Admin Trade Name Freq PRN Reason Stop Dose Admin Enoxaparin Sodium 40 mg 12/16/24 09:00 12/16/24 09:07 Enoxaparin 40 Mg/0.4 Ml Syringe SUB-Q 40 mg DAILY BRETT Administration Pantoprazole Sodium 40 mg 12/16/24 09:00 12/16/24 09:07 Pantoprazole Sodium Iv 40 Mg Vial IV PUSH 40 mg DAILY BRETT Administration Perflutren Lipid Microsphere 0 ml 12/16/24 06:04 Perflutren Lipid Microspheres 1.5 Ml Vial Diluted To 10 Ml Total Volume IV PUSH 12/19/24 06:04 ONCE PRN adequate visualization Protocol Radiology Results: ITS Impressions Chest CTA 12/16/24 05:29 Impression: Mediastinal and right hilar lymphadenopathy, nonspecific. Correlate for infectious/inflammatory nodes versus lymphoma or other metastatic disease. Advanced emphysema. Probable right apical scarring with 10 mm nodule present. Neoplastic nodule not completely excluded. Consider short-term follow-up CT in 3 months to reassess versus PET/CT. Tissue sampling could be considered, but may be difficult given the relatively small size of nodule as well as advanced emphysema present. Minimal bilateral pleural effusions. Chest X-Ray 12/16/24 05:39 Impression: No definite acute pulmonary abnormality. COPD and/or chronic interstitial disease. Labs Labs: Laboratory Results - last 24 hr 12/16/24 12/16/24 12/16/24 00:26 00:27 01:13 WBC 5.4 RBC 3.51 L Hgb 9.5 L Hct 30.4 L MCV 86.6 MCH 27.1 MCHC 31.3 L RDW 15.5 H Plt Count 159 MPV 9.1 Immature Gran % (Auto) 0.9 H Neut % (Auto) 74.6 H Lymph % (Auto) 14.5 L [place] % (Auto) 9.1 H Eos % (Auto) 0.7 Baso % (Auto) 0.2 Lymph # (Auto) 0.78 L [place] # (Auto) 0.5 Eos # (Auto) 0.0 Baso # (Auto) 0.0 Abs Immat Gran (auto) 0.05 H Absolute Neuts (auto) 4.0 Absolute Nucleated RBC 0.000 Nucleated RBC % 0.0 Sodium 127 L Potassium 3.3 L Chloride 96 L Carbon Dioxide 22 Anion Gap 9 BUN 16 Creatinine 0.56 L Estim Creat Clear Calc 65 Estimated GFR > 60 Glucose 113 H Hemoglobin A1c 5.2 Calcium 8.6 Total Bilirubin 0.7 AST 113 H ALT 85 H Alkaline Phosphatase 217 H Troponin I < 0.012 NT-Pro-B Natriuret Pep 7200 H Total Protein 6.0 L Albumin 3.3 L Triglycerides 67 Cholesterol 86 LDL Cholesterol Direct 30 HDL Direct 41 TSH (Reflex) 4.250 Free T4 2.20 H Urine Color Yellow Urine Appearance Clear Urine pH 7.0 Ur Specific [place] 1.005 Urine Protein Negative Urine Glucose (UA) Negative Urine Ketones Negative Ur Blood (Man) Negative Urine Nitrate Negative Urine Bilirubin Negative Urine Urobilinogen 1.0 Leukocyte Esterase Rfl 2+ H Urine RBC 0-2 Urine WBC 11-20 H Ur Squamous Epith Cells None seen Urine Bacteria None seen Urine Casts 0-2 Ur Random Sodium Influenza A (RT-PCR) Influenza B (RT-PCR) RSV (RT-PCR) SARS-CoV-2 RNA (RT-PCR) 12/16/24 12/16/24 12/16/24 01:42 04:20 06:59 WBC RBC Hgb Hct MCV MCH MCHC RDW Plt Count MPV Immature Gran % (Auto) Neut % (Auto) Lymph % (Auto) [place] % (Auto) Eos % (Auto) Baso % (Auto) Lymph # (Auto) [place] # (Auto) Eos # (Auto) Baso # (Auto) Abs Immat Gran (auto) Absolute Neuts (auto) Absolute Nucleated RBC Nucleated RBC % Sodium Potassium Chloride Carbon Dioxide Anion Gap BUN Creatinine Estim Creat Clear Calc Estimated GFR Glucose Hemoglobin A1c Calcium Total Bilirubin AST ALT Alkaline Phosphatase Troponin I < 0.012 NT-Pro-B Natriuret Pep Total Protein Albumin Triglycerides Cholesterol LDL Cholesterol Direct HDL Direct TSH (Reflex) Free T4 Urine Color Urine Appearance Urine pH Ur Specific [place] Urine Protein Urine Glucose (UA) Urine Ketones Ur Blood (Man) Urine Nitrate Urine Bilirubin Urine Urobilinogen Leukocyte Esterase Rfl Urine RBC Urine WBC Ur Squamous Epith Cells Urine Bacteria Urine Casts Ur Random Sodium 90 Influenza A (RT-PCR) Negative Influenza B (RT-PCR) Negative RSV (RT-PCR) Negative SARS-CoV-2 RNA (RT-PCR) Negative
--- NOTE | 2024-12-16 14:28 | P.CONPL_ITS ---
Assessment and Plan Assessment and plan (1) Pulmonary nodule: Code(s): R91.1 - Solitary pulmonary nodule Status: Acute Assessment and Plan: Regarding her right upper lobe nodule: PET-CT on 10/28/2014 with 1.5 cm right upper lobe mass with FDG G uptake maximum value 2.8. CT report on 03/20/2016 states there are new spiculated nodules in the apical and posterior segments of the right upper lobe with the largest measuring 2.7 x 2.3 cm. 11 mm spiculated part solid nodule right upper lobe with interval improvement. Severe emphysema. CT report 01/08/2017 there is a 4 mm nodule right upper lobe with interval improvement. There are mild patchy airspace and ground-glass opacities in the right upper lobe with interval improvement. 5/Patient admitted with shortness of breath and his CT angiogram of the chest on 12/16/2024 which demonstrated severe apical predominant panlobular emphysema, scarring versus nodule 10 mm right upper lobe, right hilar, right mediastinal and subcarinal lymphadenopathy. Patient tells me she follows with her local regulatory technician, Dr. Han at [facility]. She tells me they are aware of a nodule in her right lung but does not know more specifics. Plan: Recommend patient be discharged with the x-ray report and the images of her CT scan of the chest and follow up with her regulatory technician, Dr. Han, at [facility] as they may have more recent CT scan for comparison. If no comparison is are available, recommend repeat CT scan of the chest in 3 months. I explained this to the patient. Discussed with Dr. Kilgore, will sign off, call with questions. History of Present Illness History of Present Illness Consult date: 12/16/24 Chief complaint: Hypoxic Respiratory Failure Narrative: 12/16/2024: This is a new pulmonary consult for mediastinal lymphadenopathy. 79-year-old with a history of COPD, coronary artery disease status post CABG and stents, right upper lobe nodule. Patient tells me she was diagnosed with COPD approximately 20 years ago. She currently follows with pulmonology at [facility] with Dr. Han. She wears no home oxygen. On a good day she can walk a quarter of a block. She uses Anoro Ellipta. The patient tells me she thinks they have done scans before and that they have told her she has a right upper nodule. Regarding her right upper lobe nodule: PET-CT on 10/28/2014 with 1.5 cm right upper lobe mass with FDG G uptake maximum value 2.8. CT report on 03/20/2016 states there are new spiculated nodules in the apical and posterior segments of the right upper lobe with the largest measuring 2.7 x 2.3 cm. 11 mm spiculated part solid nodule right upper lobe with interval improvement. Severe emphysema. CT report 01/08/2017 there is a 4 mm nodule right upper lobe with interval improvement. There are mild patchy airspace and ground-glass opacities in the right upper lobe with interval improvement. Patient admitted with shortness of breath and his CT angiogram of the chest on 12/16/2024 which demonstrated severe apical predominant panlobular emphysema, scarring versus nodule 10 mm right upper lobe, right hilar, right mediastinal and subcarinal lymphadenopathy. Patient smoked tobacco from age 18 to 55 at 1 pack per day. Patient denies any weight change. Patient denies any chronic cough, phlegm production or hemoptysis. DATA 12/16/2024: Clinical Indication: Dyspnea CT Scan of the Chest with Contrast: Technique: Contiguous sections were acquired throughout the chest after intravenous administration of 100 cc of Omnipaque 350. Dose reduction technique was used on this scan by utilizing automated exposure control and iterative reconstruction technique. The dose-length product (DLP) was 201.72 mGy-cm. Findings: There are multiple enlarged mediastinal lymph nodes, especially at the AP window region and anterior mediastinum, as well as in the right hilum, precarinal region, and subcarinal region. Subcarinal adenopathy measures up to approximately 3.0 x 2.0 cm in size. There is no filling defect in the pulmonary arterial tree to suggest pulmonary embolus. There is no evidence of aortic dissection or aneurysm. No pericardial effusion. Minimal bilateral pleural effusions are present. There is advanced emphysema. Probable right apical scarring present associated with 10 mm nodule (axial image 36).. Images through the upper abdomen reveal no abnormalities. Impression: Mediastinal and right hilar lymphadenopathy, nonspecific. Correlate for infectious/inflammatory nodes versus lymphoma or other metastatic disease. Advanced emphysema. Probable right apical scarring with 10 mm nodule present. Neoplastic nodule not completely excluded. Consider short-term follow-up CT in 3 months to reassess versus PET/CT. Tissue sampling could be considered, but may be difficult given the relatively small size of nodule as well as advanced emphysema present. Minimal bilateral pleural effusions. Review of Systems 2 Constitutional: Constitutional: Reports no additional constitutional complaints Eyes: Eyes: Reports no additional eye complaints ENT: Reports system reviewed and no additional complaints, except as documented Cardiovascular: Cardiovascular: Reports no additional cardiovascular complaints Respiratory: Respiratory: Reports no additional respiratory complaints Gastrointestinal: Gastrointestinal: Reports no additional gastrointestinal complaints Musculoskeletal: Musculoskeletal: Reports no additional musculoskeletal complaints Neurologic: Reports system reviewed and no additional complaints, except as documented Psychiatric: Psychiatric: Reports no additional psychiatric complaints Endocrine: Endocrine: Reports no additional endocrine complaints Hematologic/Lymphatic: Hematologic/Lymphatic: Reports no additional hematologic/lymphatic complaints Allergic/Immunologic: Allergic/Immunologic: Reports no additional allergic/immunologic complaints [facility] Past Medical History Medical History History of CAD (coronary artery disease) Family History Family History Sibling Hypertension Bladder cancer Social History Social History Years smoked: 20 Smoking status: Former smoker Second hand tobacco smoke exposure: Yes Alcohol intake: former Substance use: former Substance use type: marijuana Last use: 2020 Do You Feel Safe in your Home?: Yes Lack of Transportation: No Lack of Food: Never True Current Housing: I Have Housing Concerned About Future Housing: No Difficulty Paying Gas/Electric Bills: No Difficulty Paying for Meds: No Currently Unemployed: No Education: Decline to Answer Difficulty w/ Childcare or Family Care: No Spiritual care concerns: No Meds Home Medications and Allergies Home Medications ?Medication ?Instructions ?Recorded ?Confirmed ?Type Acetaminophen Extra Strength 650 mg PO PRN 07/04/24 12/16/24 History Calcium+D 600 mg PO DAILY 07/04/24 12/16/24 History albuterol 90 mcg/actuation aerosol 90 mcg inhalation PRN PRN Wheezing 07/04/24 12/16/24 History inhaler aspirin 81 mg tablet 81 mg PO DAILY 07/04/24 12/16/24 History citalopram 20 mg tablet 20 mg PO HS 07/04/24 12/16/24 History clopidogrel 75 mg tablet 75 mg PO DAILY 07/04/24 12/16/24 History nitroglycerin 0.4 mg sublingual 0.4 mg sublingual Q5M PRN Chest 07/04/24 12/16/24 History tablet Pain omeprazole 20 mg capsule,delayed 20 mg PO DAILY 07/04/24 12/16/24 History release polyvinyl alcohol 1.4 % eye drops 1 drp EACH EYE DAILY PRN Dry Eyes 07/04/24 12/16/24 History rosuvastatin 20 mg tablet 20 mg PO DAILY 07/04/24 12/16/24 History umeclidinium 62.5 mcg-vilanterol 1 inh inhalation DAILY 07/04/24 12/16/24 History 25 mcg/actuation powdr for inhalation (Anoro Ellipta) lorazepam 0.5 mg tablet 0.5 mg PO DAILY anxiety #10 tabs 07/07/24 12/16/24 Rx alendronate 70 mg tablet 70 mg PO WEEKLY 12/16/24 12/16/24 History furosemide 20 mg tablet 20 mg PO DAILY 12/16/24 12/16/24 History Allergies Allergy/AdvReac Type Severity Reaction Status Date / Time shingles shot Allergy Unknown Unknown Uncoded 12/15/24 23:58 Vital Signs Vital Signs - 24 hr 12/16/24 00:18 12/16/24 02:19 12/16/24 02:38 Temperature 36.5 C Pulse Rate 79 85 86 Respiratory Rate 13 20 20 Blood Pressure 140/84 Pulse Oximetry 94 Oxygen Delivery Oxygen Flow Rate 12/16/24 02:43 12/16/24 02:44 12/16/24 04:50 Temperature Pulse Rate 90 86 Respiratory Rate 16 20 Blood Pressure 140/78 127/53 L Pulse Oximetry 99 92 96 Oxygen Delivery Room Air Oxygen Flow Rate 12/16/24 06:05 12/16/24 07:39 12/16/24 08:00 Temperature 36.1 C L Pulse Rate 77 86 Respiratory Rate 16 18 Blood Pressure 139/67 148/71 H Pulse Oximetry 95 97 94 Oxygen Delivery Nasal Cannula Oxygen Flow Rate 1 12/16/24 08:00 Temperature Pulse Rate Respiratory Rate 18 Blood Pressure Pulse Oximetry 94 Oxygen Delivery Nasal Cannula Oxygen Flow Rate 2 Exam 2 Const: General: cooperative, healthy appearing and comfortable O rientation/consciousness: oriented to person, oriented to place and oriented to time HENMT: Head: normal to inspection Ears: hearing grossly normal bilaterally Eyes: General: appearance normal, both eyes and all related structures Neck: Neck: normal visual inspection Chest: Chest palpation & inspection: normal inspection of the chest Resp: Effort & Inspection: normal respiratory effort and able to speak in complete sentences Auscultation: crackles, no rales, no rhonchi, no wheezes and diminished lung sounds Other: bases Cardio: Jugular venous distension: no JVD GI: Inspection: normal to inspection GI Palp: No abdominal tenderness Skin: General skin exam: normal color Neuro: General: oriented to person, oriented to place and oriented to time Extrem: General: normal to inspection and edema Psych: Appearance: grossly normal Results Laboratory Findings 12/16/24 00:27 12/16/24 00:27 Abnormal lab findings: Abnormal Labs 12/16/24 12/16/24 12/16/24 00:26 00:27 01:13 RBC 3.51 L Hgb 9.5 L Hct 30.4 L MCHC 31.3 L RDW 15.5 H Immature Gran % (Auto) 0.9 H Neut % (Auto) 74.6 H Lymph % (Auto) 14.5 L [place] % (Auto) 9.1 H Lymph # (Auto) 0.78 L Abs Immat Gran (auto) 0.05 H Sodium 127 L Potassium 3.3 L Chloride 96 L Creatinine 0.56 L Glucose 113 H AST 113 H ALT 85 H Alkaline Phosphatase 217 H NT-Pro-B Natriuret Pep 7200 H Total Protein 6.0 L Albumin 3.3 L Free T4 2.20 H Leukocyte Esterase Rfl 2+ H Urine WBC 11-20 H Diagnostic Findings Additional studies: ITS Impressions Chest CTA 12/16/24 05:29 Impression: Mediastinal and right hilar lymphadenopathy, nonspecific. Correlate for infectious/inflammatory nodes versus lymphoma or other metastatic disease. Advanced emphysema. Probable right apical scarring with 10 mm nodule present. Neoplastic nodule not completely excluded. Consider short-term follow-up CT in 3 months to reassess versus PET/CT. Tissue sampling could be considered, but may be difficult given the relatively small size of nodule as well as advanced emphysema present. Minimal bilateral pleural effusions. Chest X-Ray 12/16/24 05:39 Impression: No definite acute pulmonary abnormality. COPD and/or chronic interstitial disease.
[2024-12-16 15:46] LABS: Iron 51 ug/dL (37-170)
[2024-12-16 15:55] LABS: Percent Iron Saturation 19 % (20-50)
[2024-12-16] MEDS: SPIRONOLACTONE 50 MG TABLET PO (16:44)
[2024-12-16] MEDS: BENZONATATE 100 MG CAPSULE PO (20:30)
[2024-12-17 02:20] VITALS: O2SAT 92
[2024-12-17 05:39] VITALS: BP 125/76; PULSE 68; RESP 18; TEMP 36.3; O2SAT 97
[2024-12-17 08:20] VITALS: PULSE 86; RESP 20; O2SAT 95
[2024-12-17] MEDS: UMECLIDINIUM/VILANTEROL 62.5-25 MCG ELLIPTA 1 PUFF INHALATION (08:20)
[2024-12-17 09:07] LABS: Basophils Percent Auto 0.5 % (0.2-1.2); Eosinophils Absolute Auto 0.2 K/mm3 (0-0.3); Eosinophils Percent Auto 2.4 % (0-4.4); Hematocrit 32.4 % (37.0-47.0); Hemoglobin 10.1 g/dL (12.0-15.0); Immature Granulocyte Absolute 0.06 K/mm3 (0.00-0.031); Immature Granulocyte Percent A 0.9 % (0-0.5); Lymphocytes Absolute Auto 0.97 K/mm3 (0.9-3.2); Lymphocytes Percent Auto 14.7 % (18.3-44.2); Mean Corpuscular HGB Conc 31.2 g/dl (32-36); Mean Corpuscular Hemoglobin 27.2 pg (26-34); Mean Corpuscular Volume 87.3 fl (80-100); Mean Platelet Volume 8.9 fl (7.4-10.4); Monocytes Absolute Auto 0.6 K/mm3 (0.1-0.6); Monocytes Percent Auto 8.8 % (2.6-8.5); Neutrophils Absolute Auto 4.8 K/mm3 (1.3-6.7); Neutrophils Percent Auto 72.7 % (45.5-73.1); Platelet Count Result 168 k/mm3 (150-375); Red Blood Count 3.71 M/mm3 (4.2-5.4); Red Cell Distribution Width 15.9 % (11.5-14.5); White Blood Count 6.6 K/mm3 (4.5-10.0)
[2024-12-17 09:21] LABS: Alanine Aminotransferase 62 U/L (6-35); Albumin Level 3.2 g/dL (3.5-5.1); Alkaline Phosphatase 151 U/L (38-126); Anion Gap 6 mmol/L (4-12); Aspartate Amino Transferase 58 U/L (14-36); Bilirubin,Total 0.8 mg/dL (0.2-1.3); Blood Urea Nitrogen 17 mg/dL (7-17); Calcium 8.1 mg/dL (8.4-10.2); Carbon Dioxide 30 mmol/L (22-30); Chloride 93 mmol/L (98-107); Estimated CRCL calculation 47 ml/min; Estimated Glomerular Filt Rate > 60; Glucose 96 mg/dL (65-110); Magnesium 1.8 mg/dL (1.6-2.3); Potassium 3.5 mmol/L (3.4-5.0); Sodium 129 mmol/L (137-145)
[2024-12-17] MEDS: ENOXAPARIN 40 MG/0.4 ML SYRINGE SUB-Q (09:21)
[2024-12-17] MEDS: ROSUVASTATIN 20 MG TABLET PO (09:22)
[2024-12-17] MEDS: CLOPIDOGREL BISULFATE 75 MG TABLET PO (09:22)
[2024-12-17] MEDS: FUROSEMIDE INJ 40 MG/4 ML VIAL IV PUSH ×2 (09:22→16:23)
[2024-12-17] MEDS: PANTOPRAZOLE SODIUM IV 40 MG VIAL IV PUSH (09:22)
[2024-12-17] MEDS: LORazepam (*CRX) 0.5 MG TABLET PO (09:22)
[2024-12-17] MEDS: ASPIRIN 81 MG CHEWABLE TABLET PO (09:22)
[2024-12-17] MEDS: SPIRONOLACTONE 50 MG TABLET PO (09:22)
--- NOTE | 2024-12-17 09:25 | PM.PNCARD ---
Progress Note: A&P Assessment and Plan (1) Acute on chronic heart failure: Code(s): I50.9 - Heart failure, unspecified Status: Acute (2) CAD (coronary artery disease): Code(s): I25.10 - Atherosclerotic heart disease of [place] coronary artery without angina pectoris Status: Acute (3) History of coronary artery bypass graft x 2: Code(s): Z95.1 - Presence of aortocoronary bypass graft Status: Acute (4) Severe aortic stenosis: Code(s): I35.0 - Nonrheumatic aortic (valve) stenosis Status: Acute (5) Moderate tricuspid regurgitation: Code(s): I07.1 - Rheumatic tricuspid insufficiency Status: Acute (6) Pulmonary hypertension: Code(s): I27.20 - Pulmonary hypertension, unspecified Status: Acute Plan Problem list: -Acute on chronic diastolic heart failure-elevated BNP 7200; TTE shows normal LVEF 70% -CAD status post CABG x2 in 2019-last catheterization 06/2024 with PCI to mid LAD; no chest pain; troponin negative ----Cath in 06/2024 showed severe CAD with 90% stenosis of mid LAD 90% stenosis of distal LAD 80% stenosis of the LCX 70% stenosis of RCA 90% stenosis of PDA Patent stent to the posterolateral branch Patent CAMPUZANO to diagonal branch Graft to PDA occluded Status post IVUS guided PCI to mid LAD with a 3.0 mm x 15 mm stent LVEF of 70% -Severe aortic stenosis with aortic valve area of 0.7 cm2, peak velocity of 3.6 m/sec, mean gradient 36 mm Hg -Moderate tricuspid regurgitation -Pulmonary hypertension -Chronic alcoholism -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 today. She can be switched to Lasix 40 mg p.o. b.i.d. tomorrow Check daily ins and outs, weights. Check renal function, electrolytes daily and replace as needed keeping K> 4 and Mg>2 Continue aspirin, Plavix, statin Add SGLT2 inhibitor She is a patient of [facility]. 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 Troponin x3 negative, BNP is elevated to 7200. Last catheterization from 06/2024 showed 90% mid LAD, 90% distal LAD, 80% LCX, 70% RCA, 90% PDA stenosis, patent stent to KATIE, patent CAMPUZANO to diagonal, occluded graft to PDA, PCI to mid LAD with 3.0 mm X 15 mm stent. TTE done yesterday showed severe aortic stenosis with aortic valve area of 0.7 and mean gradient of 36 mm Hg,, normal LVEF, history of mitral valve repair, mild MR, moderate TR, pulmonary hypertension with PASP of 58 mm Hg. Interval history: Patient states her breathing is much improved. No chest pain, dizziness, lightheadedness, palpitations. Review of Systems Cardiovascular: Comments: As reported in the HPI Respiratory: Comments: As reported in the HPI Exam Narrative: General: Alert oriented x3, no acute distress Neck: Supple, JVD + Chest: Bibasilar rales decreased compared to yesterday, no rhonchi Cardiac: S1, S2 +, regular rate, regular rhythm, systolic murmur grade 3 x 6 best heard at right upper sternal border Extremities: No pedal edema, no skin rash Neurologic: Alert and oriented x3, no focal neurological deficits Objective Data Vital Signs Vital Signs: Vital Signs - 24 hr 12/16/24 14:30 12/16/24 15:07 12/16/24 20:30 Temperature 36.2 C L Pulse Rate 79 99 Respiratory Rate 16 18 Blood Pressure 100/53 L Pulse Oximetry 95 93 93 Oxygen Delivery Nasal Cannula Nasal Cannula Oxygen Flow Rate 2 3 12/16/24 20:47 12/17/24 02:20 12/17/24 05:39 Temperature 36.6 C 36.3 C L Pulse Rate 99 68 Respiratory Rate 18 18 Blood Pressure 147/77 H 125/76 Pulse Oximetry 93 92 97 Oxygen Delivery Nasal Cannula Oxygen Flow Rate 3 12/17/24 08:20 12/17/24 08:20 Temperature Pulse Rate 86 Respiratory Rate 20 Blood Pressure Pulse Oximetry 95 Oxygen Delivery Nasal Cannula Oxygen Flow Rate 3 Intake/Output Intake/Output: Intake & Output 12/14/24 12/15/24 12/16/24 12/17/24 23:59 23:59 23:59 23:59 Intake Total 960 Output Total 650 500 Balance 310 -500 Meds/Results Medications: Active Medications Generic Name Dose Route Start Last Admin Trade Name Freq PRN Reason Stop Dose Admin Albuterol 1 puff 12/16/24 13:33 Albuterol Sulfate (*Sp) Aerosol 1 Puff INHALATION PRN PRN Wheezing Aspirin 81 mg 12/17/24 08:00 12/17/24 09:22 Aspirin 81 Mg Chewable Tablet PO 81 mg DAILY@0800 BRETT Administration Benzonatate 100 mg 12/16/24 20:18 12/16/24 20:30 Benzonatate 100 Mg Capsule PO 100 mg TID PRN Administration coughing Clopidogrel Bisulfate 75 mg 12/17/24 09:00 12/17/24 09:22 Clopidogrel Bisulfate 75 Mg Tablet PO 75 mg DAILY BRETT Administration Enoxaparin Sodium 40 mg 12/16/24 09:00 12/17/24 09:21 Enoxaparin 40 Mg/0.4 Ml Syringe SUB-Q 40 mg DAILY BRETT Administration Furosemide 40 mg 12/16/24 17:00 12/17/24 09:22 Furosemide Inj 40 Mg/4 Ml Vial IV PUSH 40 mg BID BRETT Administration Lorazepam 0.5 mg 12/17/24 09:00 12/17/24 09:22 Lorazepam (*Crx) 0.5 Mg Tablet PO 0.5 mg DAILY BRETT Administration Pantoprazole Sodium 40 mg 12/16/24 09:00 12/17/24 09:22 Pantoprazole Sodium Iv 40 Mg Vial IV PUSH 40 mg DAILY BRETT Administration Perflutren Lipid Microsphere 0 ml 12/16/24 06:04 Perflutren Lipid Microspheres 1.5 Ml Vial Diluted To 10 Ml Total Volume IV PUSH 12/19/24 06:04 ONCE PRN adequate visualization Protocol Rosuvastatin Calcium 20 mg 12/17/24 09:00 12/17/24 09:22 Rosuvastatin 20 Mg Tablet PO 20 mg DAILY BRETT Administration Spironolactone 50 mg 12/16/24 17:00 12/17/24 09:22 Spironolactone 50 Mg Tablet PO 50 mg BID BRETT Administration Umeclidinium/Vilanterol 1 puff 12/17/24 08:00 12/17/24 08:20 Umeclidinium/Vilanterol 62.5-25 Mcg Ellipta INHALATION 1 puff DAILYRT BRETT Administration Radiology Results: ITS Impressions Chest CTA 12/16/24 05:29 Impression: Mediastinal and right hilar lymphadenopathy, nonspecific. Correlate for infectious/inflammatory nodes versus lymphoma or other metastatic disease. Advanced emphysema. Probable right apical scarring with 10 mm nodule present. Neoplastic nodule not completely excluded. Consider short-term follow-up CT in 3 months to reassess versus PET/CT. Tissue sampling could be considered, but may be difficult given the relatively small size of nodule as well as advanced emphysema present. Minimal bilateral pleural effusions. Chest X-Ray 12/16/24 05:39 Impression: No definite acute pulmonary abnormality. COPD and/or chronic interstitial disease. Labs Labs: Laboratory Results - last 24 hr 12/16/24 12/17/24 00:27 08:59 WBC 6.6 RBC 3.71 L Hgb 10.1 L Hct 32.4 L MCV 87.3 MCH 27.2 MCHC 31.2 L RDW 15.9 H Plt Count 168 MPV 8.9 Immature Gran % (Auto) 0.9 H Neut % (Auto) 72.7 Lymph % (Auto) 14.7 L [place] % (Auto) 8.8 H Eos % (Auto) 2.4 Baso % (Auto) 0.5 Lymph # (Auto) 0.97 [place] # (Auto) 0.6 Eos # (Auto) 0.2 Baso # (Auto) 0.0 Abs Immat Gran (auto) 0.06 H Absolute Neuts (auto) 4.8 Absolute Nucleated RBC 0.000 Nucleated RBC % 0.0 Sodium 129 L Potassium 3.5 Chloride 93 L Carbon Dioxide 30 Anion Gap 6 BUN 17 Creatinine 0.80 Estim Creat Clear Calc 47 Estimated GFR > 60 Glucose 96 Calcium 8.1 L Magnesium 1.8 Iron 51 TIBC 262 % Saturation 19 L Ferritin 90.50 Total Bilirubin 0.8 AST 58 H ALT 62 H Alkaline Phosphatase 151 H Total Protein 6.0 L Albumin 3.2 L
[2024-12-17 12:10] LABS: Glucose Point of Care 141 mg/dl (65-105)
--- NOTE | 2024-12-17 12:13 | P.PNIM_ITS ---
Progress Note: A&P Assessment and Plan (1) Anxiety: Code(s): F41.9 - Anxiety disorder, unspecified Status: Acute (2) Cardiomegaly: Code(s): I51.7 - Cardiomegaly Status: Acute (3) Elevated brain natriuretic peptide (BNP) level: Code(s): R79.89 - Other specified abnormal findings of blood chemistry Status: Acute (4) COPD (chronic obstructive pulmonary disease): Code(s): J44.9 - Chronic obstructive pulmonary disease, unspecified Status: Acute (5) Diarrhea: Code(s): R19.7 - Diarrhea, unspecified Status: Acute Plan CHF exacerbation -BNP 7200, -reviewed chest CTA; no PE, minimal pleural effusion ECHO pending -IV Lasix 40 mg q.d. cardiology following Diarrhea No recent antibiotic exposure resolved HypoNa Na 129 from liver cirrhosis vs CHF TSH 4.2, T4 2.2 continue diuresis and monitor Liver cirrhosis continue above care likely from alcohol use Elevated liver enzymes likely from Liver cirrhosis Improving AST 58, ALT 62 monitor COPD on room air, not in exacerbation CAD s/p CABG and stents Continue home meds DVT prophylaxis Lovenox 40 mg subQ Possible discharge tomorrow Subjective Date/time seen: 12/17/24 12:13 Interval history: Comfortable at bedside Diurese one more day Review of Systems Review of Systems: All systems reviewed & are unremarkable except as noted in HPI and below Exam Narrative: APPEARANCE: No apparent distress. Head: atraumatic. EYES: EOMI, NOSE: Atraumatic NECK: Trachea midline RESPIRATORY: No increased rate of breathing, bibasilar crackles CARDIOVASCULAR: RRR, no peripheral edema ABDOMINAL: Non-distended soft nontender MUSCULOSKELETAl: No obvious deformities NEURO: Alert. Moving 4/4 extremities SKIN:: Warm, dry. Normal color PSYCHIATRIC: Normal affect Objective Data Vital Signs Vital Signs: Vital Signs - 24 hr 12/16/24 14:30 12/16/24 15:07 12/16/24 20:30 Temperature 97.1 F L Pulse Rate 79 99 Respiratory Rate 16 18 Blood Pressure 100/53 L Pulse Oximetry 95 93 93 Oxygen Delivery Nasal Cannula Nasal Cannula Oxygen Flow Rate 2 3 12/16/24 20:47 12/17/24 02:20 12/17/24 05:39 Temperature 97.9 F 97.3 F L Pulse Rate 99 68 Respiratory Rate 18 18 Blood Pressure 147/77 H 125/76 Pulse Oximetry 93 92 97 Oxygen Delivery Nasal Cannula Oxygen Flow Rate 3 12/17/24 08:20 12/17/24 08:20 Temperature Pulse Rate 86 Respiratory Rate 20 Blood Pressure Pulse Oximetry 95 Oxygen Delivery Nasal Cannula Oxygen Flow Rate 3 Intake/Output Intake/Output: Intake & Output 12/14/24 12/15/24 12/16/24 12/17/24 23:59 23:59 23:59 23:59 Intake Total 960 240 Output Total 650 500 Balance 310 -260 Meds/Results Medications: Active Medications Generic Name Dose Route Start Last Admin Trade Name Freq PRN Reason Stop Dose Admin Albuterol 1 puff 12/16/24 13:33 Albuterol Sulfate (*Sp) Aerosol 1 Puff INHALATION PRN PRN Wheezing Aspirin 81 mg 12/17/24 08:00 12/17/24 09:22 Aspirin 81 Mg Chewable Tablet PO 81 mg DAILY@0800 BRETT Administration Benzonatate 100 mg 12/16/24 20:18 12/16/24 20:30 Benzonatate 100 Mg Capsule PO 100 mg TID PRN Administration coughing Clopidogrel Bisulfate 75 mg 12/17/24 09:00 12/17/24 09:22 Clopidogrel Bisulfate 75 Mg Tablet PO 75 mg DAILY BRETT Administration Enoxaparin Sodium 40 mg 12/16/24 09:00 12/17/24 09:21 Enoxaparin 40 Mg/0.4 Ml Syringe SUB-Q 40 mg DAILY BRETT Administration Furosemide 40 mg 12/16/24 17:00 12/17/24 09:22 Furosemide Inj 40 Mg/4 Ml Vial IV PUSH 40 mg BID BRETT Administration Lorazepam 0.5 mg 12/17/24 09:00 12/17/24 09:22 Lorazepam (*Crx) 0.5 Mg Tablet PO 0.5 mg DAILY BRETT Administration Pantoprazole Sodium 40 mg 12/16/24 09:00 12/17/24 09:22 Pantoprazole Sodium Iv 40 Mg Vial IV PUSH 40 mg DAILY BRETT Administration Perflutren Lipid Microsphere 0 ml 12/16/24 06:04 Perflutren Lipid Microspheres 1.5 Ml Vial Diluted To 10 Ml Total Volume IV PUSH 12/19/24 06:04 ONCE PRN adequate visualization Protocol Rosuvastatin Calcium 20 mg 12/17/24 09:00 12/17/24 09:22 Rosuvastatin 20 Mg Tablet PO 20 mg DAILY BRETT Administration Spironolactone 50 mg 12/16/24 17:00 12/17/24 09:22 Spironolactone 50 Mg Tablet PO 50 mg BID BRETT Administration Umeclidinium/Vilanterol 1 puff 12/17/24 08:00 12/17/24 08:20 Umeclidinium/Vilanterol 62.5-25 Mcg Ellipta INHALATION 1 puff DAILYRT BRETT Administration Radiology Results: ITS Impressions Chest CTA 12/16/24 05:29 Impression: Mediastinal and right hilar lymphadenopathy, nonspecific. Correlate for infectious/inflammatory nodes versus lymphoma or other metastatic disease. Advanced emphysema. Probable right apical scarring with 10 mm nodule present. Neoplastic nodule not completely excluded. Consider short-term follow-up CT in 3 months to reassess versus PET/CT. Tissue sampling could be considered, but may be difficult given the relatively small size of nodule as well as advanced emphysema present. Minimal bilateral pleural effusions. Chest X-Ray 12/16/24 05:39 Impression: No definite acute pulmonary abnormality. COPD and/or chronic interstitial disease. Labs Labs: Laboratory Results - last 24 hr 12/16/24 12/17/24 12/17/24 00:27 08:59 12:06 WBC 6.6 RBC 3.71 L Hgb 10.1 L Hct 32.4 L MCV 87.3 MCH 27.2 MCHC 31.2 L RDW 15.9 H Plt Count 168 MPV 8.9 Immature Gran % (Auto) 0.9 H Neut % (Auto) 72.7 Lymph % (Auto) 14.7 L [place] % (Auto) 8.8 H Eos % (Auto) 2.4 Baso % (Auto) 0.5 Lymph # (Auto) 0.97 [place] # (Auto) 0.6 Eos # (Auto) 0.2 Baso # (Auto) 0.0 Abs Immat Gran (auto) 0.06 H Absolute Neuts (auto) 4.8 Absolute Nucleated RBC 0.000 Nucleated RBC % 0.0 Sodium 129 L Potassium 3.5 Chloride 93 L Carbon Dioxide 30 Anion Gap 6 BUN 17 Creatinine 0.80 Estim Creat Clear Calc 47 Estimated GFR > 60 Glucose 96 POC Capillary Glucose 141 H Calcium 8.1 L Magnesium 1.8 Iron 51 TIBC 262 % Saturation 19 L Ferritin 90.50 Total Bilirubin 0.8 AST 58 H ALT 62 H Alkaline Phosphatase 151 H Total Protein 6.0 L Albumin 3.2 L
[2024-12-17] MEDS: SODIUM CHLORIDE 1 GM TABLET PO ×2 (12:44→16:23)
[2024-12-17 13:00] VITALS: BP 112/78; PULSE 69; RESP 18; O2SAT 100
[2024-12-17 13:54] LABS: Osmolality, Urine. 247 mOsm/kg (50-1200)
[2024-12-17] MEDS: SPIRONOLACTONE 25 MG TABLET PO (16:23)
[2024-12-17 21:12] VITALS: O2SAT 94
[2024-12-17] MEDS: CITALOPRAM HYDROBROMIDE 20 MG TABLET PO (21:15)
[2024-12-17 22:00] VITALS: BP 93/65; PULSE 72; RESP 18; TEMP 36.3; O2SAT 94
[2024-12-18] VITALS (12 sets, daily range): BP systolic 101–140; BP diastolic 55–75; PULSE 76–95; RESP 14–18; TEMP 36.3–37.1; O2SAT 86–97
[2024-12-18 06:15] LABS: Basophils Percent Auto 0.3 % (0.2-1.2); Eosinophils Absolute Auto 0.3 K/mm3 (0-0.3); Eosinophils Percent Auto 4.4 % (0-4.4); Hematocrit 32.2 % (37.0-47.0); Hemoglobin 10.2 g/dL (12.0-15.0); Immature Granulocyte Absolute 0.06 K/mm3 (0.00-0.031); Lymphocytes Absolute Auto 0.85 K/mm3 (0.9-3.2); Lymphocytes Percent Auto 14.8 % (18.3-44.2); Mean Corpuscular HGB Conc 31.7 g/dl (32-36); Mean Corpuscular Hemoglobin 27.3 pg (26-34); Mean Corpuscular Volume 86.3 fl (80-100); Mean Platelet Volume 9.2 fl (7.4-10.4); Monocytes Absolute Auto 0.6 K/mm3 (0.1-0.6); Monocytes Percent Auto 10.6 % (2.6-8.5); Neutrophils Percent Auto 68.9 % (45.5-73.1); Platelet Count Result 184 k/mm3 (150-375); Red Blood Count 3.73 M/mm3 (4.2-5.4); Red Cell Distribution Width 15.7 % (11.5-14.5); White Blood Count 5.7 K/mm3 (4.5-10.0)
[2024-12-18 06:23] LABS: Alanine Aminotransferase 52 U/L (6-35); Albumin Level 3.3 g/dL (3.5-5.1); Alkaline Phosphatase 152 U/L (38-126); Anion Gap 6 mmol/L (4-12); Aspartate Amino Transferase 53 U/L (14-36); Blood Urea Nitrogen 17 mg/dL (7-17); Calcium 8.1 mg/dL (8.4-10.2); Carbon Dioxide 29 mmol/L (22-30); Chloride 94 mmol/L (98-107); Estimated CRCL calculation 50 ml/min; Estimated Glomerular Filt Rate > 60; Glucose 86 mg/dL (65-110); Potassium 3.6 mmol/L (3.4-5.0); Sodium 129 mmol/L (137-145)
[2024-12-18] MEDS: FUROSEMIDE INJ 40 MG/4 ML VIAL IV PUSH ×2 (09:12→17:45)
[2024-12-18] MEDS: CLOPIDOGREL BISULFATE 75 MG TABLET PO (09:13)
[2024-12-18] MEDS: ASPIRIN 81 MG CHEWABLE TABLET PO (09:13)
[2024-12-18] MEDS: SODIUM CHLORIDE 1 GM TABLET PO ×3 (09:13→17:45)
[2024-12-18] MEDS: ROSUVASTATIN 20 MG TABLET PO (09:13)
[2024-12-18] MEDS: LORazepam (*CRX) 0.5 MG TABLET PO (09:13)
[2024-12-18] MEDS: PANTOPRAZOLE SODIUM IV 40 MG VIAL IV PUSH (09:14)
[2024-12-18] MEDS: ENOXAPARIN 40 MG/0.4 ML SYRINGE SUB-Q (09:14)
[2024-12-18] MEDS: SPIRONOLACTONE 25 MG TABLET PO ×2 (09:14→17:46)
[2024-12-18] MEDS: UMECLIDINIUM/VILANTEROL 62.5-25 MCG ELLIPTA 1 PUFF INHALATION (09:20)
--- NOTE | 2024-12-18 15:27 | HOMEO2EVAL ---
Evaluation was performed at [facility] Home Oxygen Evaluation RC: Home Oxygen (O2) Evaluation Start: 12/18/24 13:26 Freq: ONCE Status: Active Protocol: RPE Activity Type Activity Date Activity User E-sign Co-sign Detail Recorded Client Recorded Date Recorded By Document 12/18/24 14:45 [email or web address] 12/18/24 15:27 DJO Document 12/18/24 14:50 [email or web address] 12/18/24 15:27 DJO Document 12/18/24 14:55 [email or web address] [email or web address] 12/18/24 15:27 DJO Document 12/18/24 15:00 [email or web address] [email or web address] 12/18/24 15:27 DJO Document 12/18/24 15:05 [email or web address] [email or web address] 12/18/24 15:27 DJO Document 12/18/24 15:20 [email or web address] [email or web address] 12/18/24 15:27 DJO 12/18/24 12/18/24 12/18/24 14:45 14:50 14:55 Home O2 Evaluation [Oxygen] -Test Phase Resting Resting Resting -Oxygen Delivery Room Air Nasal Cannula Nasal Cannula -Oxygen Flow Rate (L/min) 1 2 [Pulse Oximetry] -Pulse Oximetry (90-100 %) 86 L 87 L 88 L [Pulse Rate] -Pulse Rate (60-100 beats/min) 79 77 78 [Evaluation] -Activity Tolerance [Charges] -Evaluation Charges O2 Evaluation by Pulmonary 12/18/24 12/18/24 12/18/24 15:00 15:05 15:20 Home O2 Evaluation [Oxygen] -Test Phase Resting Exercise Resting -Oxygen Delivery Nasal Cannula Nasal Cannula Nasal Cannula -Oxygen Flow Rate (L/min) 3 3 3 [Pulse Oximetry] -Pulse Oximetry (90-100 %) 92 91 91 [Pulse Rate] -Pulse Rate (60-100 beats/min) 79 95 80 [Evaluation] -Activity Tolerance Fair [Charges] -Evaluation Charges
--- NOTE | 2024-12-18 15:27 | PCRTNOTE ---
HOME O2 EVAL COMPLETE, 3L REST AND ACTIVITY. SET UP WITH IV&RESP PHONE NUMBER . TANK IN ROOM FOR DISCHARGE
[2024-12-18] MEDS: CITALOPRAM HYDROBROMIDE 20 MG TABLET PO (21:12)
[2024-12-19 06:18] VITALS: BP 111/69; PULSE 78; RESP 14; TEMP 36.7; O2SAT 91
[2024-12-19 08:35] VITALS: O2SAT 93
[2024-12-19] MEDS: UMECLIDINIUM/VILANTEROL 62.5-25 MCG ELLIPTA 1 PUFF INHALATION (08:35)
[2024-12-19] MEDS: ROSUVASTATIN 20 MG TABLET PO (10:00)
[2024-12-19] MEDS: LORazepam (*CRX) 0.5 MG TABLET PO (10:00)
[2024-12-19] MEDS: ASPIRIN 81 MG CHEWABLE TABLET PO (10:00)
[2024-12-19] MEDS: FUROSEMIDE INJ 40 MG/4 ML VIAL IV PUSH (10:00)
[2024-12-19] MEDS: CLOPIDOGREL BISULFATE 75 MG TABLET PO (10:00)
[2024-12-19] MEDS: SPIRONOLACTONE 25 MG TABLET PO (10:01)
--- NOTE | 2024-12-19 10:01 | P.DS_ITS ---
DS: Admitting Diagnosis Discharge Date 12/19/24 Admitting Diagnosis Shortness of breath DS: Discharge Diagnosis Discharge Diagnosis (1) Pulmonary hypertension: Code(s): I27.20 - Pulmonary hypertension, unspecified Status: Acute (2) Hypoxic respiratory failure: Code(s): J96.91 - Respiratory failure, unspecified with hypoxia Status: Acute (3) Pulmonary nodule: Code(s): R91.1 - Solitary pulmonary nodule Status: Acute (4) COPD (chronic obstructive pulmonary disease): Code(s): J44.9 - Chronic obstructive pulmonary disease, unspecified Status: Acute Plan CT chest Mediastinal and right hilar lymphadenopathy, nonspecific. Correlate for infectious/inflammatory nodes versus lymphoma or other metastatic disease. Advanced emphysema. Probable right apical scarring with 10 mm nodule present. Neoplastic nodule not completely excluded. Consider short-term follow-up CT in 3 months to reassess versus PET/CT. Tissue sampling could be considered, but may be difficult given the relatively small size of nodule as well as advanced emphysema present. DS: Summary Hospital Course Hospital Course: Patient is an 79-year-old female with a past medical history of CABG 2020, status post stent (unable to remember the year), both performed at [facility], [place], visited ED due to a one-week history of diarrhea, which was resolved, but continues to have shortness of breath. The patient lives by herself and has no oxygen at baseline. The patient is a former smoker who quit 30 years ago and a heavy alcohol drinker. 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 Prolonged QT CTA Chest:Impression: Mediastinal and right hilar lymphadenopathy, nonspecific. Correlate for infectious/inflammatory nodes versus lymphoma or other metastatic disease. Advanced emphysema. Probable right apical scarring with a 10 mm nodule present. Neoplastic nodule not completely excluded. Consider short-term follow-up CT in 3 months to reassess versus PET/CT. Tissue sampling could be considered, but may be difficult given the relatively small size of nodule as well as advanced emphysema present. Minimal bilateral pleural effusions. She was placed on bronchodilators, started on Lasix which markedly improved her symptoms. however she still requiring 3 liters oxygen by NH. Pulmonology was consulted for mediastinal and right hilar lymphadenopathy and pulmonary nodule and he evaluted and recommended patient continue following with her primary general medical practitioner. ECHO was ordered whcih showed noraml LV function but showed Pulmonary hypertension. However it appears her symptoms must have been driven by a combination of Liver cirrhosis fluid overload, COPD and pulm hypertension . Cardiology was consulted and participated in care of patient Patient was discharged on Lasix 40mg daily, Spironolactone 100mg daily, and 3 liters oxygen per home oxygen eval. SHe will continue other home meds and continue follow up with PCP in 3-5 days F/u with her primary agency director, pulmomologist and animal services officer. Time Spent with Patient Time attestation: Total time spent providing and/or coordinating discharge services: Discharge Plan Discharge Attending physician on discharge: Duyen Kilgore Consulting providers: Jesús Stanford; Ciara Goel Discharging Clinician: Duyen Kilgore Anticipated Discharge Date/Time: 12/19/24 09:14 Patient Disposition: Home with Home Health Service Activity: as tolerated Diet: as tolerated and heart healthy Discharge Instructions: Per Care Coordination: [facility] ([phone]) will call to set up initial visit for PT/OT and skilled RN services. Patient Instructions: Antibiotic Form Patient Language: Lithuanian Stand Alone Forms: General Discharge Information Follow-up/Referrals: Yefri,Rios Garsia MD [Primary Care Provider] - (F/u with PCP in 3-5 days ) Ciara Goel MD [Physician] - (F/u with cardiology as instructed ) Jesús Stanford MD [Physician] - (F/u with Pulmonology as instructed ) Discharge Medications: New spironolactone 100 mg tablet 100 mg PO DAILY 30 Days Qty: 30 1RF Continued Acetaminophen Extra Strength 650 mg PO PRN Rx Instructions: prn every 8hrs as needed polyvinyl alcohol 1.4 % Drops 1 drp EACH EYE DAILY PRN (Reason: Dry Eyes) clopidogrel 75 mg tablet 75 mg PO DAILY citalopram 20 mg tablet 20 mg PO HS nitroglycerin 0.4 mg tablet, sublingual 0.4 mg sublingual Q5M PRN (Reason: Chest Pain) omeprazole 20 mg capsule,delayed release(DR/EC) 20 mg PO DAILY aspirin 81 mg Tablet 81 mg PO DAILY albuterol 90 mcg/actuation Aerosol 90 mcg INHALATION PRN PRN (Reason: Wheezing) rosuvastatin 20 mg tablet 20 mg PO DAILY umeclidinium-vilanterol [Anoro Ellipta] 62.5-25 mcg/actuation blister with device 1 inh INHALATION DAILY Calcium+D 600 mg PO DAILY lorazepam 0.5 mg Tablet 0.5 mg PO DAILY Qty: 10 0RF alendronate 70 mg tablet 70 mg PO WEEKLY Patient Comments: TAKES ON SUNDAY Changed furosemide 20 mg tablet 40 mg PO DAILY 30 Days Qty: 0 1RF Date of admission: 12/16/24 05:30 Primary Care Provider: Yefri,Rios Garsia Admitting Provider: Isaiah Pappas Attending physician on admission: Isaiah Pappas Condition: Stable
--- NOTE | 2024-12-22 08:22 | WPDCDIQUERY2 ---
CDI Query Clarification Request Hypoxia has been documented Please review the clinical information below and clarify the respiratory diagnosis the patient is being treated for: Hypoxia or hypoxemia without respiratory failure Respiratory distress without respiratory failure Acute respiratory failure with hypoxia Acute respiratory failure with hypercapnia Acute respiratory failure with hypoxia and hypercapnia Acute on chronic respiratory failure with hypoxia Acute on chronic respiratory failure with hypercapnia Acute on chronic respiratory failure with hypoxia and hypercapnia Acute respiratory distress syndrome (ARDS) Chronic respiratory failure with hypoxia Chronic respiratory failure with hypercapnia Chronic respiratory failure with hypoxia and hypercapnia Other explanation clinical findings, please specify Unable to determine The medical chart reflects the following: (2) Hypoxic respiratory failure: Code(s): <Pinky Garcia RN - Last Filed: 12/22/24 08:24> Clarified Diagnosis Clarified Diagnosis: Acute respiratory failure with hypoxia <Duyen Kilgore MD - Last Filed: 12/22/24 10:09>
== END 2024-12-19 12:36 | disposition home health service (06) | DRG 292 ==
LOC: ANHED 12-16 05:29 → ANH3MEDSUR 12-17 11:07
PROVIDERS: Admitting Provider General Practice; Emergency Provider Emergency Medicine; PCP Internal Medicine; Visit Provider Internal Medicine
DX: I50.33 Acute on chronic diastolic (congestive) heart failure (principal); E87.1 Hypo-osmolality and hyponatremia; I27.20 Pulmonary hypertension, unspecified; I25.10 Atherosclerotic heart disease of native coronary artery without angina pectoris; I35.0 Nonrheumatic aortic (valve) stenosis; J44.9 Chronic obstructive pulmonary disease, unspecified; E04.1 Nontoxic single thyroid nodule; K70.30 Alcoholic cirrhosis of liver without ascites; R91.1 Solitary pulmonary nodule; F10.20 Alcohol dependence, uncomplicated; F41.9 Anxiety disorder, unspecified; Z20.822 Contact with and (suspected) exposure to COVID-19; Z79.82 Long term (current) use of aspirin; Z79.02 Long term (current) use of antithrombotics/antiplatelets; Z87.891 Personal history of nicotine dependence; Z95.1 Presence of aortocoronary bypass graft; Z95.5 Presence of coronary angioplasty implant and graft
CPT/HCPCS: 36415; 71045; 71275; 80053; 80061; 81001; 82728; 82948; 83036; 83540; 83550; 83735; 83880; 83935; 84300; 84439; 84443; 84484; 85025; 87086; 87637; 93005; 93306; 94618; 94640; 96374; 97161; 99285; A9270; J1650; J1938; J2470; Q9967

== ENCOUNTER 2025-01-02 03:03 | Emergency (ER) | payer MEDICARE, MEDICAID, SELFPAY ==
--- NOTE | ~2025-01-02 | CT_ITS ---
CT Facial Bones and Cervical Spine Clinical Indication: Status post fall Technique: Contiguous axial scans were obtained through the facial bones and cervical spine followed by coronal and sagittal reconstructions. Dose reduction technique was used on this scan by utilizing automated exposure control and iterative reconstruction technique. The dose-length product (DLP) was 195.04 mGy-cm. Findings: CT facial bones: Bilateral nasal bone fracture deformities are present. Suspected focal angulated fra cture of the vomer anteriorly.. The visualized paranasal sinuses are clear. Intraorbital soft tissues appear normal. CT cervical spine: No fracture. There is minimal grade 1 anterolisthesis of C3 over C4. There is chaparro re degenerative disc narrowing at C5-C6. There is moderate degenerative disc narrowing at C4-C5 and C 6-C7. There is multilevel facet arthropathy throughout the cervical spine. There is left neural viki inal narrowing at C3-C4: Left facet arthropathy. There is bilateral neural foraminal narrowing at C4- C5, severe in the left side. There is advanced bilateral neural foraminal narrowing at C5-C6 with mil d central canal stenosis. There is left neural foraminal narrowing at C6-C7. No prevertebral soft tis yared swelling. Moderate emphysema noted at the lung apices. Impression: Bilateral nasal bone fractures and probable angulated, nondisplaced fracture of the anterior vomer. No fracture of the cervical spine. Degenerative change of the cervical spine, as detailed above. Reviewed, dictated and finalized at [facility]. Impression: Bilateral nasal bone fractures and probable angulated, nondisplaced fracture of the anterior vomer. No fracture of the cervical spine. Degenerative change of the cervical spine, as detailed above.
--- NOTE | ~2025-01-02 | CT_ITS ---
CT head without contrast Indication: Status post fall Comparison 07/04/2024 Technique: Serial scans were obtained through the brain without the administration of contrast. Dose reduction technique was used on this scan by utilizing automated exposure control and iterative recon struction technique. The dose-length product (DLP) was 681.00 mGy-cm. Findings: There is no evidence of intracranial hemorrhage, mass lesion, or acute infarct. The ventri cles and subarachnoid spaces are dilated, consistent with mild atrophy. Low attenuation regions are seen within the periventricular white matter bilaterally, likely representing changes from chronic mi crovascular ischemic disease. There is no evidence of edema, mass effect or midline shift. The visu alized paranasal sinuses and mastoid air cells are clear. Soft tissue swelling/hematoma present in th e scalp at the left forehead. Bilateral nasal bone fractures are present, as well as suspected angula román volar fracture, age-indeterminate. Impression: No intracranial hemorrhage, mass, or acute infarct. Atrophy and chronic white matter changes, as above. Soft tissue swelling/hematoma in the scalp at the left forehead. Bilateral nasal bone fractures and possible angulated volar fracture, age-indeterminate. Reviewed, dictated and finalized at location . Impression: No intracranial hemorrhage, mass, or acute infarct. Atrophy and chronic white matter changes, as above. Soft tissue swelling/hematoma in the scalp at the left forehead. Bilateral nasal bone fractures and possible angulated volar fracture, age-indet erminate.
[2025-01-02 03:03] VITALS: BP 113/59; PULSE 73; RESP 26
--- NOTE | 2025-01-02 03:40 | ED.FALL ---
HPI - Fall General Chief Complaint: Fall Stated Complaint: Fall/Head injury Time Seen by Provider: 01/02/25 03:17 History of Present Illness HPI Narrative: 79-year-old female with history of CHF, COPD,, coronary disease status post CABG, pulmonary hypertension, liver cirrhosis presenting to the emergency department after mechanical fall at home. Patient states that she tripped and fell into the door frame and hit her face 1st. She is having bruising around her forehead and nose. Denies any vision changes nausea, vomiting, loss of consciousness. She is on aspirin Plavix but no other anticoagulation. She is awake and answering questions appropriately. Not in any acute distress. Related Data Home Medications ?Medication ?Instructions ?Recorded ?Confirmed ?Last Taken ?Type Acetaminophen Extra Strength 650 mg PO PRN 07/04/24 12/16/24 12/15/24 20:16 History Calcium+D 600 mg PO DAILY 07/04/24 12/16/24 12/15/24 History albuterol 90 mcg/actuation aerosol 90 mcg inhalation PRN PRN Wheezing 07/04/24 12/16/24 12/15/24 20:17 History inhaler aspirin 81 mg tablet 81 mg PO DAILY 07/04/24 12/16/24 12/15/24 History citalopram 20 mg tablet 20 mg PO HS 07/04/24 12/16/24 12/15/24 History clopidogrel 75 mg tablet 75 mg PO DAILY 07/04/24 12/16/24 12/15/24 History nitroglycerin 0.4 mg sublingual 0.4 mg sublingual Q5M PRN Chest 07/04/24 12/16/24 Unknown History tablet Pain omeprazole 20 mg capsule,delayed 20 mg PO DAILY 07/04/24 12/16/24 12/15/24 History release polyvinyl alcohol 1.4 % eye drops 1 drp EACH EYE DAILY PRN Dry Eyes 07/04/24 12/16/24 Unknown History rosuvastatin 20 mg tablet 20 mg PO DAILY 07/04/24 12/16/24 12/15/24 History umeclidinium 62.5 mcg-vilanterol 1 inh inhalation DAILY 07/04/24 12/16/24 12/16/24 History 25 mcg/actuation powdr for inhalation (Anoro Ellipta) alendronate 70 mg tablet 70 mg PO WEEKLY 12/16/24 12/16/2425 History Allergies Allergy/AdvReac Type Severity Reaction Status Date / Time shingles shot Allergy Unknown Unknown Uncoded 12/15/24 23:58 Review of Systems Review of Systems: As reviewed above in [facility] Past Medical History Medical History History of CAD (coronary artery disease) Family History Family History Sibling Hypertension Bladder cancer Social History Social History Years smoked: 20 Smoking status: Former smoker Second hand tobacco smoke exposure: Yes Alcohol intake: former Substance use: former Substance use type: marijuana Last use: 2020 Do You Feel Safe in your Home?: Yes Lack of Transportation: No Lack of Food: Never True Current Housing: I Have Housing Concerned About Future Housing: No Difficulty Paying Gas/Electric Bills: No Difficulty Paying for Meds: No Currently Unemployed: No Education: Decline to Answer Difficulty w/ Childcare or Family Care: No Spiritual care concerns: No Exam Narrative: GENERAL: Elderly thin and frail HEAD: Normocephalic, frontal scalp hematoma, periorbital bruising, nasal bruising EYES: [PERRLA and EOMI.] ENT: Nasal bruising, no active epistaxis, moist mucous membranes. Periorbital hematomas NECK: Supple. No midline tenderness CHEST: [Clear to auscultation. No respiratory distress.] HEART: [Regular rate and rhythm]. No murmur heard. [Normal peripheral pulses.] ABDOMEN: [Soft, nondistended], [nontender], [No rigidity or guarding] EXTREMITIES: Normal range of motion. [No edema.] Anterior right knee bruising without any restricted range of motion or tenderness/deformity with palpation. SKIN: Warm, dry, no rash. NEURO: [No focal deficits]. Alert and oriented [x3.] PSYCH: [Normal mood and affect.] Course Vital Signs Vital signs: Vital Signs Pulse Rate 73 01/02/25 03:03 Respiratory Rate 26 H 01/02/25 03:03 Blood Pressure 113/59 L 01/02/25 03:03 Pulse Rate 73 01/02/25 03:03 Respiratory Rate 26 H 01/02/25 03:03 Blood Pressure 113/59 L 01/02/25 03:03 Pulse Oximetry 98 01/02/25 04:20 MDM - Fall MDM Narrative Medical decision making narrative: 79-year-old female with history of COPD, CHF, CABG history, liver cirrhosis. She was just discharged from the hospital several weeks ago. Patient presents after mechanical slip and fall where she tripped and fell face 1st into a door strip. She had her head and has an obvious hematoma on the right side of her scalp and around her nose. Denies any vision changes, nausea, vomiting, headache or any significant blood thinner use aside from aspirin Plavix. She is acting appropriately answering questions appropriately. Her vital signs are reassuring aside from some minor tachypnea which likely is pain driven. She has clear breath sounds and no signs of other trauma besides her face and nose. Suspicion presently is for nasal fracture, zygomatic fracture, frontal scalp hematoma versus occult skull fracture versus less likely intra parenchymal bleed or brain bleed otherwise. CT of the head facial bones and cervical spine were ordered given her injury pattern and risk factors including elderly age and visible signs of trauma. She was given Tylenol for analgesia. Patient had significant improvement after the Tylenol no longer having any pain she feels comfortable. Her CT scans are also reassuring. There is a mildly displaced nasal bone fracture as well as nasal septal fractures consistent with her exam findings. C-spine without any fractures or malalignment and no intracranial pathology skull fracture or head bleed. Patient was reassured based on these results and can be safely discharged back to her home at this time which patient and family were comfortable with. Encouraged to take Tylenol as needed for pain and follow-up with gear tooth grinding machine operator for care for nasal bone fractures. Medical Records Attestation: I reviewed the patient's medical records. Imaging Data Attestation: I personally reviewed and interpreted this imaging study as follows: My impression: Mildly displaced bilateral nasal bone fractures, no fracture or malalignment the cervical spine no intracranial pathology. Discharge Plan Discharge Clinical Impression: Closed fracture nasal bone, Closed head injury Patient Disposition: Home Condition: Stable Instructions: Antibiotic Form, Nasal Fracture (ED), Head Injury (ED), Contusion in Adults (ED) Additional Instructions: Your CT scans are showing a mildly displaced nasal bone fracture but no acute fractures in the neck or other facial bones/head. No brain injury or brain bleeding. You can take Tylenol for pain control at home and follow-up will be needed with an gear tooth grinding machine operator for definitive care once the swelling has improved. Follow-up with your regular doctors as well and return with any emergent or worsening concerns at any time. Patient Language: Namibian Prescriptions: No Action Acetaminophen Extra Strength 650 mg PO PRN Rx Instructions: prn every 8hrs as needed polyvinyl alcohol 1.4 % Drops 1 drp EACH EYE DAILY PRN (Reason: Dry Eyes) clopidogrel 75 mg tablet 75 mg PO DAILY citalopram 20 mg tablet 20 mg PO HS nitroglycerin 0.4 mg tablet, sublingual 0.4 mg sublingual Q5M PRN (Reason: Chest Pain) omeprazole 20 mg capsule,delayed release(DR/EC) 20 mg PO DAILY aspirin 81 mg Tablet 81 mg PO DAILY albuterol 90 mcg/actuation Aerosol 90 mcg INHALATION PRN PRN (Reason: Wheezing) rosuvastatin 20 mg tablet 20 mg PO DAILY umeclidinium-vilanterol [Anoro Ellipta] 62.5-25 mcg/actuation blister with device 1 inh INHALATION DAILY Calcium+D 600 mg PO DAILY lorazepam 0.5 mg Tablet 0.5 mg PO DAILY Qty: 10 0RF alendronate 70 mg tablet 70 mg PO WEEKLY Patient Comments: TAKES ON SUNDAY spironolactone 100 mg tablet 100 mg PO DAILY 30 Days Qty: 30 1RF furosemide 20 mg tablet 40 mg PO DAILY 30 Days Qty: 0 1RF Follow-up/Referrals: Kurtis Dueñas MD [Physician] - 1 Week (Mildly displaced nasal bone fracture) Yefri,Rios Garsia MD [Primary Care Provider] - Time of Disposition: 04:24
--- OUTSIDE RECORDS SUMMARY | 2025-01-02 03:41 | XMS_ITS | Referral Summary ---
Author Organization [facility] Physician Of [facility] [address] [place] [id number] Care Team Providers Care X Ray Consultant Name Role Phone Rios Asif MD Primary Care Provider [phone] Jefry Prajapati MD Unavailable [phone] Jack Carpenter MD Unavailable Encounters Date Type Department Care Team Description 12/23/2024 Orders Only [facility] Medical [facility] Cardiology [address] [place] [address] Ciara Goel MD from Last 3 Months Allergies No known active allergies Medications citalopram [...] a day as needed for anxiety rx# 709797 Active empagliflozin (JARDIANCE) 10 mg tablet Take [...] disease) 01/10/2024 Coronary artery disease invo lving [place] heart without angina pectoris 05/04/2020 Overview (05/04/2020): Added automatically from request for surgery [id number] Mitral valve insufficiency 05/04/2020 Overview (05/04/2020): Added automatically from request for surgery [id number] Social History Tobacco Use Types Packs/Day Years [...] on file 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 Gender Identity Not on file Sexual Orientation [...] on file Medical Devices Implanted Type 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 Shelf Expiration Date Model / Serial / Lot [employer] [id number] AveryBinta s Physio Ii 28mm Wilson Sew Mitral Ring - [id number] - [id number] Implanted:Qty: 1 on 05/21/2020 by Jefry Prajapati MD at [facility] N/A: Heart [employer] 04/18/2025 [id number] / [id number] / Description:Mitral ring Medtronic Card Vasc Surgery 2.00 X 15mm Ezequiel [place] Rx Coronary Stent [id number] - [id number] Implanted:Qty: 1 on 01/10/2024 by Jack Carpenter MD at [facility] Medtronic Card Vasc Surgery 09/21/2026 [id number] / / [id number] [employer] Trell Angio-Seal Vip 6fr Closere Device [id number] - [id number] Implanted:Qty: 1 on 01/10/2024 by Jack Carpenter MD at [facility] Re[employer]card [id number] / / Medtronic Card Vasc Surgery 3.0 X 15mm Ezequiel [place] Rx Coronary Stent [id number] - [id number] Implanted:Qty: 1 on 06/06/2024 by Jack Carpenter MD at [facility] Medtronic Card Vasc Surgery 03/28/2027 [id number] / / [id number] 2000 [facility] [employer] [facility] Angio-Seal Vip 6fr Closere Device [id number] - [id number] Implanted:Qty: 1 on 06/06/2024 by Jack Carpenter MD at [facility] [id number] / / Procedures Procedure Name Priority Date/Time Associated Diagnosis Comments CARDIOLOGY DOCUMENT SCAN Routine 12/17/2024 5:26 PM CDT CARDIOLOGY DOCUMENT SCAN Routine 12/16/2024 5:24 PM CDT from Last 3 Months Results * Cardiology Document Scan (12/17/2024 5:26 PM CDT) Anatomical Region Laterality Modality Other Ciara Goel MD CV CARDIAC SERVICES PROCEDU RES Final Result * Cardiology Document Scan (12/16/2024 5:24 PM CDT) Anatomical Region Laterality Modality Other Ciara Goel MD CV CARDIAC SERVICES PROCEDU RES Final Result from Last [address] [facility] MEDICARE ADVANTAGE [place] [id number] [place] [id number] [place] [id number] MEDICARE ADVANTAGE Advance Directives For more information, please contact: [phone] * Full Code (Latest Code Status on File) Date Activated Date Inactivated Comments 06/06/2024 10:48 AM 06/07/2024 3:39 PM * Full Code Date Activated Date Inactivated Comments 01/10/2024 1:52 PM 01/11/2024 5:34 PM * Full Code Date Activated Date Inactivated Comments 05/21/2020 4:36 PM 06/07/2020 10:49 PM Care Teams X Ray Consultant Relationship Specialty Start Date End Date Rios Asif MD PCP - General Internal Medicine 04/15/20 Jefry Prajapati MD Surgeon Cardiothoracic Surgery 06/07/20 Jack Carpenter MD Consulting Physician Cardiovascular Disease 06/07/20
--- OUTSIDE RECORDS SUMMARY | 2025-01-02 03:41 | XMS_ITS | Clinical Summary ---
Author Organization [facility] Physician Of [facility] [address] [place] [address] Care Team Providers Care Lab Engineer Name Role Phone Rios Asif MD Primary Care Provider Jefry Prajapati MD Unavailable [phone] Jack Carpenter MD Unavailable Allergies No known [...] a day as needed for anxiety rx# [id number] Active empagliflozin (JARDIANCE) 10 mg tablet Take [...] disease) 01/10/2024 Coronary artery disease invo [place] heart without angina pectoris 05/04/2020 Overview (05/04/2020): Added automatically from request for surgery [id number] Mitral valve insufficiency 05/04/2020 Overview (05/04/2020): Added automatically from request for surgery [id number] Encounters Date Type Department Care Team Description 12/23/2024 Orders Only [facility] Medical Group Cardiology [address] [place] [address] Ciara Goel MD from Last 3 Months Surgical History Surgery Date Site/Laterality Comments CATARACT [...] on file 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 Gender Identity Not on file Sexual Orientation [...] Vaccine (3 - Tdap) 12/22/2027 8, 11/04/2008 Pneumococcal vaccine 65+ Completed 09/11/2017, 03/2009 Medical Devices Implanted Type 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 Manager General Device Identifier Shelf Expiration Date Model / Serial / Lot [employer] [id number] AveryJonas s Physio Ii 28mm Wilson Sew Mitral Ring - [id number] - [id number] Implanted:Qty: 1 on 05/21/2020 by Jefry Prajapati MD at [facility] N/A: Heart [employer] 04/18/2025 [id number] / [id number] / Description:Mitral ring Medtronic Card Vas Surgery 2.00 X 15mm [place] Rx Coronary Stent [id number] - [id number] Implanted:Qty: 1 on [facility]10/[facility] 09/21/2026 [id number] / / [id number] [employer] Trell Angio-Seal Vip 6fr Closere Device [id number] - [id number] Implanted:Qty: 1 on 01/10/2024 by Jcak Carpenter MD at [facility] [id number] / / Medtronic [facility] Surgery 3.0 X 15mm Ezequiel [place] Rx Coronary Stent [id number] - [id number] Implanted:Qty: 1 on 06/06/2024 [facility] Vasc Surgery 03/28/2027 [id number] / / [id number] [employer] Angio-Seal Vip 6fr Closere Device [id number] - [id number] Implanted:Qty: 1 on 06/06/2024 by Jack Carpenter MD at [facility] [id number] / / Procedures Procedure Name Priority Date/Time Associated Diagnosis Comments CARDIOLOGY DOCUMENT SCAN Routine 12/17/2024 5:26 PM CDT CARDIOLOGY DOCUMENT SCAN Routine 12/16/2024 5:24 PM CDT from Last 3 Months Results * Cardiology Document Scan (12/17/2024 5:26 PM CDT) Anatomical Region Laterality Modality Other us Ciara Goel MD CV CARDIAC SERVICES PROCEDU RES Final Result * Cardiology Document Scan (12/16/2024 5:24 PM CDT) Anatomical Region Laterality Modality Other us Ciara Goel MD CV CARDIAC SERVICES PROCEDU RES Final Result from Last 3 Months Insurance [place] Directives For more information, please contact: [phone] * Full Code (Latest Code Status on File) Date Activated Date Inactivated Comments 06/06/2024 10:48 AM 06/07/2024 3:39 PM * Full Code Date Activated Date Inactivated Comments 01/10/2024 1:52 PM 01/11/2024 5:34 PM * Full Code Date Activated Date Inactivated Comments 05/21/2020 4:36 PM 06/07/2020 10:49 PM Care Teams Lab Engineer Relationship Specialty Start Date End Date Rios Asif MD PCP - General Internal Medicine 04/15/20 Jefry Prajapati MD Surgeon Cardiothoracic Surgery 06/07/20 Jack Carpenter MD Consulting Physician Cardiovascular Disease 06/07/20
--- OUTSIDE RECORDS SUMMARY | 2025-01-02 03:42 | XMS_ITS | Data Portability ---
Author Organization [facility] So Protect Me, Main Office Address [address] [place] [address] Care Team Providers Care [employer] Senior Officer Name Role Phone GABO TALAMANTES Primary Care Provider [phone] GABO TALAMANTES Referring Provider YECENIA HAN Wide Piece Goods Inspector Assessment Encounter Date Assessment Date Assessment LastModified by Organization Details LastModified Time 12/25/2024 12/25/2024 I have reconciled the patient's medications post their discharge from inpatient facility. [email or web address] Not available 12/25/2024 14:18:01 Plan of Treatment Reminders Order Date Submit Date Provider Last Modified By Organization Details Last Modified Time Details Appointments Establish ed Patient 30 2024 01:30P M Yecenia Han MD Not available Not available Not available Any 15 2024 09:45A M Gabo Talamantes MD Not available Not available Not available Lab CMP, serum or plasma 2024 025 [facility], [address], [place], [address], 12/05/2024 13:53:07 CBC w/ auto diff 2023 024 [email or web address], [address], [place], [address], 09/10/2024 10:09:25 vitamin D, 25-hydrox y, total, serum 2023 024 [employer], [address], [place], [address], 09/10/2024 10:09:25 lipid panel, serum 2023 024 [employer], [address], [place], [address], 09/10/2024 10:09:25 CMP, serum or plasma 2023 024 [employer], [address], [place], [address], 09/10/2024 10:09:25 Referral None recorded. Procedures None recorded. Surgeries None recorded. Imaging bone density - Please call patient to schedule. 2023 024 [email or web address] [facility], [address], [place], [address], 11/25/2024 12:21:50 Medication Orders clopidogr el 75 mg tablet 2024 025 [facility]/Pharmacy #[id number], [address] , [place], [address], 11/20/2024 10:38:55 tramadol 50 mg tablet 2023 024 [email or web address] [facility]/Pharmacy #[id number], [address], [place], [address], 11/20/2024 10:11:44 Patient TargetsNo targets recorded. Patient Instructions Encounter Date Encounter Id Patient Instructions Last Modified By Organization Details Last Modified Time 07/23/2024 [id number] dementia rating scale-2* [email or web address] Not available 07/23/2024 14:50:11 depression screening* Not [...] time to no more than 5hr/day Nutrition: Average Fall Risk (screened today): Intermediate Recommend regular use of cane or walker Vaccines Pneumococcal: No further needed Influenza: Ordered Recommended today Recommended today, but you have declined Your next one in the fall of this year Your next one in the fall 2024 Chronic Disease Risks Stroke: Intermediate Risk Active diagnosis, Continue current treatment plan Heart Attack: Intermediate Risk Active diagnosis, Continue current treatment plan Clogging of the Arteries: Intermediate Risk Active diagnosis, Continue current treatment plan Diabetes: Low Risk I have no recommendations Secondary Prevention/Interven tion (detects treatable diseases before they may cause symptoms, disability, or ) Breast Cancer Screening with mammogram: No screening necessary Cervical/Uterine/Ov kimmie Cancer Screening: No screening necessary Osteoporosis Screening: Your next DEXA in: Ordered Recomme nded today Recommended today, but you have declined No screening necessary Your next DEXA ordered Date Screening Last Performed: 04/2022 Colon Cancer Screening: No screening necessary Date Screening Last Performed: 04/2021 Eye Disease Screening: Recommended today Dementia Risk: Low I have no recommendations Depression Screening: Negative Recommend additional evaluation and/or treatment as noted above Recommend follow appointment to further evaluate Recommend Behavioral Health referral Active diagnosis, Continue current treatment plan I have no recommendations [email or web address] Not available 07/23/2024 12:58:36 11/20/2024 [id number] Not available 11/20/2024 10:37:47 12/04/2024 [id number] Increase fluids and electrolyte drinks. Continue on BRAT diet. Use otc Immodium as discussed if needed. Call office on Sunday to let us know update, will call with lab results. [email or web address] Not available 12/04/2024 11:34:32 12/25/2024 [id number] Thank you for yo ur visit to our office today. We would like to request that you reach out to your referring or previous provider and request that they send us a Summary of Care in electronic form, so that we may have it on file in your medical record. At your visit, we had the medical records we needed to provide you with the best possible care; however, for insurance purposes, an electronic Summary of Care is beneficial. Thank you for your assistance in obtaining this information and we look forward to providing continued care to you. Please review your medication list from the Summary of Care for this visit. If there are any differences from what you are currently taking at home, please call us to discuss. Follow medicaton regiment as discussed. Education provided on importance of medication compliance and health concerns. Keep appointments with pulmonology and Dr. Talamantes for wellness. [email or web address] Not available 12/25/2024 14:25:23 Homebound Status : no Required Home Health Services: none group home, physical therapy, occupational therapy group home, physical therapy group home home health, physical therapy, occupational therapy Durable Medical Equipment needed: [id number] at all times Billing Guidelines CPT code 68868- Transitional Care Management services with moderate medical decision complexity (xhfn-jb-ejrk visit within 14 days of discharge). CPT code 45606- Transitional Care Management services with high medical decision complexity (lcpt-wd-tmxm visit within 7 days of discharge). [email or web address] Not available 12/25/2024 14:23:14 Reason for Referral None Reported. Results Created Date Observation Date Name Description Value Unit Range Abnormal Flag Note LastModifiedBy Organization Detail LastModifiedTime 09/12/1909/12/2024 DEXA, axial skele ton [facility] [address] [address] Patien t Name: ZORAIDA LEAL MS Access ion #: [id number] Sex: F : 1945 1 Locati on: RAD Attend ing Physic ronan: DEVON TALAMANTES ER Orderi ng Physic ronan: DEVON TALAMANTES ER Exam Date: 09/12/19 10:41 AM Exam [...] g/cm2 calciu m Page 1 of 2 [facility] Name: ZORAIDA LEAL MS Access ion #: [id number] Sex: F : 1945 1 Exam [...] (CT) (CT) Page 2 of 2 [email or web address] [facility] (Imaging) [address] [place], [address], 09/17/2024 14:51:49 Result Notes None recorded. Problems Name Problem SNOMED Code Status Onset Date Resolution Date Notes Provider Name and Address Organization Details Recorded Time Chronic obstructiv e pulmonary disease 07760280 Active 2017 Not Available [facility] 3 16:15:19 Herpes labialis 3069159 Active Not Available [facility] 3 16:15:19 Mammograph y abnormal 248215729 Active Not Available [facility] 3 16:15:19 Gastroesop hageal reflux disease 345068980 Active Not Available [facility] 3 16:15:19 Screening mammograph y Completed 202103/30/2022 Not Available [facility] 3 01:05:08 Gastroesop hageal reflux disease without esophagiti s 277283403 Active 2021 Not Available [facility] 3 16:15:19 Long-term drug therapy Completed 202103/30/2022 Not Available [facility] 3 01:05:09 Pain in right lower limb 439596378 Completed Not Available [facility] 3 01:05:09 Chest pain 49480069 Completed Not Available [facility] 3 01:05:09 Diverticul itis 622347429 Active 2017 Not Available [facility] 3 16:15:19 Osteopenia 667238939 Active 2017 Not Available [facility] 3 16:15:19 Vitamin D deficiency 08048493 Active 2022 Not Available [facility] 3 16:15:19 Osteoarthr itis 260055385 Active 2022 Not Available [facility] 3 16:15:19 Autoimmune hepatitis 313061388 Active 2017 Not Available [facility] 3 16:15:19 Solitary nodule of lung 586624716 Active 2021 Not Available [facility] 3 16:15:19 History of polyp of colon 214941645 Active Not Available [facility] 3 16:15:19 Acute urinary tract infection 343353770 Completed Pascale Rollins LPN null, [place] - [facility] 3 12:56:23 Multiple nodules of lung 925663103 Completed 201701/06/2021 Not Available [facility] 3 01:05:10 Herpes zoster 0400841 Active Not Available [facility] 3 16:15:19 Anxiety 09135033 Active Not Available [facility] 3 16:15:19 Mitral valve regurgitat ion 14831687 Completed Not Available [facility] 3 01:05:11 Coronary arterioscl erosis 80439060 Active 2019 Not Available [facility] 3 16:15:19 Upper respirator y infection 35447358 Completed Not Available [facility] 3 01:05:11 Hyperlipid emia 05417010 Active Not Available [facility] 3 16:15:19 Diarrhea 29964935 Completed Not Available [facility] 3 01:05:11 Osteoporos is 63041884 Active 2021 Not Available [facility] 3 16:15:19 Sleep apnea 24701221 Completed 201701/06/2021 Not Available [facility] 3 01:05:12 Stress 75181542 Active Not Available [facility] 3 16:15:19 Postmenopa usal state 52070860 Completed 202103/30/2022 Not Available [facility] 3 01:05:12 Obstructiv e sleep apnea syndrome 23037211 Active 2017 Not Available [facility] 3 16:15:20 Hyperglyce esequiel 85857602 Active 2022 Not Available [facility] 3 16:15:20 Sj gren's syndrome 79742065 Active 2017 Not Available [facility] 3 16:15:20 Pulmonary emphysema 18822291 Completed Not Available [facility] 3 01:05:13 Mild chronic obstructiv e pulmonary disease 312215195 Active 2022 Not Available [facility] 3 16:15:19 Acute urinary tract infection 009792619 Active 2022 Pascale Rollins LPN null, [place] - [facility] 3 12:56:23 Aortic valve stenosis 69584544 Active 2023 Gabo Talamantes MD [address], [address], [place], [address] , [facility] 4 10:09:19 Low blood pressure 68257443 Active 2023 Gabo Talamantes MD [address], [address], [place], [address] , [facility] 4 10:10:05 Wound of skin 131986368 Active 2023 Gabo Talamantes MD [address], [address], [place], [address] , [facility] 4 12:11:06 Carotid artery stenosis 69463650 Active 2024 Gabo Talamantes MD [address], [address], [place], [address] , [facility] - [facility] 5 10:37:19 Acute diarrhea 655502738 Active 2024 ELIZABETH Guerrero [address], [address], [place], [address] , [facility] - [facility] 5 11:11:55 Hypokalemi a 00425179 Active 2024 ELIZABETH Guerrero [address], [address], [place], [address] , [facility] 5 15:45:16 History of heart failure 862908796 Active 2024 ELIZABETH Guerrero [address], [address], [place], [address] , [facility] 10:50:32 Notes:Medical History: Anxie ty/Depression Sjogren's syndrome Ige [...] with polypectomy 2018 MV repair for MR 2019 2 vessel CABG 2019 Coronary artery stent placement 2023 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 Procedures Surgical History Date Name Laterality Status Provider Name and Address Organization Details Recorded Time 12/26/19 25 Transitional_Care _Management completed ELIZABETH Guerrero [address], [address], [place], [address], [facility] 12/25/2024 09:49:24 11/21/19 25 Medicare Wellness CPT Code, subsequent completed JR Yuen [facility] 11/20/2024 10:06:39 07/23/20 24 Medicare Wellness CPT Code, subsequent completed Brit Gregg RN [facility] 07/23/2024 11:40:15 04/13/20 23 Medicare Wellness CPT Code, subsequent completed Maggi Molina RN [facility] 04/13/2023 11:21:23 03/23/20 23 Date of Last Mammogram completed Maggi Molina RN [facility] 04/13/2023 11:45:20 04/11/20 22 Most Recent Bone Density completed Maggi Molina RN [facility] 04/13/2023 11:45:37 04/25/20 21 Date of Last Colonoscopy completed Not Available [facility] 10/04/2022 00:52:45 08/06/19 21 Hip surgery completed Rosa Cardona MA [facility] 01/25/2023 15:14:42 05/21/20 20 open heart surgery completed Not Available [facility] 10/04/2022 00:52:48 colonoscopy completed Not Available [facility] 10/04/2022 00:52:48 Tonsillectomy completed Not Available [facility] 10/04/2022 00:52:48 Imaging Results None recorded. Procedure Notes None recorded. Medical Equipment None Reported. Allergies No known drug allergies Medications Name Sig Start Date Stop Date Status Note LastModified by Organization Details LastModified Time furosemid e 40 mg tablet Take 1 tablet every day by oral route. active Not Available Not Available No t Available carvedilo l 6.25 mg tablet TAKE [...] TABLET BY MOUTH ONE TIME PER WEEK 2024 active TERRELL 12/04/24 NOV 12/25/24 ok to rf Not Available Not Available Not Available clonazepa m 0.5 mg tablet Take 1 tablet twice a day by oral route as needed. 09/11 completed Not Available Not Available Not Available spironola ctone 100 mg tablet TAKE 1 TABLET BY MOUTH EVERY DAY 12/25 completed Not sure why its restarte d- no longer taking per patient Not Available Not Available Not Available prednison [...] TAKE 1 CAPSULE BY MOUTH EVERY DAY 2024 active Not Available Not Available Not Avai lable aspirin 81 mg chewable tablet Chew 1 tablet every day by oral route. 09/11 completed Not Available Not Available Not Available mupirocin 2 % topical ointment 12/05 completed Not Available Not Available Not Available zolpidem 5 mg tablet 2017 active as needed Not Available Not Available Not Available furosemid e 20 mg tablet TAKE 1 TABLET BY MOUTH EVERY DAY 12/25 completed Not Available Not Available Not Available methylpre dnisolone 4 mg tablets in [...] 0.3 %-dexamet hasone 0.1 % eye drops,sandee pension 12/05 completed Not [...] mcg-25 mcg/actua tion powder for inhalatio n INHALE 1 PUFF BY MOUTH ONCE EVERY DAY DIRECTED active Not Available Not Available No [...] Available Vitals Date Recorded Body height Body mass index (BMI) Body weight Body temperature Heart rate Oxygen saturation Oxygen saturation in Arterial blood by Pulse oximetry Systolic blood pressure Diastolic blood pressure Provider Name and Address Organization Details Last Updated DateTime 5 170.18 cm 21.6 kg/m2 97811.7 5 g 97.2 [degF] 82 /min 92 % 92 % 122 mm[Hg] 60 mm[Hg] JR Casillas [facility] 5 10:08:39 Date Recorded Body height Body mass index (BMI) Body weight Body temperature Oxygen saturation Oxygen saturation in Arterial blood by Pulse oximetry Heart rate Systolic blood pressure Diastolic blood pressure Provider Name and Address Organization Details Last Updated DateTime 5 170.18 cm 21.5 kg/m2 48861.1 5 g 97.7 [degF] 94 % 94 % 74 /min 100 mm[Hg] 62 mm[Hg] Lima burris [facility] 5 10:52:37 Date Recorded Body height Body mass index (BMI) Body weight Body temperature Oxygen saturation Oxygen saturation in Arterial blood by Pulse oximetry Inhaled oxygen flow rate Heart rate Systolic blood pressure Diastolic blood pressure Provider Name and Address Organization Details Last Updated DateTime 5 170.18 cm 20.4 kg/m2 44961.0 1 g 97.8 [degF] 96 % 96 % 3 L/min 89 /min 120 mm[Hg] 78 mm[Hg] Lima burris [facility] 5 12:06:16 Date Recorded Body weight Body mass index (BMI) Body height Body temperature Heart rate Oxygen saturation Oxygen saturation in Arterial blood by Pulse oximetry Systolic blood pressure Diastolic blood pressure Provider Name and Address Organization Details Last Updated DateTime 4 71381.1 5 g 21.5 kg/m2 170.18 cm 98.1 [degF] 78 /min 95 % 95 % 119 mm[Hg] 78 mm[Hg] Lima Urrutia dayton [place] - [facility] [employer] [facility] 11:33:12 Date Recorded Body height Body temperature Body mass index (BMI) Body weight Provider Name and Address Organization Details Last Updated DateTime 08/05/2024 170.18 cm 97.2 [degF] 21.1 kg/m2 82162.97 g Lima Teejodie [place] - [facility] 08/05/2024 11:59:43 Social History Question Answer Notes LastModified by Organization Details LastModified Time Tobacco Smoking Status Former Smoker quit 1992 Not Available [facility] 10/04/2022 00:52:07 Do You Have An Advance Directive? Yes Asked To Bring Papers For Chart MIGRATION.0301 [id number] Information not available 10/04/2022 Are You Blind Or Do You Have Difficulty Seeing? No MIGRATION.0301 029962 Information not available 10/04/2022 What Is Your Level Of Caffeine Consumption? Moderate MIGRATION.0301 658077 Information not available 10/04/2022 How Much Tobacco Do You Chew? None MIGRATION.0301 928494 Information not available 10/04/2022 In The 14 Days Before Symptom Onset, Have You Had Close Contact With A Laboratory-confi rmed COVID-19 While That Case Was Ill? No MIGRATION.0301 999648 Information not available 10/04/2022 In The 14 Days Before Symptom Onset, Have You Had Close Contact With A Person Who Is Under Investigation For COVID-19 While That Person Was Ill? No MIGRATION.0301 951357 Information not available 10/04/2022 Are You Deaf Or Do You Have Serious Difficulty Hearing? No MIGRATION.0301 733816 Information not available 10/04/2022 What Type Of Diet Are You Following? REGULAR MIGRATION.0301 505383 Information not available 10/04/2022 Which Illicit Or Recreational Drugs Have You Used? None MIGRATION.0301 134519 Information not available 10/04/2022 What Is The Fluoride Status Of Your Home? Fluoridated MIGRATION.0301 952052 Information not available 10/04/2022 When Did You Quit Smoking? 14+yearssinceleliseo gomez MIGRATION.0301 418242 Information not available 10/04/2022 Are There Any Guns Present In Your Home? No MIGRATION.0301 734398 Information not available 10/04/2022 Where Do You Live? SingleLevelHouse MIGRATION.0301 883119 Information not available 10/04/2022 Presence Of Domestic Violence No [email or web address] Information not available 04/13/2023 Are You Able To Care For Yourself? Yes Information not available 04/13/2023 Are You Blind Or Do Yo Have Difficulty Seeing? No Information not available 04/13/2023 Are You Deaf Or Do You Have Serious Difficulty Hearing? No [email or web address] Information not available 04/13/2023 Live Alone Of With Others? Alone Information not available 04/13/2023 What Was The Date Of Your Most Recent Tobacco Screening? 07/23/2024 [email or web address] Information not available 07/23/2024 What Is Your Current Pack Years? 30ormorepackyears MIGRATION.0301 174842 Information not available 10/04/2022 Do You Have Any Pets? Yes MIGRATION.0301 072506 Information not available 10/04/2022 What Is Your Relationship Status? MIGRATION.0301 291475 Information not available 10/04/2022 Do You Use Your Seat Belt Or Car Seat Routinely? Yes MIGRATION.0301 871187 Information not available 10/04/2022 Do You Have Smoke And Carbon Monoxide Detectors In Your Home? Yes MIGRATION.0301 450065 Information not available 10/04/2022 At What Age Did You Start Smoking Tobacco? 18 MIGRATION.0301 576792 Information not available 10/04/2022 How Much Tobacco Do You Smoke? 3+ PPD MIGRATION.0301 759460 Information not available 10/04/2022 Do You Use Sunscreen Routinely? No MIGRATION.0301 412709 Information not available 10/04/2022 How Many Years Have You Smoked Tobacco? 29 MIGRATION.0301 866861 Information not available 10/04/2022 Do You Have Difficulty Walking Or Climbing Stairs? No MIGRATION.0301 732072 Information not available 10/04/2022 Sex: Female Functional Status Question Answer Note LastModified by Organizat ion Details LastModified Time What is your level of alcohol consumption? Occasional MIGRATION.313421 0641 Information not available 10/04/2022 Do you or have you ever used smokeless tobacco? Never used smokeless tobacco MIGRATION.670880 8141 Information not available 10/04/2022 Do you have transportation difficulties? No MIGRATION.961069 2635 Information not available 10/04/2022 Are you able to walk? YESWOREST MIGRATION.245758 8208 Information not available 10/04/2022 Do you have difficulty doing errands alone? No MIGRATION.040162 3825 Information not available 10/04/2022 Are you able to care for yourself? Yes MIGRATION.150721 4146 Information not available 10/04/2022 What is your occupation? retired MIGRATION.597946 6259 Information not available 10/04/2022 Do you have difficulty dressing or bathing? No MIGRATION.013112 9974 Information not available 10/04/2022 Do you or have you ever used e-cigarettes or vape? Never used electronic cigarettes MIGRATION.010589 2157 Information not available 10/04/2022 What is your exercise level? Occasional MIGRATION.455637 6751 Information not available 10/04/2022 Mental Status Question Answer Note LastModified by Organizat ion Details LastModified Time Do you feel stressed (tense, restless, nervous, or anxious, or unable to sleep at night)? [id number] [email or web address] Information not available 07/23/2024 Do you have difficulty concentrating, remembering or making decisions? No MIGRATION.99250519 26 Information not available 10/04/2022 Family History Relationship Description Onset Age of this Age Resolved Age Notes LastModified by Organization Details LastModified Time Mother Malignant neoplastic disease MIGRATION.556 [id number] Not available 10/04/2022 00:53:01 Mother Family history of malignant neoplasm MIGRATION.390 0156318 Not available 10/04/2022 00:53:01 Brother Heart disease MIGRATION.898 [id number] Not available 10/04/2022 00:53:01 Sister Heart disease MIGRATION.615 [id number] Not available 10/04/2022 00:53:01 Sister Hypertensive disorder MIGRATION.897 0700523 Not available 10/04/2022 00:53:01 Sister Diabetes mellitus MIGRATION.198 [id number] Not available 10/04/2022 00:53:01 Medical History Condition Response ARTHRITIS Y COPD Y HIGH CHOLESTEROL / HYPERLIPIDEMIA Y HEPATITIS / LIVER DISEASE Y HERPES Y VASCULAR DISEASE Y ANXIETY DISORDER Y GERD/NAUSEA Y OSTEOPOROSIS Y CORONARY ARTERY DISEASE (CAD) Y Gynecological History Statement/Question Response Date of Last Pap Date of Last Mammogram 07/02/2018 Date of Last Colonoscopy 04/25/2021 Date of Last Mammogram 03/23/2023 Most Recent Bone Density 04/11/2022 Obstetrics History GPAL:G 0 P 0 0 0 0 Immunizations Vaccine Type Date Status Note Provider Nam e and Address Organization Details Recorded Time Influenza, split virus, trivalent, PF 3 completed Not Available [facility] 02/12/2023 16:15:20 pneumococcal polysaccharide PPV23 9 completed Not Available [facility] 02/12/2023 16:15:20 DTaP 9 completed Not Available [facility] 02/12/2023 16:15:20 Influenza, split virus, trivalent, PF 1 completed Not Available [facility] 02/12/2023 16:15:20 COVID-19, mRNA, LNP-S, PF, 30 mcg/0.3 mL dose 2 completed Not Available [facility] 02/12/2023 16:15:20 COVID-19, mRNA, LNP-S, PF, 30 mcg/0.3 mL dose 1 completed Not Available [facility] 02/12/2023 16:15:20 SARS-COV-2 (COVID-19) vaccine, UNSPECIFIED 1 completed Not Available [facility] 02/12/2023 16:15:20 SARS-COV-2 (COVID-19) vaccine, UNSPECIFIED 1 completed Not Available [facility] 02/12/2023 16:15:20 Influenza, high-dose, trivalent, PF 0 completed Not Available [facility] 02/12/2023 16:15:20 Influenza, split virus, trivalent, PF 0 completed Not Available [facility] 02/12/2023 16:15:20 Influenza, split virus, quadrivalent, preservative 9 completed Not Available [facility] 02/12/2023 16:15:20 Td (adult), 5 Lf tetanus toxoid, preservative free, adsorbed 8 completed Not Available [facility] 02/12/2023 16:15:20 Influenza, high-dose, quadrivalent, PF 1 completed Not Available [facility] 02/12/2023 16:15:20 Influenza, high-dose, trivalent, PF 8 completed Not Available [facility] 02/12/2023 16:15:20 Td (adult), 2 Lf tetanus toxoid, preservative free, adsorbed 8 completed Not Available [facility] 02/12/2023 16:15:20 Pneumococcal conjugate PCV 13 8 completed Not Available [facility] 02/12/2023 16:15:20 Influenza, high-dose, trivalent, PF 7 completed Not Available [facility] 02/12/2023 16:15:20 Influenza, high-dose, trivalent, PF 5 completed Not Available [facility] 02/12/2023 16:15:20 Hep B, adult 4 completed Not Available [facility] 02/12/2023 16:15:20 Hep A, adult 4 completed Not Available [facility] 02/12/2023 16:15:20 Influenza, split virus, trivalent, PF 4 completed Not Available [facility] 02/12/2023 16:15:20 Hep B, adult 4 completed Not Available [facility] 02/12/2023 16:15:20 Hep A, adult 4 completed Not Available [facility] 02/12/2023 16:15:20 Hep B, adult 4 completed Not Available [facility] 02/12/2023 16:15:20 Past Encounters Encounter ID Performer Location Encounter Start Date Encounter Closed Date Diagnosis/Indication Diagnosis SNOMED-CT Code Diagnosis ICD10 Code Diagnosis Note [id number] RA Ely-[facility] Pulmonolo gy [address] [place] [address] 10/11/2020 00:00:00 10/11/2020 17:06:32 [id number] Gabo Talamantes MD S_[facility] Internal Med [address] [facility] [place] [address] 12/14/2020 00:00:00 12/14/2020 14:13:31 [id number] _ATHN_MIGR ATION_1 _ATHENA_M IGRATION_ DEFAULT_1 _1 , 12/15/2020 00:00:00 12/15/2020 16:51:14 [id number] Yecenia Han MD [facility] [address] [address] 01/11/2021 00:00:00 01/11/2021 11:31:25 [id number] Phillip So MD [facility] [address] [address] 01/12/2021 00:00:00 01/12/2021 15:27:41 [id number] MD TOR Garcia_GMKristian [address] [address] 01/19/2021 00:00:00 01/19/2021 16:41:35 [id number] Phillip So MD S_GM[address] [address] 02/16/2021 00:00:00 02/16/2021 17:28:54 [id number] MD LIDIA CarlinS_GMG Internal [address] [address] 04/19/2021 00:00:00 04/19/2021 11:49:55 [id number] MD TOR Underwood_[facility] [place] [address] [facility] [address] [place] [address] 04/26/2021 00:00:00 04/26/2021 12:39:55 [id number] MD ZURI Underwood [facility] [place] [address] [place] [address] 08/23/2021 00:00:00 08/23/2021 12:25:48 [id number] MD TOR Carlin_[facility] Internal Med [address] [address] 09/16/2021 00:00:00 09/16/2021 11:59:37 [id number] Yecenia Han MD [facility] Pulmonolo [place] [address] [place] [address] 15 [place] [address] 01/25/2022 00:00:00 01/25/2022 12:32:14 [id number] Gabo Talamantes MD [facility] Internal [facility] [address] [place] [address] 04/05/2022 00:00:00 04/05/2022 16:41:01 [id number] Gabo Talamantes MD S_[facility] Internal Med [address] [place] [address] 08/15/2022 00:00:00 08/15/2022 13:32:43 [id number] Gabo Talamantes MD S_[facility] Internal Med [address] 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 Osteopenia 114742834 M85 .80 on calcium w/ vit D, Solitary n odule of lung 883141921 R91.1 CT scan is done periodical ly, s/p bronchosco py s/p biopsy, seeing pulmonolog ist, LDCT nl 09/27 Osteoarthritis 759771013 M19.90 otc Hyperglycemia 51249110 R 73.9 on jardiance, nl A1c Adult heal th examination 038243538 Z00.00 Colonoscop y- 04/2021- in chartMammo gram- 11/2021LDC T- 2DEX A- 09/2022Pne umovax- 01/11/2009 Prevnar 2017FLU2COV ID- 09/29/20, 10/27/20 Screening mammography 24 922180 Z12.31 [id number] Yecenia Han MD S_G Pulmonolo gy [place] [address] [facility], [facility] 15 [place] [address] 01/25/2023 14:54:22 01/26/2023 09:58:16 Mild chronic obstructive pulmonary disease 863038815 J44.9 Obstructiv e sleep apnea syndrome 44754949 G47.33 [id number] Gabo Talamantes MD [facility] Internal [address] [place] [address] 04/13/2023 10:53:59 04/13/2023 11:36:43 Coronary arteriosclerosis 09320581 I25.10 no symptoms Autoimmune hepatitis 408 937832 K75.4 s/p biopsy seeing hepatologi st, Hyperlipidemia 28393654 E78.5 stable Chronic ob structive pulmonary disease 28348144 J44.9 under control Gastroesop hageal reflux disease 918476212 K21.9 needs meds daily to control symptoms Anxiety 68029844 F41.9 under control with meds Sj gren's syndrome 87850818 M35.00 no more sx Osteopenia 193236800 M85 .80 on calcium w/ vit D, Solitary n odule of lung 498495525 R91.1 CT scan is done periodical ly, s/p bronchosco py s/p biopsy, seeing pulmonolog ist, CT 01/26 Osteoarthritis 815339072 M19.90 otc Hyperglycemia 34897474 R 73.9 on jardiance, nl A1c Adult heal th examination 398977581 Z00.00 Colonoscop y- 04/2021- in chartMammo gram- 03/2023LDC T- 09/2021 -CT 01/26DEXA- ne umovax- 01/11/2009 Prevnar 2017FLU- 2COV ID- 09/29/20, 10/27/20 Screening for disorder 001572202 Z13.9 [id number] Gabo Talamantes MD S_[facility] Internal Med [address] [place] [address] 07/23/2023 09:42:32 07/23/2023 10:30:59 Coronary arteriosclerosis 26543227 I25.10 no symptoms Autoimmune hepatitis 408 534990 K75.4 s/p biopsy seeing hepatologi st, Hyperlipidemia 35326384 E78.5 stable Chronic ob structive pulmonary disease 65656520 J44.9 under control Gastroesop hageal reflux disease 739700209 K21.9 needs meds daily to control symptoms Anxiety 28647321 F41.9 under control with meds Sj gren's syndrome 53994106 M35.00 no more sx Osteopenia 485349899 M85 .80 on calcium w/ vit D, Solitary n odule of lung 418476445 R91.1 CT scan is done periodical ly, s/p bronchosco py s/p biopsy, seeing pulmonolog ist, CT 01/26 Osteoarthritis 859311659 M19.90 [facility] Adult heal th examination 631789809 Z00.00 Colonoscop y- 04/2021- in chartMammo gram- 03/2023LDC T- 09/2021 -CT 01/26DEXA- ne umovax- 01/11/2009 Prevnar 2017FLU- 05/2023- [facility]20[facility] Long-term drug therapy 769551596 Z79.234 [id number] Gabo Talamantes MD [facility] Internal Med [address] [facility] [place] [address] 11/22/2023 09:47:46 11/22/2023 10:16:49 Coronary arteriosclerosis 40873882 I25.10 no symptoms Autoimmune hepatitis 408 844389 K75.4 lft stable Hyperlipidemia 53608565 E78.5 stable Chronic ob structive pulmonary disease 87086692 J44.9 under control Gastroesop hageal reflux disease 375471696 K21.9 needs meds daily to control symptoms Anxiety 23543323 F41.9 under control with meds Sj gren's syndrome 27420774 M35.00 no more sx Osteopenia 986022659 M85 .80 on calcium w/ vit D, Solitary n odule of lung 254762733 R91.1 being watched Osteoarthritis 762471742 M19.90 [facility] Adult heal th examination 444237067 Z00.00 Colonoscop y- 04/2021- in chartMammo gram- 03/2023LDC T- 09/2021 -CT 01/26DEXA- ne umovax- 01/11/2009 Prevnar - 2017FLU- 05/2023- [facility] 09/29/20, 10/27/20, [facility] Aortic valve stenosis 60 747817 I35.0 getting card cath History of repair of mitral valve 601567070 Z98.890 no symptoms Low blood pressure 95314 003 I95.9 off carvedilol , no symptoms [id number] Yecenia Han MD [facility] Pulmonolo gy [address] [place] [address] 02/06/2024 13:02:37 02/11/2024 08:59:21 Mild chronic obstructive pulmonary disease 254846420 J44.9 Obstructiv e sleep apnea syndrome 94635774 G47.33 [id number] Gabo Talamantes MD S[facility] Internal Med [address] [place] [address] 03/06/2024 11:12:35 03/06/2024 12:13:16 Wound of skin 393528296 T14.8XXA local care, she is up to date on her tetanus htiesh t ( 2018 ) [id number] Gabo Talamantes MD [facility] Internal Med [address] [facility] [place] [address] 03/27/2024 09:50:24 03/27/2024 10:27:51 Coronary arteriosclerosis 23174595 I25.10 no symptoms Autoimmune hepatitis 408 940126 K75.4 LFT stable Hyperlipidemia 78443267 E78.5 stable Chronic ob structive pulmonary disease 10132765 J44.9 under control Gastroesop hageal reflux disease 917558717 K21.9 needs meds daily to control symptoms Anxiety 61918286 F41.9 under control with meds Sj gren's syndrome 05216399 M35.00 no more sx Osteopenia 675846547 M85 .80 on calcium w/ vit D, Solitary n odule of lung 324149607 R91.1 being watched Osteoarthritis 487315458 M19.90 otc helps Adult heal th examination 216659456 Z00.00 [facility]- - DU[facility]- 09/2021 -CT 01/26DEXA- ne umovax- 01/11/2009 Prevnar 13- 2018FLU- 05/2023- [facility]- 09/29/20, 10/27/20, [facility] Aortic valve stenosis 60 285827 I35.0 getting card cath History of repair of mitral valve 927394243 Z98.890 no symptoms Screening mammography 24 210173 Z12.31 [id number] Gabo Talamantes MD [facility] Internal Med [address] [place] [address] 07/23/2024 11:10:12 07/23/2024 12:20:17 Coronary arteriosclerosis 50407476 I25.10 no symptoms Autoimmune hepatitis 408 708155 K75.4 LFT stable Hyperlipidemia 24695319 E78.5 stable Chronic ob structive pulmonary disease 14164945 J44.9 under control Gastroesop hageal reflux disease 599545096 K21.9 needs meds daily to control symptoms Anxiety 53038907 F41.9 under control with meds Sj gren's syndrome 91515771 M35.00 no more sx Osteopenia 691556348 M85 .80 on calcium w/ vit D, DEXA DUE Solitary n odule of lung 800093850 R91.1 being watched Osteoarthritis 561747894 M19.90 otc helps Aortic valve stenosis 60 590444 I35.0 seeing cardiology Adult heal th examination 007045828 Z00.00 [facility]op [facility]- [facility] 03/[facility]- - no moreLDCT- 09/2021 -CT 01/26DEXA- 04/2022, orderedPne umovax- 01/11/2009 Prevnar 13- 2018FLU- 05/2023- [facility]- 09/29/20, 10/27/20, 2022- phi History of repair of mitral valve 856039651 Z98.890 no symptoms Screening for disorder 685169896 Z13.9 Long-term drug therapy 695094113 Z79.899 Postmenopausal state 764 [address] Z78.0 [id number] Gabo Talamantes MD [facility] Internal Med [address] [facility] [place] [address] 08/05/2024 11:53:14 08/05/2024 12:27:14 Herpes zoster 5046818 B02.9 she is asking how long to wait for shingles shot now that she has an outbreakad vised 6 monthsshe was hesatent to try something more for pain but she was willing to try a few tramadol if it was not too expensives he will f/u as needed [id number] Gabo Talamantes MD [facility] Internal Med [address] [facility] [place] [address] 11/20/2024 10:00:58 11/20/2024 11:51:01 Coronary arteriosclerosis 34162727 I25.10 no symptoms Autoimmune hepatitis 408 593303 K75.4 LFT stable Hyperlipidemia 97872271 E78.5 stable Chronic ob structive pulmonary disease 95413061 J44.9 under control Gastroesop hageal reflux disease 856770389 K21.9 needs meds daily to control symptoms Anxiety 05337460 F41.9 under control with meds Sj gren's syndrome 47770109 M35.00 no more sx Osteopenia 096950382 M85 .80 on calcium w/ vit D, Solitary n odule of lung 002033069 R91.1 being watched Osteoarthritis 427322676 M19.90 otc helps Aortic valve stenosis 60 549187 I35.0 seeing cardiology Adult heal th examination 033670572 Z00.00 Colonoscop y- 04/2021- in chartMammo gram- 03/2023- - no moreLDCT- 09/2021 -CT 01/26DEXA- 09/12/2024 Pneumovax- 01/11/2009 Prevnar - 2017FLU- 05/2023- [facility]- 09/29/20, 10/27/20, 2022- [facility] History of repair of mitral valve 196380896 Z98.890 no symptoms Long-term drug therapy 341697906 Z79.899 Mild chron ic obstructive pulmonary disease 940593297 J44.9 Carotid ar jackie stenosis 80421643 I65.29 mild [id number] Gabo Talamantes MD [facility] [facility] Internal Med [facility] [address] [facility] [place] [address] 12/04/2024 10:44:22 12/04/2024 12:23:38 Acute diarrhea 688697055 R19.7 [id number] Gabo Talamantes MD [facility] Internal Med [facility] [address] [facility] [place] [address] 12/25/2024 11:47:04 12/25/2024 13:59:30 Transition of care 0644772756 105 Z75.8 already seeing occupation al/physica l therapies, and home health. Health Concerns Section Related Observation LastModified by Organization Detai ls LastModified Time None Recorded Concern Status LastModified by Organization Details LastModified Time None Recorded Advance Directives Directive Y: asked to bring papers for chart Payers Encounter Date Sequence Insurance Name Policy Number Policy Wilson Covered Member ID Wilson Member ID Guarantor Name 07/23/2024 1 [facility] (MEDICARE REPLACEMENT/A DVANTAGE - PPO) [id number] Zoraida Tobias [id number] Zoraida Tobias 08/05/2024 1 [facility] (MEDICARE REPLACEMENT/A DVANTAGE - PPO) [id number] Zoraida Tobias [id number] Zoraida Tobias 11/20/2024 1 [facility] (MEDICARE REPLACEMENT/A DVANTAGE - PPO) [id number] oZraida Tobias [id number] Zoraida Tobias 12/04/2024 1 [facility] (MEDICARE REPLACEMENT/A DVANTAGE - PPO) [id number] Zoraida Tobias [id number] Zoraida Tobias 12/25/2024 1 [facility] (MEDICARE REPLACEMENT/A DVANTAGE - PPO) [id number] Zoraida Tobias [id number] Zoraida Tobias Notes Date Note Type Note Provider Name and Address Organization Details Recorded Time 07/23/2024 text/html pt is here today for a 4 month f/u [facility] f/u from her fall on 07/03/24. pt fell on left hip wasnt broke, t a hematoma on left thigh. pt is fastng ([facility]) Aortic stenosis- moderate, echo 11/27CAD- 2 vessel [...] Mesalamine and imodium, IMPROVED, not on any medsOsteoarthritis- otc Osteoporosis- on Alendronate, dexa 04/27, on caltrate, DEXA DUE Gabo Talamantes MD [address] [facility] [facility] [address], [place], [address], [facility] [employer] 07/23/2024 17:16:12 08/05/2024 text/html pt is here for a rash on her left side of her ribs and back onset 07/31/24. pt thinks may be shingles..pt daughter has been putting calamine lotion on the rash for her. pt has been taking tylenol otc for hip pain she broke hip on thanksgiving . (in chart) pt is not fasting ([facility]) Nieves Alcocer NP [address], [place], [address], [employer] 08/05/2024 12:29:28 11/20/2024 text/html Pt is here today for a 4 month follow up.PT IS FASTING ([facility]) Has a knot on her right lower [...] Mesalamine and imodium, IMPROVED, not on any medsOsteoarthritis- otc Osteoporosis- on Alendronate, dexa 09/30, on caltrate, Gabo Talamantes MD [address], [place], [address], [employer] 11/20/2024 10:38:58 12/04/2024 text/html Patient is 79y f devora who reports diarrhea that started on Sunday [...] liquid stoolno belly pain no antibiotic's recently ELIZABETH Guerrero [address], [place], [address], [employer] 12/04/2024 11:35:45 12/25/2024 text/html Patient is a 79y /o female who is here for a hospital follow up. Patient was admitted to [facility] on 12/16 for shortness of breath. She was DC 12/19. During visit, patient had CT of chest that revealed mediastinal and right hilar lymphadenopathy (follow up 3month PET scan), advanced emphysema, echo shows pulmonary hypertension. Medications at this time updated. Patient has home health and occupational/physical therapies in home at this time. Patient currently is on oxygen 3L and is to wear continuously. She reports that she has been taking her medications other than spironolactone/ Jardiance and is refusing to take it at this time. In office today, she denies shortness of breathe, chest pains, headaches, abdominal pains, or n/v at this time. PET scan needed at March appointment with Dr. Talamantes due to 10mm growth noted on scan wears oxygen 3L at all times.meds updated Not taking the spironolactonenot taking the jardiance 10mgnot taking the lorazapam .5mg ELIZABETH Guerrero [address], [place], [address], [employer] 12/25/2024 14:29:47 OBGyn Episode No OBEpisode recorded.
--- OUTSIDE RECORDS SUMMARY | 2025-01-02 03:42 | XMS_ITS | Clinical Summary ---
Author Organization [facility] [employer] Address [address] [place] [address] Care Team Providers Care Circuit Design Engineer Name Role Phone Rios Asif MD Primary Care Provider + [phone] Source Comments [facility] [employer],non-owned Affiliates and Associated Physician Practices is amultiple site organization consisting of ambulatory clinics and hospital sitesin [place], [place], [place] and [place]. This disclosure is being madepursuant to the Care Everywhere program and may not contain all information available regarding this patient. Last updated 18.[facility] [employer] Allergies No known active allergies Medications * [...] too small to be biopsied. 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
--- OUTSIDE RECORDS SUMMARY | 2025-01-02 03:42 | XMS_ITS | CONTINUITY OF CARE DOCUMENT ---
Author Name lisa gonzalez Address Unknown Organization [facility] Address [address] [place] [address] Phone [phone] Care Team Providers Care Ski Maker Name Role Phone Pauline TURCIOS, Jack Gallagher Unavailable [phone] Rios Asif MD Unavailable Rios Asif MD Unavailable [phone] PROBLEMS Condition Status Date Provider Notes Hypercholesterolemia [...] In-person encounter Office Visit Jack Carpenter MD [facility] - In-person encounter Office Visit Jack Carpenter MD [facility] - In-person encounter Office Visit Jack Carpenter MD [facility] - In-person encounter Office Visit Jack Carpenter MD [facility] - In-person encounter Office Visit Jack Carpenter MD [facility] - In-person encounter Office Visit Jack Carpenter MD [facility] - In-person encounter Office Visit Jack Carpenter MD [facility] - In-person encounter Office Visit Jack Carpenter MD [facility] - In-person encounter Office Visit Jack Carpenter MD [facility] HTN essentialTricuspid regurgitation, moderateAortic stenosis, mildMitral stenosis, mildCHF - In-person encounter Office Visit Jack Carpenter MD [facility] Shortness of breathElevated blood glucose - In-person encounter Office Visit Jack Carpenter MD [facility] - In-person encounter Office Visit Jack Carpenter MD [facility] Tricuspid regurgitation, moderate - In-person encounter Office Visit Jack Carpenter MD [facility] Shortness of breathArm pain, leftScreening - negative COVID-19 swab 03/2020 - In-person encounter Office Visit Jack Carpenter MD [facility] EMPHYSEMASevere MR S/P repair 05/2020Leg pain [...] In-person encounter Office Visit Jack Carpenter MD [facility] Chest pain - In-person encounter Office Visit Jack Carpenter MD [facility] - In-person encounter Office Visit Jack Carpenter MD [facility] - In-person encounter Office Visit Jack Carpenter MD [facility] Family History of Hypertension:Pulmonary nodulesSleep apnea, obstructive - on CPAPSevere MR S/P repair 05/2020 - In-person encounter Office Visit Jack Carpenter MD [facility] - In-person encounter Office Visit Jack Carpenter MD [facility] - In-person encounter Office Visit Jack Carpenter MD [facility] - In-person encounter Office Visit Jack Carpenter MD [facility] EMPHYSEMAANXIETY DISORDERChest pain VITAL SIGNS Date Observation Value Provider Body Mass Index (Ratio) 21.05 kg/m2 Chay Price blood pressure, diastolic 78 mm[Hg] Jostin huerta Singh blood pressure, systolic 105 mm[Hg] Katia freeman Singh blood pressure, cuff size regular Jostin deanna Singh oxygen saturation, oximetry 92 % [facility]formerly [facility] pulse rate 56 /min [facility]formerly [facility] Singh weight E&M 136.4 [lb_av] [facility] height E&M 67.5 [in_i] [facility] Singh Body Mass Index (Ratio) 20.98 kg/m2 Brian Smyth blood pressure, diastolic 74 mm[Hg] Vy mason [facility] blood pressure, systolic 109 mm[Hg] [facility] in [facility] oxygen saturation, oximetry 94 % [facility] respiratory rate E&M 20 /min [facility] Elliott [facility] pulse rate 84 /min [facility] weight E&M 136 [lb_av] [facility] blood pressure, cuff size regular Vy mason [facility] height E&M 67.5 [in_i] [facility] Body Mass Index (Ratio) 21.91 kg/m2 Jack [...] Hill blood pressure, systolic 107 mm[Hg] Chirag Hazard [facility] respiratory rate E&M 14 /min Radha Gallagher iller pulse rate 70 /min Radha [place] weight E&M 142 [lb_av] Radha [place] height E&M 67.5 [in_i] [facility] Body Mass Index (Ratio) 22.68 kg/m2 Jack [...] lucretia Cazares blood pressure, cuff size large Pr kan Neche blood pressure, diastolic 80 mm[Hg] Isabella omer N[place] blood pressure, systolic 132 mm[Hg] [facility] isaac Cazares weight E&M 140 [lb_av] María reyna height E&M 67.5 [in_i] María reyna Body Mass Index (Ratio) 21.29 kg/m2 Le tian Tesfaye blood pressure, diastolic 60 mm[Hg] Ma rsha O'Harris blood pressure, systolic 120 mm[Hg] Mar [facility] O'Harris oxygen saturation, oximetry 98 % Luly O'Harris respiratory rate E&M 16 /min Luly O'Harris pulse rate 72 /min Luly O'Harris blood pressure, resting Yes [place] vanessa O'Harris weight E&M 138 [lb_av] Luly [...] Body Mass Index (Ratio) 23.14 kg/m2 Ezio [facility] blood pressure, diastolic 78 mm[Hg] Jorge galan Segura blood pressure, systolic 115 mm[Hg] Lena Segura pulse rate 82 /min Kaylie pardo oxygen saturation, oximetry 99 % Kaylie Segura blood pressure, cuff size regular Cy adama Segura respiratory rate E&M 16 /min Kaylie Segura weight E&M 150 [lb_av] Kaylie pardo height E&M 67.5 [in_i] Kaylie pardo Body Mass Index (Ratio) 27.46 kg/m2 Ezio [facility] pulse rate 71 /min [facility]ani [facility] [employer] blood pressure, diastolic 88 mm[Hg] Jamar park [facility] blood pressure, systolic 154 mm[Hg] [facility] weight E&M 178 [lb_av] Armani [facility] [employer] [facility] height E&M 67.5 [in_i] Armani [facility] [employer] Body Mass Index (Ratio) 25.30 kg/m2 Ezio [facility] pulse rate 72 /min [facility] respiratory rate E&M 16 /min [facility] oxygen saturation, oximetry 96 % [facility] blood pressure, diastolic, left arm 84 mm [Hg] Tonsha [place] blood pressure, systolic, left arm 135 mm [Hg] [facility] blood pressure, diastolic, right arm 90 m m[Hg] [facility] blood pressure, systolic, right arm 120 m m[Hg] [facility] blood pressure, diastolic 84 mm[Hg] To [facility] blood pressure, systolic 135 mm[Hg] [facility] weight E&M 164 [lb_av] [facility] height E&M 67.5 [in_i] [facility] Body Mass Index (Ratio) 28.39 kg/m2 [...] Mass Index (Ratio) 25.30 kg/m2 Anea oskar [facility] blood pressure, diastolic, left arm 74 mm [Hg] Aneatris [facility] blood pressure, systolic, left arm 106 mm [Hg] Aneatris [facility] blood pressure, diastolic, right arm 77 m m[Hg] Aneatris Brown blood pressure, systolic, right arm 121 m m[Hg] Aneatris Brown blood pressure, diastolic 77 mm[Hg] An eatris [facility] blood pressure, systolic 121 mm[Hg] Ane atris [facility] pulse rate 90 /min Aneatris Brown oxygen saturation, oximetry 98 % Aneatris Brown respiratory rate E&M 17 /min Karlieatri s [facility] weight E&M 164 [lb_av] [...] Edwin Jones oxygen saturation, oximetry 94 % Ediwn Jones respiratory rate E&M 16 /min Edwin mcguire FERNANDO Body Mass Index (Ratio) 24.47 kg/m2 Edwin Jones weight E&M 158 [lb_av] Edwin Jones blood pressure, diastolic, standing 60 mm [Hg] Edwin Jones blood pressure, systolic, standing 82 mm[ Hg] Edwin Jones blood pressure, diastolic, sitting 64 mm[ Hg] [facility] pressure, systolic, sitting 90 mm[H g] Edwin Jones blood pressure, dixon tolic, supine, left arm 74 mm[Hg] [facility] blood pressure, syst olic, [...] [employer] 0-149 cholesterol, serum 166 mg/dL [employer] [phone]/08/ 29 calcium, serum 9.6 mg/dL [employer] 8.7-10.3 carbon dioxide, venous blood 22 mmol/L [employer] 20-29 chloride, serum 101 mmol/L [employer] 96-106 potassium, serum 4.2 mmol/L [employer] 3.5-5.2 sodium, serum 137 mmol/L [employer] [phone]/08/ 29 urea nitrogen/creatinine ratio, serum 17 [employer] [...] Not Estab. platelet count 160 X10E3/UL [employer] [phone]/08/ 29 red blood cell distribution width 14.4 [...] Normal LDL cholesterol, serum 128 mg/dL Armani [facility] B-type natriuretic peptide 26.8 pg/mL [facility] alanine aminotransferase (SGPT), serum 47 1/L [facility] aspartate aminotransferase (SGOT), serum 79 1/L [facility] creatinine, serum 0.84 mg/dL [facility] potassium, serum 3.7 mmol/L [facility] sodium, serum 137 mmol/L [facility] platelet count 241 10*3/uL [facility] hematocrit, blood 39.6 % [facility] HISTORY OF MEDICATION USE Medication Status [...] MOUTH TWICE A DAY - 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 6.25 mg tablet completed TAKE 1 TABLET BY MOUTH TWICE A DAY - Jack Carpenter MD Lasix 20 mg tablet completed Take 1 tablet by mouth once a day - Edgar Hayesjuarez Jardiance 10 mg tablet completed Take 1 tablet by mouth once a day - Rosemarie Rushi rosuvastatin 20 mg tablet active TAKE 1 TABLET BY MOUTH EVERY DAY Rosemarie Unm [facility] alendronate 70 mg tablet active Take 1 tablet by mouth once a week Ammy Murphy IMODIUM A-D CAPSULE active Take 1 tablet once a day Kaylie Seugra METOPROLOL TARTRATE 25 MG ORAL TABLET completed [...] Smyth drug use no [facility] alcohol use no Anderson Liang smoking, year quit 1998 Anderson valadez smoking, date started 1965 Anderson Smyth smoking history, tot al pack/year 34 Anderson Smyth smoking history, tot al pack/day 2-3 Anderson Smyth cigarette use yes Anderson Domínguez smoking status Former smoker Anderson gonzales personal history of marijuana use no Pinky Ventimiglia [facility] drug use no Pinky Ventimig hayder [facility] alcohol use no Pinky Ventimig hayder [facility] smoking, year quit 1998 Pinky Ve ntimiglia [facility] smoking, date started 1965 Pinky Ventimiglia [facility] smoking history, tot al pack/year 34 Pinky Ventimiglia [facility] smoking history, tot al pack/day 2-3 Pinky Ventimiglia [facility] cigarette use yes Pinky Ventimi glia [facility] smoking status Former smoker Pinky Venti miglia [employer]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 yes Radha Hill smoking, year [...] Murphy smoking history, tot al pack/day 2-3 Amym Murphy cigarette use yes Ammy Jeffrey smoking [...] 2-3 Ammy Jeffrey cigarette use yes Ammy Jeffrye smoking status Former smoker Ammy Jeffrey social [...] Armani Oden smoking, year quit 1998 Armani [facility] smoking, date started 1965 Anuj eclia [facility] smoking history, tot al pack/year 60+ Armani [facility] smoking history, tot al pack/day 2-3 Armani [facility] cigarette use yes Armani yi smoking status Former smoker Armani [facility] social history reviewed E&M revi ewed - [...] smoking history, tot al pack/year 60+ Armani [facility] smoking history, tot al pack/day 2-3 Alpa [...] smoking history, tot al pack/day 2-3 Jhony Sheest cigarette use yes Jhony Sheets smoking status [...] Payer name Policy type / Coverage type [employer] ID [facility] Other [facility] Other [employer] MEDICARE ADVANTAGE WALKIEL (PPO) Medicare [id number] ADVANCE DIRECTIVES Name Date DISCUSSED - NO DECISION MADE TREATMENT PLAN Date Name Performer [id number],S,obtain f/u ec ho Jack Carpenter MD [id number],S, P er pulmonary. Jack Carpenter MD [id number],S,T he patient is using CPAP on a regular basis. The patient has been benefiting from therapy and should continue use. Jack Carpenter MD [id number],S, H er updated medication list for this problem includes: Rosuvastatin 20 Mg Tablet (Rosuvastatin) ..... Take 1 tablet by mouth every day Jack Carpenter MD [id number],S,n o angina. could not tolerate carvedilol due to low BP. T he following medications were removed from the medication list: Carvedilol 6.25 Mg Tablet (Carvedilol) ..... Take 1 tablet by mouth twice a day Her updated medication list for this problem includes: Aspirin 81 Mg Tablet,delayed Release (dr/ec) (Aspirin) ..... Take 1 tablet by mouth once a day Jack Carpenter MD [id number],S, Jack Carpenter MD [id number],S,c hf class II o btain f/u echo [...] mouth once a day Jack Carpenter MD [id number],S,S he has 80% stenosis of right subclavian artery but she does not want procedure at this time. Jack Carpenter MD [id number],S,P t has chronic dyspnea. CHF class II, [...] mouth once a day Jack Carpenter MD [id number],C,H er BP was retaken on right side [...] (04/03/2020) HDL: 60 (04/03/2020) Jack Carpenter MD [id number],SCesar i [id number],S, Cesar Chew i [id number],S, Cesar Chew i [id number],S, Cesar Chew i [id number],Cesar Rodriguez i [id number],C, B P today: 132/72 P rior BP: [...] by mouth once a day Aarti Tesfaye [id number],C,P t reports improvement with Jardiance. However not complete resolution of SOB. Will screen her for Vergas trial. H er updated medication list for this problem includes: Carvedilol 6.25 Mg Tablet (Carvedilol) ..... Take 1 tablet by mouth twice a day Lasix 20 Mg Tablet (Furosemide) ..... Take 1 tablet by mouth once a day Aspirin 81 Mg Tablet,delayed Release (dr/ec) (Aspirin) ..... Take 1 tablet by mouth once a day Aarti Carlin [id number],C,P t reports improvement with Jardiance. However not complete resolution of SOB. Will screen her for Vergas trial. H er updated medication list for this problem includes: Carvedilol 6.25 Mg Tablet (Carvedilol) ..... Take 1 tablet by mouth twice a day Lasix 20 Mg Tablet (Furosemide) ..... Take 1 tablet by mouth once a day Aspirin 81 Mg Tablet,delayed Release (dr/ec) (Aspirin) ..... Take 1 tablet by mouth once a day Aarti Carlin [id number],C,P t reports improvement with Jardiance. However not complete resolution of SOB. Will screen her for Vergas trial. Aarti Carlin [id number],C, T he following medications were removed from the medication list: Simvastatin 20 Mg Tablet (Simvastatin) ..... Take 1 tablet by mouth once a day Her updated medication list for this problem includes: Rosuvastatin 20 Mg Tablet (Rosuvastatin) ..... Take 1 tablet by mouth every day Aarti Carlin [id number],C, B P today: 161/96 P rior BP: [...] tablet by mouth once a day [facility] [id number],C, H er updated medication list for this problem includes: Carvedilol 6.25 Mg Tablet (Carvedilol) ..... Take 1 tablet by mouth twice a day Aspirin 81 Mg Tablet,delayed Release (dr/ec) (Aspirin) ..... Take 1 tablet by mouth once a day Aarti Carlin [id number],C,C lincally she is CHF class III. ProBNP [...] by mouth once a day Aarti Carlin [id number],C, H er updated medication list for this problem includes: Simvastatin 20 Mg Tablet (Simvastatin) ..... Take 1 tablet by mouth once a day Aarti Carlin [id number],C,P t complains of SOB with minimal exertion, started about 2 months ago when she stopped exercising. She is s/p CABG and mitral valve repair. Will obtain echo to check the valve. Check proBNP and BMP. Based on the results, we will consider cardiac cath. Aarti Carlin [id number],C,P t complains of SOB with minimal exertion, [...] 1 tablet by mouth once a day Aatri Carlin [id number],C,P t complains of SOB with minimal exertion, [...] by mouth once a day Aarti Carlin [id number],C,E levated today, continues to be normal at home. Jack Carpenter MD [id number],SJack MD [id number],C, H er updated medication list for this problem includes: Simvastatin 20 Mg Tablet (Simvastatin) ..... Take 1 tablet by mouth once a day Jack Carpenter MD [id number],S,O verall feeling well. Pt denies SOB and chest pain. Continue current medications. Jack Carpenter MD [id number],C,O verall feeling well. Pt denies SOB and chest pain. Continue current medications. H er updated medication list for this problem includes: Aspirin 81 Mg Tablet,delayed Release (dr/ec) (Aspirin) ..... Take 1 tablet by mouth once a day Jack Carpenter MD [id number],C,N o complaints of leg pain at this time. Aarti Tomparis [id number],C, H er updated medication list for this problem includes: Simvastatin 20 Mg Tablet (Simvastatin) ..... Take 1 tablet by mouth once a day Aarti Tomparis [id number],C,P t fell and broke her left hip. [...] by mouth once a day Aarti Tomparis [id number],C,E cho showed good repair of the mitral valve. She denies dizziness, chest pain, and SOB. Aarti Carlin [id number],C,W e reminded her to discontinue taking Metoprolol. [...] benefiting from therapy and should continue use. [facility] Cardiology:BP well c ontrolled home RPM average [...] 1 tablet by mouth once a day [facility] Cardiology:LDL 51 r emains on statin therapy H er updated medication list for this problem includes: Rosuvastatin 20 Mg Tablet (Rosuvastatin) ..... Take 1 tablet by mouth every day [facility] Cardiology:She had L 01/03/24 that showed 60-70% [...] 1 tablet by mouth once a day [facility] Cardiology:mild per recent LH C [facility] Cardiology: B P today: 107/89 P rior [...] resolution of SOB. Will screen her for Vergas trial. H er updated medication list for [...] resolution of SOB. Will screen her for Vergas trial. H er updated medication list for [...] resolution of SOB. Will screen her for Vergas trial. Aarti Carlin Cardiology: T he following [...] Cardiology follow up :Orders: C omplete Echo (CPT-[id number]) Armani Oden Cardiology follow up :Doing well [...] Release (Aspirin) ..... Take 1 tab daily [facility] Cardiology follow up :Leg swelling is stable and she is not interested in Venaseal. [facility] follow up Jamar park [facility] follow up :Her updated medication list for this problem includes: Simvastatin 20 Mg Oral Tablet (Simvastatin) ..... Take 1 tab daily [facility] follow up :Angiography revealed stenosis of the R subclavian artery but the L subclavian artery was normal. [facility] follow up :She has significant leg swelling and venous duplex in April showed significant insufficiency of the GSV bilaterally. We will discuss Venaseal if she remains symptomatic with leg swelling in the spring. [facility] follow up :Angiography revealed 50% stenosis of the LRA. [facility] follow up :Angiography revealed 80% stenosis of the R subclavian artery. [facility] follow up :CT coronary calcium score was [...] Release (Aspirin) ..... Take 1 tab daily [facility] follow up :Echo in February showed severe MR. Cardiac cath showed severe MR. REED confirmed severe MR with an eccentric jet with mild prolapse of the anterior leaflet. Agitated saline study was negative. She underwent CABG x2 (CAMPUZANO-diagonal, T-graft radial-PDA) and MV repair by Dr. Prajapati in May. She has recovered well. No chest pain and reports SOB only with excessive exertion. [facility]Health:[facility] TeleHealth:Today BP was elevated but usually it is normal. She will check again and call if it is elevated. [facility] TeleHealth:Myoview scan was norm al. [facility] TeleHealth:The patie nt denies CP or SOB. She is active. Myoview scan was normal. Echo showed severe MR with normal EF and normal LV and LA dimensions. Will repeat echo in March 2020. [facility] Cardiology [facility] Cardiology:Orders: C omplete Echo (CPT-[id number]) [facility] Cardiology:Pt compla ins of pain in the L upper arm. There is some tenderness. Pain is not exertional however she is concerned it may be cardiac pain. Will do stress myoview and echo. [facility] Cardiology:Per pulmonary. [facility] Cardiology:Orders: C omplete Echo (CPT-[id number]) [facility] Cardiology [facility] Cardiology Follow up:Denies ches t pain. [facility] Cardiology Follow up :The patient is using CPAP on a regular basis. The patient has been benefiting from therapy and should continue use. [facility] Cardiology Follow up:Per pulmona ry. [facility] Cardiology Follow up:Per pulmona ry. [facility] Cardiology Follow up :No change in symptoms. EKG is normal. She continues to follow with pulmonary. [facility] Cardiology:Orders: C omplete Echo (CPT-[id number]) Jack Carpenter MD Cardiology:On CPAP. Jack Carpenter [...] completed EKG Jack Carpenter MD completed SNOMED-CT: [id number] Current Medications Documented Jack Carpenter MD completed EKG Jack Carpenter MD completed SNOMED-CT: 923578711 591317 Current Medications Documented Jack Carpenter MD completed SNOMED-CT: 997308896 Smoking Cessation Counseling Jack Carpenter MD completed SNOMED-CT: 06383876 Physical Exam, Performed: Pulse Exam of Foot Jack Carpetner MD completed EKG Jack Carpenter MD completed SNOMED-CT: 480444912 923705 Current Medications Documented Jack Carpenter MD completed
[2025-01-02] MEDS: ACETAMINOPHEN 500 MG TABLET 1000 MG PO (03:53)
[2025-01-02 04:20] VITALS: O2SAT 98
== END 2025-01-02 04:58 | disposition home or self-care (01) ==
PROVIDERS: Emergency Provider Student in an Organized Health Care Education/Training Program; PCP Internal Medicine
DX: S02.2XXA Fracture of nasal bones, initial encounter for closed fracture (principal); I50.9 Heart failure, unspecified; I25.10 Atherosclerotic heart disease of native coronary artery without angina pectoris; J44.9 Chronic obstructive pulmonary disease, unspecified; Z95.1 Presence of aortocoronary bypass graft; Z87.891 Personal history of nicotine dependence; Z79.82 Long term (current) use of aspirin; Z79.02 Long term (current) use of antithrombotics/antiplatelets; W01.198A Fall on same level from slipping, tripping and stumbling with subsequent striking against other object, initial encounter; K74.60 Unspecified cirrhosis of liver; Z79.899 Other long term (current) drug therapy
CPT/HCPCS: 70450; 70486; 72125; 99284; A9270

== ENCOUNTER 2025-02-24 09:20 | Outpatient (CLI) | payer MEDICARE, MEDICAID, SELFPAY ==
--- NOTE | ~2025-02-24 | PE_ITS ---
EXAMINATION: PET skull to mid thigh DATE: 02/24/2025 12:59 INDICATION: Solitary pulmonary nodule TECHNIQUE: Blood glucose level was 84 mg/dL. 9.194 mCi of 18-fluorodeoxyglucose (18-FDG) was administ ered i.v. Low dose computed tomography (CT) images were acquired from the base of the brain to the pr oximal thighs for attenuation correction and anatomic localization. Positron emission tomography (PET ) images were acquired in the same distribution beginning 54 minutes after injection. Images includin g fused PET/CT images were reconstructed in axial, coronal, and sagittal planes. Automated exposure c ontrol technique was employed. The dose-length product was 490.82mGy-cm. COMPARISON: 05/07/2018 FINDINGS: Head/neck: There is symmetric increased activity in the oral cavity, palatine tonsils, anterior cervical paraspi nal muscles, laryngeal muscles and ocular muscles without CT correlate, likely physiologic. There is asymmetric uptake without radiologic correlate along the left levator scapulae muscle which is likely physiologic. No pathologically enlarged cervical lymphadenopathy or suspicious foci of increased FDG uptake in the visualized head or neck. Chest: Severe emphysema with mild biapical pleural-parenchymal scarring. No interval change in size of a 10 x 6 mm right apical nodule without significant FDG activity with maximal SUV of 1.0. New small focus of mild reticular opacity at the posterior superior segment of the right upper lobe where there was p reviously more prominent cavitary lung disease which remains without increased FDG uptake and would f avor focal atelectasis over pneumonia or neoplasm. Mild discoid atelectasis along the inferior left m ajor fissure. No other suspicious pulmonary nodules, pulmonary edema or pleural effusion. Heart size is normal. Atherosclerotic coronary artery calcification. No pericardial effusion. Postoperative snyder ge of prior median sternotomy and mitral valve repair and coronary artery bypass grafting arising fro m the left internal mammary. No pathologically enlarged or FDG avid thoracic lymphadenopathy. Abdomen/pelvis/proximal thighs: Physiologic renal accumulation and excretion of FDG activity in the kidneys, bladder and along portio ns of ureters. Normal degree and heterogenous pattern of increased uptake throughout the liver withou t radiologic correlate or dominant FDG avid lesion. The gallbladder, pancreas, spleen and bilateral a drenal glands are normal. Mild uptake scattered throughout the bowels without radiologic correlate, a lso likely physiologic. Moderate sigmoid diverticulosis without adjacent from trace stranding to sugg est diverticulitis. The uterus is not identified and has likely been surgically resected. No other abnormal foci of increased FDG uptake or pathologically enlarged lymphadenopathy in the abdomen, pel vis or proximal thighs. Musculoskeletal: Likely physiologic increased uptake throughout the musculature of the bilateral upper extremities. Ad ditional likely physiologic increased muscular activity at the left gluteal muscles about the hip. Ol d healed intertrochanteric fracture the proximal right femur which is fixed with an and completely vi sualized antegrade intramedullary johanna and interlocking femoral neck dynamic compression screw. Severe disc height loss with degenerative endplate changes at L1-L2. Otherwise moderate cervical, thoracic and lumbar spondylosis. No suspicious lytic, blastic or abnormally FDG avid bone lesions. IMPRESSION: 1. Severe emphysema with no abnormal increased uptake associated with an unchanged indeterminate 10 x 6 mm nodule at the right apex. While reassuring, would recommend continued radiographic follow-up wi th low-dose noncontrast chest CT in 6 months. 2. No other abnormal FDG avid lesions suspicious for primary malignancy or metastatic disease. Reviewed, dictated and finalized at location A. IMPRESSION: 1. Severe emphysema with no abnormal increased uptake associated with an unchan ged indeterminate 10 x 6 mm nodule at the right apex. While reassuring, would r ecommend continued radiographic follow-up with low-dose noncontrast chest CT in 6 months. 2. No other abnormal FDG avid lesions suspicious for primary malignancy or meta static disease.
--- OUTSIDE RECORDS SUMMARY | 2025-02-24 09:26 | XMS_ITS | Referral Summary ---
Author Organization [facility] Physician Of [facility] [address] [place] [address] Care Team Providers Care Stud Beef Cattle Farmer Name Role Phone Rios Asif MD Primary Care Provider Jefry Prajapati MD Unavailable Jack Carpenter MD Unavailable Encounters Date Type Department Care Team Description 01/08/2025 9:00 AM CDT Office Visit [facility] Cardiology [address] [place] [address] Ramya Avila NP Aortic valve stenosis, etiology of cardiac valve disease unspecified (Primary Dx); Hospital discharge follow-up 12/23/2024 Orders Only [facility] Cardiology [address] [place] [address] Ciara Goel MD 12/16/2024 Orders Only [facility] [place] Health Information Management [address] [place] [address] Scanning, Provider from Last 3 Months Allergies No known [...] (four) hours as needed for wheezing Active calcium carbonate/vitam in D3 (CALCIUM+D ORAL) [...] a day as needed for anxiety rx# 130182 Active empagliflozin (JARDIANCE) 10 mg tablet Take [...] 5 (five) minutes as needed 4 Active furosemide (LASIX) 40 mg tablet Take 1 tablet (40 mg total) by mouth daily 5 Active rosuvastatin (CRESTOR) 20 mg tablet Take 1 tablet (20 mg total) by mouth daily 5 Active Active Problems Problem Noted Date Diagnosed Date CAD S/P percutaneous coronary angioplasty 2023 SOB (shortness of breath) 05/20/2024 CAD (coronary artery disease) 01/10/2024 Coronary artery disease invo lving [place] heart without angina pectoris 05/04/2020 Overview (05/04/2020): Added automatically from request for surgery [id number] Mitral valve insufficiency 05/04/2020 Overview (05/04/2020): Added automatically from request for surgery [id number] Social History Tobacco Use Types Packs/Day Years [...] on file 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 Gender Identity Not on file Sexual Orientation Not on file Last Filed Vital Signs Vital Sign Reading Time Taken Comments Blood Pressure 82/50 01/08/2025 9:02 AM CDT Pulse 72 01/08/2025 9:02 AM CDT Temperature 36.4 C (97.6 F) 06/07/2024 8:24 AM CDT Respiratory Rate 18 06/07/2024 8:24 AM CDT Oxygen Saturation 97% 01/08/2025 9:02 AM CDT Inhaled Oxygen Concentration - - Weight 58.5 kg (129 lb) 01/08/2025 9:02 AM CDT Height 170.2 cm (5' 7) 01/08/2025 9:02 AM CDT Body Mass Index 20.2 01/08/2025 9:02 AM CDT Plan of Treatment Not on file Medical Devices Implanted Type Area Weather Clerk Device Identifier Shelf Expiration Date Model / Serial / Lot [employer] [id number] Iker s Physio Ii 28mm Wilson Sew Mitral Ring - [id number] - [id number] Implanted:Qty: 1 on 05/21/2020 by Jefry Prajapati MD at [facility] N/A: Heart [employer] 04/18/2025 [id number] / [id number] / Description:Mitral ring Medtronic Card Vasc Surgery 2.00 X 15mm Ezequiel Baldwin Rx Coronary Stent [id number] - [id number] Implanted:Qty: 1 on 01/10/2024 by Jack Carpenter MD at [facility] Medtronic Card Vasc Surgery 09/21/2026 [id number] / / [id number] [facility] [employer] Moment Angio-Seal Vip 6fr Closere Device [id number] - [id number] Implanted:Qty: 1 on 01/10/2024 by Jack Carpenter MD at [facility] [id number] / / Medtronic Card Vasc Surgery 3.0 X 15mm Ezequiel Baldwin Rx Coronary Stent [id number] - [id number] Implanted:Qty: 1 on 06/06/2024 by [facility] Card Vasc Surgery 03/28/2027 [id number] / / [id number] [employer] Angio-Seal Vip 6fr Closere Device [id number] - [id number] Implanted:Qty: 1 on 06/06/2024 by Jack Carpenter MD at [facility] [id number] / / Procedures Procedure Name Priority Date/Time Associated Diagnosis Comments SCAN - LABS 12/18/2024 CARDIOLOGY DOCUMENT SCAN Routine 12/17/2024 5:26 PM CDT CARDIOLOGY DOCUMENT SCAN Routine 12/16/2024 5:24 PM CDT SCAN - RADIOLOGY/IMAGING 12/16/2024 from Last 3 Months Results * SCAN - LABS (12/18/2024) us Provider Scanning Final Result * Cardiology Document Scan (12/17/2024 5:26 PM CDT) Anatomical Region Laterality Modality Other us Ciara Goel MD CV CARDIAC SERVICES PROCEDU RES Final Result * Cardiology Document Scan (12/16/2024 5:24 PM CDT) Anatomical Region Laterality Modality Other us Ciara Goel MD CV CARDIAC SERVICES PROCEDU RES Final Result * SCAN - RADIOLOGY/IMAGING (12/16/2024) Anatomical Region Laterality Modality Other us Provider Scanning Edited Result - Final from Last 3 Months Insurance [facility] MEDIC[facility] Address: [address] [address] [place] [facility] MEDICARE ADVANTAGE [facility] MEDIC[facility] Address: [address] [address] [place] [address] Advance Directives For more information, please contact: [phone] * Full Code (Latest Code Status on File) Date Activated Date Inactivated Comments 06/06/2024 10:48 AM 06/07/2024 3:39 PM * Full Code Date Activated Date Inactivated Comments 01/10/2024 1:52 PM 01/11/2024 5:34 PM * Full Code Date Activated Date Inactivated Comments 05/21/2020 4:36 PM 06/07/2020 10:49 PM Care Teams Stud Beef Cattle Farmer Relationship Specialty Start Date End Date Rios Asif MD PCP - General Internal Medicine 04/15/20 Jefry Prajapati MD Surgeon Cardiothoracic Surgery 06/07/20 Jack Carpenter MD Consulting Physician Cardiovascular Disease 06/07/20
--- OUTSIDE RECORDS SUMMARY | 2025-02-24 09:26 | XMS_ITS | Encounter Summary ---
Author Organization [facility] Healthcare Address [address] [place] [address] Care Team Providers Care Field Machinist Name Role Phone Rios Asif MD Primary Care Provider [phone]- [phone] Jefry Prajapati MD Unavailable [phone] Jack Carpenter MD Unavailable Encounter Details Date Type Department Care Team (Late st Contact Info) Description 12/16/2024 Orders Only [facility] [place] Health Information Management [address] [place] [address] Scanning, Provider Social History Tobacco Use Types Packs/Day Years Used Date Smoking Tobacco: Former Cigarettes Q uit: 05/19/2005 Smokeless Tobacco: Never AUDIT-C Answer Date Recorded Q1: How often [...] on file 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 Gender Identity Not on file Sexual Orientation Not on file documented as of this encounter Plan of Treatment Not on file documented as of this encounter Procedures Procedure Name Priority Date/Time Associated Diagnosis Comments SCAN - RADIOLOGY/IMAGING 12/16/2024 documented in this encounter Results * SCAN - RADIOLOGY/IMAGING (12/16/2024) Anatomical Region Laterality Modality Other us Provider Scanning Edited Result - Final documented in this encounter Visit Diagnoses Not on filedocumented in this encounter Care Teams Field Machinist Relationship Specialty Start Date End Date Rios Asif MD PCP - General Internal Medicine 04/15/20 Jefry Prajapati MD Surgeon Cardiothoracic Surgery 06/07/20 Jack aCrpenter MD Consulting Physician Cardiovascular Disease 06/07/20 documented as of this encounter
--- OUTSIDE RECORDS SUMMARY | 2025-02-24 09:26 | XMS_ITS | Clinical Summary ---
Author Organization [facility] [employer] Address [address] [address] Care Team Providers Care Cylinder Worker Name Role Phone Rios Asif MD Primary Care Provider + [phone] Source Comments [facility] [employer],non-owned Affiliates and Associated Physician Practices is amultiple site organization consisting of ambulatory clinics and hospital sitesin [place], [place], [place] and [place]. This disclosure is being madepursuant to the Care Everywhere program and may not contain all information available regarding this patient. Last updated 18.[facility] [employer] Allergies No known active allergies Medications * [...] too small to be biopsied. 05/07/18 PET-CT ([place]): 15 mm RUL nodule without increased activity, [...] on file Legal Sex Female 5:31 PM EEG TECHNICIAN Gender Identity Not on file Sexual Orientation [...] 170.2 cm (5' 7) 09/08/2019 11:05 AM EEG TECHNICIAN Body Mass Index 24.78 09/08/2019 11:05 AM EEG TECHNICIAN Plan of Treatment Health Maintenance Due Date [...] MEDICARE AWV CALENDAR YEAR 2024 INFLUENZA VACCINE (#1) 2025 0, 05/22/2019, 05/09/2018, Additional history exists HEPATITIS B [...] to your last dose Insurance Care Teams Cylinder Worker Relationship Specialty Start Date End Date Rios Asif MD [address] [place] [address] [address] [place] [address] PCP - General 06/04/13
--- OUTSIDE RECORDS SUMMARY | 2025-02-24 09:26 | XMS_ITS | Clinical Summary ---
Author Organization [facility] Physician Of [facility] [address] [place] [phone] Care Team Providers Care Professor Of Environmental Science Name Role Phone Rios Asif MD Primary Care Provider [phone] Jefry Prajapati MD Unavailable [phone] Jack Carpenter MD Unavailable Allergies No known [...] a day as needed for anxiety rx# 532040 Active empagliflozin (JARDIANCE) 10 mg tablet Take [...] disease) 01/10/2024 Coronary artery disease invo lving [place] heart without angina pectoris 05/04/2020 Overview (05/04/2020): Added automatically from request for surgery [id number] Mitral valve insufficiency 05/04/2020 Overview (05/04/2020): Added automatically from request for surgery [id number] Encounters Date Type Department Care Team Description 01/08/2025 9:00 AM CDT Office Visit [facility] Medical Group Cardiology [address] [place] [address] Ramya Avila NP Aortic valve stenosis, etiology of cardiac valve disease unspecified (Primary Dx); Hospital discharge follow-up 12/23/2024 Orders Only [facility] Medical [facility] Cardiology [address] [place] [address] Ciara Goel MD 12/16/2024 Orders Only [facility] [place] Information Management [address] [place] [address] Scanning, Provider from Last 3 Months Surgical History Surgery [...] on file 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 Gender Identity Not on file Sexual Orientation [...] 01/08/2025 9:02 AM CDT Plan of Treatment Health Maintenance Due Date Last Done Comments Depression Screening 1945 Zoster Vaccine (1 of 2) 12/01/1993 Well Visit 65+ 12/01/2008 Osteoporosis Screening-Bone Density Scan 04/11/2024 04/11/2022, 03/31/2022 Influenza Vaccine (#1) 2025 , 05/22/2019, 05/09/2018, Additional history exists Fall Risk Assessment 06/07/2025 06/07/2024 DTaP/Tdap/Td Vaccine (3 - Tdap) 12/22/2027 , 11/04/2008 Pneumococcal vaccine 65+ Completed 09/11/2017, 03/2009 Medical Devices Implanted Type Area Vice Investigator Device Identifier Shelf Expiration Date Model / Serial / Lot [employer] [id number] [facility] Hospital[facility] s Physio Ii 28mm Wilson Sew Mitral Ring - [id number] - [id number] Implanted:Qty: 1 on 05/21/2020 by Jefry Prajapati MD at [facility] N/A: Heart [employer] 04/18/2025 [id number] / [id number] / Description:Mitral ring Medtronic Card Vas Surgery 2.00 X 15mm Ezequiel [place] Rx Coronary Stent [id number] - [id number] Implanted:Qty: 1 on 01/10/2024 by Jack Carpenter MD at [facility] Medtronic Card Vas Surgery 09/21/2026 [id number] / / [id number] [employer] Angio-Seal Vip 6fr Closere Device [id number] - [id number] Implanted:Qty: 1 on 01/10/2024 by Jack Carpenter MD at [facility] [employer] [id number] / / Medtronic [facility] Surgery 3.0 X 15mm Ezequiel [place] Rx Coronary Stent [id number] - [id number] Implanted:Qty: 1 on 06/06/2024 by Jack Carpenter MD at [facility] Medtronic Card Vasc Surgery 03/28/2027 [id number] / / [id number] [employer] Angio-Seal Vip 6fr Closere Device [id number] - [id number] Implanted:Qty: 1 on 06/06/2024 by Jack Carpenter MD at [facility] [employer] [id number] / / Procedures Procedure Name Priority Date/Time [...] - Final from Last 3 Months Insurance [facility] MEDICARE ADVANTAGE [facility] Address: [address] [address] [place] [address] [place] Advance Directives For more information, please contact: [phone] * Full Code (Latest Code Status on File) Date Activated Date Inactivated Comments 06/06/2024 10:48 AM 06/07/2024 3:39 PM * Full Code Date Activated Date Inactivated Comments 01/10/2024 1:52 PM 01/11/2024 5:34 PM * Full Code Date Activated Date Inactivated Comments 05/21/2020 4:36 PM 06/07/2020 10:49 PM Care Teams Professor Of Environmental Science Relationship Specialty Start Date End Date Rios Asif MD PCP - General Internal Medicine 04/15/20 Jefry Prajapati MD Surgeon Cardiothoracic Surgery 06/07/20 Jack Carpenter MD Consulting Physician Cardiovascular Disease 06/07/20
--- OUTSIDE RECORDS SUMMARY | 2025-02-24 09:27 | XMS_ITS | Data Portability ---
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 [email or web address] Not available 12/25/2024 14:18:01 02/04/2025 02/04/2025 Assessment: Nicotine smoke: 1.5 ppd [phone] (quit 10 years in between) = 21 pack years Hypogammaglobuline esequiel 10 mm RUL nodule Mild COPD Mild pulm hypertension Moderate OSAHS, AHI = 29 Plan: The following were reviewed and explained to the patient: PET/CT 05/07/18 RUL nodule without increased activity Chest CT 02/24/20 stable RUL scarring, emphysema Chest CT 12/16/24 10 mm RUL nodule, repeat chest CT in 03/2025 2-D echocardiogram 12/08/20 EF 65%, severe TR, PASP 41 mmHg PFT 01/08/18 FEV1 2.39 L (111%) PFT 12/20/20 FEV1 2.16 L (107%) PFT 12/29/21 FEV1 2.11 L (106%) PFT 01/25/23 FEV1 1.88 L (98%) PFT 02/06/24 FEV1 1.92 L (102%) Lab data 01/11/21 elevated BNP, low IgG2 [facility] diagnostic sleep study 03/24/14 [place] titration sleep study 04/20/14 [facility] hospitalization 12/16/24 - 12/19/24 dyspnea -> cirrhosis with fluid overload -> bronchodilators and IV Lasix -> discharged on p.o. Lasix, spironolactone, 3 Lpm O2 PET/CT scan ordered. PAP compliance downloaded and interpreted x 20 minutes. Data reviewed and explained to the patient. Average apnea/hypopnea index (AHI) is 4.7. Patient used PAP > 4 hours 17% of the time. PAP is set at 4-16 cmH2O. PAP will be reset at 5-9 cmH2O. Oxygen supplementation: none Keep ramp off. Keep EPR off. Patient is benefiting from PAP therapy. Encouraged patient to maintain PAP use more than 70% of the time. Statement of PAP use and benefits will be sent to the home care store. The patient will bring the PAP unit, the hose, the cord, the mask and the card/chip to each follow-up visit for further evaluation and adjustments. Educated the patient on problems and solutions associated with positive airway pressure (PAP) use. Difficulty tolerating pressure, mask leaks, intolerance of interface, nasal congestion, claustrophobic response, dry mouth, and unintentional mask removal during sleep were covered. Dry mouth is a normal occurrence for people who just start out on PAP therapy because they are not used to air blowing in to the throat to hold open. Dry mouth is exacerbated for people who wear nasal PAP mask and whose jaw drops open during sleep. Not only does this create a much less efficient therapy because of leakage, it also causes dry mouth. There are a couple solutions to help prevent this type of problem. A simple solution would be to wear a chinstrap which essentially holds the jaw in place. A second solution would be a switch to a full face mask which covers both the nose and mouth. Although this is another easy solution, using a full face mask for some could seem claustrophobic or confining. There is no silver bullet solution as no single mask is right for everybody. Sometimes it takes a bit of experimentation to find a PAP mask which best meets the patient's needs as well as fits comfortably. Another tactic is to use a humidifier on your PAP machine. Most new PAP machines have integrated humidifiers. Humidification is pineda when dealing with symptoms of dry mouth because the humidifier can supply both warm and room temperate air. Even a small amount of humidity in the airflow will help nasal passages to stay hydrated. If a person is using both a full face mask and a PAP machine with a heated humidifier and is still experiencing dry mouth, an ill-fitted PAP mask might be causing the problem. Leakage can be caused by a mask that is to large or small, the wrong style mask, the cushion is degraded or simply because the mask's straps aren't adjusted correctly. If leakage occurs, dry air from the room can leak in while humidification escapes. The result is reduced humidification within the circuit and resulting in dry throat and mouth. Finally, beyond factors involving the PAP machine and mask, dry mouth can also be caused or worsened by dehydration. The general recommendation to during eight 8 oz. glasses of water a day might be too little for many people. When people drink large amounts of coffee or other caffeine beverages, or sweat a lot during the day, making sure to rehydrate is an important part of PAP therapy. CPAP supplies ordered through [employer]. A major predictor of success with use of PAP is follow-up with both the respiratory supplier and the treating physician. To help assess adherence, a downloadable card/chip is ordered with the PAP equipment. The card/chip will be downloaded by the respiratory supplier and sent to the treating physician. The download results can show the treating physician information about adherence to treatment, residual AHI while on treatment and presence of large mask leakage. This information is especially helpful if the patient has residual sleepiness despite treatment. Advised to continue not to smoke. Continue albuterol HFA as needed. Continue Anoro Ellipta 62.5/25 mcg as needed. The patient does not know how to accurately administer the inhalers. Today, the patient was shown how to take these medications. The proper technique for delivering these medications was instructed. The patient expressed a clear understanding and demonstrated back how to use these medications. Without the proper technique, the patient will not reap the benefits of these medications as the contents will not reach the lower airways as intended to be. Adherence to therapy is advocated. Nonadherence may lead to treatment failure, further progression of the condition, and other complications. Hospitals admissions are often the result of individuals not taking prescription medications accurately. Alternatively, greater adherence to medication regimens have shown to lower rates of hospitalization and decrease total medical costs in patients with chronic medical conditions. Advocated influenza vaccination annually and pneumonia booster PPV23 JACQUE. Encouraged patient to adjust caloric intake to maintain/achieve ideal body weight, emphasizing on fruits, vegetables, whole grains, and fat-free or low-fat products. These include lean meats, poultry, fish, beans, eggs, and nuts and foods that are low in saturated fats, trans-fats, cholesterol, salt (sodium), and glycemic index. Stressed the importance of regular exercise up to the patient's capacity limits. In this case, we recommend regular (4 x a week or more) walking or other light activity. Patient to monitor BP daily and bring records to PCP for further management. Follow-up: 1 week after PET/CT scan [email or web address] Not available 02/04/2025 15:05:35 Plan of Treatment Reminders Order Date Submit Date Provider Last Modified By Organization Details Last Modified Time Details Appointments Any 15 2024 09:45A M Gabo Asif MD Not available Not available Not available Lab CMP, serum or plasma 2024 025 [place] [employer] [facility], [address], [facility], [place], [address], 12/05/2024 13:53:07 Referral None recorded. Procedures None recorded. Surgeries None recorded. Imaging PET-CT, skull base to mid-thigh scan - Updated order. Note from provider: 10 mm RUL nodule 2024 025 [facility], [address], [place], [address], 02/18/2025 14:37:38 Medication Orders albuterol sulfate HFA 90 mcg/actua tion aerosol inhaler 2024 025 [facility] #[id number], [address], [place], [address], 02/04/2025 15:05:43 Anoro Ellipta 62.5 mcg-25 mcg/actua tion powder for inhalatio n 2024 025 [facility] #[id number], [address] , [place], [address], 02/04/2025 15:05:44 clopidogr el 75 mg tablet 2024 025 [id number], [address], [place], [address], 11/20/2024 10:38:55 tramadol 50 mg tablet 2023 024 [email or web address] [email or web address] [id number], [address], [place], [address], 11/20/2024 10:11:44 Patient TargetsNo targets recorded. Patient Instructions Encounter Date Encounter Id Patient Instructions Last Modified By Organization Details Last Modified Time 11/20/2024 [id number] Not available 11/20/2024 10:37:47 12/04/2024 [id number] Increase fluids and electrolyte drinks. Continue on BRAT diet. Use otc Immodium as discussed if needed. Call office on Sunday to let us know update, will call with lab results. [email or web address] Not available 12/04/2024 11:34:32 12/25/2024 [id number] Thank you for your visit to our office today. We would [...] concerns. Keep appointments with pulmonology and Dr. Asif for wellness. Not available 12/25/2024 14:25:23 Homebound Status : no Required Home Health Services: home health, physical therapy, occupational therapy Durable Medical Equipment needed: [email or web address] at all times Billing Guidelines CPT code 37450- Transitional Care Management services with moderate medical decision complexity (wbog-zx-wcxs visit within 14 days of discharge). CPT code 36400- Transitional Care Management services with high medical decision complexity (haqq-wm-dfjx visit within 7 days of discharge). Not available 12/25/2024 14:23:14 Reason for Referral None Reported. Results Created Date Observation Date Name Description Value Unit Range Abnormal Flag Note LastModifiedBy Organization Detail LastModifiedTime 09/12/1909/12/2024 DEXA, axial skele ton [facility] [address] [facility], [place] [address] Ryan lorenz Name: ZORAIDA LEAL MS Access ion #: [id number] Sex: F : 1945 1 Locati [...] g/cm2 calciu m Page 1 of 2 [facility] Ryan lorenz Name: ZORAIDA LEAL MS Access ion #: [id number] Sex: F : 1945 1 Exam [...] (CT) (CT) Page 2 of 2 [email or web address] [facility] (Imaging) [address] [place], [address], 09/17/2024 14:51:49 01/08/20 25 12/15/2024 CT, chest , w/ contr ast No observ ation record ed. BARCODE Not Available 2024 08:23:20 Result Notes Documentation Provider Name and Address Organization Details Recorded Time Dexa, Axial Skeleton : [facility] [address] [place] [address] Patient Name: ZORAIDA FERREIRA Sex: F : 1945 Location: [facility] Attending Physician: GABO ASIF Ordering Physician: GABO ASIF Exam Date: 09/12/2024 10:41 AM Exam Name: XR DEXA-HIPS PELVIS SPINE Admitting Diagnosis(es): RADIOLOGY REPORT - FINAL EXAM: XR DEXA-HIPS PELVIS SPINE HISTORY: asymptomatic menopausal state 78-year-old female with osteoporosis screening. COMPARISON: DEXA scan dated 04/11/2022. TECHNIQUE: Dual energy x-ray of absorption examination of the left hip and lumbar spine was performed in AP projection. FINDINGS: Lumbar Spine (L1-L4): The mean bone mineral density is 1.176 g/cm2 hydroxyapatite, correlating with a T-score of -0.2. BMD of the lumbar spine is increased 11.7% since the prior study. Left hip: The total bone mineral density is 0.835 g/cm2 calcium Page 1 of 2 [facility] Patient Name: ZORAIDA FERREIRA Sex: F : 1945 Exam Date: 09/12/2024 10:41 AM Exam Name: XR DEXA-HIPS PELVIS SPINE Admitting Diagnosis(es): hydroxyapatite, correlating with a T-score of -1.4. BMD of the left hip is increased 20.3% since the prior study. Risk of major osteoporotic fracture 22.9%; risk of hip fracture 7.3%. IMPRESSION: 1. The patient's lumbar spine T-score is consistent with normal bone mineral density overall. It should be noted that the BMD at L4 is consistent with osteopenia. 2. The patient's bilateral hip T-score is consistent with osteopenia. According to the World Health Organization, T-score values greater than -1.0 are normal, values between -1.0 and -2.5 are categorized as osteopenia, T-score of -2.5 or more are categorized as osteoporosis. Created and electronically signed by: Anderson Ramirez MD Signed Date: 09/12/2024 12:07 PM (CT) Dictated by: Anderson Ramirez MD (CT) (CT) Page 2 of 2 JR Yuen, [place] [employer] 09/17/2024 14:51:49 Problems Name Problem SNOMED Code Status Onset Date Resolution Date Notes Provider Name and Address Organization Details Recorded Time Gastroesop hageal reflux disease 569008572 Active Not Available [facility] 3 16:15:19 Pain in right lower limb 331222526 Completed Not Available [facility] 3 01:05:09 Chest pain 53735004 Completed Not Available [facility] 3 01:05:09 History of polyp of colon 035443723 Active Not Available [facility] 3 16:15:19 Acute urinary tract infection 624449282 Completed Yecenia Han MD [address] [facility] [address], [place] [address], [place], [address] , [employer] [facility] [employer] [facility] 5 13:17:55 Herpes zoster 6232524 Active Yecenia Han MD [address] [facility] [address], [address], [place], [address] , [employer] [facility] [employer] [facility] 5 13:18:18 Anxiety 88221581 Active Not Available [facility] 3 16:15:19 Mitral valve regurgitat ion 82641771 Completed Not Available [facility] 3 01:05:11 Upper respirator y infection 56901756 Completed Not Available [facility] 3 01:05:11 Hyperlipid emia 43917197 Active Not Available [facility] 3 16:15:19 Diarrhea 40355174 Completed Not Available [facility] 3 01:05:11 Pulmonary emphysema 13650619 Completed Not Available [facility] 3 01:05:13 Osteopenia 138145155 Active 2017 Not Available [facility] 3 16:15:19 Diverticul itis 938941025 Active 2017 Not Available [facility] 3 16:15:19 Autoimmune hepatitis 576079110 Active 2017 Not Available [facility] 3 16:15:19 Sleep apnea 32070378 Completed 201701/06/2021 Not Available [facility] 3 01:05:12 Sj gren's syndrome 04102946 Active 2017 Not Available [facility] 3 16:15:20 Multiple nodules of lung 657484626 Completed 201701/06/2021 Not Available [facility] 3 01:05:10 Obstructiv e sleep apnea syndrome 26523293 Active 2017 Not Available [facility] 3 16:15:20 Coronary arterioscl erosis 89201247 Active 2019 Not Available [facility] 3 16:15:19 Screening mammograph y Completed 202103/30/2022 Not Available [facility] 3 01:05:08 Long-term drug therapy Completed 202103/30/2022 Not Available [facility] 3 01:05:09 Solitary nodule of lung 173674720 Active 2021 Not Available [facility] 3 16:15:19 Postmenopa usal state 26299750 Completed 202103/30/2022 Not Available [facility] 3 01:05:12 Vitamin D deficiency 09820510 Active 2022 Yecenia Han MD [address], [address], [place], [address] , [employer] 5 13:18:40 Osteoarthr itis 278675555 Active 2022 eYcenia Han MD [address], [address], [place], [address] , [employer] 5 13:18:38 Mild chronic obstructiv e pulmonary disease 949289861 Active 2022 Yecenia Han MD [address], [address], [place], [address] , [employer] 5 13:18:35 Aortic valve stenosis 47730624 Active 2023 Yecenia Han MD [address], [address], [place], [address] , [employer] 5 13:18:21 Carotid artery stenosis 27588560 Active 2024 Yecenia Han MD [address], [address], [place], [address] , [employer] 13:18:24 History of heart failure 161437771 Active 2024 ELIZABETH Guerrero [address], [address], [place], [address] , [employer] 5 10:50:32 Nodule of lung 361469726 Active 2024 Yecenia Han MD [address], [address], [place], [address] , [employer] 14:54:47 Notes:Medical History: Anxie ty/Depression Sjogren's syndrome ARMD Ige 2 IU/mL Eosinophils 120/uL Postnasal drip Herpes labialis Herpes zoster Moderate OSAHS, AHI = 29, 03/24/14, on autoCPAP c/o [employer] Hypertension Hyperlipidemia CAD EF 65% Elevated BNP Severe TR with PASP 41 mmHg Mild AR Alpha-1 antitrypsin PiMM 256 mg% Mild COPD RUL nodule CRUZ Alcohol use Cirrhosis Diverticulosis/Diverticulitis Osteopenia Right hip osteoarthritis Procedure History: Colonoscopy with polypectomy 2018 MV repair for MR 2020 2 vessel CABG 2019 Coronary artery stent placement 2023 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 Procedures Surgical History Date Name Laterality Status Provider Name and Address Organization Details Recorded Time 12/26/19 25 Transitional_Care _Management completed ELIZABETH Guerrero [address], [address], [place], [address], [employer] 12/25/2024 09:49:24 11/21/19 25 Medicare Wellness CPT Code, subsequent completed JR Yuen [employer] 11/20/2024 10:06:39 07/23/20 24 Medicare Wellness CPT Code, subsequent completed Brit Gregg RN [employer] 07/23/2024 11:40:15 04/13/20 23 Medicare Wellness CPT Code, subsequent completed Maggi Molina RN [place] [employer] [facility] [employer] 04/13/2023 11:21:23 03/23/20 23 Date of Last Mammogram completed Maggi Molina RN [facility] 04/13/2023 11:45:20 04/11/20 22 Most Recent Bone Density completed Maggi Molina RN [facility] 04/13/2023 11:45:37 04/25/20 21 Date of Last Colonoscopy completed Not Available [facility] 10/04/2022 00:52:45 08/06/19 21 Hip surgery completed Rosa Cardona MA [facility] [employer] 01/25/2023 15:14:42 05/21/20 20 open heart surgery completed Not Available [facility] 10/04/2022 00:52:48 colonoscopy completed Not Available [facility] 10/04/2022 00:52:48 Tonsillectomy completed Not Available [facility] 10/04/2022 00:52:48 Imaging Results None recorded. Procedure [...] a day by oral route as needed. 02/06 /2018 completed Not Available Not Available Not Available [...] Not Available mupirocin 2 % topical ointment APPLY INTO BOTH NOSTRILS 3 TIMES DAILY active Not Available Not Available No t Available zolpidem 5 mg tablet 2017 active [...] sulfate HFA 90 mcg/actua tion aerosol inhaler Inhale 1 puff every 4 hours by inhalati on route as needed. 2024 active Not Available Not Available Not Avai lable Cipro 250 mg tablet Take 1 tablet [...] %-dexamet hasone 0.1 % eye drops,[facility] completed Not Available Not [...] mcg-25 mcg/actua tion powder for inhalatio n Inhale 1 inhalati on every day by inhalati on route as directed . 2024 active Not Available Not Available Not Avai lable Jardiance 10 mg tablet TAKE 1 TABLET BY MOUTH EVERY DAY active Not Available Not Available No t Available Spiriva Respimat 2.5 mcg/actua tion solution [...] Available Not Available Not Available Fluzone High-Dose 2018- (PF) 180 mcg/0.5 mL intramusc ular syringe [...] in Arterial blood by Pulse oximetry Systolic And Diastolic Provider Name and Address Organization Details Last Updated DateTime 5 170.18 cm 21.6 kg/m2 43116.7 5 g 97.2 [degF] 82 /min 92 % 92 % 122/60 mm[Hg] JR Casillas [employer] 5 10:08:39 Date Recorded Body height Body mass index (BMI) Body weight Body temperature Oxygen saturation Oxygen saturation in Arterial blood by Pulse oximetry Heart rate Systolic And Diastolic Provider Name and Address Organization Details Last Updated DateTime 5 170.18 cm 21.5 kg/m2 63827.1 5 g 97.7 [degF] 94 % 94 % 74 /min 100/62 mm[Hg] Lima burris [employer] 5 10:52:37 Date Recorded Body height Body mass index (BMI) Body weight Body temperature Oxygen saturation Oxygen saturation in Arterial blood by Pulse oximetry Inhaled oxygen flow rate Heart rate Systolic And Diastolic Provider Name and Address Organization Details Last Updated DateTime 5 170.18 cm 20.4 kg/m2 56676.0 1 g 97.8 [degF] 96 % 96 % 3 L/min 89 /min 120/78 mm[Hg] Lima burris [place] [employer] [facility] [employer] 5 12:06:16 Date Recorded Heart rate Oxygen saturation Oxygen saturation in Arterial blood by Pulse oximetry Heart rate Respiratory rate Provider Name and Address Organization Details Last Updated DateTime 84 /min 95 % 95 % 84 /min 14 /min Yecenia Han MD [address] [facility], [facility], [place], [address], [place] [employer] [facility] [employer] 14:59:39 Date Recorded Body height Body mass index (BMI) Body weight Body temperature Systolic And Diastolic Provider Name and Address Organization Details Last Updated DateTime 02/04/2025 170.18 cm 20.4 kg/m2 74082.0 1 g 97.8 [degF] 120/60 mm[Hg] Rosa Cardona MA [employer] [facility] [employer] 14:42:50 Date Recorded Body height Body temperature Body mass index (BMI) Body weight Provider Name and Address Organization Details Last Updated DateTime 08/05/2024 170.18 cm 97.2 [degF] 21.1 kg/m2 05679.97 g Lima Quezada [place] [employer] [facility] [employer] 08/05/2024 11:59:43 Social History Question Answer Notes LastModified by Organization Details LastModified Time Tobacco Smoking Status Former Smoker quit 1992 Not Available [facility] 10/04/2022 00:52:07 Do You Have An Advance Directive? Yes Asked To Bring Papers For Chart [id number] Information not available 10/04/2022 Are You Blind Or Do You Have Difficulty Seeing? No [email or web address] [id number] Information not available 10/04/2022 What Is Your Level Of Caffeine Consumption? Moderate [email or web address].030 [id number] Information not available 10/04/2022 How Much Tobacco Do You Chew? None [email or web address] [id number] Information not available 10/04/2022 In The 14 Days Before Symptom Onset, Have You Had Close Contact With A Laboratory-confi rmed COVID-19 While That Case Was Ill? No [email or web address].030 [id number] Information not available 10/04/2022 In The 14 Days Before Symptom Onset, Have You Had Close Contact With A Person Who Is Under Investigation For COVID-19 While That Person Was Ill? No [email or web address].[id number] [id number] Information not available 10/04/2022 Are You Deaf Or Do You Have Serious Difficulty Hearing? No [email or web address].0301 [id number] Information not available 10/04/2022 What Type Of Diet Are You Following? REGULAR [email or web address].0301 [id number] Information not available 10/04/2022 Which Illicit Or Recreational Drugs Have You Used? None MIGRATION.0301 [id number] Information not available 10/04/2022 Do You Have An Electrostatic Air Filter? No Information not available 02/04/2025 What Is The Fluoride Status Of Your Home? Fluoridated MIGRATION.0301 [id number] Information not available 10/04/2022 When Did You Quit Smoking? 16+yearssincelastci garette MIGRATION.0301 [id number] Information not available 10/04/2022 Are There Any Guns Present In Your Home? No MIGRATION.0301 [id number] Information not available 10/04/2022 Do You Have A Humidifier? No Information not available 02/04/2025 Where Do You Live? [place]LevelHouse MIGRATION.0301 [id number] Information not available 10/04/2022 Presence Of Domestic Violence No [email or web address] Information not available 04/13/2023 Are You Able To Care For Yourself? Yes [email or web address] Information not available 04/13/2023 Are You Blind Or Do Yo Have Difficulty Seeing? No [email or web address] Information not available 04/13/2023 Are You Deaf Or Do You Have Serious Difficulty Hearing? No [email or web address] Information not available 04/13/2023 Live Alone Of With Others? Alone [email or web address] Information not available 04/13/2023 Do You Have Moisture Problems In Your Home? No Information not available 02/04/2025 What Was The Date Of Your Most Recent Tobacco Screening? 02/04/2025 Information not available 02/04/2025 What Is Your Current Pack Years? [email or web address] MIGRATION.0301 [id number] Information not available 10/04/2022 Do You Have Any Pets? Yes [email or web address].0301 [id number] Information not available 10/04/2022 What Is Your Relationship Status? MIGRATION.0301 [id number] Information not available 10/04/2022 Do You Use Your Seat Belt Or Car Seat Routinely? Yes MIGRATION.0301 [id number] Information not available 10/04/2022 Do You Have Smoke And Carbon Monoxide Detectors In Your Home? Yes MIGRATION.0301 [id number] Information not available 10/04/2022 At What Age Did You Start Smoking Tobacco? 18 MIGRATION.0301 [id number] Information not available 10/04/2022 How Much Tobacco Do You Smoke? 3+ PPD MIGRATION.0301 [id number] Information not available 10/04/2022 Do You Use Sunscreen Routinely? No MIGRATION.0301 [id number] Information not available 10/04/2022 How Many Years Have You Smoked Tobacco? 29 MIGRATION.0301 [id number] Information not available 10/04/2022 Do You Have Difficulty Walking Or Climbing Stairs? No MIGRATION.0301 [id number] Information not available 10/04/2022 Sex: Female Functional Status Question Answer Note LastModified by [employer] ion Details LastModified Time What is your level of alcohol consumption? Occasional MIGRATION.28116 [id number] Information not available 10/04/2022 Do you or have you ever used smokeless tobacco? Never used smokeless tobacco MIGRATION.80498 13040 Information not available 10/04/2022 Have you been exposed to chemicals or toxins? not that aware of Information not available 02/04/2025 Do you have transportation difficulties? No MIGRATION.03667 98261 Information not available 10/04/2022 Are you able to walk? YESWOREST MIGRATION.43565 53375 Information not available 10/04/2022 Do you have difficulty doing errands alone? No MIGRATION.78589 99282 Information not available 10/04/2022 Are you able to care for yourself? Yes MIGRATION.14875 82158 Information not available 10/04/2022 What is your occupation? retired MIGRATION.33704 56011 Information not available 10/04/2022 Do you have difficulty dressing or bathing? No MIGRATION.39953 88513 Information not available 10/04/2022 Do you or have you ever used e-cigarettes or vape? Never used electronic cigarettes MIGRATION.49100 65026 Information not available 10/04/2022 What is your exercise level? Occasional MIGRATION.33695 55361 Information not available 10/04/2022 Mental Status Question Answer Note LastModified by Organizat ion Details LastModified Time Do you feel stressed (tense, restless, nervous, or anxious, or unable to sleep at night)? [id number] Information not available 07/23/2024 Do you have difficulty concentrating, remembering or making decisions? No MIGRATION.[id number] 26 Information not available 10/04/2022 Family History Relationship Description Onset Age of this Age Resolved Age Notes LastModified by Organization Details LastModified Time Mother Malignant neoplastic disease MIGRATION.412 [id number] Not available 10/04/2022 00:53:01 Mother Family history of malignant neoplasm MIGRATION.588 [id number] Not available 10/04/2022 00:53:01 Brother Heart disease MIGRATION.389 [id number] Not available 10/04/2022 00:53:01 Sister Heart disease MIGRATION.319 [id number] Not available 10/04/2022 00:53:01 Sister Hypertensive disorder MIGRATION.618 [id number] Not available 10/04/2022 00:53:01 Sister Diabetes mellitus MIGRATION.083 [id number] Not available 10/04/2022 00:53:01 Medical History Condition Response COPD Y HIGH CHOLESTEROL / HYPERLIPIDEMIA Y GERD/NAUSEA Y OSTEOPOROSIS Y CORONARY ARTERY DISEASE (CAD) Y ARTHRITIS Y HEPATITIS / LIVER DISEASE Y HERPES Y VASCULAR DISEASE Y ANXIETY DISORDER Y Gynecological History Statement/Question Response Date of Last Pap Date of Last Mammogram 07/02/2018 Date of Last Colonoscopy 04/25/2021 Date of Last Mammogram 03/23/2023 Most Recent Bone Density 04/11/2022 Obstetrics History GPAL:G 0 P 0 0 0 0 Immunizations Vaccine Type Date Status Note Provider Nam e and Address Organization Details Recorded Time Influenza, split virus, trivalent, PF 3 completed Not Available [facility] 02/12/2023 16:15:20 pneumococcal polysaccharide PPV23 9 completed Not Available [facility] 02/12/2023 16:15:20 DTaP 9 completed Not Available [facility] 02/12/2023 16:15:20 Influenza, split virus, trivalent, PF 1 completed Not Available [facility] 02/12/2023 16:15:20 COVID-19, mRNA, LNP-S, PF, 30 mcg/0.3 mL dose 2 completed Not Available [facility] 02/12/2023 16:15:20 COVID-19, mRNA, LNP-S, PF, 30 mcg/0.3 mL dose 1 completed Not Available [facility] 02/12/[facility]23 16:15:20 SARS-COV-2 (COVID-19) vaccine, UNSPECIFIED 1 completed Not Available [facility] 02/12/2023 16:15:20 SARS-COV-2 (COVID-19) vaccine, UNSPECIFIED 1 completed Not Available [facility] 02/12/2023 16:15:20 Influenza, high-dose, trivalent, PF 0 completed Not Available [facility] 02/12/2023 16:15:20 Influenza, split virus, trivalent, PF 0 completed Not Available [facility] 02/12/2023 16:15:20 Influenza, split virus, quadrivalent, preservative 9 completed Not Available [facility] 02/12/2023 16:15:20 Td (adult), 5 Lf tetanus toxoid, preservative free, adsorbed 8 completed Not Available [facility] 02/12/2023 16:15:20 Influenza, high-dose, quadrivalent, PF 1 completed Not Available [facility] 02/12/2023 16:15:20 Influenza, high-dose, trivalent, PF 8 completed Not Available [facility] 02/12/2023 16:15:20 Td (adult), 2 Lf tetanus toxoid, preservative free, adsorbed 8 completed Not Available [facility] 02/12/2023 16:15:20 Pneumococcal conjugate PCV 13 8 completed Not Available [facility] 02/12/2023 16:15:20 Influenza, high-dose, trivalent, PF 7 completed Not Available [facility] 02/12/2023 16:15:20 Influenza, high-dose, trivalent, PF 5 completed Not Available [facility] 02/12/2023 16:15:20 Hep B, adult 4 completed Not Available [facility] 02/12/2023 16:15:20 Hep A, adult 4 completed Not Available [facility] 02/12/2023 16:15:20 Influenza, split virus, trivalent, PF 4 completed Not Available [facility] 02/12/2023 16:15:20 Hep B, adult 4 completed Not Available [facility] 02/12/2023 16:15:20 Hep A, adult 4 completed Not Available [facility] 02/12/2023 16:15:20 Hep B, adult 4 completed Not Available [facility] 02/12/2023 16:15:20 Past Encounters Encounter ID Performer Location Encounter Start Date Encounter Closed Date Diagnosis/Indication Diagnosis SNOMED-CT Code Diagnosis ICD10 Code Diagnosis Note [id number] Elham Arguelles, [facility] [place] [address] 10/11/2020 00:00:00 10/11/2020 17:06:32 [id number] Gabo Asif MD S_[facility] Internal Med [address] [place] [address] 7 12/14/2020 00:00:00 12/14/2020 14:13:31 [id number] _ATHN_MIGR ATION_1 _ATHENA_M IGRATION_ DEFAULT_1 _1 , 12/15/2020 00:00:00 12/15/2020 16:51:14 [id number] Yecenia Han MD S_[facility] Pulmonolo [address] [address] 01/11/2021 00:00:00 01/11/2021 11:31:25 [id number] Phillip So MD AHEliot_GMG [place] [address] 01/12/2021 00:00:00 01/12/2021 15:27:41 [id number] Yecenia Han MD S_[facility]G [place] [address] 0 01/19/2021 00:00:00 01/19/2021 16:41:35 [id number] Phillip So MD [facility]_GMG [address] [address] 02/16/2021 00:00:00 02/16/2021 17:28:54 [id number] Gabo Asif MD [facility] Internal Med [place] [address] [place] [address] 04/19/2021 00:00:00 04/19/2021 11:49:55 [id number] Phillip So MD [facility] [place] [address] [facility] [address] [place] [address] 04/26/2021 00:00:00 04/26/2021 12:39:55 [id number] Phillip So MD [facility] [place] [address] [facility] [address] [place] [address] 08/23/2021 00:00:00 08/23/2021 12:25:48 [id number] Gabo Asif MD [facility] Internal Med [address] [address] 09/16/2021 00:00:00 09/16/2021 11:59:37 [id number] Yecenia Han MD [facility] Pulmonolo [facility] [address] [place] [address] 01/25/2022 00:00:00 01/25/2022 12:32:14 [id number] MD LIDIA CarlinS_GMG Internal Med [address] [address] 04/05/2022 00:00:00 04/05/2022 16:41:01 [id number] MD LIDIA CarlinS_[facility]G Internal Med [address] [address] 08/15/2022 00:00:00 08/15/2022 13:32:43 [id number] MD LIDIA CarlinS_[facility]G Internal Med [address] [address] 12/13/2022 10:39:49 12/13/2022 11:15:54 Coronary arteriosclerosis 19241474 I25.10 no symptoms Autoimmune hepatitis 408 811829 K75.4 s/p biopsy seeing hepatologi st, Hyperlipidemia 38431908 E78.5 stable Chronic ob structive pulmonary disease 44314298 J44.9 under control Gastroesop hageal reflux disease 806548033 K21.9 needs meds daily to control symptoms Anxiety 83550035 F41.9 under control with meds 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 Osteopenia 496717132 M85 .80 on calcium w/ vit D, Solitary n odule of lung 297869500 R91.1 CT scan is done periodical ly, s/p bronchosco py s/p biopsy, seeing pulmonolog ist, LDCT nl 09/27 Osteoarthritis 589327143 M19.90 otc Hyperglycemia 97645142 R 73.9 on jardiance, nl A1c Adult heal th examination 761314954 Z00.00 Colonoscop y- 04/2021- in chartMammo gram- 11/2021LDC T- 2DEX A- ne umovax- 01/11/2009 Prevnar 2017FLU- 2COV ID- 09/29/20, 10/27/20 Screening mammography 24 315148 Z12.31 [id number] Yecenia Han MD [facility] Pulmonolo gy [address] [place] [address] 01/25/2023 14:54:22 01/26/2023 09:58:16 Mild chronic obstructive pulmonary disease 904539614 J44.9 Obstructiv e sleep apnea syndrome 98058859 G47.33 [id number] Gabo Asif MD [facility] Internal Med [address] [facility] 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 092661 K75.4 s/p biopsy seeing hepatologi st, Hyperlipidemia 26413014 E78.5 stable Chronic ob structive pulmonary disease 60600953 J44.9 under control Gastroesop hageal reflux disease 884373535 K21.9 needs meds daily to control symptoms Anxiety 87775143 F41.9 under control with meds Sj gren's syndrome 20772902 M35.00 no more sx Osteopenia 472782482 M85 .80 on calcium w/ vit D, Solitary n odule of lung 339938514 R91.1 CT scan is done periodical ly, s/p bronchosco py s/p biopsy, seeing pulmonolog ist, CT 01/26 Osteoarthritis 201931345 M19.90 ot Hyperglycemia 37992727 R 73.9 on jardiance, nl A1c Adult heal th examination 676128863 Z00.00 Colonoscop y- 04/2021- in chartMammo gram- 03/2023LD T- 09/2021 -CT 01/26DEXA- ne umovax- 01/11/2009 Prevnar 2017FLU- OV ID- 09/29/20, 10/27/20 Screening for disorder 968044256 Z13.9 [id number] Gabo Asif MD [facility] Internal Med [address] [place] [address] 07/23/2023 09:42:32 07/23/2023 10:30:59 Coronary arteriosclerosis 79406184 I25.10 no symptoms Autoimmune hepatitis 408 448104 K75.4 s/p biopsy seeing hepatologi st, Hyperlipidemia 06823840 E78.5 stable Chronic ob structive pulmonary disease 15244074 J44.9 under control Gastroesop hageal reflux disease 578742454 K21.9 needs meds daily to control symptoms Anxiety 93330313 F41.9 under control with meds Sj gren's syndrome 64093866 M35.00 no more sx Osteopenia 975728195 M85 .80 on calcium w/ vit D, Solitary n odule of lung 118009629 R91.1 CT scan is done periodical ly, s/p bronchosco py s/p biopsy, seeing pulmonolog ist, CT 01/26 Osteoarthritis 855159110 M19.90 ot Adult heal th examination 276227837 Z00.00 Colonoscop y- 04/2021- in [facility]- 03/2023[facility] T- 09/2021 -CT 01/26DEXne umovax- 01/11/2009 Prevnar 2017FLU05/2023- [facility]20[facility] 10/[facility]20[facility] Long-term drug therapy 222572169 Z79.671 [id number] Gabo Asif MD S_G Internal Med [address] [facility] [place] [address] 11/22/2023 09:47:46 11/22/2023 10:16:49 Coronary arteriosclerosis 25589178 I25.10 no symptoms Autoimmune hepatitis 408 752897 K75.4 lft stable Hyperlipidemia 24180216 E78.5 stable Chronic ob structive pulmonary disease 62781980 J44.9 under control Gastroesop hageal reflux disease 796403531 K21.9 needs meds daily to control symptoms Anxiety 47258495 F41.9 under control with meds Sj gren's syndrome 94329508 M35.00 no more sx Osteopenia 461320834 M85 .80 on calcium w/ vit D, Solitary n odule of lung 804909599 R91.1 being watched Osteoarthritis 563732693 M19.90 [facility] Adult heal th examination 830717185 Z00.00 Colonoscop y- 04/2021- in [facility]- 03/2023[facility] T- 09/2021 -CT 01/26DEXA- ne umovax- 01/11/2009 Prevnar 2017FLU05/2023- [facility] 09/29/20, 10/27/20, [facility] Aortic valve stenosis 60 773452 I35.0 getting card cath History of repair of mitral valve 530418548 Z98.890 no symptoms Low blood pressure 40531 003 I95.9 off carvedilol , no symptoms [id number] Yecenia Han MD S_GMG Pulmonolo gy [address] [address] 02/06/2024 13:02:37 02/11/2024 08:59:21 Mild chronic obstructive pulmonary disease 455553099 J44.9 Obstructiv e sleep apnea syndrome 03448363 G47.33 [id number] Gabo Asif MD S_[facility] Internal Med [address] [place] [address] 03/06/2024 11:12:35 03/06/2024 12:13:16 Wound of skin 479362199 T14.8XXA local care, she is up to date on her tetanus hitesh t ( 2018 ) [id number] Gabo Asif MD [facility] Internal Med [address] [place] [address] 03/27/2024 09:50:24 03/27/2024 10:27:51 Coronary arteriosclerosis 64891892 I25.10 no symptoms Autoimmune hepatitis 408 389179 K75.4 LFT stable Hyperlipidemia 44333323 E78.5 stable Chronic ob structive pulmonary disease 75388159 J44.9 under control Gastroesop hageal reflux disease 738997937 K21.9 needs meds daily to control symptoms Anxiety 38861637 F41.9 under control with meds Sj gren's syndrome 45147282 M35.00 no more sx Osteopenia 229411703 M85 .80 on calcium w/ vit D, Solitary n odule of lung 490833856 R91.1 being watched Osteoarthritis 073947752 M19.90 otc helps Adult heal th examination 269989311 Z00.00 Colonoscop y- 04/2021- in chartMammo gram- 03/2023- - [facility]- 09/2021 -CT 01/26DEXA- ne umovax- 01/11/2009 Prevnar 2017FLU- 05/2023- [facility]- 09[facility]29/20, 10/27/20, [facility] Aortic valve stenosis 60 919360 I35.0 getting card cath History of repair of mitral valve 815271257 Z98.890 no symptoms Screening mammography 24 061401 Z12.31 [id number] Gabo Asif MD [facility] Internal Med [address] [place] [address] 07/23/2024 11:10:12 07/23/2024 12:20:17 Coronary arteriosclerosis 89820017 I25.10 no symptoms Autoimmune hepatitis 408 231414 K75.4 LFT stable Hyperlipidemia 70048967 E78.5 stable Chronic ob structive pulmonary disease 53697389 J44.9 under control Gastroesop hageal reflux disease 128196261 K21.9 needs meds daily to control symptoms Anxiety 19193884 F41.9 under control with meds Sj gren's syndrome 57294340 M35.00 no more sx Osteopenia 964087216 M85 .80 on calcium w/ vit D, DEXA DUE Solitary n odule of lung 425168454 R91.1 being watched Osteoarthritis 093344343 M19.90 otc helps Aortic valve stenosis 60 507973 I35.0 seeing cardiology Adult [facility] th examination 137770370 Z00.00 Colonoscop y- 04/2021- in chartMammo gram- 03/2023- - no moreLDCT- 09/2021 -CT 01/26DEXA- 04/2022, orderedPne umovax- 01/11/2009 Prevnar - 2017FLU- 05/2023- [facility]- 09/29/20, 10/27/20, [facility] History of repair of mitral valve 649156321 Z98.890 no symptoms Screening for disorder 671254846 Z13.9 Long-term drug therapy 297237153 Z79.899 Postmenopausal state 764 87103 Z78.0 [id number] Gabo Asif MD [facility] Internal Med [address] [place] [address] 08/05/2024 11:53:14 08/05/2024 12:27:14 Herpes zoster 1326651 B02.9 she is asking how long to wait for shingles shot now that she has an outbreakad vised 6 monthsshe was hesatent to try something more for pain but she was willing to try a few tramadol if it was not too expensives he will f/u as needed [id number] Gabo Asif MD S_[facility] Internal Med [address] [place] [address] 11/20/2024 10:00:58 11/20/2024 11:51:01 Coronary arteriosclerosis 10483642 I25.10 no symptoms Autoimmune hepatitis 408 635582 K75.4 LFT stable Hyperlipidemia 79902308 E78.5 stable Chronic ob structive pulmonary disease 78553712 J44.9 under control Gastroesop hageal reflux disease 207805328 K21.9 needs meds daily to control symptoms Anxiety 05331473 F41.9 under control with meds Sj gren's syndrome 47414892 M35.00 no more sx Osteopenia 090955473 M85 .80 on calcium w/ vit D, Solitary n odule of lung 096471092 R91.1 being watched Osteoarthritis 722048032 M19.90 otc helps Aortic valve stenosis 60 167352 I35.0 seeing cardiology Adult [facility] th examination 427398583 Z00.00 Colonoscop y- 04/2021- in chartMammo gram- 03/2023- - no moreLDCT- 09/2021 -CT 01/26DEXA- 09/12/2024 Pneumovax- 01/11/2009 Prevnar 2017FLU- 05/2023- [facility]- 09/29/20, 10/27/20[facility] History of repair of mitral valve 933984823 Z98.890 no symptoms Long-term drug therapy 714459989 Z79.899 Mild chron ic obstructive pulmonary disease 046317316 J44.9 Carotid ar jackie stenosis 27049403 I65.29 mild [id number] Gabo Asif MD [facility] Internal [address] [place] [address] 12/04/2024 10:44:22 12/04/2024 12:23:38 Acute diarrhea 543323044 R19.7 [id number] Gabo Asif MD [facility] Internal [address] [place] [address] 12/25/2024 11:47:04 12/25/2024 13:59:30 Transition of care 5007109056 105 Z75.8 already seeing occupation al/physica l therapies, and home health. [id number] Yecenia Han MD [facility]_G Pulmonolo gy [place] [address] [facility] [address] [place] [address] 02/04/2025 14:22:28 02/05/2025 13:52:23 Mild chronic obstructive pulmonary disease 227723133 J44.9 Obstructiv e sleep apnea syndrome 18051319 G47.33 Nodule of lung 388576986 R91.1 Health Concerns Section Related Observation LastModified by Organization Detai ls LastModified Time None Recorded Concern Status LastModified by Organization Details LastModified Time None Recorded Advance Directives Directive Y: asked to bring papers for chart Payers Insurance Date Sequence Insurance Name Policy Number Policy Wilson Covered Member ID Wilson Member ID Guarantor Name 02/04/2025 1 [facility] (MEDICARE REPLACEMENT/A DVANTAGE - PPO) [id number] Zoraida Ferreira [id number] Zoraida Ferreira Notes Date Note Type Note Provider Name and Address Organization Details Recorded Time 08/05/2024 text/html pt is here for a rash on her left side of her ribs and back onset 07/31/24. pt thinks may be shingles..pt daughter has been putting calamine lotion on the rash for her. pt has been taking tylenol otc for hip pain she broke hip on thanksgiving . (in chart) pt is not fasting ([facility]) Nieves Alcocer, ARACELI [address] [facility] [address], [place], [address], [facility] [place] 08/05/2024 12:29:28 11/20/2024 text/html Pt is here today for a 4 month follow up.PT IS FASTING ([facility]) Has a knot on her right [...] 09/30, on caltrate, Gabo Asif MD [address], [place], [address], [employer] 11/20/2024 10:38:58 12/04/2024 text/html Patient is 79y f emale who reports diarrhea that started on Sunday [...] pain no antibiotic's recently ELIZABETH Guerrero [address], [place], [address], [employer] 12/04/2024 11:35:45 12/25/2024 text/html Patient is a 79y /o female who is here for a hospital follow up. Patient was admitted to [facility] on 5/13 for shortness of breath. She was DC 5/16. During visit, patient had CT of chest [...] scan needed at March appointment with Dr. Asif due to 10mm growth noted on scan wears oxygen 3L at all times.meds updated Not taking the spironolactonenot taking the jardiance 10mgnot taking the lorazapam .5mg Esther Kovacs, ORAL THERAPIST-C [address] [facility], [facility] [place], [place], [address], [facility] [employer] 12/25/2024 14:29:47 02/04/2025 text/html Primary care/Ref erring provider: Gabo Asif MD; Jack Carpenter MD Patient is here to go over her mild COPD and RUL nodule management. Initial development of shortness of breath: 2013Duration of shortness of breath: 11 yearsCondition of shortness of breath: stableTiming of shortness of breath: noneFrequency: up to 2 times a dayLimits activities: yesAggravating factors: walking, getting dressed, angerAlleviating factors: rest Modified [employer] (mMRC) Dyspnea Scale - Grade 1Grade 0 I only get breathless with strenuous exercise .Grade 1 I get short of breath when hurrying on the level or walking up a slight hill .Grade 2 I walk slower than people of the same age on the level because of breathlessness or have to stop for breath when walking at my own pace on the level .Grade 3 I stop for breath after walking about 100 yards or after a few minutes on the level .Grade 4 I am too breathless to leave the house or I am breathless when dressing . Treatment history: albuterol HFA since 2014Breo Ellipta 100/25 mcg 2013 - 2017Spiriva Respimat 2017 - 2018Incruse Ellipta 2017 - 2018Anoro Ellipta 62.5/25 mcg since 2019 Other symptoms:Productive cough: noWheezing: noChest tightness: yesOrthopnea: noFrequent throat clearing or swallowing: yesPalpitations: noHeartburn: noEdema: yesEnvironmental exposures:Nicotine smoke: 1.5 ppd [phone] (quit 10 years in between) = 21 pack yearsPaint: noDye: noDust mites: yesMold: noDamp basement: noWood burning stove: noAnimal dander: yes 2 catsCockroaches: noPollen: yesArsenic: noAsbestos: noBeryllium: noCadmium: noChromium: noCoal smoke: noDiesel fumes: noNickel: noSilica: noSoot: noAt home since 01/25/23, the patient occasionally uses her ResMed S9 unit with heated humidification. She does not need the ramp to start low and go up slowly on the pressure anymore. There is some xerostomia in a.m. There is no hose/mask condensation with water. Patient wears a ResMed medium Quattro Air full face mask without chin strap. There is no claustrophobia, no nostril/nose bridge irritation, no facial rash, no facial numbness, no nosebleeding. Patient feels more refreshed upon waking and daytime alertness is improved. Energy levels are sustained for the remainder of the day. Patient sleeps from 11 pm to 7 am and wakes up with an alarm. Snoring: heavy, since 1970s.Snorting: noChoking: noCoughing: yesGasping: noGagging: noSighing: noWitnessed apnea: yesTwitching or jerking of leg(s), arm(s), body, head: noTeeth grinding: noTeeth clenching: noSleeptalking: noSleepwalking: noSleep crying: noBedwetting: noTongue/lip/gum/cheek biting: yesSleeping with open mouth: yesSleep paralysis: noHypnagogic hallucinations: noHypnopompic hallucinations: noVivid dreams: noDifficulty with sleep onset: yesDifficulty with sleep maintenance: yesSleep interruptions: nocturiaPatient wakes up with: fatigue, xerostomia, headache, confusion, mobility impairmentDaytime cataplexy: noMorning hypersomnolence: noAfternoon hypersomnolence: yesCaffeine sources in diet: coffee 2.5 cups per day, chocolate 1 candy bar per weekAssociated medical and psychiatric conditions:Congestive heart failure: noCoronary artery disease: yesMyocardial infarction: noHypertension: yesStroke: noBronchial asthma: noChronic obstructive pulmonary disease: noDepression: yesBipolar disorder: noAnxiety: yesPanic disorder: noPosttraumatic stress disorder: noAttention deficit and hyperactivity disorder: noObsessive Compulsive disorder: noSchizophrenia: noSchizoaffective disorder: noPersonality disorder: noChronic analgesic use: noChronic sedative/hypnotic use: no EPWORTH SLEEPINESS SCALE (ESS) CHANCE OF DOZING SCORE0 = would never doze1 = slight chance of dozing2 = moderate chance of dozing3 = high chance of dozingSITUATION AND CHANCE OF DOZINGSitting and reading - 0Watching television - 0Sitting inactive in a public place (e.g. a theater or meeting) - 0As a passenger in a car for an hour without a break - 0Lying down to rest in the afternoon when circumstances permit - 0Sitting and talking to someone - 0Sitting quietly after lunch without alcohol - 0In a car, while stopped for a few minutes in the traffic - 0TOTAL SCORE 0Subjectively, patient has no chance of dozing. Yecenia Han MD [address] [facility], [facility], [address], [place], [address], [facility] [employer] 02/04/2025 15:14:01 OBGyn Episode No OBEpisode recorded.
== END 2025-02-24 09:21 | disposition home or self-care (01) ==
PROVIDERS: PCP Internal Medicine; Visit Provider Internal Medicine Pulmonary Disease
DX: J43.9 Emphysema, unspecified (principal); R91.1 Solitary pulmonary nodule
CPT/HCPCS: 78815; A9552